=== PATIENT | female | born 1970 | race Caucasian/White ===

== ENCOUNTER → 2016-06-15 | Outpatient (CLI) | payer MEDICARE, OTHER ==
--- NOTE | 2016-06-17 09:47 | MM ---
Reason for exam: screening (asymptomatic). Last mammogram was performed 3 years and 5 months ago. History: Patient is postmenopausal and is nulliparous. Physical Findings: A clinical breast exam by your physician is recommended on an annual basis and results should be correlated with mammographic findings. MG 3D Screening Mammo W/Cad Bilateral CC and MLO view(s) were taken. Prior study comparison: January 26, 2013, bilateral digital screening mammo w/CAD. There are scattered fibroglandular densities. Finding: There are typically benign round calcifications. There is no discrete abnormality. No significant changes in finding since January 26, 2013. ASSESSMENT: Benign, BI-RAD 2 RECOMMENDATION: Routine screening mammogram of both breasts in 1 year.
== END | disposition home or self-care (01) ==
LOC: RADMAMWWP 13:08
PROVIDERS: ATTEND Family Medicine
DX: Z12.31 Encounter for screening mammogram for malignant neoplasm of breast (principal)
CPT/HCPCS: 77063; G0202

== ENCOUNTER → 2016-11-06 | Outpatient (CLI) | payer MEDICARE, OTHER ==
--- NOTE | 2016-11-06 10:47 | XR ---
EXAMINATION TYPE: XR chest 2V DATE OF EXAM: 11/06/2016 COMPARISON: Chest x-ray June 23, 2015. HISTORY: Acute Bronchitis per order. TECHNIQUE: Frontal and lateral views of the chest are obtained. FINDINGS: Low lung volumes are redemonstrated. There is no focal air space opacity, pleural effusion , or pneumothorax seen. The cardiac silhouette size is within normal limits. There is new stimulator device in the lower thoracic spinal canal. IMPRESSION: No suspicious acute pulmonary process.
== END | disposition home or self-care (01) ==
LOC: RADXRMAIN 10:24
PROVIDERS: ATTEND Internal Medicine Sleep Medicine
DX: J20.9 Acute bronchitis, unspecified (principal)
CPT/HCPCS: 71020

== ENCOUNTER → 2016-11-11 | Day surgery (SDC) | payer MEDICARE, OTHER ==
[~2016-11-11] MED LIST: DIAZEPAM 5 MG TAB PO ONE; HYDROcodone/APAP 5-325MG 1 EACH TAB PO PRN; PREMYELOGRAM MEDICATION REVIEW 1 EACH MISC PO ONE
[2016-11-11 08:37] VITALS: RESP 18
--- NOTE | 2016-11-11 10:37 | FL ---
EXAMINATION TYPE: FL myelogram lumbosacral DATE OF EXAM: 11/11/2016 COMPARISON: NONE HISTORY: Radiculopathy, back pain The procedure was explained to the patient, the risks complications and benefits. Informed consent w as obtained and all the patient's questions were answered. A timeout was performed. The L3-L4 level was localized under fluoroscopy. Standard sterile technique was utilized as well as appropriate local anesthesia of 1% Lidocaine. Spinal needle was introduced into the thecal sac under fluoroscopic guidance and 12 mL's of Omni 180 was injected. The patient tolerated the procedure wel l and was sent to CT in stable condition. Postprocedure discharge instructions were discussed with the patient. Patient tolerated procedure wel l. FINDINGS: Mild disc bulging appears to be present L3-4. There is loss of disc height L4-5 L5-S1. Disc bulge may be present L2-L3. IMPRESSION: 1. Successful lumbar myelogram. 2. Disc bulge L2-3, L3-4.
--- NOTE | 2016-11-11 12:19 | CT ---
EXAMINATION TYPE: CT lumbar spine w con DATE OF EXAM: 11/11/2016 COMPARISON: NONE HISTORY: Radiculopathy and Back pain CT DLP: 1432.50 mGycm CONTRAST: CT scan of the lumbar is performed with IV Contrast, patient with 12 ml mL of Omnipaque 180 intrathec al. TECHNIQUE: CT of the lumbar spine is performed on a spiral scan at 3 mm thick sections. Reconstructed images are performed in the coronal and sagittal planes. FINDINGS: T11-T12: No focal disc herniation or significant disc bulge is evident. No spinal canal stenosis or neural foraminal stenosis is present. T12-L1: No focal disc herniation or significant disc bulge is evident. No spinal canal stenosis or neural foraminal stenosis is present. L1-L2: No focal disc herniation or significant disc bulge is evident. No spinal canal stenosis or n eural foraminal stenosis is present L2-L3: No focal disc herniation or significant disc bulge is evident. No spinal canal stenosis or n eural foraminal stenosis is present L3-L4: Mild disc bulge is present with anterior thecal sac contact. No AP spinal canal stenosis is pr esent. Neural foramen are patent. Broad-based disc bulge has moderate anterior thecal sac compression . No AP spinal canal stenosis is present. Foramen are patent. L4-L5: Facet hypertrophy is present. This is causing some left lateral recess stenosis. Correlate wit h left L5 radicular symptoms. No spinal canal stenosis is present. There is moderate left and right f oraminal narrowing. L5-S1: Right paracentral endplate spurring is present from L5. This has mild right paracentral thecal sac compression. No nerve root impingement is identified. Facet hypertrophy is present. No spinal ca nal stenosis present. There is moderate bilateral foraminal narrowing. Vertebral alignment appears normal. Stimulator leads enter from the T11-12 level. IMPRESSION: Left lateral recess stenosis L4-5. Correlate with left L5 radicular symptoms. 2. Disc bulging L3-4 with anterior thecal sac compression. 3. Right paracentral endplate spurring L5. 4. Bilateral moderate foraminal narrowing is present L4-5 L5-S1.
[2016-11-11 12:49] VITALS: BP 121/65; PULSE 70; TEMP 98
== END ==
LOC: RADPROMAIN 07:36 → EDSTATUS 07:40
PROVIDERS: ATTEND Psychiatry & Neurology Neurology
DX: M51.16 Intervertebral disc disorders with radiculopathy, lumbar region (principal); M48.06 Spinal stenosis, lumbar region; M48.07 Spinal stenosis, lumbosacral region
CPT/HCPCS: 62304; 72132; Q9965; 62284

== ENCOUNTER 2016-11-12 08:18 | Day surgery (SDC) | payer MEDICARE, OTHER ==
[2016-11-10 16:51] VITALS: BMI 37.4
[~2016-11-12 08:18] MED LIST changes: -DIAZEPAM 5 MG TAB PO ONE; -HYDROcodone/APAP 5-325MG 1 EACH TAB PO PRN; +LACTATED RINGERS 1,000 ML IV ONE; +LACTATED RINGERS 1,000 ML IV SCH; +LIDOCAINE 1% 20 ML VIAL (10MG/ML) FOR IV START INTRADERMA PRN; -PREMYELOGRAM MEDICATION REVIEW 1 EACH MISC PO ONE; +Pre Op ABX Message 1 EACH MISC MISCELLANE ONE
[2016-11-12 08:49] VITALS: RESP 16; TEMP 98
[2016-11-12 08:53] LABS: Glucose,Whole Blood 90 mg/dL (75-99)
[2016-11-12] MEDS ORDERED: MIDAZOLAM 2 MG/2 ML VIAL ONE (09:26)
[2016-11-12] MEDS ORDERED: fentaNYL (PF) 50 MCG/ML 2 ML AMP ONE (09:26)
[2016-11-12] MEDS ORDERED: PROPOFOL 10 MG/ML 20 ML VIAL IV ONE (09:26)
[2016-11-12] MEDS ORDERED: KETAMINE 10 MG/ML 20 ML VIAL ONE (09:26)
[2016-11-12] MEDS ORDERED: LIDOCAINE 1% INJ 10MG/ML (20 ML MDV) ONE (09:26)
[2016-11-12] MEDS ORDERED: LIDOCAINE 2% (PF) 20 MG/ML 10ML INHALATION ONE (09:35)
[2016-11-12 10:06] VITALS: BP 137/74; PULSE 78
[2016-11-16 16:40] LABS: Mis test requested (Non-blood) Pneumocytis DFA
--- NOTE | 2016-11-20 09:54 | PCN ---
DATE OF PROCEDURE: 11/12/2016 PROCEDURE: 1. Bronchoscopy. 2. Bronchoalveolar lavage. INDICATION: Recurrent pneumonia. OPERATIVE DETAIL: Patient was prepared and draped in the usual fashion. Informed consent obtained from the patient. The tip of the scope was passed beyond the vocal cords through the right naris. The vocal cords were normal structure and function. Tip of the scope was passed beyond the vocal cords and trachea. There was diffuse erythema, edema bilaterally present. Some mucous plugging was present. Tip of the scope was wedged into the right upper lobe subsegment BAL was performed followed by right lower lobe and left lower lobe. No endobronchial mass or lesion was identified. Some mucous plug was scattered and seen, which were suctioned and cleaned and plug. Patient tolerated the procedure well. Besides transient desaturation, no complications were noted.
== END 2016-11-12 10:21 | disposition home or self-care (01) ==
LOC: ORWHC2ENDO 08:18
PROVIDERS: ATTEND Internal Medicine Sleep Medicine
DX: J18.9 Pneumonia, unspecified organism (principal); J44.9 Chronic obstructive pulmonary disease, unspecified; E07.9 Disorder of thyroid, unspecified; K21.9 Gastro-esophageal reflux disease without esophagitis; G47.33 Obstructive sleep apnea (adult) (pediatric); Z86.718 Personal history of other venous thrombosis and embolism; Z79.01 Long term (current) use of anticoagulants; Z79.899 Other long term (current) drug therapy
CPT/HCPCS: 87798 ×5; 87541; 87496; 87498; 87529 ×2; 88108; 88305; 87252; 87502 ×2; 87070; 87205; 87116; 87102; 87206; 87299; 31624; J2250; J2001 ×2; J3010; J2704

== ENCOUNTER → 2017-01-11 | Outpatient (CLI) | payer MEDICARE, OTHER | END | disposition home or self-care (01) | LOC: LABWHC1 14:56 | PROVIDERS: ATTEND Obstetrics & Gynecology | DX: N91.2 Amenorrhea, unspecified (principal) | CPT/HCPCS: 36415; 82670; 83001; 83002; 84146; 84443 ==

== ENCOUNTER 2017-02-16 12:07 | Inpatient (IN) | payer MEDICARE, OTHER ==
[2017-02-16] MEDS: PIPERACILLIN-TAZOBACTAM 3.375 GM in DEXTROSE/WATER 1 50ML.BAG IVPB SCH ×2 (18:03→22:32)
[2017-02-16] MEDS ORDERED: BREXPIPRAZOLE 1 MG PO SCH (21:00)
[2017-02-16] MEDS ORDERED: RIVAROXABAN 10 MG TAB PO SCH (21:00)
[2017-02-16] MEDS: HYDROcodone/APAP 10-325MG 1 EACH TAB PO SCH (21:20)
[2017-02-16] MEDS: PREGABALIN 75 MG CAP PO SCH (21:28)
[2017-02-16] MEDS: ALPRAZolam 0.5 MG TAB PO SCH (21:28)
[2017-02-16] MEDS: ZOLPIDEM 10 MG TAB PO SCH (22:35)
[2017-02-16] MEDS: PANTOPRAZOLE 40 MG TABLET PO SCH (22:35)
[2017-02-16] MEDS: SERTRALINE 50 MG TAB PO SCH (22:35)
[2017-02-16] MEDS: MONTELUKAST 10 MG TAB PO SCH (22:35)
[2017-02-17] MEDS: PIPERACILLIN-TAZOBACTAM 3.375 GM in DEXTROSE/WATER 1 50ML.BAG IVPB SCH ×3 (05:12→16:04)
[2017-02-17] MEDS: LEVOTHYROXINE 75 MCG TAB PO SCH (06:47)
[2017-02-17] MEDS: SERTRALINE 50 MG TAB PO SCH ×2 (09:25→21:25)
[2017-02-17] MEDS: HYDROcodone/APAP 10-325MG 1 EACH TAB PO SCH ×2 (09:28→21:24)
[2017-02-17] MEDS: ALPRAZolam 0.5 MG TAB PO SCH ×2 (09:28→21:24)
[2017-02-17] MEDS: PREGABALIN 75 MG CAP PO SCH ×2 (09:42→21:25)
[2017-02-17] MEDS: SYMBICORT 160-4.5 MCG INHALER INHALATION SCH ×2 (10:42→21:33)
--- NOTE | 2017-02-17 11:37 | XR ---
EXAMINATION TYPE: XR panorex DATE OF EXAM: 02/17/2017 COMPARISON: NONE HISTORY: . Dental abscess TECHNIQUE: Single Panorex view of the mandible is submitted. FINDINGS: There is extensive dental caries noted to involve the remaining teeth. Periapical abscesses are noted to involve the lower incisors, canines and premolars on the left. Periapical abscesses als o noted to involve the upper right lateral incisor and canine. No bony destructive process identified . IMPRESSION: Extensive dental caries and periapical abscesses as noted.
--- NOTE | 2017-02-17 12:07 | HP ---
HISTORY AND PHYSICAL CHIEF COMPLAINT: A 46-year-old, white female, admitted with left facial swelling. HISTORY OF PRESENT ILLNESS: A 46-year-old, white female, with left facial swelling of significant fashion in the last 48 hours to the point her left side of her face is much greater in size than the right side of the face. Increased pain, swelling and redness to the left cheek from her ear down to the mouth area. She has poor teeth inside the mouth. She has periodontal infection with abscess possibly going into the cheek and jaw at which time she was admitted to the hospital, IV Zosyn was started with ENT and periodontic consults. HOME MEDICATIONS: 1. Ambien 10 mg daily. 2. Zoloft 50 b.i.d. 3. Xarelto 20 daily. 4. Lyrica 150 b.i.d. 5. Omeprazole 20 daily. 6. Singulair 10 daily. 7. Levothyroxine 150 mcg daily. 8. [place] 10/325 t.i.d. 9. Symbicort 2 puffs b.i.d. 10.Vitamin D2 fifty thousand units weekly. 11.Rexulti 1 mg daily. 12.Albuterol 2 puffs q.i.d. 13.Xanax 1 mg q.h.s. and 0.5 q.a.m. 14-POINT REVIEW OF SYSTEMS: Negative except for mentioned in HPI. PHYSICAL EXAM: Vital signs stable, afebrile. CARDIOVASCULAR: S1, S2. LUNGS: Clear. ENDOCRINE: BMI is over 40. HEMATOLOGY: Negative Homans. SKIN: Normal. EXTREMITIES: Normal dorsalis pedis, +2 radial pulse. OPHTHALMOLOGICAL: Pupils equal, round, and react to light and accommodation. ENT: Shows left facial swelling from the ear down to the jaw. A large amount of swelling in the left facial periodontal area. There is tenderness to palpation. inside the mouth on the inferior lateral gum line and posterior teeth suggestive of an abscess. She has severe teeth x10 or 15 that are just cut in half on the left lower jaw radiating all the way back to the area of abscess. PSYCH: Fair mood and affect. NEUROLOGIC: Alert and orient x3. ASSESSMENT: 1. Periodontal abscess, periodontal disease. 2. Hypothyroidism. 3. History of pulmonary embolism. 4. History of depression. 5. History of schizoaffective. 6. History of chronic obstructive pulmonary disease. 7. Anxiety. 8. Obesity. 9. Pickwickian-type symptom. 10.Obstructive sleep apnea. Continue current treatment with IV Zosyn, await ENT recommendations and periodontal Infection Disease. Possible I&D of an abscess inside the jaw will be done. Continue with IV Zosyn in the meantime. MMODL / IJN: [id number] /
[2017-02-17] MEDS: MONTELUKAST 10 MG TAB PO SCH (21:25)
[2017-02-17] MEDS: PANTOPRAZOLE 40 MG TABLET PO SCH (21:25)
[2017-02-17] MEDS: ZOLPIDEM 10 MG TAB PO SCH (21:25)
[2017-02-18] MEDS: PIPERACILLIN-TAZOBACTAM 3.375 GM in DEXTROSE/WATER 1 50ML.BAG IVPB SCH ×2 (01:30→08:57)
[2017-02-18 08:09] VITALS: BP 140/72; PULSE 57; RESP 18; TEMP 97.8
[2017-02-18] MEDS: SERTRALINE 50 MG TAB PO SCH (08:11)
[2017-02-18] MEDS: LEVOTHYROXINE 75 MCG TAB PO SCH (08:11)
[2017-02-18] MEDS: ALPRAZolam 0.5 MG TAB PO SCH (08:11)
[2017-02-18] MEDS: HYDROcodone/APAP 10-325MG 1 EACH TAB PO SCH (08:11)
[2017-02-18] MEDS: PREGABALIN 75 MG CAP PO SCH (08:14)
--- NOTE | 2017-02-18 09:06 | CONS ---
CONSULTATION DATE OF CONSULTATION: 02/18/2017 CHIEF COMPLAINT: Right jaw is swollen. HISTORY OF PRESENT ILLNESS: The patient is a 46-year-old, female, who presented to the ER on 02/16 complaining of pain and swelling to the left face and mandible. She was evaluated by her primary care physician and was recommended she go to the ER. She was evaluated and then admitted into observation. She was started on IV antibiotics. PAST MEDICAL HISTORY: Significant for asthma, COPD, fibromyalgia, GERD, history of a PE, seizure disorder, sleep apnea and hypothyroidism. She also has chronic back pain. PAST SURGICAL HISTORY: Significant for back surgery, bariatric surgery, cholecystectomy, history of bronchoscopy and knee arthroscopy. MEDICATIONS: Ambien, Zoloft, Xarelto, Lyrica, singular, Synthroid, Flora p.r.n., vitamins and Xanax. She is currently on IV Rocephin. PAST SOCIAL HISTORY: Negative. She denies smoking, alcohol abuse or drug abuse. PHYSICAL EXAM: The patient is resting comfortably in bed. Her vital signs were stable. She is afebrile. Head and neck examination reveals mild soft tissue swelling of the left mandibular region. There is no cervical swelling or lymphadenopathy. The area is soft and not indurated. Intraorally, there are no oral lesions. There is mild swelling of the left posterior vestibule. The dentition is broken down to the gum line. All of her remaining teeth exhibit gross carious and only roots remain. Radiographic examination and panoramic x-ray reveals roots being present in the lower left mandible and sporadically spaced throughout the maxilla and mandible. ASSESSMENT: Necrotic teeth, left buccal space abscess. PLAN: The patient will continue the IV antibiotic and she will be discharged on 02/17 and was instructed to present to my office n.p.o. for the removal of the offending teeth. She is to continue a soft diet until that point and to apply heat to the area. MMODL / IJN: [id number] /
[2017-02-18] MEDS: SYMBICORT 160-4.5 MCG INHALER INHALATION SCH (09:07)
--- NOTE | 2017-02-18 11:12 | DS ---
DISCHARGE SUMMARY DATE OF ADMISSION: 02/16/2017 DATE OF DISCHARGE: 02/18/2017 DISCHARGE MEDICATIONS: 1. Xarelto 20 mg daily. 2. Lyrica 150 b.i.d. 3. Singulair 10 daily. 4. [place] 10/325 . 5. Symbicort 2 puffs b.i.d. 6. Zoloft 50 b.i.d. 7. Rexulti 1 ng q.h.s. 8. Omeprazole 20 daily. 9. Ambien 10 daily. 10.Synthroid 150 p.o. daily. 11.Xanax 1 mg at night and 0.5 in the morning. CONDITION: Stable. PROGNOSIS: Guarded. Ambulate as tolerated. HOSPITAL COURSE OF EVENTS: This is a white female who was admitted with severe swelling to the facial area with periodontal infection versus abscess in the cheek and the jaw, started IV Zosyn for 2 days. Improved to the point where general surgeon saw the patient. Patient was sent home in stable condition to have surgery on her jaw today in the office by physician. MMODL / IJN: [id number] /
[2017-02-21] MEDS ORDERED: ERGOCALCIFEROL 50,000 UNIT CAP PO SCH (12:00)
== END 2017-02-18 09:07 | disposition home or self-care (01) | DRG 159 ==
LOC: 3OBS 13:11 → OBSVTOIN 02-17 16:12
PROVIDERS: ADMIT Family Medicine; ATTEND Family Medicine
DX: K05.219 Aggressive periodontitis, localized, unspecified severity (principal); F25.9 Schizoaffective disorder, unspecified; F32.9 Major depressive disorder, single episode, unspecified; J44.9 Chronic obstructive pulmonary disease, unspecified; E03.9 Hypothyroidism, unspecified; K02.9 Dental caries, unspecified; E66.9 Obesity, unspecified; F41.9 Anxiety disorder, unspecified; G40.909 Epilepsy, unspecified, not intractable, without status epilepticus; G47.33 Obstructive sleep apnea (adult) (pediatric); K21.9 Gastro-esophageal reflux disease without esophagitis; M79.7 Fibromyalgia; G89.29 Other chronic pain; M54.9 Dorsalgia, unspecified; Z79.01 Long term (current) use of anticoagulants; Z79.899 Other long term (current) drug therapy
CPT/HCPCS: 70355; 94640

== ENCOUNTER → 2017-02-23 | Outpatient (CLI) | payer MEDICARE, OTHER ==
--- NOTE | 2017-02-24 06:45 | BD ---
EXAMINATION TYPE: MG DEXA axial skeleton. DATE OF EXAM: 02/23/2017 COMPARISON: NONE CLINICAL HISTORY: Post menopausal symptoms per order. Height: 64 IN Weight: 223 FRAX RISK QUESTIONS: Alcohol (3 or more units per day): NO Family History (Parent hip fracture): NO Glucocorticoids (More than 3mos): NO (Ex: prednisone, prednisolone, methylprednisolone, dexamethasone, and hydrocortisone). History of Fracture in Adulthood: NO Secondary Osteoporosis: 1. Type 1 Diabetes: NO 2. Hyperthyroidism: NO 3. Menopause before 45: YES 41 4. Malnutrition: NO 5. Chronic liver disease: NO Rheumatoid Arthritis: NO Current Tobacco Use: NO RISK FACTORS HISTORY OF: Surgery to Spine: L-SPINE When: 2013 Active: MODERATE Postmenopausal woman: AGE 41 MEDICATIONS: Thyroid Medications: YES Which medication: Synthroid How Lon+ YRS Additional Medications: SYNTHROID, ANXIETY MEDS, DEPRESSION MEDS, AMBIEN, VIT D, PAIN MEDS, ZOLOFT, X ANAX, AMOXICILLIN EXAM MEASUREMENTS: Bone mineral densitometry was performed using the [employer] System. L-SPINE SURGERY IN 2013 Bone mineral density about the R hip (g/cm2): 0.742 Bone mineral density about the L hip (g/cm2): 0.747 T Score values are as follows: -----R Neck: -2.1 -----L Neck: -2.1 -----R Total: -1.9 -----L Total: -1.5 Bone mineral density BASELINE IMPRESSION: Osteopenia (T Score between -2.5 and -1 as noted by T score values in both hips. There is slightly increased risk of fracture and the patient may be considered for treatment. Re-Screen 2-5 years. NOTE: T-SCORE=SD OF THE YOUNG ADULT MEAN.
== END | disposition home or self-care (01) ==
LOC: RADBDWWP 15:40
PROVIDERS: ATTEND Family Medicine
DX: M85.851 Other specified disorders of bone density and structure, right thigh (principal); M85.852 Other specified disorders of bone density and structure, left thigh
CPT/HCPCS: 77080

== ENCOUNTER → 2017-07-12 | Outpatient (CLI) | payer MEDICARE, OTHER ==
[2017-07-12 12:01] LABS: Basophils % (A) 1 %; Eosinophils # (A) 0.2 k/uL (0-0.7); Eosinophils % (A) 5 %; HCT 40.4 % (34.0-46.0); HGB 12.9 gm/dL (11.4-16.0); Lymphocytes # (A) 1.2 k/uL (1.0-4.8); Lymphocytes % (A) 27 %; MCH 29.3 pg (25.0-35.0); MCHC 31.9 g/dL (31.0-37.0); Mean Platelet Volume 8.3; Monocytes # (A) 0.3 k/uL (0-1.0); Monocytes % (A) 6 %; Neutrophils # (A) 2.7 k/uL (1.3-7.7); Neutrophils % (A) 61 %; Platelet Count 250 k/uL (150-450); RBC 4.39 m/uL (3.80-5.40); RDW 13.7 % (11.5-15.5); WBC 4.5 k/uL (3.8-10.6)
[2017-07-12 12:11] LABS: Anion Gap 7 mmol/L; Blood Urea Nitrogen 7 mg/dL (7-17); Calcium 9.7 mg/dL (8.4-10.2); Carbon Dioxide 29 mmol/L (22-30); Chloride 104 mmol/L (98-107); Glucose 115 mg/dL (74-99); Sodium 140 mmol/L (137-145)
[2017-07-12 12:17] LABS: Potassium 5.1 mmol/L (3.5-5.1)
== END | disposition home or self-care (01) ==
LOC: LABWHC1 11:25
PROVIDERS: ATTEND Orthopaedic Surgery
DX: Z01.812 Encounter for preprocedural laboratory examination (principal)
CPT/HCPCS: 36415; 80048; 85025; 93005

== ENCOUNTER → 2017-09-02 | Outpatient (CLI) | payer MEDICARE, OTHER ==
--- NOTE | 2017-09-02 11:39 | CT ---
EXAMINATION TYPE: CT cervical spine wo con DATE OF EXAM: 09/02/2017 COMPARISON: 06/23/2015 HISTORY: Neck pain with numbness, tingling bilateral arms CT DLP: 1284 mGycm. Automated Exposure Control for Dose Reduction was Utilized. TECHNIQUE: CT scan of the cervical spine is obtained without contrast, axial images are obtained, sa gittal and coronal reformatted images are also reviewed. FINDINGS: Cervical spine is visualized in its entirety from C1 through upper thoracic levels, demonst rates satisfactory alignment without evidence of acute fracture or dislocation. Prevertebral soft ti ssue appears within normal limits. The C1-C2 articulation is within normal limits on the coronal ladan ges. Review of axial images shows no significant spinal canal stenosis or neural foraminal narrowing at an y cervical level. Mild degenerative changes are seen at C4-C7 displayed as 3 mild facet arthropathy a nd uncovertebral hypertrophy without significant neural foraminal stenosis. Degenerative cystic carey es are seen at C1 and C2. There is straightening of usual cervical lordosis. The previously questione d possible disc herniation at C6-C7 is not definitively seen on today's examination. Evaluation for d isc herniation is better suited with MRI. No pneumothorax is seen within the lung apices. IMPRESSION: 1. No acute fracture or malalignment evident in the cervical spine. 2. Straightening of usual cervical lordosis that may relate to muscular strain, spasm or patient posi tioning. 3. Minimal degenerative disc disease of the cervical spine without gross evidence of spinal canal pia nosis. The previously questioned C6-C7 disc herniation is not demonstrated on today's examination and could be better evaluated with MRI.
== END | disposition home or self-care (01) ==
LOC: RADCTMAIN 10:52
PROVIDERS: ATTEND Family Medicine
DX: R20.2 Paresthesia of skin (principal); M50.321 Other cervical disc degeneration at C4-C5 level; M50.322 Other cervical disc degeneration at C5-C6 level
CPT/HCPCS: 72125

== ENCOUNTER → 2018-05-09 | Outpatient (CLI) | payer MEDICARE, OTHER ==
[2018-05-09 11:57] LABS: Anisocytosis Slight; Basophils % (A) 1 %; Eosinophils # (A) 0.2 k/uL (0-0.7); Eosinophils % (A) 4 %; HCT 36.2 % (34.0-46.0); HGB 11.3 gm/dL (11.4-16.0); Hypochromasia Marked; Lymphocytes % (A) 23 %; MCH 25.1 pg (25.0-35.0); MCHC 31.1 g/dL (31.0-37.0); MCV 80.5 fL (80.0-100.0); Mean Platelet Volume 8.6; Monocytes # (A) 0.2 k/uL (0-1.0); Monocytes % (A) 6 %; Neutrophils # (A) 2.7 k/uL (1.3-7.7); Neutrophils % (A) 64 %; Platelet Count 253 k/uL (150-450); RBC 4.49 m/uL (3.80-5.40); RDW 16.2 % (11.5-15.5); WBC 4.2 k/uL (3.8-10.6)
[2018-05-09 17:15] LABS: Albumin 4.3 g/dL (3.80-4.90); Calcium 8.8 mg/dL (8.7-10.3); Potassium 4.4 mmol/L (3.5-5.5)
[2018-05-09 21:42] LABS: Hemoglobin A1C 5.4 % (4.0-6.0)
== END | disposition home or self-care (01) ==
LOC: LABWHC1 10:18
PROVIDERS: ATTEND Orthopaedic Surgery
DX: Z01.812 Encounter for preprocedural laboratory examination (principal)
CPT/HCPCS: 36415; 80048; 82040; 83036; 85025; 87070; 93005

== ENCOUNTER 2018-07-17 15:07 | Emergency (ER) | payer MEDICARE, OTHER ==
[2018-07-17 16:38] LABS: Basophils % (A) 1 %; Eosinophils # (A) 0.3 k/uL (0-0.7); Eosinophils % (A) 5 %; HCT 32.5 % (34.0-46.0); HGB 10.3 gm/dL (11.4-16.0); Hypochromasia Moderate; Lymphocytes # (A) 1.6 k/uL (1.0-4.8); Lymphocytes % (A) 27 %; MCH 25.1 pg (25.0-35.0); MCHC 31.7 g/dL (31.0-37.0); Mean Platelet Volume 7.9; Monocytes # (A) 0.4 k/uL (0-1.0); Monocytes % (A) 7 %; Neutrophils # (A) 3.4 k/uL (1.3-7.7); Neutrophils % (A) 59 %; Platelet Count 264 k/uL (150-450); RBC 4.11 m/uL (3.80-5.40); RDW 15.8 % (11.5-15.5); WBC 5.8 k/uL (3.8-10.6)
[2018-07-17 16:48] LABS: ALT 46 U/L (9-52); AST 30 U/L (14-36); Albumin 3.6 g/dL (3.5-5.0); Alkaline Phosphatase 129 U/L (38-126); Anion Gap 3 mmol/L; Blood Urea Nitrogen 8 mg/dL (7-17); Calcium 8.4 mg/dL (8.4-10.2); Carbon Dioxide 28 mmol/L (22-30); Chloride 110 mmol/L (98-107); Glucose 78 mg/dL (74-99); Potassium 4.2 mmol/L (3.5-5.1); Sodium 141 mmol/L (137-145); Total Bilirubin 0.3 mg/dL (0.2-1.3); Total Protein 6.1 g/dL (6.3-8.2)
[2018-07-17] MEDS ORDERED: KETOROLAC 60 MG/2 ML VIAL IM STA (17:19)
[2018-07-17] MEDS ORDERED: HYDROcodone/APAP 10-325MG 1 EACH TAB PO ONE (17:19)
--- NOTE | 2018-07-17 17:19 | ED ---
Wound/Laceration HPI - General Chief Complaint: Wound/Laceration Stated Complaint: open wound Time Seen by Provider: 07/17/18 16:49 Source: patient, RN notes reviewed, old records reviewed Mode of arrival: ambulatory Limitations: no limitations - History of Present Illness Initial Comments: Patient a 47-year-old female who presents today with chief complaint of a lower abdominal wound. Patient reports that she's had this wound for the past 2 years after coming type procedure after gastric sleeve surgery and she lost weight. Patient reports that she is follow-up with her doctors he has a jose Mayorga who performed his procedure. She is also followed intermittently with wound care. She states she starts to see wound care on Wednesday. She comes in today with increased pain over the lower abdomen. She denies any nausea vomiting chest pain or shortness breath. She denies any fevers. She reports that she does use some dry dressings over the area. She is currently on amoxicillin for an upper respiratory infection. - Related Data Home Medications Medication Instructions Recorded Confirmed Rivaroxaban [Xarelto] 20 mg PO HS 11/20/13 07/17/18 Pregabalin [Lyrica] 150 mg PO TID 10/09/14 07/15/18 Montelukast [Singulair] 10 mg PO HS 06/23/15 07/17/18 Brexpiprazole [Rexulti] 1 mg PO HS 02/16/17 07/17/18 Budesonide/Formoterol Fumarate 2 puff INHALATION RT-BID 02/16/17 07/17/18 [Symbicort 160-4.5 Mcg Inhaler] Levothyroxine Sodium [Synthroid] 150 mcg PO DAILY 02/16/17 07/17/18 Omeprazole 20 mg PO HS 02/16/17 07/17/18 Sertraline [Zoloft] 50 mg PO BID 02/16/17 07/17/18 Suvorexant [Belsomra] 20 mg PO HS PRN 05/03/18 07/17/18 buPROPion HCL [Wellbutrin SR] 150 mg PO BID 07/08/18 07/17/18 Meloxicam [Mobic] 15 mg PO DAILY 07/17/18 07/17/18 Previous Rx's Medication Instructions Recorded Cephalexin [Keflex] 500 mg PO Q8HR #21 cap 07/17/18 Allergies Allergy/AdvReac Type Severity Reaction Status Date / Time No Known Allergies Allergy Verified 07/17/18 17:09 Review of Systems ROS Statement: Those systems with pertinent positive or pertinent negative responses have been documented in the HPI. ROS Other: All systems not noted in ROS Statement are negative. Past Medical History Past Medical History: Asthma, COPD, Fibromyalgia, GERD/Reflux, Pneumonia, Pulmonary Embolus (PE), Seizure Disorder, Sleep Apnea/CPAP/BIPAP, Thyroid Disorder Additional Past Medical History / Comment(s): Chronic asthma, chronic COPD, recurrent pneumonias, hx of respiratory stridor, PE in 2003 and 2009, MAGALI with CPAP used most of the time, psuedo seizures with last one being 16 months ago, past gastric ulcer, DDD, LOWER BACK PAIN- RADIATES DOWN RT LEG, R toes, neuropathy, generalized pain from fibromyalgia, chronic MIGRAINES, hypothyroidism, urinary leakage at times, wound on abdomen History of Any Multi-Drug Resistant Organisms: None Reported Past Surgical History: Back Surgery, Bariatric Surgery, Cholecystectomy, Joint Replacement, Orthopedic Surgery Additional Past Surgical History / Comment(s): 11/12/16 bronchoscopy wit BAL, gastric bypass 2011, 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 Past Anesthesia/Blood Transfusion Reactions: No Reported Reaction Past Psychological History: Anxiety, Depression Smoking Status: Never smoker - Past Family History Brother(s) Family Medical History: Cancer Additional Family Medical History / Comment(s): spine Father Family Medical History: Coronary Artery Disease (CAD), CVA/TIA, Diabetes Mellitus, Hypertension, Thyroid Disorder Additional Family Medical History / Comment(s): X3 STROKES, STENTS IN HEART, Pacemaker Mother Family Medical History: Diabetes Mellitus, Hypertension, Thyroid Disorder Additional Family Medical History / Comment(s): KNEE REPLACEMENTS General Exam - General Exam Comments Initial Comments: 47-year-old female. Alert and oriented. No distress. Limitations: no limitations General appearance: alert, in no apparent distress Head exam: Present: atraumatic, normocephalic, normal inspection Eye exam: Present: normal appearance, PERRL, EOMI. Absent: scleral icterus, conjunctival injection, periorbital swelling ENT exam: Present: normal exam, mucous membranes moist Neck exam: Present: normal inspection. Absent: tenderness, meningismus, lymphadenopathy Respiratory exam: Present: normal lung sounds bilaterally. Absent: respiratory distress, wheezes, rales, rhonchi, stridor Cardiovascular Exam: Present: regular rate, normal rhythm, normal heart sounds. Absent: systolic murmur, diastolic murmur, rubs, gallop, clicks GI/Abdominal exam: Present: soft, normal bowel sounds, other (Patient has a 2 cm x 2 cm chronic appearing wound over the lower abdomen above the suprapubic region. Patient has no surrounding erythema. No crepitus noted.). Absent: distended, tenderness, guarding, rebound, rigid Extremities exam: Present: normal inspection, full ROM, normal capillary refill. Absent: tenderness, pedal edema, joint swelling, calf tenderness Back exam: Present: normal inspection Neurological exam: Present: alert, oriented X3, CN II-XII intact Psychiatric exam: Present: normal affect, normal mood Skin exam: Present: warm, dry, intact, normal color. Absent: rash Course Vital Signs 07/17/18 15:16 Temperature 97.5 F L Pulse Rate 86 Respiratory 16 Rate Blood Pressure 143/85 O2 Sat by Pulse 98 Oximetry Medical Decision Making - Medical Decision Making 47-year-old female presents return today for evaluation of chronic wound. She denies increased pain. She is on [place] chronically. She has a 2 x 2 centimeter chronic appearing wound. No surrounding skin changes. Slight drainage. Your wound culture was obtained. She started to see wound care on Wednesday. I discussed this time that her wound has been ongoing for 2 years. I do not see any significant emergent intervention at this time especially since she is seeing wound care on Wednesday. I discussed switching her antibiotic to Keflex prescription for any early worsening infection. Patient agrees. Patient was given dry dressings. I discussed strict return parameters. Given 1 dose of pain medication in ER. - Lab Data Result diagrams: 07/17/18 16:25 07/17/18 16:25 Lab Results 07/17/18 07/17/18 Range/Units 16:25 16:25 WBC 5.8 (3.8-10.6) k/uL RBC 4.11 (3.80-5.40) m/uL Hgb 10.3 L (11.4-16.0) gm/dL Hct 32.5 L (34.0-46.0) % MCV 79.0 L (80.0-100.0) fL MCH 25.1 (25.0-35.0) pg MCHC 31.7 (31.0-37.0) g/dL RDW 15.8 H (11.5-15.5) % Plt Count 264 (150-450) k/uL Neutrophils % 59 % Lymphocytes % 27 % Monocytes % 7 % Eosinophils % 5 % Basophils % 1 % Neutrophils # 3.4 (1.3-7.7) k/uL Lymphocytes # 1.6 (1.0-4.8) k/uL Monocytes # 0.4 (0-1.0) k/uL Eosinophils # 0.3 (0-0.7) k/uL Basophils # 0.0 (0-0.2) k/uL Hypochromasia Moderate Sodium 141 (137-145) mmol/L Potassium 4.2 (3.5-5.1) mmol/L Chloride 110 H (98-107) mmol/L Carbon Dioxide 28 (22-30) mmol/L Anion Gap 3 mmol/L BUN 8 (7-17) mg/dL Creatinine 0.80 (0.52-1.04) mg/dL Est GFR (CKD-EPI)AfAm >90 (>60 ml/min/1.73 sqM) Est GFR (CKD-EPI)NonAf 90 (>60 ml/min/1.73 sqM) Glucose 78 (74-99) mg/dL Calcium 8.4 (8.4-10.2) mg/dL Total Bilirubin 0.3 (0.2-1.3) mg/dL AST 30 (14-36) U/L ALT 46 (9-52) U/L Alkaline Phosphatase 129 H (38-126) U/L Total Protein 6.1 L (6.3-8.2) g/dL Albumin 3.6 (3.5-5.0) g/dL Disposition Clinical Impression: Chronic wound infection of abdomen Disposition: HOME SELF-CARE Condition: Good Instructions (If sedation given, give patient instructions): Chronic Wound Care (ED) Additional Instructions: Patient is advised of close follow-up with primary care physician and wound care as directed. Patient should return to the emergency department if any alarming signs or symptoms occur. Prescriptions: Cephalexin [Keflex] 500 mg PO Q8HR #21 cap Is patient prescribed a controlled substance at d/c from ED?: No Referrals: Tyler Black MD [Primary Care Provider] - 1-2 days Time of Disposition: 17:17
[2018-07-17 18:18] VITALS: BP 137/79; PULSE 85; RESP 18; TEMP 98
== END 2018-07-17 18:05 | disposition home or self-care (01) ==
LOC: EC 15:07
DX: T81.43XA Infection following a procedure, organ and space surgical site, initial encounter (principal); J06.9 Acute upper respiratory infection, unspecified; J44.9 Chronic obstructive pulmonary disease, unspecified; M79.7 Fibromyalgia; K21.9 Gastro-esophageal reflux disease without esophagitis; E03.9 Hypothyroidism, unspecified; G40.909 Epilepsy, unspecified, not intractable, without status epilepticus; G47.33 Obstructive sleep apnea (adult) (pediatric); G62.9 Polyneuropathy, unspecified; F32.9 Major depressive disorder, single episode, unspecified; F41.9 Anxiety disorder, unspecified; Z79.01 Long term (current) use of anticoagulants; Z79.1 Long term (current) use of non-steroidal anti-inflammatories (NSAID); Z79.51 Long term (current) use of inhaled steroids; Z79.890 Hormone replacement therapy; Z79.899 Other long term (current) drug therapy; Z98.84 Bariatric surgery status; Z90.49 Acquired absence of other specified parts of digestive tract; Z86.711 Personal history of pulmonary embolism; Z87.01 Personal history of pneumonia (recurrent); Z86.69 Personal history of other diseases of the nervous system and sense organs; Z87.11 Personal history of peptic ulcer disease; Z96.641 Presence of right artificial hip joint; Z96.651 Presence of right artificial knee joint; Z87.39 Personal history of other diseases of the musculoskeletal system and connective tissue; Z99.89 Dependence on other enabling machines and devices
CPT/HCPCS: 36415; 80053; 85025; 87070; 87205; 99284; 96372; J1885

== ENCOUNTER 2018-08-07 12:45 | Emergency (ER) | payer MEDICARE, OTHER ==
[2018-08-07 12:56] VITALS: RESP 18
--- NOTE | 2018-08-07 13:15 | ED ---
Skin/Abscess/FB HPI - General Chief complaint: Skin/Abscess/Foreign Body Stated complaint: rash on rt arm Time Seen by Provider: 08/07/18 13:10 Source: patient Mode of arrival: ambulatory Limitations: no limitations - History of Present Illness Initial comments: 47-year-old female presenting today for chief complaint of right upper extremity erythema. Patient states that 3 weeks ago she had a blood draw, she states she did notice mild surrounding erythema but time. Patient states that since it has been increasing. Patient states she has erythema from mid forearm up to mid bicep. Patient states is warm to touch and very itchy. Patient is concerned about infection and presented today for evaluation. Patient has been taking bactrim outpatient since Wednesday for a chronic wound of the abdomen s/p a tummy tuck. Patient denies fever or chills, general malaise, night sweats. Patient states she feels well however the itching has become uncomfortable. Remaining review of systems negative, patient denies any recent upper extremity swelling, shortness of breath, chest pain, back pain, abdominal pain, nausea or vomiting, numbness or tingling, dysuria or hematuria, constipation or diarrhea, headaches or visual changes, or any other complaints. - Related Data Home Medications Medication Instructions Recorded Confirmed Rivaroxaban [Xarelto] 20 mg PO HS 11/20/13 08/02/18 Pregabalin [Lyrica] 150 mg PO TID 10/09/14 08/02/18 Montelukast [Singulair] 10 mg PO HS 06/23/15 08/02/18 Brexpiprazole [Rexulti] 1 mg PO HS 02/16/17 08/02/18 Budesonide/Formoterol Fumarate 2 puff INHALATION RT-BID 02/16/17 08/02/18 [Symbicort 160-4.5 Mcg Inhaler] Levothyroxine Sodium [Synthroid] 150 mcg PO DAILY 02/16/17 08/02/18 Omeprazole 20 mg PO HS 02/16/17 08/02/18 Sertraline [Zoloft] 50 mg PO BID 02/16/17 08/02/18 Suvorexant [Belsomra] 20 mg PO HS PRN 05/03/18 08/02/18 buPROPion HCL [Wellbutrin SR] 150 mg PO BID 07/08/18 08/02/18 Meloxicam [Mobic] 15 mg PO DAILY 07/17/18 08/02/18 Solifenacin Succinate [Vesicare] 10 mg PO DAILY 07/19/18 08/02/18 Previous Rx's Medication Instructions Recorded Cephalexin [Keflex] 500 mg PO Q8HR #21 cap 07/17/18 Sulfamethox-Tmp 800-160Mg [Bactrim 1 tab PO Q12HR #20 tab 07/26/18 DS 800-160 mg] Cephalexin [Keflex] 500 mg PO Q8HR 7 Days #28 cap 08/07/18 Allergies Allergy/AdvReac Type Severity Reaction Status Date / Time No Known Allergies Allergy Verified 08/07/18 12:52 Review of Systems ROS Statement: Those systems with pertinent positive or pertinent negative responses have been documented in the HPI. ROS Other: All systems not noted in ROS Statement are negative. Past Medical History Past Medical History: Asthma, COPD, Fibromyalgia, GERD/Reflux, Pneumonia, Pulmo nary Embolus (PE), Seizure Disorder, Sleep Apnea/CPAP/BIPAP, Thyroid Disorder Additional Past Medical History / Comment(s): Chronic asthma, chronic COPD, recurrent pneumonias, hx of respiratory stridor, PE in 2003 and 2009, MAGALI with CPAP used most of the time, psuedo seizures with last one being 16 months ago, past gastric ulcer, DDD, LOWER BACK PAIN- RADIATES DOWN RT LEG, R toes,neuropathy, generalized pain from fibromyalgia, chronic MIGRAINES, hypothyroidism, urinary leakage at times, wound on abdomen History of Any Multi-Drug Resistant Organisms: None Reported Past Surgical History: Back Surgery, Bariatric Surgery, Cholecystectomy, Joint Replacement, Orthopedic Surgery Additional Past Surgical History / Comment(s): 11/12/16 bronchoscopy wit BAL, gastric bypass 2011, 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 Past Anesthesia/Blood Transfusion Reactions: No Reported Reaction Past Psychological History: Anxiety, Depression Smoking Status: Never smoker Past Alcohol Use History: None Reported Past Drug Use History: None Reported - Past Family History Brother(s) Family Medical History: Cancer Additional Family Medical History / Comment(s): spine Father Family Medical History: Coronary Artery Disease (CAD), CVA/TIA, Diabetes Mellitus, Hypertension, Thyroid Disorder Additional Family Medical History / Comment(s): X3 STROKES, STENTS IN HEART,Pacemaker Mother Family Medical History: Diabetes Mellitus, Hypertension, Thyroid Disorder Additional Family Medical History / Comment(s): KNEE REPLACEMENTS General Exam - General Exam Comments Initial Comments: General: The patient is awake and alert, in no distress, and does not appear acutely ill. Eye: +3 mm pupils are equal, round and reactive to light, extra-ocular movements are intact. No nystagmus. There is normal conjunctiva bilaterally. No signs of icterus. Ears, nose, mouth and throat: There are moist mucous membranes and no oral lesions. Neck: The neck is supple, there is no tenderness or JVD. Cardiovascular: There is a regular rate and rhythm. No murmur, rub or gallop is appreciated. Respiratory: Lungs are clear to auscultation, respirations are non-labored, breath sounds are equal. No wheezes, stridor, rales, or rhonchi. Gastrointestinal: Soft, non-distended, non-tender abdomen without masses or organomegaly noted. There is no rebound or guarding present. Bandage of the abdomen C/D/I no surrounding erythema. Musculoskeletal: Normal ROM, no tenderness. Strength 5/5. Sensation intact. Radial pulses equal bilaterally 2+. Neurological: A&O x 3. CN II-XII intact, There are no obvious motor or sensory deficits. Coordination appears grossly intact. Speech is normal. Skin: Skin is warm and dry and no lesions are noted. Erythema of the RUE from mid forearm to mid bicep confluent, blanchable, warm to palpation. Psychiatric: Cooperative, appropriate mood & affect, normal judgment. Limitations: no limitations Course Vital Signs 08/07/18 08/07/18 12:52 14:37 Temperature 97.4 F L 97.1 F L Pulse Rate 89 77 Respiratory 18 18 Rate Blood Pressure 133/75 145/84 O2 Sat by Pulse 97 97 Oximetry Medical Decision Making - Medical Decision Making Patient was evaluated in person by myself as well as attending provider Dr. Paulino-who recommended outpatient therapy. Physical exam examination findings consistent with cellulitis. Patient is on outpatient Bactrim. Patient has not had strep coverage with Keflex. Patient has no constitutional symptoms. She appears well and nontoxic. Patient states that the erythema is spreading slowly. We discussed various options the patient including observation for IV antibiotics. Patient states she would like to try outpatient antibiotic regimen, with addition of Keflex to current regimen of Bactrim. The area of erythema was outlined. Patient given IM ceftriaxone. Patient discharged with Keflex 4 times a day 7 days. Patient is to follow-up closely with her primary care provider and return for any worsening symptoms including spread of erythema outside of lines drawn today. Patient verbalized understanding of importance of return parameters deny questions at this time. Patient discharged until condition appearing well denying questions at this time. Disposition Clinical Impression: Cellulitis of right forearm Disposition: HOME SELF-CARE Condition: Good Instructions (If sedation given, give patient instructions): Cellulitis (ED) Additional Instructions: Please use medication as discussed. Please follow-up with family doctor in the next 2 days. Please return to emergency room if the symptoms increase or worsen or for any other concerns, if redness goes outside of lines immediate return to the ER as discussed. Prescriptions: Cephalexin [Keflex] 500 mg PO Q8HR 7 Days #28 cap Is patient prescribed a controlled substance at d/c from ED?: No Referrals: Tyler Black MD [Primary Care Provider] - 1-2 days Time of Disposition: 14:14
[2018-08-07] MEDS ORDERED: cefTRIAXone IN SWFI 1,000 MG/10 ML SYRINGE IVP STA (14:14)
[2018-08-07] MEDS ORDERED: cefTRIAXone 1,000 MG VIAL (IM USE) IM STA (14:17)
[2018-08-07 14:41] VITALS: BP 145/84; PULSE 77; TEMP 97.1
[2018-08-07] MEDS ORDERED: IBUPROFEN 600 MG TAB PO STA (14:42)
== END 2018-08-07 14:44 | disposition home or self-care (01) ==
LOC: EC 12:45
DX: L03.113 Cellulitis of right upper limb (principal); J44.9 Chronic obstructive pulmonary disease, unspecified; K21.9 Gastro-esophageal reflux disease without esophagitis; G40.909 Epilepsy, unspecified, not intractable, without status epilepticus; E03.9 Hypothyroidism, unspecified; G47.33 Obstructive sleep apnea (adult) (pediatric); M79.7 Fibromyalgia; F41.9 Anxiety disorder, unspecified; F32.9 Major depressive disorder, single episode, unspecified; Z79.01 Long term (current) use of anticoagulants; Z79.51 Long term (current) use of inhaled steroids; Z79.1 Long term (current) use of non-steroidal anti-inflammatories (NSAID); Z79.899 Other long term (current) drug therapy; Z98.84 Bariatric surgery status; Z96.641 Presence of right artificial hip joint; Z96.651 Presence of right artificial knee joint; Z86.711 Personal history of pulmonary embolism
CPT/HCPCS: 99282; 96372; J0696

== ENCOUNTER 2018-08-08 19:14 | Inpatient (IN) | payer MEDICARE, OTHER ==
[2018-08-08] MEDS ORDERED: cefTRIAXone IN SWFI 1,000 MG/10 ML SYRINGE IVP STA (19:59)
[2018-08-08] MEDS ORDERED: VANCOMYCIN IV PER PHARMACY 1 EACH MISC MISCELLANE PRN (20:06)
[2018-08-08] MEDS ORDERED: SODIUM CHLORIDE 0.9% 1,000 ML IV ONE (20:06)
[2018-08-08] MEDS ORDERED: HYDROcodone/APAP 7.5-325MG 1 EACH TAB PO ONE (20:06)
[2018-08-08] MEDS ORDERED: NALOXONE 0.4 MG/ML 1 ML VIAL IV PRN (20:08)
[2018-08-08] MEDS ORDERED: ACETAMINOPHEN TAB 325 MG TAB PO PRN (20:08)
[2018-08-08] MEDS ORDERED: VANCOMYCIN 1,750 MG in SODIUM CHLORIDE 0.9% 500 ML 500 ML IVPB STA (20:11)
--- NOTE | 2018-08-08 20:11 | ED ---
Upper Extremity HPI - General Source: patient Mode of arrival: ambulatory Limitations: no limitations <Chely Tarango - Last Filed: 08/08/18 20:10> <Yaakov Paulino - Last Filed: 08/08/18 20:13> - General Chief Complaint: Extremity Injury, Upper Stated Complaint: cellulitis rt forearm Time Seen by Provider: 08/08/18 19:49 - Related Data Home Medications Medication Instructions Recorded Confirmed Rivaroxaban [Xarelto] 20 mg PO HS 11/20/13 08/08/18 Pregabalin [Lyrica] 150 mg PO TID 10/09/14 08/08/18 Montelukast [Singulair] 10 mg PO HS 06/23/15 08/08/18 Brexpiprazole [Rexulti] 1 mg PO HS 02/16/17 08/08/18 Budesonide/Formoterol Fumarate 2 puff INHALATION RT-BID 02/16/17 08/08/18 [Symbicort 160-4.5 Mcg Inhaler] Levothyroxine Sodium [Synthroid] 150 mcg PO DAILY 02/16/17 08/08/18 Omeprazole 20 mg PO HS 02/16/17 08/08/18 Sertraline [Zoloft] 50 mg PO BID 02/16/17 08/08/18 Suvorexant [Belsomra] 20 mg PO HS PRN 05/03/18 08/08/18 buPROPion HCL [Wellbutrin SR] 150 mg PO BID 07/08/18 08/08/18 Meloxicam [Mobic] 15 mg PO DAILY 07/17/18 08/08/18 Solifenacin Succinate [Vesicare] 10 mg PO DAILY 07/19/18 08/08/18 Previous Rx's Medication Instructions Recorded Cephalexin [Keflex] 500 mg PO Q8HR 7 Days #28 cap 08/07/18 Allergies Allergy/AdvReac Type Severity Reaction Status Date / Time No Known Allergies Allergy Verified 08/08/18 20:08 Review of Systems ROS Other: All systems not noted in ROS Statement are negative. <Chely Tarango - Last Filed: 08/08/18 20:10> ROS Other: All systems not noted in ROS Statement are negative. <Yaakov Paulino - Last Filed: 08/08/18 20:13> ROS Statement: Those systems with pertinent positive or pertinent negative responses have been documented in the HPI. Past Medical History Past Medical History: Asthma, COPD, Fibromyalgia, GERD/Reflux, Pneumonia, Pulmonary Embolus (PE), Seizure Disorder, Sleep Apnea/CPAP/BIPAP, Thyroid Disorder Additional Past Medical History / Comment(s): Chronic asthma, chronic COPD, recurrent pneumonias, hx of respiratory stridor, PE in 2003 and 2009, MAGALI with CPAP used most of the time, psuedo seizures with last one being 16 months ago, past gastric ulcer, DDD, LOWER BACK PAIN- RADIATES DOWN RT LEG, R toes,neuropathy, generalized pain from fibromyalgia, chronic MIGRAINES, hypothyroidism, urinary leakage at times, wound on abdomen History of Any Multi-Drug Resistant Organisms: None Reported Past Surgical History: Back Surgery, Bariatric Surgery, Cholecystectomy, Joint Replacement, Orthopedic Surgery Additional Past Surgical History / Comment(s): 11/12/16 bronchoscopy wit BAL, gastric bypass 2011, 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 Past Anesthesia/Blood Transfusion Reactions: No Reported Reaction Past Psychological History: Anxiety, Depression Smoking Status: Never smoker Past Alcohol Use History: None Reported Past Drug Use History: None Reported - Past Family History Brother(s) Family Medical History: Cancer Additional Family Medical History / Comment(s): spine Father Family Medical History: Coronary Artery Disease (CAD), CVA/TIA, Diabetes Mellitus, Hypertension, Thyroid Disorder Additional Family Medical History / Comment(s): X3 STROKES, STENTS IN HEART,Pacemaker Mother Family Medical History: Diabetes Mellitus, Hypertension, Thyroid Disorder Additional Family Medical History / Comment(s): KNEE REPLACEMENTS <Chely Tarango - Last Filed: 08/08/18 20:10> General Exam Limitations: no limitations <Chely Tarango - Last Filed: 08/08/18 20:10> Course <Yaakov Paulino - Last Filed: 08/08/18 20:13> Vital Signs 08/08/18 19:23 Temperature 98.3 F Pulse Rate 92 Respiratory 18 Rate Blood Pressure 115/62 O2 Sat by Pulse 98 Oximetry - Reevaluation(s) Reevaluation #1: 08/08/18 20:12 PA supervision: I personally saw the patient [id number] she does demonstrate worsening of the cellulitis of the right upper extremity since her last encounter in the emergency department. She has failed outpatient treatment and she will require admission. I did discuss the case with Dr. Black. Dr. Black has requested Dr. Riggins from infectious disease for consultation. I do agree with the assessment and plan. (Yaakov Paulino) Disposition Is patient prescribed a controlled substance at d/c from ED?: No Time of Disposition: 20:11 Decision to Admit Reason: Admit from EC Decision Date: 08/08/18 Decision Time: 20:11 <Chely Tarango - Last Filed: 08/08/18 20:10> <Yaakov Paulino - Last Filed: 08/08/18 20:13> Clinical Impression: Cellulitis of right upper extremity, Failure of outpatient treatment Disposition: ADMITTED IP TO THIS [facility] Condition: Stable Referrals: Tyler Black MD [Primary Care Provider] - 1-2 days
[2018-08-08] MEDS ORDERED: diphenhydrAMINE ELIXIR 25 MG/10 ML CUP PO ONE (20:38)
[2018-08-08 20:48] LABS: Anisocytosis Slight; Basophils % (A) 0 %; Eosinophils # (A) 0.3 k/uL (0-0.7); Eosinophils % (A) 7 %; HCT 32.3 % (34.0-46.0); HGB 9.9 gm/dL (11.4-16.0); Hypochromasia Marked; Lymphocytes % (A) 24 %; MCH 24.3 pg (25.0-35.0); MCHC 30.6 g/dL (31.0-37.0); MCV 79.3 fL (80.0-100.0); Mean Platelet Volume 8.2; Monocytes # (A) 0.2 k/uL (0-1.0); Monocytes % (A) 6 %; Neutrophils # (A) 2.7 k/uL (1.3-7.7); Neutrophils % (A) 62 %; Platelet Count 213 k/uL (150-450); RBC 4.07 m/uL (3.80-5.40); RDW 16.4 % (11.5-15.5); WBC 4.4 k/uL (3.8-10.6)
[2018-08-08] MEDS: SODIUM CHLORIDE 0.9% 1,000 ML IV SCH (20:50)
[2018-08-08 21:08] LABS: Albumin 3.7 g/dL (3.5-5.0); C Reactive Protein 11.8 mg/L (<10.0); Calcium 8.8 mg/dL (8.4-10.2); Potassium 4.4 mmol/L (3.5-5.1); Total Bilirubin 0.3 mg/dL (0.2-1.3); Total Protein 6.3 g/dL (6.3-8.2)
[2018-08-08 21:29] LABS: Erythrocyte Sedimentation Rate 22 mm/hr (0-20)
--- NOTE | 2018-08-08 21:56 | XR ---
EXAMINATION TYPE: XR forearm RT DATE OF EXAM: 08/08/2018 CLINICAL HISTORY: Pain and swelling, cellulitis. TECHNIQUE: Two views of the right forearm are obtained. COMPARISON: None. FINDINGS: There is no acute fracture or dislocation seen in the right radius or ulna. The right elb ow and wrist joints appear within normal limits. No suspicious cortical destruction or periosteal hebert ction is seen. Mild diffuse subcutaneous edema is present. IMPRESSION: There is no convincing radiographic evidence for acute osteomyelitis in the right forear m.
[2018-08-08] MEDS ORDERED: Suvorexant [Belsomra] 20 MG PO PRN (23:22)
[2018-08-08] MEDS ORDERED: buPROPion SR 150 MG TABLET.ER PO STA (23:48)
[2018-08-08] MEDS ORDERED: SERTRALINE 50 MG TAB PO STA (23:50)
[2018-08-08] MEDS ORDERED: PREGABALIN 75 MG CAP PO STA (23:51)
[2018-08-08] MEDS ORDERED: RIVAROXABAN 10 MG TAB PO STA (23:51)
[2018-08-08] MEDS ORDERED: PANTOPRAZOLE 40 MG TABLET PO STA (23:52)
[2018-08-08] MEDS ORDERED: MONTELUKAST 10 MG TAB PO STA (23:53)
[2018-08-09] MEDS: HYDROcodone/APAP 5-325MG 1 EACH TAB PO PRN ×4 (00:03→23:40)
[2018-08-09] MEDS: HYDROmorphone 0.5 MG/0.5 ML SYRINGE IVP PRN ×2 (02:08→08:42)
[2018-08-09 02:34] VITALS: BMI 39.2
[2018-08-09] MEDS ORDERED: diphenhydrAMINE ELIXIR 25 MG/10 ML CUP PO ONE (04:40)
[2018-08-09] MEDS: LEVOTHYROXINE 50 MCG TAB PO SCH (05:50)
[2018-08-09] MEDS: SYMBICORT 160-4.5 MCG INHALER INHALATION SCH ×2 (07:37→20:46)
[2018-08-09] MEDS: VANCOMYCIN 1,750 MG in SODIUM CHLORIDE 0.9% 500 ML 500 ML IVPB SCH ×2 (08:39→23:37)
[2018-08-09] MEDS: SERTRALINE 50 MG TAB PO SCH ×2 (08:40→21:36)
[2018-08-09] MEDS: PREGABALIN 75 MG CAP PO SCH ×3 (08:40→21:36)
[2018-08-09] MEDS: buPROPion SR 150 MG TABLET.ER PO SCH ×2 (08:41→21:37)
[2018-08-09] MEDS: SODIUM CHLORIDE 0.9% 1,000 ML IV SCH (08:41)
[2018-08-09] MEDS: TROSPIUM CHLORIDE 20 MG TABLET PO SCH ×2 (08:41→21:36)
--- NOTE | 2018-08-09 08:55 | HP ---
HISTORY AND PHYSICAL CHIEF COMPLAINT: This is a 47-year-old white female with a right arm severe redness and swelling in the entire arm over last 4 to 5 days, failed outpatient treatment with Keflex. She has a history of pulmonary embolism, asthma, chronic radiculopathy, bipolar, hypothyroidism, insomnia. Mobic, VESIcare. ALLERGIES: No known drug allergies. REVIEW OF SYSTEMS: Fourteen point review of systems negative except for mentioned in HPI. SOCIAL HISTORY: Smoking: Never smoked. No alcohol. No illicit drugs. FAMILY HISTORY: Brother with cancer of the spine. Father coronary artery disease, CVA, TIA, diabetes mellitus, hypertension, hypothyroidism. Mother diabetes, hypertension, hypothyroidism. PHYSICAL EXAMINATION: Vital signs are reviewed. CARDIOVASCULAR: S1, S2. Lungs are clear. GI: Soft. PSYCH: Flat mood and affect. NEUROLOGIC: Alert and oriented x3. INTEGUMENT: Shows right arm swollen with redness and warmth from the right wrist all the way up to the upper shoulder. ASSESSMENT: Acute cellulitis of the right arm extending to the entire right arm, failed outpatient treatment with Keflex. She will need IV antibiotics. Kefzol has been ordered. Await Infectious Disease consultation. She is requesting Benadryl, which will be added. Home medicines will be continued. MMODL / IJN: [id number] /
[2018-08-09] MEDS: diphenhydrAMINE 2% CREAM 28.4 GM TUBE TOPICAL SCH ×3 (10:25→21:36)
[2018-08-09] MEDS: HYDROmorphone 2 MG TAB PO PRN ×2 (14:50→21:36)
[2018-08-09] MEDS: RIVAROXABAN 10 MG TAB PO SCH (21:36)
[2018-08-09] MEDS: MONTELUKAST 10 MG TAB PO SCH (21:37)
[2018-08-09] MEDS: PANTOPRAZOLE 40 MG TABLET PO SCH (21:37)
[2018-08-09] MEDS: Brexpiprazole [Rexulti] 1 MG PO SCH (21:39)
--- NOTE | 2018-08-10 00:40 | CONS ---
CONSULTATION DATE OF SERVICE: 08/09/2018. REASON FOR CONSULTATION: Right lower extremity cellulitis. HISTORY OF PRESENT ILLNESS: The patient is a 47-year-old female who apparently did have a nonhealing wound to the abdominal wall for which the patient did follow with at the [facility]. The patient apparently recently was noticed to have a wound infection with cellulitis. She was started on Bactrim DS. The patient started to notice right upper extremity swelling and redness that apparently started on Wednesday that is 4 days prior to presentation to hospital. The patient denies any history of any trauma or scratching or any wound or blister formation. The patient is a did mention that it started after the patient did have a blood draw . The patient was evaluated by the ER physician and she was started on oral Keflex which the patient took for 2 days. However, the patient did have worsening swelling and redness and pain to the right lower extremity area. The patient described the pain to be throbbing, almost 7 to 8 out of 10, with no radiation. She did have some chills but denies any high- grade fever. With these symptoms, the patient has been reevaluated by the ER physician. Yesterday the patient did have x-rays of the arm that did not show any bony changes. The patient was started on vancomycin and admitted to the hospital. Infectious Disease was consulted for further recommendation regarding antibiotic therapy. The patient since admission did not have any fever. On presentation, patient was afebrile and white count was normal. Patient did have blood cultures obtained which are currently pending. REVIEW OF SYSTEMS: CONSTITUTIONAL: Positive for weakness. Denies any fever, did have some chills. Eyes: No complaint. ENT no complaint. Respiratory: No complaint. Cardiovascular: No complaint. Genitourinary: No complaint. Gastrointestinal: No complaint. Musculoskeletal as per HPI. INTEGUMENTARY as per HPI. Psychological: No complaint. Endocrine: No complaint. Neurologic: No complaint. MEDICAL HISTORY: Asthma, COPD, Fibromyalgia, gastroesophageal reflux disease, pneumonia, , seizure disorder, sleep apnea, hypothyroidism. PAST SURGICAL HISTORY: Back surgery, cholecystectomy, bronchoscopy with biopsy, gastric bypass, [place] filter placement, right knee arthroscopy. SOCIAL HISTORY: No history of smoking, drinking, or drug use. FAMILY HISTORY: Brother with history of cancer of the spine, father history of coronary artery disease, CAD, TIA, mother history of diabetes, hypertension and hypothyroidism. ALLERGIES: No known drug allergies. MEDICATION: Medications include the patient is currently on vancomycin 1750 every 16 hours. She is on , Lyrica, Protonix, Narcan, Singulair, Synthroid, Motrin, Dilaudid, Wellbutrin and [place]. PHYSICAL EXAMINATION: Blood pressure 105/69 with a pulse of 72, temperature 98.2. She is 98% on room air. General description is a middle-aged female up in the bed in no distress. No tachypnea or accessory muscles of respiration use. HEENT: Shows slight pallor. No scleral icterus. Oral mucous membranes dry. No pharyngeal erythema or thrush. NECK: Trachea is central. No thyromegaly. LUNGS: Unlabored breathing. Clear to auscultation anteriorly. No wheeze or crackles. Heart S1, S2. Regular rate and rhythm. ABDOMEN: Soft, no tenderness. No guarding or rigidity. Extremities: No edema of the feet. Examination of the right lower extremity on the medial side, the patient did have a diffuse swelling and redness, slightly warm to touch and tender. No skin breakdown or any drainage. Neurological: Patient is awake, alert, oriented times three. Mood and affect normal. LABS: Hemoglobin 9.8, white count 4.4 with a BUN of 14, creatinine 1.05. CRP was 11.8. Sedimentation rate is 22. DIAGNOSTIC IMPRESSION/PLAN: Patient with right upper extremity cellulitis apparently started after the patient did have a blood draw that has failed to respond to the outpatient oral Bactrim as well as Keflex raises concern for possible MRSA in the patient in view of the patient exposure to the health care setting for her chronic nonhealing abdominal wound. PLAN: 1. We will obtain of the right to make sure no evidence of any fluid collection. 2. Vancomycin pharmacy to dose target of 15 while watching kidney function and Vanco trough closely. 3. Keep the right arm elevated. 4. Galo the area of redness . 5. Will follow up on clinical condition and to further adjust medication if needed. Thank you for this consultation. We will follow this patient along with you. MMODL / IJN: [id number] /
[2018-08-10] MEDS: SODIUM CHLORIDE 0.9% 1,000 ML IV SCH ×2 (01:54→14:21)
[2018-08-10] MEDS: HYDROmorphone 2 MG TAB PO PRN ×4 (04:49→22:50)
[2018-08-10] MEDS: LEVOTHYROXINE 50 MCG TAB PO SCH (05:30)
[2018-08-10] MEDS: PREGABALIN 75 MG CAP PO SCH ×3 (07:48→22:50)
[2018-08-10] MEDS: TROSPIUM CHLORIDE 20 MG TABLET PO SCH ×2 (07:49→20:13)
[2018-08-10] MEDS: SERTRALINE 50 MG TAB PO SCH ×2 (07:49→20:13)
[2018-08-10] MEDS: HYDROcodone/APAP 5-325MG 1 EACH TAB PO PRN ×3 (07:49→20:13)
[2018-08-10] MEDS: buPROPion SR 150 MG TABLET.ER PO SCH ×2 (07:49→20:13)
[2018-08-10] MEDS: diphenhydrAMINE 2% CREAM 28.4 GM TUBE TOPICAL SCH ×3 (07:50→20:13)
[2018-08-10 07:57] LABS: Anion Gap 5 mmol/L; Blood Urea Nitrogen 8 mg/dL (7-17); Calcium 8.7 mg/dL (8.4-10.2); Carbon Dioxide 23 mmol/L (22-30); Chloride 113 mmol/L (98-107); Glucose 80 mg/dL (74-99); Potassium 4.5 mmol/L (3.5-5.1); Sodium 141 mmol/L (137-145)
--- NOTE | 2018-08-10 08:03 | US ---
EXAMINATION TYPE: US venous doppler duplex UE RT DATE OF EXAM: 08/10/2018 COMPARISON: NONE CLINICAL HISTORY: swelling. Erythema. SIDE PERFORMED: Right upper extremity Grayscale, color doppler, spectral doppler imaging performed of the deep veins of the right upper ext remity. There is normal flow, compressibility and vascular waveforms of the internal jugular vein, s ubclavian vein, axillary vein, basilic vein, and cephalic vein. Right Arm: Negative for DVT IMPRESSION: No sonographic evidence of deep venous thrombosis within the right upper extremity.
[2018-08-10] MEDS: SYMBICORT 160-4.5 MCG INHALER INHALATION SCH ×2 (08:46→21:10)
[2018-08-10] MEDS: IBUPROFEN 400 MG TAB PO PRN (10:03)
[2018-08-10] MEDS: VANCOMYCIN 1,750 MG in SODIUM CHLORIDE 0.9% 500 ML 500 ML IVPB SCH ×2 (10:29→22:49)
--- NOTE | 2018-08-10 20:05 | PN ---
PROGRESS NOTE SUBJECTIVE: [id number]-old white female with significant cellulitis of the right arm. She had a venous Doppler study of the arm today which shows no DVT in the right upper extremity. Her infection appears to be clearly improving with IV antibiotics. Labs show normal white count, hemoglobin 9.9. CARDIOVASCULAR: S1, S2. LUNGS: Clear. INTEGUMENT: Greatly improved on the right arm. ESR is 22. PLAN: Continue with broad-spectrum IV antibiotics. Possible discharge home tomorrow if greatly improved. Vancomycin has been ordered. Possibly switch to oral antibiotics tomorrow, depending on Dr. Riggins's recommendations. MMODL / IJN: [id number] /
[2018-08-10] MEDS: PANTOPRAZOLE 40 MG TABLET PO SCH (20:13)
[2018-08-10] MEDS: MONTELUKAST 10 MG TAB PO SCH (20:13)
[2018-08-10] MEDS: RIVAROXABAN 10 MG TAB PO SCH (20:13)
[2018-08-10] MEDS: Brexpiprazole [Rexulti] 1 MG PO SCH (20:16)
--- NOTE | 2018-08-10 23:53 | PN ---
PROGRESS NOTE DATE OF SERVICE: 08/10/2018 REASON FOR FOLLOWUP: Right upper extremity cellulitis. INTERVAL HISTORY: The patient is currently afebrile. The patient has been breathing comfortably. The patient denies having any chest pain or shortness of breath or cough. Her right arm swelling and redness have slightly decreased. No open wound or any drainage. PHYSICAL EXAMINATION: Blood pressure 109/60 with a pulse of 80, temperature 97.5. She is 99% on 3 L nasal cannula. General description is a middle-aged female up in the bed in no distress. RESPIRATORY SYSTEM: Unlabored breathing. Clear to auscultation anteriorly. HEART: S1, S2. Regular rate and rhythm. ABDOMEN: Soft. No tenderness. Right arm swelling and redness slightly decreased. LABS: Right upper extremity Doppler was negative for DVT. DIAGNOSTIC IMPRESSION AND PLAN: Patient with acute right upper extremity cellulitis, failing outpatient Bactrim as well as Keflex therapy. Patient seems to be slowly responding to vancomycin; to continue for another 24 to 48 hours. Moisturizing cream to the dry area of the skin and Fred wrap and will re-evaluate the patient tomorrow. Continue with supportive care. MMODL / IJN: [id number] /
[2018-08-11] MEDS: IBUPROFEN 400 MG TAB PO PRN (03:10)
[2018-08-11] MEDS: SODIUM CHLORIDE 0.9% 1,000 ML IV SCH ×2 (03:11→15:07)
[2018-08-11] MEDS: HYDROmorphone 2 MG TAB PO PRN ×3 (04:49→16:50)
[2018-08-11] MEDS: LEVOTHYROXINE 50 MCG TAB PO SCH (05:21)
[2018-08-11] MEDS: SERTRALINE 50 MG TAB PO SCH ×2 (07:15→21:01)
[2018-08-11] MEDS: buPROPion SR 150 MG TABLET.ER PO SCH ×2 (07:15→21:01)
[2018-08-11] MEDS: TROSPIUM CHLORIDE 20 MG TABLET PO SCH ×2 (07:15→21:01)
[2018-08-11] MEDS: PREGABALIN 75 MG CAP PO SCH ×3 (07:15→21:01)
[2018-08-11] MEDS: diphenhydrAMINE 2% CREAM 28.4 GM TUBE TOPICAL SCH ×3 (07:16→21:01)
[2018-08-11] MEDS: HYDROcodone/APAP 5-325MG 1 EACH TAB PO PRN ×3 (07:17→19:21)
[2018-08-11] MEDS: SYMBICORT 160-4.5 MCG INHALER INHALATION SCH ×2 (07:49→21:34)
[2018-08-11] MEDS ORDERED: VANCOMYCIN TROUGH DUE 1 EACH MISC MISCELLANE ONE (09:00)
[2018-08-11] MEDS: VANCOMYCIN 1,750 MG in SODIUM CHLORIDE 0.9% 500 ML 500 ML IVPB SCH ×2 (09:04→21:57)
[2018-08-11 09:15] LABS: Anisocytosis Slight; HCT 29.2 % (34.0-46.0); HGB 8.5 gm/dL (11.4-16.0); Hypochromasia Marked; MCH 23.6 pg (25.0-35.0); MCHC 29.3 g/dL (31.0-37.0); MCV 80.8 fL (80.0-100.0); Mean Platelet Volume 8.6; Platelet Count 182 k/uL (150-450); RBC 3.61 m/uL (3.80-5.40); RDW 16.2 % (11.5-15.5); WBC 4.9 k/uL (3.8-10.6)
[2018-08-11 09:28] LABS: Anion Gap 5 mmol/L; Blood Urea Nitrogen 5 mg/dL (7-17); Calcium 8.5 mg/dL (8.4-10.2); Carbon Dioxide 24 mmol/L (22-30); Chloride 111 mmol/L (98-107); Glucose 92 mg/dL (74-99); Sodium 140 mmol/L (137-145)
--- NOTE | 2018-08-11 15:51 | PN ---
PROGRESS NOTE DATE OF SERVICE: 08/11/2018 REASON FOR FOLLOWUP: Right upper extremity cellulitis. INTERVAL HISTORY: The patient is currently afebrile. The right arm swelling and redness have decreased. Patient denies having any chest pain or shortness of breath or cough. No abdominal pain no diarrhea. PHYSICAL EXAMINATION: Blood pressure 103/66, pulse of 75, temperature 98.4. She is 96% on room air. General description is a middle-aged female up in the room in no distress. RESPIRATORY SYSTEM: Unlabored breathing. Clear to auscultation anteriorly. HEART: S1, S2. Regular rate and rhythm. ABDOMEN: Soft. No tenderness. Right arm swelling and redness decreased. No or any drainage. LABS: Hemoglobin 8.5, white count 4.9, BUN of 5, creatinine 0.62. DIAGNOSTIC IMPRESSION AND PLAN: Patient with right upper extremity cellulitis. Patient at this time to continue with vancomycin for another 24 hours. Continue with local care as ordered along with an Fred wrap to keep the swelling down. Will reevaluate the patient tomorrow. Continue supportive care. MMODL / IJN: [id number] /
[2018-08-11] MEDS: Brexpiprazole [Rexulti] 1 MG PO SCH (20:54)
[2018-08-11] MEDS: PANTOPRAZOLE 40 MG TABLET PO SCH (21:01)
[2018-08-11] MEDS: MONTELUKAST 10 MG TAB PO SCH (21:01)
[2018-08-11] MEDS: RIVAROXABAN 10 MG TAB PO SCH (21:01)
[2018-08-12] MEDS: HYDROmorphone 2 MG TAB PO PRN ×3 (01:04→14:10)
[2018-08-12] MEDS: SODIUM CHLORIDE 0.9% 1,000 ML IV SCH (05:00)
[2018-08-12] MEDS: HYDROcodone/APAP 5-325MG 1 EACH TAB PO PRN ×2 (05:27→10:26)
[2018-08-12] MEDS: LEVOTHYROXINE 50 MCG TAB PO SCH (05:27)
[2018-08-12] MEDS: SERTRALINE 50 MG TAB PO SCH (08:02)
[2018-08-12] MEDS: PREGABALIN 75 MG CAP PO SCH ×2 (08:02→16:29)
[2018-08-12] MEDS: TROSPIUM CHLORIDE 20 MG TABLET PO SCH (08:02)
[2018-08-12] MEDS: diphenhydrAMINE 2% CREAM 28.4 GM TUBE TOPICAL SCH ×2 (08:03→16:27)
[2018-08-12] MEDS: buPROPion SR 150 MG TABLET.ER PO SCH (08:03)
[2018-08-12] MEDS: SYMBICORT 160-4.5 MCG INHALER INHALATION SCH (08:11)
[2018-08-12] MEDS: VANCOMYCIN 1,750 MG in SODIUM CHLORIDE 0.9% 500 ML 500 ML IVPB SCH (10:26)
[2018-08-12] MEDS ORDERED: ONDANSETRON 4 MG/2 ML VIAL IVP PRN (13:31)
[2018-08-12 14:41] VITALS: BP 105/66; PULSE 85; RESP 16; TEMP 98
--- NOTE | 2018-08-12 16:40 | PN ---
PROGRESS NOTE DATE OF SERVICE: 08/12/2018 REASON FOR FOLLOWUP: Right upper extremity cellulitis. INTERVAL HISTORY: The patient is currently afebrile. She is breathing comfortably. She has been complaining of feeling nauseated. Did have an episode of vomiting. Right arm swelling and redness have resolved. Some rash on the lateral side of the right eye, but denies having any photophobia or pain on movement of the eyeball. No diarrhea. PHYSICAL EXAMINATION: Her blood pressure 105/66 with pulse of 85, temperature 98. She is 98% on room air. General description is a middle-aged female lying in bed in no distress. HEENT EXAMINATION: No conjunctivitis or cellulitis was noticed. LUNGS: Unlabored breathing. Clear to auscultation anteriorly. HEART: S1, S2. Regular rate and rhythm. ABDOMEN: Soft. No tenderness. LABS: Blood culture negative. White count normal. DIAGNOSTIC IMPRESSION AND PLAN: Patient with right upper extremity cellulitis. Patient's antibiotic can be transitioned to oral doxycycline. Prescription was sent to the pharmacy. Close outpatient followup. Continue with supportive care. MMODL / IJN: [id number] /
[2018-08-13] MEDS ORDERED: VANCOMYCIN TROUGH DUE 1 EACH MISC MISCELLANE ONE (09:00)
== END 2018-08-12 16:40 | disposition home health service (06) | DRG 603 ==
LOC: EC 19:14 → 4SSUR 20:12
PROVIDERS: ADMIT Family Medicine; ATTEND Family Medicine
DX: L03.113 Cellulitis of right upper limb (principal); G62.9 Polyneuropathy, unspecified; M54.10 Radiculopathy, site unspecified; G43.909 Migraine, unspecified, not intractable, without status migrainosus; M54.5 Low back pain; F32.9 Major depressive disorder, single episode, unspecified; F41.9 Anxiety disorder, unspecified; G47.00 Insomnia, unspecified; E03.9 Hypothyroidism, unspecified; J44.9 Chronic obstructive pulmonary disease, unspecified; G40.909 Epilepsy, unspecified, not intractable, without status epilepticus; G47.33 Obstructive sleep apnea (adult) (pediatric); M79.7 Fibromyalgia; K21.9 Gastro-esophageal reflux disease without esophagitis; Z79.51 Long term (current) use of inhaled steroids; Z79.890 Hormone replacement therapy; Z79.1 Long term (current) use of non-steroidal anti-inflammatories (NSAID); Z79.01 Long term (current) use of anticoagulants; Z79.899 Other long term (current) drug therapy; Z99.89 Dependence on other enabling machines and devices; Z87.01 Personal history of pneumonia (recurrent); Z86.711 Personal history of pulmonary embolism; Z87.11 Personal history of peptic ulcer disease; Z90.49 Acquired absence of other specified parts of digestive tract; Z98.84 Bariatric surgery status; Z95.828 Presence of other vascular implants and grafts; Z96.651 Presence of right artificial knee joint; Z96.641 Presence of right artificial hip joint; Z80.8 Family history of malignant neoplasm of other organs or systems; Z82.49 Family history of ischemic heart disease and other diseases of the circulatory system; Z82.3 Family history of stroke; Z83.3 Family history of diabetes mellitus; Z83.49 Family history of other endocrine, nutritional and metabolic diseases
CPT/HCPCS: 36415; 80048; 80053; 80202; 83605; 85025; 85027; 85652; 86140; 87040; 94640; 96365; 96372; 96375; 99282; 99284

== ENCOUNTER 2018-08-17 19:52 | Emergency (ER) | payer MEDICARE, OTHER ==
[2018-08-17] MEDS ORDERED: SODIUM CHLORIDE 0.9% 1,000 ML IV ONE (20:24)
[2018-08-17] MEDS ORDERED: cefTRIAXone IN SWFI 1,000 MG/10 ML SYRINGE IVP STA (20:26)
[2018-08-17] MEDS ORDERED: MORPHINE SULFATE 2 MG/ML SYRINGE IVP STA (21:23)
[2018-08-17 21:38] LABS: Basophils % (A) 1 %; Eosinophils # (A) 0.2 k/uL (0-0.7); Eosinophils % (A) 4 %; HCT 31.7 % (34.0-46.0); HGB 9.9 gm/dL (11.4-16.0); Hypochromasia Marked; Lymphocytes # (A) 1.5 k/uL (1.0-4.8); Lymphocytes % (A) 29 %; MCH 24.5 pg (25.0-35.0); MCHC 31.2 g/dL (31.0-37.0); MCV 78.8 fL (80.0-100.0); Mean Platelet Volume 7.8; Monocytes # (A) 0.3 k/uL (0-1.0); Monocytes % (A) 7 %; Neutrophils % (A) 58 %; Platelet Count 277 k/uL (150-450); RBC 4.02 m/uL (3.80-5.40); RDW 15.9 % (11.5-15.5); WBC 5.1 k/uL (3.8-10.6)
[2018-08-17 21:52] LABS: ALT 28 U/L (9-52); AST 28 U/L (14-36); Albumin 3.5 g/dL (3.5-5.0); Alkaline Phosphatase 132 U/L (38-126); Anion Gap 8 mmol/L; Blood Urea Nitrogen 13 mg/dL (7-17); Calcium 8.7 mg/dL (8.4-10.2); Carbon Dioxide 21 mmol/L (22-30); Chloride 112 mmol/L (98-107); Glucose 81 mg/dL (74-99); Potassium 4.2 mmol/L (3.5-5.1); Sodium 141 mmol/L (137-145); Total Bilirubin 0.3 mg/dL (0.2-1.3); Total Protein 6.2 g/dL (6.3-8.2)
[2018-08-17] MEDS ORDERED: CLOTRIMAZOLE 1% CREAM 15 GM TUBE TOPICAL STA (21:56)
--- NOTE | 2018-08-17 22:24 | ED ---
Recheck HPI - General Source: patient Mode of arrival: ambulatory Limitations: no limitations <Chely Tarango - Last Filed: 08/17/18 22:58> <Mayda Beatty - Last Filed: 08/18/18 01:40> - General Chief Complaint: Recheck/Abnormal Lab/Rx Stated Complaint: Infection in arm-re visit Time Seen by Provider: 08/17/18 20:13 - History of Present Illness Initial Comments: 48yo now presenting today for chief complaint of erythema of right upper extremity. Patient states she was recently discharged from the hospital after a weeklong stay for treatment of cellulitis. Patient states there is no significant resolution of erythema upon discharge however it did appear slightly improved. Patient states that it remained itchy as well as erythematous. She states she was placed on doxycycline outpatient. She was seen by her primary care provider today when patient states symptoms have not resolved she was changed from doxycycline to clindamycin. Patient states that her primary care provider recommended presentation to the emergency department if there was concern for worsening of infection. Patient states that she does not feel the infection is worsening however she does not feel is getting better so she presents emergency department today for evaluation. Upon arrival patient appears well, she denies any fever, chills, night sweats or increasing swelling of the RUE. Pt afebrile. VS WNL, pt does not appear toxic. (Chely Tarango) - Related Data Home Medications Medication Instructions Recorded Confirmed Rivaroxaban [Xarelto] 20 mg PO HS 11/20/13 08/17/18 Pregabalin [Lyrica] 150 mg PO TID 10/09/14 08/17/18 Montelukast [Singulair] 10 mg PO HS 06/23/15 08/17/18 Brexpiprazole [Rexulti] 1 mg PO HS 02/16/17 08/17/18 Budesonide/Formoterol Fumarate 2 puff INHALATION RT-BID 02/16/17 08/17/18 [Symbicort 160-4.5 Mcg Inhaler] Levothyroxine Sodium [Synthroid] 150 mcg PO DAILY 02/16/17 08/17/18 Omeprazole 20 mg PO DAILY 02/16/17 08/17/18 Sertraline [Zoloft] 50 mg PO BID 02/16/17 08/17/18 Suvorexant [Belsomra] 20 mg PO HS 05/03/18 08/17/18 Meloxicam [Mobic] 15 mg PO DAILY 07/17/18 08/17/18 Solifenacin Succinate [Vesicare] 10 mg PO DAILY 07/19/18 08/17/18 Clindamycin HCl 300 mg PO TID 08/17/18 08/17/18 HYDROcodone/APAP 7.5-325MG [[place] 1 tab PO TID PRN 08/17/18 08/17/18 7.5-325] buPROPion HCL [Wellbutrin XL] 150 mg PO BID 08/17/18 08/17/18 Allergies Allergy/AdvReac Type Severity Reaction Status Date / Time No Known Allergies Allergy Verified 08/17/18 20:37 Review of Systems ROS Other: All systems not noted in ROS Statement are negative. <Chely Tarango L - Last Filed: 08/17/18 22:58> ROS Other: All systems not noted in ROS Statement are negative. <Mayda Beatty - Last Filed: 08/18/18 01:40> ROS Statement: Those systems with pertinent positive or pertinent negative responses have been documented in the HPI. Past Medical History Past Medical History: Asthma, COPD, Fibromyalgia, GERD/Reflux, Pneumonia, Pulmonary Embolus (PE), Seizure Disorder, Sleep Apnea/CPAP/BIPAP, Thyroid Disorder Additional Past Medical History / Comment(s): Chronic asthma, chronic COPD, recurrent pneumonias, hx of respiratory stridor, PE in 2003 and 2009, MAGALI with CPAP used most of the time, psuedo seizures with last one being 16 months ago, past gastric ulcer, DDD, LOWER BACK PAIN- RADIATES DOWN RT LEG, R toes,neuropathy, generalized pain from fibromyalgia, chronic MIGRAINES, hypothyroidism, urinary leakage at times, wound on abdomen History of Any Multi-Drug Resistant Organisms: None Reported Past Surgical History: Back Surgery, Bariatric Surgery, Cholecystectomy, Joint Replacement, Orthopedic Surgery Additional Past Surgical History / Comment(s): 11/12/16 bronchoscopy wit BAL, gastric bypass 2011, 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 Past Anesthesia/Blood Transfusion Reactions: No Reported Reaction Past Psychological History: Anxiety, Depression Smoking Status: Never smoker Past Alcohol Use History: None Reported Past Drug Use History: None Reported - Past Family History Brother(s) Family Medical History: Cancer Additional Family Medical History / Comment(s): spine Father Family Medical History: Coronary Artery Disease (CAD), CVA/TIA, Diabetes Mellitus, Hypertension, Thyroid Disorder Additional Family Medical History / Comment(s): X3 STROKES, STENTS IN HEART,Pacemaker Mother Family Medical History: Diabetes Mellitus, Hypertension, Thyroid Disorder Additional Family Medical History / Comment(s): KNEE REPLACEMENTS <Chely Tarango - Last Filed: 08/17/18 22:58> General Exam Limitations: no limitations <Chely Tarango - Last Filed: 08/17/18 22:58> - General Exam Comments Initial Comments: General: The patient is awake and alert, in no distress, and does not appear acutely ill. Eye: Pupils are equal, round and reactive to light, extra-ocular movements are intact. No nystagmus. There is normal conjunctiva bilaterally. No signs of icterus. Ears, nose, mouth and throat: There are moist mucous membranes and no oral lesions. Neck: The neck is supple, there is no tenderness or JVD. Cardiovascular: There is a regular rate and rhythm. No murmur, rub or gallop is appreciated. Respiratory: Lungs are clear to auscultation, respirations are non-labored, breath sounds are equal. No wheezes, stridor, rales, or rhonchi. Musculoskeletal: Normal ROM, no tenderness. Strength 5/5. Sensation intact. Radial pulses equal bilaterally 2+. Neurological: A&O x 3. CN II-XII intact, There are no obvious motor or sensory deficits. Coordination appears grossly intact. Speech is normal. Skin: Skin is warm and dry and no rashes or lesions are noted. Erythema extending from mid bicep to midforearm erythematous, mild warmth to palpation, scaling evident with rough texture of skin. Soft compartments no crepitus, Psychiatric: Cooperative, appropriate mood & affect, normal judgment. (Chely Tarango) Course Vital Signs 08/17/18 08/17/18 20:02 22:33 Temperature 98.2 F 96.9 F L Pulse Rate 82 74 Respiratory 16 18 Rate Blood Pressure 127/72 116/56 O2 Sat by Pulse 91 L 98 Oximetry Medical Decision Making - Lab Data Result diagrams: 08/17/18 20:49 08/17/18 20:49 <Chely Tarango - Last Filed: 08/17/18 22:58> - Lab Data Result diagrams: 08/17/18 20:49 08/17/18 20:49 <Mayda Beatty - Last Filed: 08/18/18 01:40> - Medical Decision Making 48-year-old female with erythematous right upper extremity 3 weeks. Examination today with findings concerning for possible fungal infection. Clotrimazole applied to arm. Patient left her stage revealed no leukocytosis. Patient remained afebrile. Lactic acid within acceptable limits. Patient is up her toxic. Patient denies significant change in erythema with IV antibiotics. Patient was evaluated by attending provider at this time we feel patient requires dermatology evaluation for possible inflammatory process. Patient's primary care provider was contacted who recommended continuation of clindamycin and outpatient evaluation. Patient is agreeable with this plan, denies questions at this time. Return parameters were discussed at length the patient who verbalized understanding. All questions were answered to the best of my ability prior to patient's discharge. Patient given multiple referrals for [facility] dermatology offices within the area. (Chely Tarango) I personally saw and examined the patient. I reviewed and agree with the mid- level provider findings including all diagnostic interpretations and treatment plans as written unless otherwise stated. I discussed patient care with patient's primary care physician Dr. Black who recommends the patient continue her oral clindamycin give it more time to work and follow dermatology outpatient. (Mayda Beatty) - Lab Data Lab Results 08/17/18 08/17/18 08/17/18 Range/Units 20:49 20:49 21:37 WBC 5.1 (3.8-10.6) k/uL RBC 4.02 (3.80-5.40) m/uL Hgb 9.9 L (11.4-16.0) gm/dL Hct 31.7 L (34.0-46.0) % MCV 78.8 L (80.0-100.0) fL MCH 24.5 L (25.0-35.0) pg MCHC 31.2 (31.0-37.0) g/dL RDW 15.9 H (11.5-15.5) % Plt Count 277 (150-450) k/uL Neutrophils % 58 % Lymphocytes % 29 % Monocytes % 7 % Eosinophils % 4 % Basophils % 1 % Neutrophils # 3.0 (1.3-7.7) k/uL Lymphocytes # 1.5 (1.0-4.8) k/uL Monocytes # 0.3 (0-1.0) k/uL Eosinophils # 0.2 (0-0.7) k/uL Basophils # 0.0 (0-0.2) k/uL Hypochromasia Marked Sodium 141 (137-145) mmol/L Potassium 4.2 (3.5-5.1) mmol/L Chloride 112 H (98-107) mmol/L Carbon Dioxide 21 L (22-30) mmol/L Anion Gap 8 mmol/L BUN 13 (7-17) mg/dL Creatinine 0.84 (0.52-1.04) mg/dL Est GFR (CKD-EPI)AfAm >90 (>60 ml/min/1.73 sqM) Est GFR (CKD-EPI)NonAf 84 (>60 ml/min/1.73 sqM) Glucose 81 (74-99) mg/dL Plasma Lactic Acid Sunday 0.6 L (0.7-2.0) mmol/L Calcium 8.7 (8.4-10.2) mg/dL Total Bilirubin 0.3 (0.2-1.3) mg/dL AST 28 (14-36) U/L ALT 28 (9-52) U/L Alkaline Phosphatase 132 H (38-126) U/L Total Protein 6.2 L (6.3-8.2) g/dL Albumin 3.5 (3.5-5.0) g/dL Disposition Is patient prescribed a controlled substance at d/c from ED?: No Time of Disposition: 22:23 <Chely Tarango L - Last Filed: 08/17/18 22:58> <Mayda Beatty P - Last Filed: 08/18/18 01:40> Clinical Impression: Rash Disposition: HOME SELF-CARE Condition: Good Instructions (If sedation given, give patient instructions): Acute Rash (ED) Additional Instructions: Please use medication as discussed. 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 Please return to emergency room if the symptoms increase or worsen or for any other concerns, including fever. Referrals: Tyler Black MD [Primary Care Provider] - 1-2 days Tyler Clemens MD [STAFF PHYSICIAN] - 1-2 days Shavonne Banerjee MD [REFERRING] - 1-2 days Philip Aguayo MD [REFERRING] - 1-2 days Alicia Cochran MD [STAFF PHYSICIAN] - 1-2 days
[2018-08-17 22:35] VITALS: BP 116/56; PULSE 74; RESP 18; TEMP 96.9
== END 2018-08-17 22:34 | disposition home or self-care (01) ==
LOC: EC 19:52
DX: R21 Rash and other nonspecific skin eruption (principal); J44.9 Chronic obstructive pulmonary disease, unspecified; K21.9 Gastro-esophageal reflux disease without esophagitis; G47.33 Obstructive sleep apnea (adult) (pediatric); E03.9 Hypothyroidism, unspecified; F41.9 Anxiety disorder, unspecified; F32.9 Major depressive disorder, single episode, unspecified; Z79.01 Long term (current) use of anticoagulants; Z79.1 Long term (current) use of non-steroidal anti-inflammatories (NSAID); Z79.51 Long term (current) use of inhaled steroids; Z79.890 Hormone replacement therapy; Z79.899 Other long term (current) drug therapy; Z98.84 Bariatric surgery status; Z96.651 Presence of right artificial knee joint; Z96.641 Presence of right artificial hip joint; Z86.711 Personal history of pulmonary embolism
CPT/HCPCS: 36415; 80053; 83605; 85025; 87040; 99283; 96374; 96375; J0696; J2270

== ENCOUNTER 2018-09-12 11:27 | Inpatient (IN) | payer MEDICARE, OTHER ==
[2018-09-12] MEDS ORDERED: SODIUM CHLORIDE 0.9% 500 ML 500 ML IV STA (11:34)
[2018-09-12] MEDS ORDERED: IPRATROPIUM-ALBUTEROL 3 ML NEB INHALATION STA ×2 (11:42→12:38)
[2018-09-12] MEDS ORDERED: methylPREDNISolone SOD SUCCI 125 MG/2 ML VIAL IV STA (11:43)
--- NOTE | 2018-09-12 12:06 | ED ---
General Adult HPI - General Chief complaint: Shortness of Breath Stated complaint: PK Time Seen by Provider: 09/12/18 11:33 Source: patient Mode of arrival: ambulatory Limitations: no limitations - History of Present Illness Initial comments: 48yo female presenting today for chief complaint of shortness of breath x 2-3 days. Patient has history of asthma as well as pulmonary embolism. Patient has [place] filter and is compliant with her xarelto. Patient states since Wednesday she has had shortness of breath. Patient states symptoms feel similar to asthma exacerbations in the past. Patient states she has also had stridor she states she has previous focal cord paralysis she states she usually has stridor at baseline however it appears increased from normal. Pt denies fever, states she has had a cough, she states at time she has a pain in the center her chest. Patient denies jaw pain, abdominal pain nausea vomiting shoulder or back pain. Pt state dysonea increases with ambulation. Denies leg swelling. Remaining review of systems negative, patient denies any recent numbness or tingling, dysuria or hematuria, constipation or diarrhea, headaches or visual changes, or any other complaints. When symptoms persisted today patient was ev aluated by Dr. Huber, who recommended presentation to the ER for admission for asthma exacerbation. Upon arrival stridor present. Pt afebrile saturating well in on room air, no signs of acute distress, speaking without difficulty. - Related Data Home Medications Medication Instructions Recorded Confirmed Rivaroxaban [Xarelto] 20 mg PO HS 11/20/13 09/12/18 Pregabalin [Lyrica] 150 mg PO TID 10/09/14 09/12/18 Montelukast [Singulair] 10 mg PO HS 06/23/15 09/12/18 Brexpiprazole [Rexulti] 1 mg PO HS 02/16/17 09/12/18 Budesonide/Formoterol Fumarate 2 puff INHALATION RT-BID 02/16/17 09/12/18 [Symbicort 160-4.5 Mcg Inhaler] Levothyroxine Sodium [Synthroid] 150 mcg PO DAILY 02/16/17 09/12/18 Omeprazole 20 mg PO DAILY 02/16/17 09/12/18 Sertraline [Zoloft] 50 mg PO BID 02/16/17 09/12/18 Suvorexant [Belsomra] 20 mg PO HS 05/03/18 09/12/18 Solifenacin Succinate [Vesicare] 10 mg PO DAILY 07/19/18 09/12/18 HYDROcodone/APAP 7.5-325MG [[place] 1 tab PO TID PRN 08/17/18 09/12/18 7.5-325] buPROPion HCL [Wellbutrin XL] 150 mg PO BID 08/17/18 09/12/18 Allergies Allergy/AdvReac Type Severity Reaction Status Date / Time No Known Allergies Allergy Verified 09/12/18 11:48 Review of Systems ROS Statement: Those systems with pertinent positive or pertinent negative responses have been documented in the HPI. ROS Other: All systems not noted in ROS Statement are negative. Past Medical History Past Medical History: Asthma, COPD, Fibromyalgia, GERD/Reflux, Pneumonia, Pulmonary Embolus (PE), Seizure Disorder, Sleep Apnea/CPAP/BIPAP, Thyroid Disorder Additional Past Medical History / Comment(s): Chronic asthma, chronic COPD, recurrent pneumonias, hx of respiratory stridor, PE in 2003 and 2009, MAGALI with CPAP used most of the time, psuedo seizures with last one being 16 months ago, past gastric ulcer, DDD, LOWER BACK PAIN- RADIATES DOWN RT LEG, R toes,neuropathy, generalized pain from fibromyalgia, chronic MIGRAINES, hypothyroidism, urinary leakage at times, wound on abdomen History of Any Multi-Drug Resistant Organisms: None Reported Past Surgical History: Back Surgery, Bariatric Surgery, Cholecystectomy, Joint Replacement, Orthopedic Surgery Additional Past Surgical History / Comment(s): 11/12/16 bronchoscopy wit BAL, gastric bypass 2011, 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 Past Anesthesia/Blood Transfusion Reactions: No Reported Reaction Past Psychological History: Anxiety, Depression Smoking Status: Never smoker Past Alcohol Use History: None Reported Past Drug Use History: None Reported - Past Family History Brother(s) Family Medical History: Cancer Additional Family Medical History / Comment(s): spine Father Family Medical History: Coronary Artery Disease (CAD), CVA/TIA, Diabetes Mellitus, Hypertension, Thyroid Disorder Additional Family Medical History / Comment(s): X3 STROKES, STENTS IN HEART,Pacemaker Mother Family Medical History: Diabetes Mellitus, Hypertension, Thyroid Disorder Additional Family Medical History / Comment(s): KNEE REPLACEMENTS General Exam - General Exam Comments Initial Comments: General: The patient is awake and alert, in no distress. Eye: +3 mm pupils are equal, round and reactive to light, extra-ocular movements are intact. No nystagmus. There is normal conjunctiva bilaterally. No signs of icterus. No photophobia Ears, nose, mouth and throat: There are moist mucous membranes and no oral lesions. Oropharynx was not erythematous there is no tonsillar enlargement exudates or lesions. Uvula midline. Tympanic membranes are not erythematous or is no effusions bulging or retraction. No tenderness to palpation of the mastoid. No anterior cervical lymphadenopathy. No tripoding, no drooling. Neck: The neck is supple, there is no tenderness or JVD. Cardiovascular: There is a regular rate and rhythm. No murmur, rub or gallop is appreciated. Respiratory: Respirations are non-labored, breath sounds are equal. Inspiratory stridor present, ceases with speech. No rales, or rhonchi. Mild expiratory wheeze. No retractions or abdominal breathing. No cyanosis. Gastrointestinal: Soft, non-distended, non-tender abdomen without masses or organomegaly noted. There is no rebound or guarding present. Bowel sounds are unremarkable. Musculoskeletal: Normal ROM, no tenderness. Strength 5/5. Sensation intact. Radial pulses equal bilaterally 2+. Neurological: A&O x 3. CN II-XII intact, There are no obvious motor or sensory deficits. Coordination appears grossly intact. Speech appears normal, no muffling. Skin: Skin is warm and dry and no rashes or lesions are noted. No extremity edema Psychiatric: Cooperative Limitations: no limitations Course Vital Signs 09/12/18 09/12/18 09/12/18 11:29 12:13 12:23 Temperature 99.0 F Pulse Rate 94 90 90 Respiratory 18 Rate Blood Pressure 110/64 O2 Sat by Pulse 97 Oximetry EKG Findings - EKG Comments: EKG Findings:: A 12-lead EKG was performed and shows the following: Rate is 87bpm, and rhythm is normal sinus. There are normal QRS complexes and normal R- wave progression. ST segments have no elevation or depression, and KS segments appear normal. KS interval 156 ms, QRS yazidism 76 ms, QT/QTC 358/442 ms. EKG was reviewed by attending provider Dr. Tom. Medical Decision Making - Medical Decision Making 48 year old female sent by Dr. Huber for admission. Pt complaining of dyspnea. EKG no acute findings. CXR revealed no acute cardiopulmonary process. Pt has hx of asthma mild wheeze, stridor present. 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 Mild expiratory wheeze. Pt given 2 duoneb treatments in the ER. IV steroids. Laboratory stories within acceptable limits, appear to be cohesive with patient's previous laboratory studies. Dr. Tom evaluated patient in person. Pt will be admitted for asthma exacerbation and evaluation by Dr. Huber. Dr. Tom spoke with BISHNU Verdin who is covering for Dr. Black. Agreeable with admission at this time. - Lab Data Result diagrams: 09/12/18 12:03 09/12/18 12:03 Lab Results 09/12/18 09/12/18 09/12/18 Range/Units 12:03 12:03 12:03 WBC 6.1 (3.8-10.6) k/uL RBC 4.27 (3.80-5.40) m/uL Hgb 10.1 L (11.4-16.0) gm/dL Hct 32.5 L (34.0-46.0) % MCV 76.2 L (80.0-100.0) fL MCH 23.8 L (25.0-35.0) pg MCHC 31.2 (31.0-37.0) g/dL RDW 15.3 (11.5-15.5) % Plt Count 236 (150-450) k/uL Neutrophils % 83 % Lymphocytes % 11 % Monocytes % 4 % Eosinophils % 1 % Basophils % 0 % Neutrophils # 5.1 (1.3-7.7) k/uL Lymphocytes # 0.7 L (1.0-4.8) k/uL Monocytes # 0.2 (0-1.0) k/uL Eosinophils # 0.0 (0-0.7) k/uL Basophils # 0.0 (0-0.2) k/uL Hypochromasia Marked Poikilocytosis Slight Microcytosis Slight PT 10.4 (9.0-12.0) sec INR 1.0 (<1.2) APTT 22.0 (22.0-30.0) sec Sodium 141 (137-145) mmol/L Potassium 4.4 (3.5-5.1) mmol/L Chloride 110 H (98-107) mmol/L Carbon Dioxide 22 (22-30) mmol/L Anion Gap 9 mmol/L BUN 9 (7-17) mg/dL Creatinine 0.74 (0.52-1.04) mg/dL Est GFR (CKD-EPI)AfAm >90 (>60 ml/min/1.73 sqM) Est GFR (CKD-EPI)NonAf >90 (>60 ml/min/1.73 sqM) Glucose 99 (74-99) mg/dL Calcium 9.1 (8.4-10.2) mg/dL Total Bilirubin 0.4 (0.2-1.3) mg/dL AST 75 H (14-36) U/L ALT 69 H (9-52) U/L Alkaline Phosphatase 133 H (38-126) U/L Troponin I (0.000-0.034) ng/mL Total Protein 6.5 (6.3-8.2) g/dL Albumin 4.0 (3.5-5.0) g/dL 09/12/18 Range/Units 12:03 WBC (3.8-10.6) k/uL RBC (3.80-5.40) m/uL Hgb (11.4-16.0) gm/dL Hct (34.0-46.0) % MCV (80.0-100.0) fL MCH (25.0-35.0) pg MCHC (31.0-37.0) g/dL RDW (11.5-15.5) % Plt Count (150-450) k/uL Neutrophils % % Lymphocytes % % Monocytes % % Eosinophils % % Basophils % % Neutrophils # (1.3-7.7) k/uL Lymphocytes # (1.0-4.8) k/uL Monocytes # (0-1.0) k/uL Eosinophils # (0-0.7) k/uL Basophils # (0-0.2) k/uL Hypochromasia Poikilocytosis Microcytosis PT (9.0-12.0) sec INR (<1.2) APTT (22.0-30.0) sec Sodium (137-145) mmol/L Potassium (3.5-5.1) mmol/L Chloride (98-107) mmol/L Carbon Dioxide (22-30) mmol/L Anion Gap mmol/L BUN (7-17) mg/dL Creatinine (0.52-1.04) mg/dL Est GFR (CKD-EPI)AfAm (>60 ml/min/1.73 sqM) Est GFR (CKD-EPI)NonAf (>60 ml/min/1.73 sqM) Glucose (74-99) mg/dL Calcium (8.4-10.2) mg/dL Total Bilirubin (0.2-1.3) mg/dL AST (14-36) U/L ALT (9-52) U/L Alkaline Phosphatase (38-126) U/L Troponin I <0.012 (0.000-0.034) ng/mL Total Protein (6.3-8.2) g/dL Albumin (3.5-5.0) g/dL Disposition Clinical Impression: Dyspnea, Asthma exacerbation, Stridor Disposition: ADMITTED IP TO THIS [facility] Condition: Stable Is patient prescribed a controlled substance at d/c from ED?: No Referrals: Tyler Black MD [Primary Care Provider] - 1-2 days Time of Disposition: 12:48 Decision to Admit Reason: Admit from EC Decision Date: 09/12/18 Decision Time: 12:48
[2018-09-12 12:18] LABS: Basophils % (A) 0 %; Eosinophils % (A) 1 %; HCT 32.5 % (34.0-46.0); HGB 10.1 gm/dL (11.4-16.0); Hypochromasia Marked; Lymphocytes # (A) 0.7 k/uL (1.0-4.8); Lymphocytes % (A) 11 %; MCH 23.8 pg (25.0-35.0); MCHC 31.2 g/dL (31.0-37.0); MCV 76.2 fL (80.0-100.0); Mean Platelet Volume 8.2; Microcytosis Slight; Monocytes # (A) 0.2 k/uL (0-1.0); Monocytes % (A) 4 %; Neutrophils # (A) 5.1 k/uL (1.3-7.7); Neutrophils % (A) 83 %; Platelet Count 236 k/uL (150-450); Poikilocytosis Slight; RBC 4.27 m/uL (3.80-5.40); RDW 15.3 % (11.5-15.5); WBC 6.1 k/uL (3.8-10.6)
[2018-09-12 12:23] LABS: ALT 69 U/L (9-52); AST 75 U/L (14-36); Alkaline Phosphatase 133 U/L (38-126); Anion Gap 9 mmol/L; Blood Urea Nitrogen 9 mg/dL (7-17); Calcium 9.1 mg/dL (8.4-10.2); Carbon Dioxide 22 mmol/L (22-30); Chloride 110 mmol/L (98-107); Glucose 99 mg/dL (74-99); Potassium 4.4 mmol/L (3.5-5.1); Sodium 141 mmol/L (137-145); Total Bilirubin 0.4 mg/dL (0.2-1.3); Total Protein 6.5 g/dL (6.3-8.2)
[2018-09-12] MEDS ORDERED: NALOXONE 0.4 MG/ML 1 ML VIAL IV PRN (12:23)
[2018-09-12 12:29] LABS: Prothrombin Time 10.4 sec (9.0-12.0)
--- NOTE | 2018-09-12 12:38 | XR ---
EXAMINATION TYPE: XR chest 2V DATE OF EXAM: 09/12/2018 COMPARISON: Chest x-ray November 06, 2016 HISTORY: Fever and difficulty in breathing. TECHNIQUE: Frontal and lateral views of the chest are obtained. FINDINGS: Poor inspiration on current study is present. New patchy bibasilar linear atelectasis is id entified. There is no suspicious focal air space opacity, pleural effusion, or pneumothorax seen. Th e cardiac silhouette size is within normal limits. Cholecystectomy clips are redemonstrated. The oss eous structures are intact. IMPRESSION: Poor inspiration with new patchy bibasilar atelectasis. No new suspicious focal infiltra te.
[2018-09-12] MEDS ORDERED: IBUPROFEN 600 MG TAB PO STA (12:52)
[2018-09-12] MEDS: SODIUM CHLORIDE 0.9% 1,000 ML IV SCH (12:53)
[2018-09-12] MEDS: IPRATROPIUM-ALBUTEROL 3 ML NEB INHALATION SCH ×3 (15:32→23:50)
--- NOTE | 2018-09-12 15:59 | HP ---
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 She had been short of breath for approximately 1-2 weeks and had been on steroids. Subsequently she was admitted for further evaluation when she had chest tightness as well as severe shortness of breath along with wheezing. PAST MEDICAL HISTORY: Positive for: 1. Vocal cord dysfunction syndrome. 2. History of severe asthma. 3. History of pulmonary embolism. 4. History of obesity. 5. History of fibromyalgia. 6. Gastroesophageal reflux disease. 7. Obstructive sleep apnea. 8. Previous bronchoscopy with biopsy. 9. Previous bypass surgery. 10.History of previous [place] filter placement. 11.Right knee arthroscopy. FAMILY HISTORY: Positive for cancer of the spine in her brother. Father had a history of coronary artery disease. ALLERGIES: Patient has NO KNOWN DRUG ALLERGIES. She has chronic pain and is on [place] for this. MEDICATIONS: Her medications prior to admission were: 1. Bupropion. 2. Belsomra. 3. VESIcare. 4. Zoloft. 5. Xarelto. 6. Lyrica. 7. Omeprazole. 8. Singulair. 9. Synthroid. 10.Hydrocodone with acetaminophen. 11.Symbicort. 12.Brexpiprazole. REVIEW OF SYSTEMS: Noncontributory. PHYSICAL EXAMINATION: Her blood pressure is 137/70, respiratory rate of 18, pulse rate of 91, temperature 97.2 degrees Fahrenheit. Oxygen saturation on room air is 98%. HEENT reveals pupils that are equal. Chest reveals inspiratory stridor. No expiratory wheezing. Fair air entry. Cardiovascular system is in S1, S2. Abdomen is soft. There is no pedal edema. LABS: Sodium is 141, potassium 4.4, chloride 110, bicarb 22, white count of 6.1, hemoglobin of 10.1, AST 75, ALT 69, alkaline phosphatase 133, albumin 4. Chest x-ray shows patchy bibasilar atelectasis. IMPRESSION AT THIS TIME: 1. Vocal cord dysfunction syndrome. 2. Asthma with acute exacerbation. 3. Obesity. 4. Obstructive sleep apnea. 5. Previous deep venous thrombosis, status post [place] filter placement, on anticoagulation. At this point in time, admit the patient to the hospital, have her seen by Dr. Huber, her wood room supervisor. Keep her on IV and aerosolized steroids, pain control. Her prognosis at this time is guarded. MMODL / IJN: [id number] /
[2018-09-12] MEDS: HYDROcodone/APAP 7.5-325MG 1 EACH TAB PO PRN (17:33)
[2018-09-12] MEDS: methylPREDNISolone SOD SUCCI 125 MG/2 ML VIAL IV SCH ×2 (17:34→23:56)
[2018-09-12] MEDS: BUDESONIDE 0.5 MG/2 ML NEBU INHALATION SCH (20:48)
[2018-09-12] MEDS ORDERED: MONTELUKAST 10 MG TAB PO SCH (21:00)
[2018-09-12] MEDS: Brexpiprazole [Rexulti] 1 MG PO SCH (21:18)
[2018-09-12] MEDS: Suvorexant [Belsomra] 20 MG PO SCH (21:19)
[2018-09-12] MEDS: buPROPion XL 150 MG TAB.ER.24H PO SCH (21:20)
[2018-09-12] MEDS: FAMOTIDINE 20 MG TAB PO SCH (21:20)
[2018-09-12] MEDS: RIVAROXABAN 20 MG TAB PO SCH (21:21)
[2018-09-12] MEDS: MONTELUKAST 10 MG TAB PO SCH (21:21)
[2018-09-12] MEDS: PREGABALIN 75 MG CAP PO SCH (21:21)
[2018-09-12] MEDS: SERTRALINE 50 MG TAB PO SCH (21:21)
[2018-09-13] MEDS: HYDROcodone/APAP 7.5-325MG 1 EACH TAB PO PRN ×3 (02:34→19:13)
[2018-09-13] MEDS: IPRATROPIUM-ALBUTEROL 3 ML NEB INHALATION SCH ×5 (04:37→19:23)
[2018-09-13] MEDS: LEVOTHYROXINE 75 MCG TAB PO SCH (05:48)
[2018-09-13] MEDS: methylPREDNISolone SOD SUCCI 125 MG/2 ML VIAL IV SCH ×3 (05:48→17:50)
[2018-09-13] MEDS: PANTOPRAZOLE 40 MG TABLET PO SCH (08:10)
[2018-09-13] MEDS: SERTRALINE 50 MG TAB PO SCH ×2 (08:11→21:13)
[2018-09-13] MEDS: buPROPion XL 150 MG TAB.ER.24H PO SCH ×2 (08:11→21:12)
[2018-09-13] MEDS: TROSPIUM CHLORIDE 20 MG TABLET PO SCH ×2 (08:11→21:13)
[2018-09-13] MEDS: FAMOTIDINE 20 MG TAB PO SCH (08:11)
[2018-09-13] MEDS: PREGABALIN 75 MG CAP PO SCH ×3 (08:11→21:13)
[2018-09-13] MEDS: SODIUM CHLORIDE 0.9% 1,000 ML IV SCH (08:12)
[2018-09-13] MEDS: BUDESONIDE 0.5 MG/2 ML NEBU INHALATION SCH ×2 (09:15→19:23)
[2018-09-13 11:19] LABS: Glucose,Whole Blood 122 mg/dL (75-99)
[2018-09-13] MEDS: INSULIN ASPART (NovoLOG) 100 UNIT/ML VIAL SQ SCH ×3 (11:20→21:12)
--- NOTE | 2018-09-13 12:40 | P.CNPUL ---
History of Present Illness Consult date: 09/13/18 Reason for consult: dyspnea, cough, asthma, obstructive sleep apnea Chief complaint: Wheezing, inspiratory stridor, failed outpatient therapy History of present illness: Jessica is a 48-year-old female with history of chronic persistent severe asthma which is in remission however about 2 weeks ago patient started having increased cough congestion shortness of breath she was given a course of steroids and antibiotics without any significant relief due to persistent problem and inspiratory stridor patient was admitted into the hospital for further evaluation and intervention and treatment, on specific questioning she have stridor cough is dry and nonproductive and has been more short of breath than baseline Review of Systems All systems: negative Past Medical History Past Medical History: Asthma, COPD, Fibromyalgia, GERD/Reflux, Pneumonia, Pulmonary Embolus (PE), Seizure Disorder, Sleep Apnea/CPAP/BIPAP, Thyroid Disorder Additional Past Medical History / Comment(s): Chronic asthma, chronic COPD, recurrent pneumonias, hx of respiratory stridor, PE in 2003 and 2009, MAGALI with CPAP , psuedo seizures with last one in 2016, past gastric ulcer, DDD, LOWER BACK PAIN- RADIATES DOWN RT LEG, R toes,neuropathy, generalized pain from fibromyalgia, chronic MIGRAINES, hypothyroidism, urinary leakage at times, hea led wound on abdomen from surgical dehiscence, insomnia, cellulitis R arm. History of Any Multi-Drug Resistant Organisms: None Reported Past Surgical History: Back Surgery, Bariatric Surgery, Cholecystectomy, Joint Replacement, Orthopedic Surgery Additional Past Surgical History / Comment(s): 11/12/16 bronchoscopy wit BAL, g astric bypass 2011, panniculectomy with wound dehiscence/debridements, 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 Past Anesthesia/Blood Transfusion Reactions: No Reported Reaction Smoking Status: Never smoker - Past Family History Brother(s) Family Medical History: Cancer Additional Family Medical History / Comment(s): spine Father Family Medical History: Coronary Artery Disease (CAD), CVA/TIA, Diabetes Mellitus, Hypertension, Thyroid Disorder Additional Family Medical History / Comment(s): X3 STROKES, STENTS IN HEART,Pacemaker Mother Family Medical History: Diabetes Mellitus, Hypertension, Thyroid Disorder Additional Family Medical History / Comment(s): KNEE REPLACEMENTS Medications and Allergies Home Medications Medication Instructions Recorded Confirmed Type Rivaroxaban [Xarelto] 20 mg PO HS 11/20/13 09/12/18 History Pregabalin [Lyrica] 150 mg PO TID 10/09/14 09/12/18 History Montelukast [Singulair] 10 mg PO HS 06/23/15 09/12/18 History Brexpiprazole [Rexulti] 1 mg PO HS 02/16/17 09/12/18 History Budesonide/Formoterol Fumarate 2 puff INHALATION RT-BID 02/16/17 09/12/18 History [Symbicort 160-4.5 Mcg Inhaler] Levothyroxine Sodium [Synthroid] 150 mcg PO DAILY 02/16/17 09/12/18 History Omeprazole 20 mg PO DAILY 02/16/17 09/12/18 History Sertraline [Zoloft] 50 mg PO BID 02/16/17 09/12/18 History Suvorexant [Belsomra] 20 mg PO HS 05/03/18 09/12/18 History Solifenacin Succinate [Vesicare] 10 mg PO DAILY 07/19/18 09/12/18 History HYDROcodone/APAP 7.5-325MG [[place] 1 tab PO TID PRN 08/17/18 09/12/18 History 7.5-325] buPROPion HCL [Wellbutrin XL] 150 mg PO BID 08/17/18 09/12/18 History Allergies Allergy/AdvReac Type Severity Reaction Status Date / Time No Known Allergies Allergy Verified 09/12/18 11:48 Physical Exam Vitals: Vital Signs Temp Pulse Pulse Resp BP BP Pulse Ox 09/13/18 12:03 101 H 18 09/13/18 11:53 97 18 09/13/18 11:26 98.1 F 108 H 18 130/59 96 09/13/18 09:31 100 09/13/18 09:15 102 H 20 97 09/13/18 05:00 97.6 F 91 16 134/80 97 09/13/18 04:37 91 09/13/18 00:04 90 09/12/18 23:50 90 09/12/18 21:00 98.6 F 94 24 133/70 97 09/12/18 20:55 92 09/12/18 20:47 96 09/12/18 15:47 92 09/12/18 15:33 100 09/12/18 13:41 97.5 F L 96 18 118/72 97 09/12/18 13:09 97.2 F L 91 18 137/70 98 09/12/18 12:59 92 09/12/18 12:48 87 Intake and Output 09/12/18 09/13/18 09/13/18 22:59 06:59 14:59 Intake Total 1280 1480 360 Balance 1280 1480 360 Intake: Intake, IV Titration 200 400 Amount Sodium Chloride 0.9% 1, 200 400 000 ml @ 50 mls/hr IV . Q20H [facility] Rx#:[id number] Oral 1080 1080 360 Other: Voiding Method Toilet # Voids 3 4 # Bowel Movements 1 - Constitutional General appearance: average body habitus, cooperative, disheveled, morbidly obese - EENT Eyes: anicteric sclerae, EOMI, PERRLA, dentition normal, ptosis, normal appearance ENT: normal oropharynx Ears: bilateral: normal - Neck Neck: normal ROM Carotids: bilateral: upstroke normal Thyroid: bilateral: normal size - Respiratory Respiratory: bilateral: diminished, wheezing, prolonged expiration, prolonged inspiration, negative: dullness, rales, rhonchi - Cardiovascular Rhythm: regular Heart sounds: normal: S1, S2 - Gastrointestinal General gastrointestinal: normal bowel sounds, soft - Integumentary Integumentary: normal turgor - Neurologic Neurologic: CNII-XII intact - Musculoskeletal Musculoskeletal: gait normal, generalized weakness, strength equal bilaterally - Psychiatric Psychiatric: A&O x's 3, appropriate affect, intact judgment & insight Results - Laboratory Findings CBC and BMP: 09/12/18 12:03 09/12/18 12:03 PT/INR, D-dimer PT 10.4 sec (9.0-12.0) 09/12/18 12:03 INR 1.0 (<1.2) 09/12/18 12:03 Abnormal lab findings: Abnormal Labs 09/12/18 09/12/18 09/13/18 12:03 12:03 11:18 Hgb 10.1 L Hct 32.5 L MCV 76.2 L MCH 23.8 L Lymphocytes # 0.7 L Chloride 110 H POC Glucose (mg/dL) 122 H AST 75 H ALT 69 H Alkaline Phosphatase 133 H - Diagnostic Findings Chest x-ray: report reviewed, image reviewed (By basilar patchy atelectasis and possible pneumonia) Assessment and Plan Assessment: Bilateral basal pneumonia versus atelectasis Chronic persistent severe asthma Inspiratory and expiratory stridor component of vocal cord dysfunction Obstructive sleep apnea Morbid obesity DVT PE Plan: Broad-spectrum IV antibiotics IV steroids Breathing treatments Continue CPAP Continue anticoagulation Further management and care plan as per clinical response of the patient Time with Patient: Greater than 30
--- NOTE | 2018-09-13 14:38 | P.PN ---
Subjective Progress Note Date: 09/13/18 This is a 48-year-old female admitted with possible bilateral basal pneumonia, chronic asthma , vocal cord dysfunction and multiple other medical issues. Maintained on broad-spectrum IV antibiotics, nebulized bronchodilators, IV steroids. Maintaining O2 sats of 96-97% on room air. Breathing slowly improv ing, wheezing persists. Minimal inspiratory stridor with cough.Reports productive cough of yellow sputum. Objective - Vital Signs Vital signs: Vital Signs Temp 98.1 F 09/13/18 11:26 Pulse 101 H 09/13/18 12:03 Resp 18 09/13/18 12:03 BP 130/59 09/13/18 11:26 Pulse Ox 96 09/13/18 11:26 Intake & Output 09/12/18 09/13/18 09/13/18 18:59 06:59 18:59 Intake Total 2760 360 Balance 2760 360 Weight 106.594 kg Intake: Intake, IV Titration 600 Amount Sodium Chloride 0.9% 1, 600 000 ml @ 50 mls/hr IV . Q20H [facility] Rx#:[id number] Oral 2160 360 Other: Voiding Method Toilet # Voids 1 4 # Bowel Movements 1 - Exam PHYSICAL EXAM: VITAL SIGNS: As above GENERAL: Sitting up in bed, no acute distress HEENT: Conjunctivae normal. eyes normal. Oral mucosa moist NECK: No JVD. No thyroid enlargement. No LNs CARDIOVASCULAR: S1, S2 muffled. No murmur RESPIRATION: Breath sounds diminished in the bases. Minimal inspiratory stridor present with coughing. Bilateral prolonged expiratory wheezing. No rhonchi, no crackles. ABDOMEN: Soft, nontender . No guarding. no masses palpable. No ascites, No hepatosplenomegaly.Bowel sounds heard. LEGS: No edema. no swelling PSYCHIATRY: Alert and oriented -3, mood and affect normal. NERVOUS SYSTEM: Cranial N 2-12 grossly normal. Moves all 4 limbs. Diffuse weak ness No focal deficits. No sensory deficit. Skin: no ulcer no rash Joints: No active swelling. No inflammation. Lymphatic system. No LN neck axilla or groin. - Labs CBC & Chem 7: 09/12/18 12:03 09/12/18 12:03 Labs: Abnormal Lab Results - Last 24 Hours (Table) 09/13/18 Range/Units 11:18 POC Glucose (mg/dL) 122 H (75-99) mg/dL Assessment and Plan Assessment: Possible bibasilar pneumonia. -Chronic persistent severe asthma with possible acute exacerbation -Vocal cord dysfunction syndrome -Obstructive sleep apnea -Morbid obesity, BMI 39.1 -History of DVT, status post [place] filter placement, on anticoagulation Plan: Continue on current medication regime ,monitoring and symptomatic treatment. Maintain nebulized bronchodilators, steroids, broad-spectrum IV antibiotics. Continue CPAP-patient has own machine at bedside. Follow closely with pulmonary. Further recommendations to follow. The impression and plan of care has been dictated as directed. : I performed a history and examination of this patient, discussed the same with the dictator. I agree with the dictator's note ,documented as a scribe. Any additional findings or plans will be noted.
[2018-09-13 16:49] LABS: Glucose,Whole Blood 158 mg/dL (75-99)
[2018-09-13 19:58] LABS: Glucose,Whole Blood 208 mg/dL (75-99)
[2018-09-13] MEDS: Brexpiprazole [Rexulti] 1 MG PO SCH (21:10)
[2018-09-13] MEDS: Suvorexant [Belsomra] 20 MG PO SCH (21:11)
[2018-09-13] MEDS: MONTELUKAST 10 MG TAB PO SCH (21:12)
[2018-09-13] MEDS: RIVAROXABAN 20 MG TAB PO SCH (21:13)
[2018-09-14] MEDS: methylPREDNISolone SOD SUCCI 125 MG/2 ML VIAL IV SCH ×4 (00:16→17:30)
[2018-09-14] MEDS: IPRATROPIUM-ALBUTEROL 3 ML NEB INHALATION SCH ×6 (00:19→19:07)
[2018-09-14] MEDS: SODIUM CHLORIDE 0.9% 1,000 ML IV SCH (05:01)
[2018-09-14] MEDS: LEVOTHYROXINE 75 MCG TAB PO SCH (05:39)
[2018-09-14] MEDS: HYDROcodone/APAP 7.5-325MG 1 EACH TAB PO PRN ×3 (05:40→21:15)
[2018-09-14] MEDS: BUDESONIDE 0.5 MG/2 ML NEBU INHALATION SCH ×2 (06:55→19:07)
[2018-09-14 06:58] LABS: Glucose,Whole Blood 157 mg/dL (75-99)
[2018-09-14] MEDS: INSULIN ASPART (NovoLOG) 100 UNIT/ML VIAL SQ SCH ×4 (07:19→21:16)
[2018-09-14] MEDS: buPROPion XL 150 MG TAB.ER.24H PO SCH ×2 (07:21→21:14)
[2018-09-14] MEDS: PANTOPRAZOLE 40 MG TABLET PO SCH (07:21)
[2018-09-14] MEDS: PREGABALIN 75 MG CAP PO SCH ×3 (07:21→21:14)
[2018-09-14] MEDS: SERTRALINE 50 MG TAB PO SCH ×2 (07:22→21:14)
[2018-09-14] MEDS: TROSPIUM CHLORIDE 20 MG TABLET PO SCH ×2 (07:22→21:13)
[2018-09-14 11:16] LABS: Glucose,Whole Blood 113 mg/dL (75-99)
[2018-09-14] MEDS: KETOROLAC 30 MG/ML 1 ML VIAL IVP SCH ×2 (11:47→17:28)
[2018-09-14] MEDS: guaiFENesin-DM 100-10MG/5ML 10 ML CUP PO PRN ×2 (13:51→21:16)
[2018-09-14 17:09] LABS: Glucose,Whole Blood 137 mg/dL (75-99)
--- NOTE | 2018-09-14 18:05 | P.PN ---
Subjective Progress Note Date: 09/14/18 This is a 48-year-old female admitted with possible bilateral basal pneumonia, chronic asthma , vocal cord dysfunction and multiple other medical issues. Maintained on broad-spectrum IV antibiotics, nebulized bronchodilators, IV steroids. Maintaining O2 sats of 96-97% on room air. Breathing slowly improv ing, wheezing persists. Minimal inspiratory stridor with cough.Reports productive cough of yellow sputum. 09/14/2018 continues on nebulized bronchodilators, steroids, IV antibiotics,breathing improving, no further stridor noted. Maintaining O2 sats of mid to high 90s on room air. Ambulating in room with less exertional shortness of breath. Complains of rib cage discomfort secondary to coughing. Objective - Vital Signs Vital signs: Vital Signs Temp 98.3 F 09/14/18 11:56 Pulse 113 H 09/14/18 15:03 Resp 18 09/14/18 15:03 BP 128/62 09/14/18 11:56 Pulse Ox 95 09/14/18 11:56 Intake & Output 09/13/18 09/14/18 09/14/18 18:59 06:59 18:59 Intake Total 360 1680 2800 Balance 360 1680 2800 Intake: Intake, IV Titration 600 400 Amount Sodium Chloride 0.9% 1, 600 000 ml @ 50 mls/hr IV . Q20H [facility] Rx#:[id number] cefTRIAXone 1 gm In 400 Sodium Chloride 0.9% 50 ml @ 100 mls/hr IVPB Q24HR [facility] Rx#:[id number] Oral 360 1080 2400 Other: Voiding Method Toilet Toilet Toilet # Voids 3 3 3 # Bowel Movements 3 - Exam PHYSICAL EXAM: VITAL SIGNS: As above GENERAL: Sitting up in bed, no acute distress HEENT: Conjunctivae normal. eyes normal. Oral mucosa moist NECK: No JVD. No thyroid enlargement. No LNs CARDIOVASCULAR: S1, S2 muffled. No murmur RESPIRATION: Breath sounds diminished in the bases. Improving Bilateral expiratory wheezing. No rhonchi, no crackles. ABDOMEN: Soft, nontender . No guarding. no masses palpable. No ascites, No hepatosplenomegaly.Bowel sounds heard. LEGS: No edema. no swelling PSYCHIATRY: Alert and oriented -3, mood and affect normal. NERVOUS SYSTEM: Cranial N 2-12 grossly normal. Moves all 4 limbs. No focal deficits. Skin: no ulcer no rash - Labs CBC & Chem 7: 09/12/18 12:03 09/12/18 12:03 Labs: Abnormal Lab Results - Last 24 Hours (Table) 09/13/18 09/14/18 09/14/18 Range/Units 19:56 06:57 11:15 POC Glucose (mg/dL) 208 H 157 H 113 H (75-99) mg/dL 09/14/18 Range/Units 17:08 POC Glucose (mg/dL) 137 H (75-99) mg/dL Assessment and Plan Assessment: Possible bibasilar pneumonia. -Chronic persistent severe asthma with possible acute exacerbation -Vocal cord dysfunction syndrome -Obstructive sleep apnea -Morbid obesity, BMI 39.1 -History of DVT, status post [place]ef[place] filter placement, on anticoagulation Plan: Continue on current medication regime ,monitoring and symptomatic treatment. Maintain nebulized bronchodilators, steroids, broad-spectrum IV antibiotics. Repeat chest x-ray in morning .Follow closely with pulmonary. Close medicine added to med regime. Discharge planning in progress for tomorrow. The impression and plan of care has been dictated as directed. : I performed a history and examination of this patient, discussed the same with the dictator. I agree with the dictator's note ,documented as a scribe. Any additional findings or plans will be noted.
[2018-09-14 20:04] LABS: Glucose,Whole Blood 147 mg/dL (75-99)
[2018-09-14] MEDS: Brexpiprazole [Rexulti] 1 MG PO SCH (21:11)
[2018-09-14] MEDS: Suvorexant [Belsomra] 20 MG PO SCH (21:12)
[2018-09-14] MEDS: RIVAROXABAN 20 MG TAB PO SCH (21:15)
[2018-09-14] MEDS: MONTELUKAST 10 MG TAB PO SCH (21:15)
[2018-09-15] MEDS: IPRATROPIUM-ALBUTEROL 3 ML NEB INHALATION SCH ×4 (00:17→11:06)
[2018-09-15] MEDS: KETOROLAC 30 MG/ML 1 ML VIAL IVP SCH (00:44)
[2018-09-15] MEDS: methylPREDNISolone SOD SUCCI 125 MG/2 ML VIAL IV SCH ×3 (00:45→12:04)
[2018-09-15] MEDS: SODIUM CHLORIDE 0.9% 1,000 ML IV SCH (00:47)
[2018-09-15] MEDS: LEVOTHYROXINE 75 MCG TAB PO SCH (05:36)
[2018-09-15] MEDS: HYDROcodone/APAP 7.5-325MG 1 EACH TAB PO PRN ×2 (05:37→13:56)
[2018-09-15] MEDS: guaiFENesin-DM 100-10MG/5ML 10 ML CUP PO PRN ×2 (06:41→14:15)
[2018-09-15] MEDS: BUDESONIDE 0.5 MG/2 ML NEBU INHALATION SCH (06:56)
[2018-09-15 07:31] LABS: Glucose,Whole Blood 147 mg/dL (75-99)
[2018-09-15] MEDS: buPROPion XL 150 MG TAB.ER.24H PO SCH (07:41)
[2018-09-15] MEDS: TROSPIUM CHLORIDE 20 MG TABLET PO SCH (07:41)
[2018-09-15] MEDS: PREGABALIN 75 MG CAP PO SCH ×2 (07:41→16:53)
[2018-09-15] MEDS: INSULIN ASPART (NovoLOG) 100 UNIT/ML VIAL SQ SCH ×3 (07:41→17:28)
[2018-09-15] MEDS: SERTRALINE 50 MG TAB PO SCH (07:41)
[2018-09-15] MEDS: PANTOPRAZOLE 40 MG TABLET PO SCH (07:42)
[2018-09-15 07:45] LABS: Basophils % (A) 0 %; Eosinophils % (A) 0 %; HCT 30.7 % (34.0-46.0); HGB 9.3 gm/dL (11.4-16.0); Hypochromasia Marked; Lymphocytes # (A) 0.5 k/uL (1.0-4.8); Lymphocytes % (A) 6 %; MCH 23.6 pg (25.0-35.0); MCHC 30.4 g/dL (31.0-37.0); MCV 77.6 fL (80.0-100.0); Mean Platelet Volume 8.7; Monocytes # (A) 0.3 k/uL (0-1.0); Monocytes % (A) 3 %; Neutrophils % (A) 91 %; Platelet Count 255 k/uL (150-450); Poikilocytosis Slight; RBC 3.95 m/uL (3.80-5.40); RDW 15.2 % (11.5-15.5); WBC 8.8 k/uL (3.8-10.6)
[2018-09-15 08:09] LABS: Anion Gap 8 mmol/L; Blood Urea Nitrogen 17 mg/dL (7-17); Calcium 8.6 mg/dL (8.4-10.2); Carbon Dioxide 22 mmol/L (22-30); Chloride 111 mmol/L (98-107); Glucose 123 mg/dL (74-99); Potassium 4.3 mmol/L (3.5-5.1); Sodium 141 mmol/L (137-145)
--- NOTE | 2018-09-15 08:11 | XR ---
EXAMINATION TYPE: XR chest 2V DATE OF EXAM: 09/15/2018 COMPARISON: 09/12/2018 HISTORY: Chest pain TECHNIQUE: Frontal and lateral views of the chest are obtained. FINDINGS: There is no focal air space opacity. No evidence for pneumothorax. No pleural effusion. The cardiac silhouette size is within normal limits. The osseous structures are grossly intact. IMPRESSION: 1. No acute cardiopulmonary process.
[2018-09-15 11:06] LABS: Glucose,Whole Blood 138 mg/dL (75-99)
[2018-09-15 12:22] VITALS: BP 135/63; PULSE 96; RESP 18; TEMP 98
--- NOTE | 2018-09-15 14:39 | P.PN ---
Subjective Progress Note Date: 09/14/18 Principal diagnosis: Bilateral basal pneumonia, chronic persistent severe asthma, inspiratory and expiratory stridor component of vocal cord dysfunction, obstructive sleep apnea, morbid obesity, DVT pulmonary embolism 09/14/2018, Patient has been doing well off and on inspiratory stridor is present less short of breath some discomfort and pain management issues Jessica is a 48-year-old female with history of chronic persistent severe asthma which is in remission however about 2 weeks ago patient started having increased cough congestion shortness of breath she was given a course of steroids and antibiotics without any significant relief due to persistent problem and inspi ratory stridor patient was admitted into the hospital for further evaluation and intervention and treatment, on specific questioning she have stridor cough is dry and nonproductive and has been more short of breath than baseline Objective - Vital Signs Vital signs: Vital Signs Temp 98 F 09/15/18 12:21 Pulse 96 09/15/18 12:21 Resp 18 09/15/18 12:21 BP 135/63 09/15/18 12:21 Pulse Ox 95 09/15/18 12:21 Intake & Output 09/14/18 09/15/18 09/15/18 18:59 06:59 18:59 Intake Total 2800 1180 Balance 2800 1180 Intake: Intake, IV Titration 400 Amount cefTRIAXone 1 gm In 400 Sodium Chloride 0.9% 50 ml @ 100 mls/hr IVPB Q24HR [facility] Rx#:[id number] Oral 2400 1180 Other: Voiding Method Toilet Toilet Toilet # Voids 3 2 2 - Exam - Constitutional General appearance: average body habitus, cooperative, disheveled, morbidly obese - EENT Eyes: anicteric sclerae, EOMI, PERRLA, dentition normal, ptosis, normal appearance ENT: normal oropharynx Ears: bilateral: normal - Neck Neck: normal ROM Carotids: bilateral: upstroke normal Thyroid: bilateral: normal size - Respiratory Respiratory: bilateral: diminished, wheezing, prolonged expiration, prolonged in spiration, negative: dullness, rales, rhonchi - Cardiovascular Rhythm: regular Heart sounds: normal: S1, S2 - Gastrointestinal General gastrointestinal: normal bowel sounds, soft - Integumentary Integumentary: normal turgor - Neurologic Neurologic: CNII-XII intact - Musculoskeletal Musculoskeletal: gait normal, generalized weakness, strength equal bilaterally - Psychiatric Psychiatric: A&O x's 3, appropriate affect, intact judgment & insight - Labs CBC & Chem 7: 09/15/18 06:31 09/15/18 06:31 Labs: Abnormal Lab Results - Last 24 Hours (Table) 09/14/18 09/14/18 09/15/18 Range/Units 17:08 20:02 06:31 Hgb 9.3 L (11.4-16.0) gm/dL Hct 30.7 L (34.0-46.0) % MCV 77.6 L (80.0-100.0) fL MCH 23.6 L (25.0-35.0) pg MCHC 30.4 L (31.0-37.0) g/dL Neutrophils # 8.0 H (1.3-7.7) k/uL Lymphocytes # 0.5 L (1.0-4.8) k/uL Chloride (98-107) mmol/L Glucose (74-99) mg/dL POC Glucose (mg/dL) 137 H 147 H (75-99) mg/dL 09/15/18 09/15/18 09/15/18 Range/Units 06:31 07:29 11:05 Hgb (11.4-16.0) gm/dL Hct (34.0-46.0) % MCV (80.0-100.0) fL MCH (25.0-35.0) pg MCHC (31.0-37.0) g/dL Neutrophils # (1.3-7.7) k/uL Lymphocytes # (1.0-4.8) k/uL Chloride 111 H (98-107) mmol/L Glucose 123 H (74-99) mg/dL POC Glucose (mg/dL) 147 H 138 H (75-99) mg/dL Assessment and Plan Assessment: Bilateral basal pneumonia versus atelectasis Chronic persistent severe asthma Inspiratory and expiratory stridor component of vocal cord dysfunction Obstructive sleep apnea Morbid obesity DVT PE Plan: Broad-spectrum IV antibiotics IV steroids Breathing treatments Continue CPAP Continue anticoagulation Repeat x-ray in morning Further management and care plan as per clinical response of the patient Time with Patient: Greater than 30
--- NOTE | 2018-09-15 14:42 | P.PN ---
Subjective Progress Note Date: 09/15/18 Principal diagnosis: Bilateral basal pneumonia, chronic persistent severe asthma, inspiratory and expiratory stridor component of vocal cord dysfunction, obstructive sleep apnea, morbid obesity, DVT pulmonary embolism 09/15/2018, patient has been seen and evaluated examined overall doing much better off note that the stridor that was noted previously is absent now patient is breathing more comfortably denies any chest pain ongoing shortness of breath and some cough is present chest x-ray performed earlier this morning failed to reveal or possible resolution of pneumonia 09/14/2018, Patient has been doing well off and on inspiratory stridor is present less short of breath some discomfort and pain management issues Jessica is a 48-year-old female with history of chronic persistent severe asthma which is in remission however about 2 weeks ago patient started having increased cough congestion shortness of breath she was given a course of steroids and antibiotics without any significant relief due to persistent problem and inspiratory stridor patient was admitted into the hospital for further evaluation and intervention and treatment, on specific questioning she have stridor cough is dry and nonproductive and has been more short of breath than baseline Objective - Vital Signs Vital signs: Vital Signs Temp 98 F 09/15/18 12:21 Pulse 96 09/15/18 12:21 Resp 18 09/15/18 12:21 BP 135/63 09/15/18 12:21 Pulse Ox 95 09/15/18 12:21 Intake & Output 09/14/18 09/15/18 09/15/18 18:59 06:59 18:59 Intake Total 2800 1180 Balance 2800 1180 Intake: Intake, IV Titration 400 Amount cefTRIAXone 1 gm In 400 Sodium Chloride 0.9% 50 ml @ 100 mls/hr IVPB Q24HR [facility] Rx#:[id number] Oral 2400 1180 Other: Voiding Method Toilet Toilet Toilet # Voids 3 2 2 - Exam - Constitutional General appearance: average body habitus, cooperative, disheveled, morbidly obese - EENT Eyes: anicteric sclerae, EOMI, PERRLA, dentition normal, ptosis, normal appearance ENT: normal oropharynx Ears: bilateral: normal - Neck Neck: normal ROM Carotids: bilateral: upstroke normal Thyroid: bilateral: normal size - Respiratory Respiratory: bilateral: diminished, wheezing, prolonged expiration, prolonged inspiration, negative: dullness, rales, rhonchi - Cardiovascular Rhythm: regular Heart sounds: normal: S1, S2 - Gastrointestinal General gastrointestinal: normal bowel sounds, soft - Integumentary Integumentary: normal turgor - Neurologic Neurologic: CNII-XII intact - Musculoskeletal Musculoskeletal: gait normal, generalized weakness, strength equal bilaterally - Psychiatric Psychiatric: A&O x's 3, appropriate affect, intact judgment & insight - Labs CBC & Chem 7: 09/15/18 06:31 09/15/18 06:31 Labs: Abnormal Lab Results - Last 24 Hours (Table) 09/14/18 09/14/18 09/15/18 Range/Units 17:08 20:02 06:31 Hgb 9.3 L (11.4-16.0) gm/dL Hct 30.7 L (34.0-46.0) % MCV 77.6 L (80.0-100.0) fL MCH 23.6 L (25.0-35.0) pg MCHC 30.4 L (31.0-37.0) g/dL Neutrophils # 8.0 H (1.3-7.7) k/uL Lymphocytes # 0.5 L (1.0-4.8) k/uL Chloride (98-107) mmol/L Glucose (74-99) mg/dL POC Glucose (mg/dL) 137 H 147 H (75-99) mg/dL 09/15/18 09/15/18 09/15/18 Range/Units 06:31 07:29 11:05 Hgb (11.4-16.0) gm/dL Hct (34.0-46.0) % MCV (80.0-100.0) fL MCH (25.0-35.0) pg MCHC (31.0-37.0) g/dL Neutrophils # (1.3-7.7) k/uL Lymphocytes # (1.0-4.8) k/uL Chloride 111 H (98-107) mmol/L Glucose 123 H (74-99) mg/dL POC Glucose (mg/dL) 147 H 138 H (75-99) mg/dL Assessment and Plan Assessment: Bilateral basal pneumonia versus atelectasis clinically and radiographically improved Chronic persistent severe asthma Inspiratory and expiratory stridor component of vocal cord dysfunction improved now Obstructive sleep apnea Morbid obesity DVT PE Plan: Broad-spectrum IV antibiotics IV steroids Breathing treatments Continue CPAP Continue anticoagulation Possible discharge in next 24 hours Further management and care plan as per clinical response of the patient Time with Patient: Greater than 30
[2018-09-15] MEDS ORDERED: methylPREDNISolone SOD SUCCI 40 MG/ML 1 ML VIAL IV SCH (16:00)
[2018-09-15 17:20] LABS: Glucose,Whole Blood 142 mg/dL (75-99)
--- NOTE | 2018-09-15 17:27 | P.DS ---
Providers Date of admission: 09/13/18 15:04 Expected date of discharge: 09/15/18 Attending physician: Tyler Black Consults: 09/12/18 11:45 Consult Physician Routine Consulting Provider: Philip Huber Consult Reason/Comments: asthma exacerbation Do you want consulting provider notified?: Yes [facility] Course: Final Diagnoses: -bibasilar pneumonia -Chronic persistent severe asthma -Vocal cord dysfunction syndrome -Obstructive sleep apnea -Morbid obesity, BMI 39.1 -History of DVT, status post Estefania filter placement, on anticoagulation Hospital course:This is a 48-year-old female admitted with possible bilateral basal pneumonia, chronic asthma , vocal cord dysfunction and multiple other medical issues. Maintained on broad-spectrum IV antibiotics, nebulized bronchodilators, IV steroids. Maintaining O2 sats of 96-97% on room air. Breathing slowly improving, wheezing persists. Minimal inspiratory stridor with cough.Reports productive cough of yellow sputum. 09/14/18 on nebulized bronchodilators, steroids, IV antibiotics,breathing improving, no further stridor noted. Maintaining O2 sats of mid to high 90s on room air. Ambulating in room with less exertional shortness of breath. Complains of rib cage discomfort secondary to coughing. 09/15/2018 significant clinical improvement. Patient eager to go home .Patient is being discharged home in a stable condition with guarded prognosis . EXAM: GENERAL: alert and Oriented X3,, no acute distress CARDIOVASCULAR: S1, S2 muffled. No murmur RESPIRATION: Breath sounds diminished in the bases. Improving Bilateral expiratory wheezing. No rhonchi, no crackles. ABDOMEN: Soft, nontender . No guarding. no masses palpable. Bowel sounds heard. NERVOUS SYSTEM: No focal deficits. The impression and plan of care has been dictated as directed. : I performed a history and examination of this patient, discussed the same with the dictator. I agree with the dictator's note ,documented as a scribe. Any additional findings or plans will be noted. Time taken: 35 minutes Patient Condition at Discharge: Stable Plan - Discharge Summary Discharge Rx Participant: No New Discharge Prescriptions: New guaiFENesin-DM 100-10MG/5ML [Robitussin DM] 10 ml PO Q6H PRN cup PRN Reason: Cough Cefuroxime Axetil [Ceftin] 500 mg PO BID #10 tab predniSONE 10 mg PO DIRECTED #30 tab Albuterol Inhaler [Ventolin Hfa Inhaler] 2 puff INHALATION QID #1 inhaler Continue Rivaroxaban [Xarelto] 20 mg PO HS Pregabalin [Lyrica] 150 mg PO TID Montelukast [Singulair] 10 mg PO HS Budesonide/Formoterol Fumarate [Symbicort 160-4.5 Mcg Inhaler] 2 puff INHALATION RT-BID Sertraline [Zoloft] 50 mg PO BID Brexpiprazole [Rexulti] 1 mg PO HS Omeprazole 20 mg PO DAILY Levothyroxine Sodium [Synthroid] 150 mcg PO DAILY Suvorexant [Belsomra] 20 mg PO HS Solifenacin Succinate [Vesicare] 10 mg PO DAILY buPROPion HCL [Wellbutrin XL] 150 mg PO BID HYDROcodone/APAP 7.5-325MG [[place] 7.5-325] 1 tab PO TID PRN PRN Reason: Pain Discharge Medication List Rivaroxaban [Xarelto] 20 mg PO HS 11/20/13 [History] Pregabalin [Lyrica] 150 mg PO TID 10/09/14 [History] Montelukast [Singulair] 10 mg PO HS 06/23/15 [History] Brexpiprazole [Rexulti] 1 mg PO HS 02/16/17 [History] Budesonide/Formoterol Fumarate [Symbicort 160-4.5 Mcg Inhaler] 2 puff INHALATION RT-BID 02/16/17 [History] Levothyroxine Sodium [Synthroid] 150 mcg PO DAILY 02/16/17 [History] Omeprazole 20 mg PO DAILY 02/16/17 [History] Sertraline [Zoloft] 50 mg PO BID 02/16/17 [History] Suvorexant [Belsomra] 20 mg PO HS 05/03/18 [History] Solifenacin Succinate [Vesicare] 10 mg PO DAILY 07/19/18 [History] HYDROcodone/APAP 7.5-325MG [[place] 7.5-325] 1 tab PO TID PRN 08/17/18 [History] buPROPion HCL [Wellbutrin XL] 150 mg PO BID 08/17/18 [History] Albuterol Inhaler [Ventolin Hfa Inhaler] 2 puff INHALATION QID #1 inhaler 09/15/18 [Rx] Cefuroxime Axetil [Ceftin] 500 mg PO BID #10 tab 09/15/18 [Rx] guaiFENesin-DM 100-10MG/5ML [Robitussin DM] 10 ml PO Q6H PRN cup 09/15/18 [Rx] predniSONE 10 mg PO DIRECTED #30 tab 09/15/18 [Rx] Follow up Appointment(s)/Referral(s): Tyler Black MD [Primary Care Provider] - 09/19/18 10:30 am Philip Huber MD [STAFF PHYSICIAN] - 09/26/18 9:45 am Patient Instructions/Handouts: Cefuroxime (By mouth), Prednisone (By mouth), Asthma (DC), Dyspnea (DC)
[2018-09-16] MEDS ORDERED: predniSONE 20 MG TAB PO SCH ×2 (09:00)
== END 2018-09-15 18:10 | disposition home or self-care (01) | DRG 194 ==
LOC: EC 11:27 → 3NMEDONC 12:23 → UNDODISOB 15:41 → OBSVTOIN 09-13 15:04 → 3NMEDONC 09-15 13:54
PROVIDERS: ADMIT Family Medicine; ATTEND Family Medicine
PROC: 5A09357 Assistance with Respiratory Ventilation, Less than 24 Consecutive Hours, Continuous Positive Airway Pressure (ICD-10-PCS; principal; 2018-09-12)
DX: J18.9 Pneumonia, unspecified organism (principal); J45.51 Severe persistent asthma with (acute) exacerbation; J44.0 Chronic obstructive pulmonary disease with (acute) lower respiratory infection; J38.00 Paralysis of vocal cords and larynx, unspecified; G62.9 Polyneuropathy, unspecified; E66.01 Morbid (severe) obesity due to excess calories; G47.33 Obstructive sleep apnea (adult) (pediatric); M79.7 Fibromyalgia; K21.9 Gastro-esophageal reflux disease without esophagitis; G40.909 Epilepsy, unspecified, not intractable, without status epilepticus; F41.9 Anxiety disorder, unspecified; F32.9 Major depressive disorder, single episode, unspecified; E03.9 Hypothyroidism, unspecified; G47.00 Insomnia, unspecified; G43.909 Migraine, unspecified, not intractable, without status migrainosus; Z68.39 Body mass index [BMI] 39.0-39.9, adult; Z79.01 Long term (current) use of anticoagulants; Z79.899 Other long term (current) drug therapy; Z79.51 Long term (current) use of inhaled steroids; Z79.890 Hormone replacement therapy; Z86.718 Personal history of other venous thrombosis and embolism; Z86.711 Personal history of pulmonary embolism; Z87.01 Personal history of pneumonia (recurrent); Z87.11 Personal history of peptic ulcer disease; Z98.84 Bariatric surgery status; Z96.651 Presence of right artificial knee joint; Z96.641 Presence of right artificial hip joint; Z95.828 Presence of other vascular implants and grafts; Z90.49 Acquired absence of other specified parts of digestive tract; Z83.3 Family history of diabetes mellitus; Z82.49 Family history of ischemic heart disease and other diseases of the circulatory system; Z82.3 Family history of stroke
CPT/HCPCS: 36415; 71046; 80048; 80053; 84484; 85025; 85610; 85730; 93005; 94640; 94760; 96374; 99285

== ENCOUNTER 2018-11-05 10:28 | Observation (INO) | payer MEDICARE, OTHER ==
[2018-11-05] MEDS ORDERED: ASPIRIN 81 MG PO STA (10:35)
--- NOTE | 2018-11-05 10:36 | ED ---
Chest Pain HPI - General Chief Complaint: Chest Pain Stated Complaint: Chest and back pain Time Seen by Provider: 11/05/18 10:34 Source: patient Mode of arrival: ambulatory Limitations: no limitations - History of Present Illness Initial Comments: 48-year-old female with history of DVTs, pulmonary embolism, fibromyalgia presents today for chief complaint of chest pain with radiation to the back 5 days. Patient states she woke up Wednesday she noted no specific injury or activity that she noted left-sided chest pain she states it seemed to increase when she went from a lying to a seated position. She states it hurts when she coughs. She describes as a pressure/pulling pain. She states it radiates towards the left side of her back. Patient is able, pain nausea vomiting jaw pain numbness tingling of the upper or lower extremities. Patient denies any fever or chills night sweats or upper respiratory symptoms. Patient denies any lower extremity swelling. Patient is on xarelto and states she is compliant. Patient states she has been struggling with "a rib out of place" and has been visiting a chiropractor, she states she has experienced this pain in the past when she had a "displaced rib". Denies trauma or specific action that caused this pain. Pt denies any other associated symptoms. Patient denies history of CAD, DM, HTN, pt is unsure if she has hyperlipidemia. Pt has (+) family history for CAD. Patient denies smoking. - Related Data Home Medications Medication Instructions Recorded Confirmed RX: Rivaroxaban [Xarelto] 20 mg PO HS 11/20/13 11/05/18 RX: Pregabalin [Lyrica] 150 mg PO TID 10/09/14 11/05/18 RX: Montelukast [Singulair] 10 mg PO HS 06/23/15 11/05/18 RX: Budesonide/Formoterol Fumarate 2 puff INHALATION RT-BID 02/16/17 11/05/18 [Symbicort 160-4.5 Mcg Inhaler] RX: Levothyroxine Sodium 150 mcg PO DAILY 02/16/17 11/05/18 [Synthroid] RX: Omeprazole 20 mg PO DAILY 02/16/17 11/05/18 RX: Sertraline [Zoloft] 50 mg PO BID 02/16/17 11/05/18 RX: Suvorexant [Belsomra] 20 mg PO HS 05/03/18 11/05/18 RX: Solifenacin Succinate 10 mg PO DAILY 07/19/18 11/05/18 [Vesicare] RX: HYDROcodone/APAP 7.5-325MG 1 tab PO TID PRN 08/17/18 11/05/18 [[place] 7.5-325] RX: buPROPion HCL [Wellbutrin XL] 150 mg PO BID 08/17/18 11/05/18 Brexpiprazole [Rexulti] 2 mg PO HS 11/05/18 11/05/18 RX: Albuterol Inhaler [Ventolin 2 puff INHALATION RT-QID PRN 11/05/18 11/05/18 Hfa Inhaler] Umeclidinium [place] [Incruse 1 puff INHALATION RT-DAILY 11/05/18 11/05/18 Ellipta] Previous Rx's Medication Instructions Recorded RX: guaiFENesin-DM 100-10MG/5ML 10 ml PO Q6H PRN cup 09/15/18 [Robitussin DM] Allergies Allergy/AdvReac Type Severity Reaction Status Date / Time No Known Allergies Allergy Verified 11/05/18 10:44 Review of Systems ROS Statement: Those systems with pertinent positive or pertinent negative responses have been documented in the HPI. ROS Other: All systems not noted in ROS Statement are negative. EKG Findings - EKG Comments: EKG Findings:: A 12-lead EKG was performed and shows the following: Rate is 84bpm, and rhythm is normal sinus. There are normal QRS complexes and normal R- wave progression. ST segments have no elevation or depression, and MI segments appear normal. MI interval 158 ms, QRS duration 76 ms, QT/QTC 374/441 ms Past Medical History Past Medical History: Asthma, COPD, Fibromyalgia, GERD/Reflux, Pneumonia, Pulmonary Embolus (PE), Seizure Disorder, Sleep Apnea/CPAP/BIPAP, Thyroid Disorder Additional Past Medical History / Comment(s): Chronic asthma, chronic COPD, recurrent pneumonias, hx of respiratory stridor, PE in 2003 and 2009, MAGALI with CPAP , psuedo seizures with last one in 2017, past gastric ulcer, DDD, LOWER BACK PAIN- RADIATES DOWN RT LEG, R toes,neuropathy, generalized pain from fibromyalgia, chronic MIGRAINES, hypothyroidism, urinary leakage at times, healed wound on abdomen from surgical dehiscence, insomnia, cellulitis R arm. History of Any Multi-Drug Resistant Organisms: None Reported Past Surgical History: Back Surgery, Bariatric Surgery, Cholecystectomy, Joint Replacement, Orthopedic Surgery Additional Past Surgical History / Comment(s): 11/12/16 bronchoscopy wit BAL, gastric bypass 2011, panniculectomy with wound dehiscence/debridements, 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 Past Anesthesia/Blood Transfusion Reactions: No Reported Reaction Past Psychological History: Anxiety, Depression Smoking Status: Never smoker - Past Family History Brother(s) Family Medical History: Cancer Additional Family Medical History / Comment(s): spine Father Family Medical History: Coronary Artery Disease (CAD), CVA/TIA, Diabetes Mellitus, Hypertension, Thyroid Disorder Additional Family Medical History / Comment(s): X3 STROKES, STENTS IN HEART,Pacemaker Mother Family Medical History: Diabetes Mellitus, Hypertension, Thyroid Disorder Additional Family Medical History / Comment(s): KNEE REPLACEMENTS General Exam - General Exam Comments Initial Comments: General: The patient is awake and alert, in no distress, and does not appear acutely ill. Eye: +3 mm pupils are equal, round and reactive to light, extra-ocular movements are intact. No nystagmus. There is normal conjunctiva bilaterally. No signs of icterus. Ears, nose, mouth and throat: There are moist mucous membranes and no oral lesions. Neck: The neck is supple, there is no tenderness or JVD. Cardiovascular: There is a regular rate and rhythm. No murmur, rub or gallop is appreciated. Respiratory: Lungs are clear to auscultation, respirations are non-labored, breath sounds are equal. No wheezes, stridor, rales, or rhonchi. Gastrointestinal: Soft, non-distended, non-tender abdomen without masses or organomegaly noted. There is no rebound or guarding present. No CVA tenderness. Bowel sounds are unremarkable. Musculoskeletal: [place] tender to palpation over the left anterior chest wall, stretching along to the left side of the back. Normal ROM, no tenderness. Strength 5/5. Sensation intact. Radial pulses equal bilaterally 2+. Neurological: A&O x 3. CN II-XII intact, There are no obvious motor or sensory deficits. Coordination appears grossly intact. Speech is normal. Skin: Skin is warm and dry and no rashes or lesions are noted. Psychiatric: Cooperative, appropriate mood & affect, normal judgment. Limitations: no limitations Course Vital Signs 11/05/18 11/05/18 11/05/18 10:31 11:30 14:12 Temperature 98.4 F Pulse Rate 87 86 Respiratory 16 16 18 Rate Blood Pressure 147/88 99/53 O2 Sat by Pulse 97 98 Oximetry Chest Pain MDM - MDM 48yofemale presenting for left-sided chest pain that increases with movement that radiates towards the back. Patient thought this was displaced rib. Patient presented for pain management. Patient denies shortness of breath. Patient states she has a chronic cough. Patient denies fever. No leukocytosis. Small left-sided pleural effusion on CT angiography which was obtained secondary to patient's history of pulmonary embolism. Patient is not fluid overloaded, afebrile and denies upper respiratory or other symptoms consistent w ith PNA, unclear cause of small left pleural effusion. Patient described the pain as pressure, initial troponin (-). EKG normal no findings consistent is ischemic pattern. At this time given patient history of obesity, CAD family history, description of pain--patient will be admitted for serial troponins. I spoke with Dr Burdick who is agreeable with plan. He contacted patient primary care provider, Dr. Black who accepted admission. NO further orders at this time, patient on telemetry. Of note: Patient had mild extravastion of IV contrast with both attempts of CTA studies. <3x3cm in size. Resolved upon reevaluation, pain improved after 1 hour. Disposition Clinical Impression: Chest pain, Back pain Disposition: ADMITTED IP TO THIS [facility] Condition: Stable Is patient prescribed a controlled substance at d/c from ED?: No Referrals: Tyler Black MD [Primary Care Provider] - 1-2 days Time of Disposition: 15:17 Decision to Admit Reason: Admit from EC Decision Date: 11/05/18 Decision Time: 15:17
[2018-11-05 11:39] LABS: Anisocytosis Slight; Basophils % (A) 0 %; Eosinophils # (A) 0.2 k/uL (0-0.7); Eosinophils % (A) 3 %; HCT 32.4 % (34.0-46.0); HGB 9.9 gm/dL (11.4-16.0); Hypochromasia Moderate; Lymphocytes # (A) 1.7 k/uL (1.0-4.8); Lymphocytes % (A) 30 %; MCH 23.1 pg (25.0-35.0); MCHC 30.6 g/dL (31.0-37.0); MCV 75.5 fL (80.0-100.0); Mean Platelet Volume 8.2; Microcytosis Moderate; Monocytes # (A) 0.3 k/uL (0-1.0); Monocytes % (A) 6 %; Neutrophils # (A) 3.3 k/uL (1.3-7.7); Neutrophils % (A) 58 %; Platelet Count 232 k/uL (150-450); RBC 4.29 m/uL (3.80-5.40); RDW 19.6 % (11.5-15.5); WBC 5.6 k/uL (3.8-10.6)
[2018-11-05 11:46] LABS: INR 0.9 (<1.2); Partial Thromboplastin Time 23.3 sec (22.0-30.0); Prothrombin Time 10.1 sec (9.0-12.0)
[2018-11-05 11:49] LABS: ALT 43 U/L (9-52); AST 24 U/L (14-36); African American GFR (CKD) >90 (>60 ml/min/1.73 sqM); Albumin 3.6 g/dL (3.5-5.0); Alkaline Phosphatase 79 U/L (38-126); Anion Gap 6 mmol/L; Blood Urea Nitrogen 12 mg/dL (7-17); Calcium 8.6 mg/dL (8.4-10.2); Carbon Dioxide 28 mmol/L (22-30); Chloride 104 mmol/L (98-107); Glucose 76 mg/dL (74-99); Lipase 61 U/L (23-300); Magnesium 1.9 mg/dL (1.6-2.3); Potassium 4.2 mmol/L (3.5-5.1); Sodium 138 mmol/L (137-145); Total Bilirubin 0.4 mg/dL (0.2-1.3); Total Protein 5.7 g/dL (6.3-8.2)
[2018-11-05] MEDS ORDERED: HYDROcodone/APAP 7.5-325MG 1 EACH TAB PO ONE (13:55)
--- NOTE | 2018-11-05 14:09 | CT ---
EXAMINATION TYPE: CT angio chest DATE OF EXAM: 11/05/2018 2:00 PM COMPARISON: None HISTORY: Chest and back pain CT DLP: 596.5 mGycm Automated exposure control for dose reduction was used. CONTRAST: CTA scan of the thorax is performed without and with IV Contrast, patient injected with 100 ml mL of Isovue 370, pulmonary embolism protocol. There are 3-D post processed images.. FINDINGS: There is some mild atelectasis at the posterior lung bases. There is no evidence of a pulmonary mass. There is no pericardial effusion. There is small left pleural effusion. Thoracic aorta shows no evidence of aneurysm or dissection. Ascending aorta measures 3.4 cm. There is no mediastinal adenopathy. There are no hilar masses. There is normal contrast opacification of the pulmonary arteries. There is mild spurring in the thoracic spine. IMPRESSION: THERE IS SOME ATELECTASIS IN THE POSTERIOR LUNG COX. SMALL LEFT PLEURAL EFFUSION. NO EVIDENCE OF P ULMONARY EMBOLISM.
[2018-11-05] MEDS ORDERED: NITROGLYCERIN SL TABS 0.4 MG TAB SUBLINGUAL PRN (15:10)
[2018-11-05 17:30] VITALS: BMI 37.4
[2018-11-05] MEDS ORDERED: ALBUTEROL NEBULIZED 2.5 MG/3 ML INHALATION PRN (17:48)
[2018-11-05] MEDS: KETOROLAC 30 MG/ML 1 ML VIAL IVP PRN (18:55)
[2018-11-05] MEDS: SYMBICORT 160-4.5 MCG INHALER INHALATION SCH (19:28)
[2018-11-05] MEDS: HYDROcodone/APAP 7.5-325MG 1 EACH TAB PO PRN (21:30)
[2018-11-05] MEDS: buPROPion XL 150 MG TAB.ER.24H PO SCH (21:32)
[2018-11-05] MEDS: SERTRALINE 50 MG TAB PO SCH (21:33)
[2018-11-05] MEDS: MONTELUKAST 10 MG TAB PO SCH (21:33)
[2018-11-05] MEDS: RIVAROXABAN 20 MG TAB PO SCH (21:33)
[2018-11-05] MEDS: PREGABALIN 75 MG CAP PO SCH (21:34)
[2018-11-05] MEDS: NON-FORMULARY DRUG (Brexpiprazole [Rexulti] 2 MG) PO SCH (21:42)
[2018-11-05] MEDS: NON-FORMULARY DRUG (Suvorexant [Belsomra] 20 MG) PO SCH (21:42)
[2018-11-06] MEDS: KETOROLAC 30 MG/ML 1 ML VIAL IVP PRN ×4 (01:31→20:12)
[2018-11-06] MEDS: LEVOTHYROXINE 75 MCG TAB PO SCH (05:49)
[2018-11-06 07:13] VITALS: RESP 18
--- NOTE | 2018-11-06 08:02 | P.CRDCN ---
History of Present Illness Consult date: 11/06/18 Requesting physician: Tyler Black Reason for Consult (text): chest pain Chief complaint: left sided chest discomfort radiating under arm into back History of present illness: The pleasant 48-year-old female patient who has a history of fibromyalgia, DVT and PEs for which she is on Xarelto. She denies a history of hypertension, hyperlipidemia, diabetes and is a nonsmoker. Family history includes her father who said stents in his late 50s. Presented to the emergency department with complaints of left-sided chest discomfort that radiates under her arm and into her back. It is worse with movement, coughing, deep breathing and palpation. It has been ongoing for the past 5 days. Chest CTA showed no evidence of pulmonary embolism. EKG showed normal sinus rhythm, no evidence of ischemia. Laboratory values were reviewed and showed evidence of hypochromic microcytic anemia but is otherwise unremarkable. Troponins were negative 3. She's had no associated symptoms. She's had no dizziness, lightheadedness, palpitations, nausea, vomiting or diaphoresis. She has no dyspnea on exertion, orthopnea or PND. Past Medical History Past Medical History: Asthma, COPD, Fibromyalgia, GERD/Reflux, Pneumonia, Pulmonary Embolus (PE), Seizure Disorder, Sleep Apnea/CPAP/BIPAP, Thyroid Disorder Additional Past Medical History / Comment(s): Chronic asthma, chronic COPD, recurrent pneumonias, hx of respiratory stridor, PE in 2003 and 2009, MAGALI with CPAP , psuedo seizures with last one in 2017, past gastric ulcer, DDD, LOWER BACK PAIN- RADIATES DOWN RT LEG, R toes,neuropathy, generalized pain from fibromyalgia, chronic MIGRAINES, hypothyroidism, urinary leakage at times, healed wound on abdomen from surgical dehiscence, insomnia, cellulitis R arm. History of Any Multi-Drug Resistant Organisms: None Reported Past Surgical History: Back Surgery, Bariatric Surgery, Cholecystectomy, Joint Replacement, Orthopedic Surgery Additional Past Surgical History / Comment(s): 11/12/16 bronchoscopy wit BAL, gastric bypass 2011, panniculectomy with wound dehiscence/debridements, 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 Past Anesthesia/Blood Transfusion Reactions: No Reported Reaction Past Psychological History: Anxiety, Depression Smoking Status: Never smoker - Past Family History Brother(s) Family Medical History: Cancer Additional Family Medical History / Comment(s): spine Father Family Medical History: Coronary Artery Disease (CAD), CVA/TIA, Diabetes Mellitus, Hypertension, Thyroid Disorder Additional Family Medical History / Comment(s): X3 STROKES, STENTS IN HEART,Pacemaker Mother Family Medical History: Diabetes Mellitus, Hypertension, Thyroid Disorder Additional Family Medical History / Comment(s): KNEE REPLACEMENTS Medications and Allergies Home Medications Medication Instructions Recorded Confirmed Type Rivaroxaban [Xarelto] 20 mg PO HS 11/20/13 11/05/18 History Pregabalin [Lyrica] 150 mg PO TID 10/09/14 11/05/18 History Montelukast [Singulair] 10 mg PO HS 06/23/15 11/05/18 History Budesonide/Formoterol Fumarate 2 puff INHALATION RT-BID 02/16/17 11/05/18 History [Symbicort 160-4.5 Mcg Inhaler] Levothyroxine Sodium [Synthroid] 150 mcg PO DAILY 02/16/17 11/05/18 History Omeprazole 20 mg PO DAILY 02/16/17 11/05/18 History Sertraline [Zoloft] 50 mg PO BID 02/16/17 11/05/18 History Suvorexant [Belsomra] 20 mg PO HS 05/03/18 11/05/18 History Solifenacin Succinate [Vesicare] 10 mg PO DAILY 07/19/18 11/05/18 History HYDROcodone/APAP 7.5-325MG [[place] 1 tab PO TID PRN 08/17/18 11/05/18 History 7.5-325] buPROPion HCL [Wellbutrin XL] 150 mg PO BID 08/17/18 11/05/18 History guaiFENesin-DM 100-10MG/5ML 10 ml PO Q6H PRN cup 09/15/18 11/05/18 Rx [Robitussin DM] Albuterol Inhaler [Ventolin Hfa 2 puff INHALATION RT-QID PRN 11/05/18 11/05/18 History Inhaler] Brexpiprazole [Rexulti] 2 mg PO HS 11/05/18 11/05/18 History Ferrous Sulfate [Iron] 325 mg PO AC-BRKFST 11/05/18 11/05/18 History Umeclidinium [place] [Incruse 1 puff INHALATION RT-DAILY 11/05/18 11/05/18 History Ellipta] Allergies Allergy/AdvReac Type Severity Reaction Status Date / Time No Known Allergies Allergy Verified 11/05/18 10:44 Physical Exam Vitals: Vital Signs Temp Pulse Pulse Resp BP BP Pulse Ox 11/06/18 07:00 97.7 F 72 18 102/68 97 11/06/18 03:37 97.3 F L 70 16 105/65 95 11/06/18 03:25 78 16 11/05/18 23:32 78 16 11/05/18 23:02 98.5 F 78 16 127/75 96 11/05/18 20:00 70 16 11/05/18 19:18 98.3 F 90 16 107/64 95 11/05/18 17:22 98.1 F 90 18 104/70 96 11/05/18 16:52 97.7 F 73 16 97/62 98 11/05/18 16:00 18 11/05/18 15:33 98 F 71 18 90/62 99 11/05/18 14:12 86 18 99/53 98 11/05/18 11:30 16 11/05/18 10:31 98.4 F 87 16 147/88 97 Intake and Output 11/05/18 11/06/18 11/06/18 22:59 06:59 14:59 Intake Total 240 Balance 240 Intake: Oral 240 Other: Voiding Method Toilet Toilet # Voids 1 1 PHYSICAL EXAMINATION: HEENT: Head is atraumatic, normocephalic. Pupils equal, round. Neck is supple. There is no elevated jugular venous pressure. HEART EXAMINATION: Heart sounds regular, S1 and S2 normal. No murmur or gallop heard. CHEST EXAMINATION: Lungs are clear to auscultation and precussion.Chest wall tenderness is noted on palpation or with deep breathing. ABDOMEN: Soft, nontender. Bowel sounds are heard. No organomegaly noted. EXTREMITIES: 2+ peripheral pulses with no evidence of peripheral edema and no calf tenderness noted. NEUROLOGIC patient is awake, alert and oriented x3. . Results 11/05/18 11:05 11/05/18 11:05 Cardiac Enzymes 11/05/18 11/05/18 11/05/18 Range/Units 11:05 11:05 17:09 AST 24 (14-36) U/L Troponin I <0.012 <0.012 (0.000-0.034) ng/mL 11/05/18 Range/Units 23:17 AST (14-36) U/L Troponin I <0.012 (0.000-0.034) ng/mL Coagulation 11/05/18 Range/Units 11:05 PT 10.1 (9.0-12.0) sec APTT 23.3 (22.0-30.0) sec CBC 11/05/18 Range/Units 11:05 WBC 5.6 (3.8-10.6) k/uL RBC 4.29 (3.80-5.40) m/uL Hgb 9.9 L (11.4-16.0) gm/dL Hct 32.4 L (34.0-46.0) % Plt Count 232 (150-450) k/uL Comprehensive Metabolic Panel 11/05/18 Range/Units 11:05 Sodium 138 (137-145) mmol/L Potassium 4.2 (3.5-5.1) mmol/L Chloride 104 (98-107) mmol/L Carbon Dioxide 28 (22-30) mmol/L BUN 12 (7-17) mg/dL Creatinine 0.86 (0.52-1.04) mg/dL Glucose 76 (74-99) mg/dL Calcium 8.6 (8.4-10.2) mg/dL AST 24 (14-36) U/L ALT 43 (9-52) U/L Alkaline Phosphatase 79 (38-126) U/L Total Protein 5.7 L (6.3-8.2) g/dL Albumin 3.6 (3.5-5.0) g/dL Current Medications Generic Name Dose Route Start Last Admin Trade Name Freq PRN Reason Stop Dose Admin Hydrocodone Bitart/Acetaminophen 1 each 11/05/18 18:00 11/05/18 21:30 [place] 7.5-325 PO 1 each TID PRN Administration Moderate Pain Albuterol Sulfate 2.5 mg 11/05/18 17:48 Ventolin Nebulized INHALATION RT-QID PRN Shortness Of Breath Budesonide/Formoterol Fumarate 2 puff 11/05/18 20:00 11/05/18 19:28 Symbicort 160-4.5 Mcg Inhaler INHALATION 2 puff RT-BID MICHELLE Administration Bupropion HCl 150 mg 11/05/18 21:00 11/05/18 21:32 Wellbutrin Xl PO 150 mg BID MICHELLE Administration Ferrous Sulfate 325 mg 11/06/18 07:30 Feosol PO AC-BRKFST [facility] Guaifenesin/Dextromethorphan 10 ml 11/05/18 17:48 Robitussin Dm PO Q6H PRN Cough Ipratropium [place] 0.5 mg 11/06/18 08:00 Atrovent Nebulized INHALATION RT-QID [facility] Ketorolac Tromethamine 30 mg 11/05/18 18:32 11/06/18 01:31 Toradol IVP 11/09/18 18:32 30 mg Q6HR PRN Administration Mild to Moderate Pain Levothyroxine Sodium 150 mcg 11/06/18 06:30 11/06/18 05:49 Synthroid PO 150 mcg DAILY@0630 [facility] Administration Montelukast Sodium 10 mg 11/05/18 21:00 11/05/18 21:33 Singulair PO 10 mg HS [facility] Administration Nitroglycerin 0.4 mg 11/05/18 15:10 Nitrostat SUBLINGUAL Q5M PRN Chest Pain Non-Formulary Medication 2 mg 11/05/18 21:00 11/05/18 21:42 Brexpiprazole [Rexulti] PO Not Given HS [facility] Non-Formulary Medication 20 mg 11/05/18 21:00 11/05/18 21:42 Suvorexant [Belsomra] PO Not Given HS [facility] Pantoprazole Sodium 40 mg 11/06/18 07:30 [facility] Pregabalin 150 mg 11/05/18 22:00 11/05/18 21:34 Lyrica PO 150 mg TID MICHELLE Administration Rivaroxaban 20 mg 11/05/18 21:00 11/05/18 21:33 Xarelto PO 20 mg HS [facility] Administration Sertraline HCl 50 mg 11/05/18 21:00 11/05/18 21:33 Zoloft PO 50 mg BID [facility] Administration Trospium 20 mg 06/09/19 09:00 [place] PO BID MICHELLE Intake and Output 11/05/18 11/06/18 11/06/18 22:59 06:59 14:59 Intake Total 240 Balance 240 Intake: Oral 240 Other: Voiding Method Toilet Toilet # Voids 1 1 11/05/18 11:05 11/05/18 11:05 EKG Interpretations (text) Normal sinus rhythm Assessment and Plan Assessment: #1 chest pain, atypical, likely musculoskeletal in origin, EKG showed normal sinus rhythm with no evidence of ischemia and cardiac enzymes were negative 3 #2 fibromyalgia #3 history of DVT and PE, on anticoagulation Plan: From cardiology perspective, we do not feel the pain is cardiac in nature. No further cardiac workup is necessary at this time. Patient may be discharged aris e from our standpoint. [employer] note has been reviewed, I agree with a documented findings and plan of care. Patient was seen and examined.
[2018-11-06] MEDS: PREGABALIN 75 MG CAP PO SCH ×3 (08:12→20:11)
[2018-11-06] MEDS: PANTOPRAZOLE 40 MG TABLET PO SCH (08:12)
[2018-11-06] MEDS: FERROUS SULFATE 325 MG TAB PO SCH (08:12)
[2018-11-06] MEDS: SERTRALINE 50 MG TAB PO SCH ×2 (08:13→20:11)
[2018-11-06] MEDS: TROSPIUM CHLORIDE 20 MG TABLET PO SCH ×2 (08:13→20:12)
[2018-11-06] MEDS: SYMBICORT 160-4.5 MCG INHALER INHALATION SCH ×2 (08:39→20:16)
[2018-11-06] MEDS: buPROPion XL 150 MG TAB.ER.24H PO SCH ×2 (08:54→20:11)
--- NOTE | 2018-11-06 10:56 | P.CNPUL ---
History of Present Illness Reason for consult: dyspnea, cough, chest pain, asthma, hypoxemia, obstructive sleep apnea Chief complaint: Shortness of breath along with left-sided chest wall pain History of present illness: The pleasant 48-year-old female patient well-known to me with prior history of chronic asthmatic bronchitis and vocal cord dysfunction and obstructive sleep apnea, who has a history of fibromyalgia, DVT and PEs for which she is on Xarelto. She denies a history of hypertension, hyperlipidemia, diabetes and is a nonsmoker. Family history includes her father who said stents in his late 50s. Presented to the emergency department with complaints of left-sided chest discomfort that radiates under her arm and into her back. It is worse with movement, coughing, deep breathing and palpation. It has been ongoing for the past 5 days. Chest CTA showed no evidence of pulmonary embolism. EKG showed normal sinus rhythm, no evidence of ischemia. Laboratory values were reviewed and showed evidence of hypochromic microcytic anemia but is otherwise unremarkable. Troponins were negative 3. She's had no associated symptoms. She's had no dizziness, lightheadedness, palpitations, nausea, vomiting or diaphoresis. She has no dyspnea on exertion, orthopnea or PND. She complained of ongoing cough with congestion is nonproductive denies any hemoptysis Review of Systems All systems: negative Past Medical History Past Medical History: Asthma, COPD, Fibromyalgia, GERD/Reflux, Pneumonia, Pul monary Embolus (PE), Seizure Disorder, Sleep Apnea/CPAP/BIPAP, Thyroid Disorder Additional Past Medical History / Comment(s): Chronic asthma, chronic COPD, recurrent pneumonias, hx of respiratory stridor, PE in 2003 and 2009, MAGALI with CPAP , psuedo seizures with last one in 2017, past gastric ulcer, DDD, LOWER BACK PAIN- RADIATES DOWN RT LEG, R toes,neuropathy, generalized pain from fibromyalgia, chronic MIGRAINES, hypothyroidism, urinary leakage at times, healed wound on abdomen from surgical dehiscence, insomnia, cellulitis R arm. History of Any Multi-Drug Resistant Organisms: None Reported Past Surgical History: Back Surgery, Bariatric Surgery, Cholecystectomy, Joint Replacement, Orthopedic Surgery Additional Past Surgical History / Comment(s): 11/12/16 bronchoscopy wit BAL, gastric bypass 2011, panniculectomy with wound dehiscence/debridements, 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 Past Anesthesia/Blood Transfusion Reactions: No Reported Reaction Past Psychological History: Anxiety, Depression Smoking Status: Never smoker - Past Family History Brother(s) Family Medical History: Cancer Additional Family Medical History / Comment(s): spine Father Family Medical History: Coronary Artery Disease (CAD), CVA/TIA, Diabetes Mellitus, Hypertension, Thyroid Disorder Additional Family Medical History / Comment(s): X3 STROKES, STENTS IN H EART,Pacemaker Mother Family Medical History: Diabetes Mellitus, Hypertension, Thyroid Disorder Additional Family Medical History / Comment(s): KNEE REPLACEMENTS Medications and Allergies Home Medications Medication Instructions Recorded Confirmed Type Rivaroxaban [Xarelto] 20 mg PO HS 11/20/13 11/05/18 History Pregabalin [Lyrica] 150 mg PO TID 10/09/14 11/05/18 History Montelukast [Singulair] 10 mg PO HS 06/23/15 11/05/18 History Budesonide/Formoterol Fumarate 2 puff INHALATION RT-BID 02/16/17 11/05/18 History [Symbicort 160-4.5 Mcg Inhaler] Levothyroxine Sodium [Synthroid] 150 mcg PO DAILY 02/16/17 11/05/18 History Omeprazole 20 mg PO DAILY 02/16/17 11/05/18 History Sertraline [Zoloft] 50 mg PO BID 02/16/17 11/05/18 History Suvorexant [Belsomra] 20 mg PO HS 05/03/18 11/05/18 History Solifenacin Succinate [Vesicare] 10 mg PO DAILY 07/19/18 11/05/18 History HYDROcodone/APAP 7.5-325MG [[place] 1 tab PO TID PRN 08/17/18 11/05/18 History 7.5-325] buPROPion HCL [Wellbutrin XL] 150 mg PO BID 08/17/18 11/05/18 History guaiFENesin-DM 100-10MG/5ML 10 ml PO Q6H PRN cup 09/15/18 11/05/18 Rx [Robitussin DM] Albuterol Inhaler [Ventolin Hfa 2 puff INHALATION RT-QID PRN 11/05/18 11/05/18 History Inhaler] Brexpiprazole [Rexulti] 2 mg PO HS 11/05/18 11/05/18 History Ferrous Sulfate [Iron] 325 mg PO AC-BRKFST 11/05/18 11/05/18 History Umeclidinium [place] [Incruse 1 puff INHALATION RT-DAILY 11/05/18 11/05/18 History Ellipta] Allergies Allergy/AdvReac Type Severity Reaction Status Date / Time No Known Allergies Allergy Verified 11/05/18 10:44 Physical Exam Vitals: Vital Signs Temp Pulse Pulse Resp BP BP Pulse Ox 11/06/18 08:00 72 18 11/06/18 07:00 97.7 F 72 18 102/68 97 11/06/18 03:37 97.3 F L 70 16 105/65 95 11/06/18 03:25 78 16 11/05/18 23:32 78 16 11/05/18 23:02 98.5 F 78 16 127/75 96 11/05/18 20:00 70 16 11/05/18 19:18 98.3 F 90 16 107/64 95 11/05/18 17:22 98.1 F 90 18 104/70 96 11/05/18 16:52 97.7 F 73 16 97/62 98 11/05/18 16:00 18 11/05/18 15:33 98 F 71 18 90/62 99 11/05/18 14:12 86 18 99/53 98 11/05/18 11:30 16 Intake and Output 11/05/18 11/06/18 11/06/18 22:59 06:59 14:59 Intake Total 240 Balance 240 Intake: Oral 240 Other: Voiding Method Toilet Toilet Toilet # Voids 1 1 - Constitutional General appearance: disheveled, mild distress, morbidly obese - EENT Eyes: anicteric sclerae, EOMI, PERRLA, poor dentition, normal appearance ENT: hearing grossly normal, normal oropharynx Ears: bilateral: normal - Neck Neck: normal ROM Carotids: bilateral: upstroke normal, bruit absent Thyroid: bilateral: normal size - Respiratory Respiratory: bilateral: wheezing (Fine bilateral both inspiration and expiration), negative: CTA, diminished, dullness, rales, rhonchi - Cardiovascular Rhythm: regular Heart sounds: normal: S1, S2 - Gastrointestinal General gastrointestinal: normal bowel sounds, soft - Integumentary Integumentary: normal, normal turgor - Neurologic Neurologic: CNII-XII intact - Musculoskeletal Musculoskeletal: gait normal, generalized weakness, strength equal bilaterally - Psychiatric Psychiatric: A&O x's 3, appropriate affect, intact judgment & insight Results - Laboratory Findings CBC and BMP: 11/05/18 11:05 11/05/18 11:05 PT/INR, D-dimer PT 10.1 sec (9.0-12.0) 11/05/18 11:05 INR 0.9 (<1.2) 11/05/18 11:05 Abnormal lab findings: Abnormal Labs 11/05/18 11/05/18 11:05 11:05 Hgb 9.9 L Hct 32.4 L MCV 75.5 L MCH 23.1 L MCHC 30.6 L RDW 19.6 H Total Protein 5.7 L - Diagnostic Findings Chest x-ray: report reviewed, image reviewed CT scan - chest: report reviewed, image reviewed (Small left-sided pleural effusion with atelectasis) Assessment and Plan Assessment: Left-sided chest pain likely related to pleurisy pneumonia cannot be excluded Small left-sided pleural effusion Possible early left-sided pneumonia Chronic asthmatic bronchitis with acute exacerbation Obstructive sleep apnea Morbid obesity DVT PE Plan: Bronchodilator IV steroids Broad-spectrum antibiotics Continue home medications Time with Patient: Greater than 30
[2018-11-06] MEDS: IPRATROPIUM 0.5 MG/2.5 ML NEBU INHALATION SCH ×4 (11:14→20:38)
[2018-11-06] MEDS: IPRATROPIUM-ALBUTEROL 3 ML NEB INHALATION SCH ×3 (11:15→20:39)
[2018-11-06] MEDS: guaiFENesin-DM 100-10MG/5ML 10 ML CUP PO PRN ×2 (11:20→17:18)
[2018-11-06] MEDS: methylPREDNISolone SOD SUCCI 40 MG/ML 1 ML VIAL IV SCH ×2 (11:20→20:11)
[2018-11-06] MEDS: HYDROcodone/APAP 7.5-325MG 1 EACH TAB PO PRN (11:25)
[2018-11-06] MEDS: RIVAROXABAN 20 MG TAB PO SCH (20:11)
[2018-11-06] MEDS: MONTELUKAST 10 MG TAB PO SCH (20:11)
[2018-11-06] MEDS: NON-FORMULARY DRUG (Brexpiprazole [Rexulti] 2 MG) PO SCH (20:13)
[2018-11-06] MEDS: NON-FORMULARY DRUG (Suvorexant [Belsomra] 20 MG) PO SCH (20:13)
[2018-11-07] MEDS: KETOROLAC 30 MG/ML 1 ML VIAL IVP PRN ×2 (02:03→08:03)
[2018-11-07] MEDS: HYDROcodone/APAP 7.5-325MG 1 EACH TAB PO PRN ×2 (03:55→11:49)
[2018-11-07] MEDS: LEVOTHYROXINE 75 MCG TAB PO SCH (03:55)
[2018-11-07] MEDS: methylPREDNISolone SOD SUCCI 40 MG/ML 1 ML VIAL IV SCH (07:53)
[2018-11-07] MEDS: PANTOPRAZOLE 40 MG TABLET PO SCH (07:54)
[2018-11-07] MEDS: PREGABALIN 75 MG CAP PO SCH (07:54)
[2018-11-07] MEDS: FERROUS SULFATE 325 MG TAB PO SCH (07:54)
[2018-11-07 07:55] VITALS: TEMP 97.8
[2018-11-07] MEDS: SERTRALINE 50 MG TAB PO SCH (07:55)
[2018-11-07] MEDS: TROSPIUM CHLORIDE 20 MG TABLET PO SCH (07:55)
[2018-11-07] MEDS: guaiFENesin-DM 100-10MG/5ML 10 ML CUP PO PRN (08:39)
[2018-11-07] MEDS: buPROPion XL 150 MG TAB.ER.24H PO SCH (08:40)
[2018-11-07] MEDS: SYMBICORT 160-4.5 MCG INHALER INHALATION SCH (09:20)
[2018-11-07] MEDS: IPRATROPIUM-ALBUTEROL 3 ML NEB INHALATION SCH ×2 (09:20→13:53)
[2018-11-07] MEDS: IPRATROPIUM 0.5 MG/2.5 ML NEBU INHALATION SCH ×2 (09:21→13:53)
[2018-11-07 10:50] LABS: Anisocytosis Slight; HCT 34.9 % (34.0-46.0); HGB 10.4 gm/dL (11.4-16.0); Hypochromasia Marked; MCH 23.1 pg (25.0-35.0); MCHC 29.9 g/dL (31.0-37.0); MCV 77.3 fL (80.0-100.0); Mean Platelet Volume 8.2; Microcytosis Slight; Platelet Count 233 k/uL (150-450); RBC 4.51 m/uL (3.80-5.40); RDW 19.6 % (11.5-15.5); WBC 9.6 k/uL (3.8-10.6)
--- NOTE | 2018-11-07 10:58 | XR ---
EXAMINATION TYPE: XR chest 2V DATE OF EXAM: 11/07/2018 COMPARISON: 09/15/2018 HISTORY: 48-year-old female follow-up, possible fluid in lungs TECHNIQUE: PA and lateral views FINDINGS: Heart normal size. Aorta and pulmonary vasculature within normal limits. Mild strandy atelectasis in the lower lungs. No consolidation or pleural effusion. Spinal stimulator array centered along the mid thoracic spinal canal. Lung volumes are slightly low. IMPRESSION: Slight hypoventilatory changes but otherwise without acute cardiopulmonary process.
[2018-11-07 11:02] LABS: African American GFR (CKD) >90 (>60 ml/min/1.73 sqM); Anion Gap 8 mmol/L; Blood Urea Nitrogen 12 mg/dL (7-17); Calcium 9.4 mg/dL (8.4-10.2); Carbon Dioxide 22 mmol/L (22-30); Chloride 111 mmol/L (98-107); Glucose 144 mg/dL (74-99); Potassium 4.8 mmol/L (3.5-5.1); Sodium 141 mmol/L (137-145)
[2018-11-07 11:30] VITALS: BP 119/75; PULSE 98
--- NOTE | 2018-11-07 15:37 | P.DS ---
Providers Date of admission: 11/05/18 15:42 Expected date of discharge: 11/07/18 Attending physician: Tyler Black Consults: 11/05/18 16:09 Consult Physician Routine Consulting Provider: Adolfo Chi Consult Reason/Comments: chest pain Do you want consulting provider notified?: Yes, Notify in am Primary care physician: Tyler Barronazdiogo [facility] Course: Final Diagnoses: Left-sided chest pain likely related to pleurisy pneumonia cannot be excluded. Atypical as per cardiology-noncardiac. Small left-sided pleural effusion Possible early left-sided pneumonia Chronic asthmatic bronchitis with acute exacerbation Obstructive sleep apnea Morbid obesity DVT PE The pleasant 48-year-old female patient well-known to me with prior history of chronic asthmatic bronchitis and vocal cord dysfunction and obstructive sleep apnea, who has a history of fibromyalgia, DVT and PEs for which she is on Xarelto. She denies a history of hypertension, hyperlipidemia, diabetes and is a nonsmoker. Family history includes her father who said stents in his late 50s. Presented to the emergency department with complaints of left-sided chest discomfort that radiates under her arm and into her back. It is worse with movement, coughing, deep breathing and palpation. It has been ongoing for the past 5 days. Chest CTA showed no evidence of pulmonary embolism. EKG showed normal sinus rhythm, no evidence of ischemia. Laboratory values were reviewed and showed evidence of hypochromic microcytic anemia but is otherwise unremarkable. Troponins were negative 3. She's had no associated symptoms. She's had no dizziness, lightheadedness, palpitations, nausea, vomiting or diaphoresis. She has no dyspnea on exertion, orthopnea or PND. She complained of ongoing cough with congestion is nonproductive denies any hemoptysis Left sided Chest pain reproducible, tender to palpation radiates around ribcage. Coughing improving. Evaluated by cardiology, chest pain noncardiac, with no further workup recommended at this time and has cleared patient for discharge. Chest x-ray reporting atelectasis with no consolidation. Afebrile. Telemetry sinus rhythm. Currently denies chest pain, palpitations or shortness of breath. Denies lightheadedness dizziness or focal deficits. Patient is being discharged home in stable condition with guarded prognosis. EXAM: GENERAL: Alert and oriented 3, no acute distress. HEART EXAMINATION: Heart sounds regular, S1 and S2 normal. No murmur or gallop. CHEST EXAMINATION: Lungs are clear to auscultation and precussion.Chest wall te nderness is noted on palpation. ABDOMEN: Soft, nontender. Bowel sounds are heard. No organomegaly noted. NEUROLOGIC: No focal deficits The impression and plan of care has been dictated as directed. : I performed a history and examination of this patient, discussed the same with the dictator. I agree with the dictator's note ,documented as a scribe. Any additional findings or plans will be noted. Time taken: 35 minutes Patient Condition at Discharge: Stable Plan - Discharge Summary Discharge Rx Participant: No New Discharge Prescriptions: New Cefuroxime Axetil [Ceftin] 500 mg PO BID #10 tab predniSONE 10 mg PO DIRECTED #30 tab Continue Rivaroxaban [Xarelto] 20 mg PO HS Pregabalin [Lyrica] 150 mg PO TID Montelukast [Singulair] 10 mg PO HS Budesonide/Formoterol Fumarate [Symbicort 160-4.5 Mcg Inhaler] 2 puff INHALATION RT-BID Sertraline [Zoloft] 50 mg PO BID Omeprazole 20 mg PO DAILY Levothyroxine Sodium [Synthroid] 150 mcg PO DAILY Suvorexant [Belsomra] 20 mg PO HS Solifenacin Succinate [Vesicare] 10 mg PO DAILY buPROPion HCL [Wellbutrin XL] 150 mg PO BID HYDROcodone/APAP 7.5-325MG [[place] 7.5-325] 1 tab PO TID PRN PRN Reason: Pain guaiFENesin-DM 100-10MG/5ML [Robitussin DM] 10 ml PO Q6H PRN cup PRN Reason: Cough Brexpiprazole [Rexulti] 2 mg PO HS Albuterol Inhaler [Ventolin Hfa Inhaler] 2 puff INHALATION RT-QID PRN PRN Reason: Shortness Of Breath Umeclidinium [place] [Incruse Ellipta] 1 puff INHALATION RT-DAILY Ferrous Sulfate [Iron] 325 mg PO AC-BRKFST Discharge Medication List Rivaroxaban [Xarelto] 20 mg PO HS 11/20/13 [History] Pregabalin [Lyrica] 150 mg PO TID 10/09/14 [History] Montelukast [Singulair] 10 mg PO HS 06/23/15 [History] Budesonide/Formoterol Fumarate [Symbicort 160-4.5 Mcg Inhaler] 2 puff INHALATION RT-BID 02/16/17 [History] Levothyroxine Sodium [Synthroid] 150 mcg PO DAILY 02/16/17 [History] Omeprazole 20 mg PO DAILY 02/16/17 [History] Sertraline [Zoloft] 50 mg PO BID 02/16/17 [History] Suvorexant [Belsomra] 20 mg PO HS 05/03/18 [History] Solifenacin Succinate [Vesicare] 10 mg PO DAILY 07/19/18 [History] HYDROcodone/APAP 7.5-325MG [[place] 7.5-325] 1 tab PO TID PRN 08/17/18 [History] buPROPion HCL [Wellbutrin XL] 150 mg PO BID 08/17/18 [History] guaiFENesin-DM 100-10MG/5ML [Robitussin DM] 10 ml PO Q6H PRN cup 09/15/18 [Rx] Albuterol Inhaler [Ventolin Hfa Inhaler] 2 puff INHALATION RT-QID PRN 11/05/18 [History] Brexpiprazole [Rexulti] 2 mg PO HS 11/05/18 [History] Ferrous Sulfate [Iron] 325 mg PO AC-BRKFST 11/05/18 [History] Umeclidinium [place] [Incruse Ellipta] 1 puff INHALATION RT-DAILY 11/05/18 [History] Cefuroxime Axetil [Ceftin] 500 mg PO BID #10 tab 11/07/18 [Rx] predniSONE 10 mg PO DIRECTED #30 tab 11/07/18 [Rx] Follow up Appointment(s)/Referral(s): Tyler Black MD [Primary Care Provider] - 1 Week Discharge Disposition: HOME SELF-CARE
== END 2018-11-07 13:52 | disposition home or self-care (01) ==
LOC: EC 10:28 → 1SOBS 15:42
PROVIDERS: ADMIT Family Medicine; ATTEND Family Medicine
DX: R07.89 Other chest pain (principal); J45.901 Unspecified asthma with (acute) exacerbation; J44.9 Chronic obstructive pulmonary disease, unspecified; M79.7 Fibromyalgia; E66.01 Morbid (severe) obesity due to excess calories; Z68.37 Body mass index [BMI] 37.0-37.9, adult; J90 Pleural effusion, not elsewhere classified; G47.33 Obstructive sleep apnea (adult) (pediatric); J98.11 Atelectasis; K21.9 Gastro-esophageal reflux disease without esophagitis; G40.909 Epilepsy, unspecified, not intractable, without status epilepticus; E03.9 Hypothyroidism, unspecified; G47.00 Insomnia, unspecified; G43.909 Migraine, unspecified, not intractable, without status migrainosus; F41.9 Anxiety disorder, unspecified; F32.9 Major depressive disorder, single episode, unspecified; D50.9 Iron deficiency anemia, unspecified; M51.26 Other intervertebral disc displacement, lumbar region; R32 Unspecified urinary incontinence; G62.9 Polyneuropathy, unspecified; J38.3 Other diseases of vocal cords; Z79.01 Long term (current) use of anticoagulants; Z79.51 Long term (current) use of inhaled steroids; Z79.890 Hormone replacement therapy; Z79.891 Long term (current) use of opiate analgesic; Z79.899 Other long term (current) drug therapy; Z86.718 Personal history of other venous thrombosis and embolism; Z86.711 Personal history of pulmonary embolism; Z98.84 Bariatric surgery status; Z90.49 Acquired absence of other specified parts of digestive tract; Z87.11 Personal history of peptic ulcer disease; Z87.01 Personal history of pneumonia (recurrent); Z99.89 Dependence on other enabling machines and devices; Z96.651 Presence of right artificial knee joint; Z96.641 Presence of right artificial hip joint; Z95.828 Presence of other vascular implants and grafts; Z87.2 Personal history of diseases of the skin and subcutaneous tissue; Z96.9 Presence of functional implant, unspecified; Z82.3 Family history of stroke; Z82.49 Family history of ischemic heart disease and other diseases of the circulatory system; Z83.49 Family history of other endocrine, nutritional and metabolic diseases; Z83.3 Family history of diabetes mellitus; Z82.69 Family history of other diseases of the musculoskeletal system and connective tissue
CPT/HCPCS: 96365; 96366; 96375 ×2; 96376 ×2; 99285; 36415; 94660 ×2; 94640 ×4; 93005; 83880; 80053; 80048; 83690; 83735; 84484; 85025; 85027; 85610; 85730; 71046; 71275; G0378 ×3; J2920 ×2; J0696 ×2; J1885 ×3; Q9967

== ENCOUNTER → 2018-11-08 | Outpatient (CLI) | payer MEDICARE, OTHER ==
[2018-11-09 13:50] LABS: Alt. alternata IgE Class CLASS 0; Alternaria alternata IgE <0.35 kU/L (<0.35); Asperg. fumagatus IgE <0.35 kU/L (<0.35); Asperg. fumagatus IgE Class CLASS 0; Candida albicans IgE Class CLASS 0; Clad herbarum IgE <0.35 kU/L (<0.35); Latex IgE Class CLASS 0; Mucor racemosus IgE <0.35 kU/L (<0.35); Mucor racemosus IgE Class CLASS 0; Penicillium chrysogenum IgE <0.35 kU/L (<0.35); Penicillium chrysogenum IgE Cl CLASS 0
== END ==
LOC: LABWHC1 12:39
PROVIDERS: ATTEND Internal Medicine Sleep Medicine
DX: B44.81 Allergic bronchopulmonary aspergillosis (principal)
CPT/HCPCS: 36415; 86001; 86003; 86606; 86609

== ENCOUNTER 2019-01-05 11:40 | Inpatient (IN) | payer MEDICARE, OTHER ==
--- NOTE | 2019-01-05 12:05 | ED ---
URI HPI - General Chief Complaint: Upper Respiratory Infection Stated Complaint: SOB Time Seen by Provider: 01/05/19 12:00 Source: patient, RN notes reviewed, old records reviewed Mode of arrival: ambulatory Limitations: no limitations - History of Present Illness Initial Comments: This patient's a 48-year-old female who presents emergency department today for evaluation of cough and congestion. Patient reports that she was sent here by her mail order biller Dr. Huber. She's been on multiple rounds of steroids and antibiotics for this congestion and cough. She reports his stay started about some chest pain. She denies any fever but does report chills. Patient reports she's been having significant wheezing. Patient states that she's been to multi ple treatments at home with no relief. - Related Data Home Medications Medication Instructions Recorded Confirmed Rivaroxaban [Xarelto] 20 mg PO HS 11/20/13 11/05/18 Pregabalin [Lyrica] 150 mg PO TID 10/09/14 11/05/18 Montelukast [Singulair] 10 mg PO HS 06/23/15 11/05/18 Budesonide/Formoterol Fumarate 2 puff INHALATION RT-BID 02/16/17 11/05/18 [Symbicort 160-4.5 Mcg Inhaler] Levothyroxine Sodium [Synthroid] 150 mcg PO DAILY 02/16/17 11/05/18 Omeprazole 20 mg PO DAILY 02/16/17 11/05/18 Sertraline [Zoloft] 50 mg PO BID 02/16/17 11/05/18 Suvorexant [Belsomra] 20 mg PO HS 05/03/18 11/05/18 Solifenacin Succinate [Vesicare] 10 mg PO DAILY 07/19/18 11/05/18 HYDROcodone/APAP 7.5-325MG [[place] 1 tab PO TID PRN 08/17/18 11/05/18 7.5-325] buPROPion HCL [Wellbutrin XL] 150 mg PO BID 08/17/18 11/05/18 Albuterol Inhaler [Ventolin Hfa 2 puff INHALATION RT-QID PRN 11/05/18 11/05/18 Inhaler] Brexpiprazole [Rexulti] 2 mg PO HS 11/05/18 11/05/18 Ferrous Sulfate [Iron] 325 mg PO AC-BRKFST 11/05/18 11/05/18 Umeclidinium [place] [Incruse 1 puff INHALATION RT-DAILY 11/05/18 11/05/18 Ellipta] Previous Rx's Medication Instructions Recorded guaiFENesin-DM 100-10MG/5ML 10 ml PO Q6H PRN cup 09/15/18 [Robitussin DM] Cefuroxime Axetil [Ceftin] 500 mg PO BID #10 tab 11/07/18 predniSONE 10 mg PO DIRECTED #30 tab 11/07/18 Allergies Allergy/AdvReac Type Severity Reaction Status Date / Time No Known Allergies Allergy Verified 01/05/19 11:54 Review of Systems ROS Statement: Those systems with pertinent positive or pertinent negative responses have been documented in the HPI. ROS Other: All systems not noted in ROS Statement are negative. Past Medical History Past Medical History: Asthma, COPD, Fibromyalgia, GERD/Reflux, Pneumonia, Pul monary Embolus (PE), Seizure Disorder, Sleep Apnea/CPAP/BIPAP, Thyroid Disorder Additional Past Medical History / Comment(s): Chronic asthma, chronic COPD, recurrent pneumonias, hx of respiratory stridor, PE in 2003 and 2009, MAGALI with CPAP , psuedo seizures with last one in 2016, past gastric ulcer, DDD, LOWER BACK PAIN- RADIATES DOWN RT LEG, R toes,neuropathy, generalized pain from fibromyalgia, chronic MIGRAINES, hypothyroidism, urinary leakage at times, healed wound on abdomen from surgical dehiscence, insomnia, cellulitis R arm. History of Any Multi-Drug Resistant Organisms: None Reported Past Surgical History: Back Surgery, Bariatric Surgery, Cholecystectomy, Joint Replacement, Orthopedic Surgery Additional Past Surgical History / Comment(s): 11/12/16 bronchoscopy wit BAL, gastric bypass 2011, panniculectomy with wound dehiscence/debridements, 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 Past Anesthesia/Blood Transfusion Reactions: No Reported Reaction Past Psychological History: Anxiety, Depression Smoking Status: Never smoker Past Alcohol Use History: None Reported Past Drug Use History: None Reported - Past Family History Brother(s) Family Medical History: Cancer Additional Family Medical History / Comment(s): spine Father Family Medical History: Coronary Artery Disease (CAD), CVA/TIA, Diabetes Mellitus, Hypertension, Thyroid Disorder Additional Family Medical History / Comment(s): X3 STROKES, STENTS IN HEART,Pacemaker Mother Family Medical History: Diabetes Mellitus, Hypertension, Thyroid Disorder Additional Family Medical History / Comment(s): KNEE REPLACEMENTS General Exam - General Exam Comments Initial Comments: this is a 48-year-old female. Alert and oriented. No distress. Limitations: no limitations General appearance: alert, in no apparent distress Head exam: Present: atraumatic, normocephalic, normal inspection Eye exam: Present: normal appearance, PERRL, EOMI. Absent: scleral icterus, conjunctival injection, periorbital swelling ENT exam: Present: normal exam, mucous membranes moist Neck exam: Present: normal inspection. Absent: tenderness, meningismus, lymphadenopathy Respiratory exam: Present: wheezes. Absent: normal lung sounds bilaterally, respiratory distress, rales, rhonchi, stridor Cardiovascular Exam: Present: regular rate, normal rhythm, normal heart sounds. Absent: systolic murmur, diastolic murmur, rubs, gallop, clicks GI/Abdominal exam: Present: soft, normal bowel sounds. Absent: distended, tenderness, guarding, rebound, rigid Extremities exam: Present: normal inspection, full ROM, normal capillary refill. Absent: tenderness, pedal edema, joint swelling, calf tenderness Back exam: Present: normal inspection Neurological exam: Present: alert, oriented X3, CN II-XII intact Psychiatric exam: Present: normal affect, normal mood Skin exam: Present: warm, dry, intact, normal color. Absent: rash Course Vital Signs 01/05/19 01/05/19 01/05/19 11:50 12:42 12:49 Temperature 98.0 F Pulse Rate 88 73 Respiratory 22 20 Rate Blood Pressure 116/74 O2 Sat by Pulse 99 Oximetry 01/05/19 01/05/19 01/05/19 13:00 13:01 14:01 Temperature Pulse Rate 76 71 79 Respiratory 20 20 Rate Blood Pressure 106/61 112/73 O2 Sat by Pulse 98 100 Oximetry Medical Decision Making - Medical Decision Making Patient is a 48-year-old female presents today for cough congestion wheezing. She's been on multiple rounds of oral steroids and antibiotic. Was sent in by pulmonology is Dr. Kimbrough for admission. At this time Patient complains of some chest pain. EKG was reviewed on Enrique. Blood work was reviewed shows no acute changes. Chest x-ray showed low lung findings but no other suspicious process. She did have a positive d-dimer. CT [facility] chest was completed. Findings are suspicious for small pulmonary embolism in the right upper lobe. Patient was started on heparin. Patient continued to wheeze throughout ER visit. Was given multiple breathing treatments and IV steroids. Patient will be admitted at this time for COPD exacerbation, PE, dyspnea. - Lab Data Result diagrams: 01/05/19 12:35 01/05/19 12:35 Lab Results 01/05/19 01/05/19 01/05/19 Range/Units 12:35 12:35 12:35 WBC 4.9 (3.8-10.6) k/uL RBC 4.73 (3.80-5.40) m/uL Hgb 12.4 (11.4-16.0) gm/dL Hct 39.8 (34.0-46.0) % MCV 84.1 D (80.0-100.0) fL MCH 26.2 (25.0-35.0) pg MCHC 31.2 (31.0-37.0) g/dL RDW 18.9 H (11.5-15.5) % Plt Count 180 (150-450) k/uL Neutrophils % 65 % Lymphocytes % 22 % Monocytes % 7 % Eosinophils % 4 % Basophils % 1 % Neutrophils # 3.2 (1.3-7.7) k/uL Lymphocytes # 1.1 (1.0-4.8) k/uL Monocytes # 0.3 (0-1.0) k/uL Eosinophils # 0.2 (0-0.7) k/uL Basophils # 0.0 (0-0.2) k/uL Hypochromasia Slight Anisocytosis Slight Microcytosis Slight PT 10.6 (9.0-12.0) sec INR 1.0 (<1.2) APTT 25.6 (22.0-30.0) sec D-Dimer 1.09 H (<0.60) mg/L FEU Sodium 143 (137-145) mmol/L Potassium 3.8 (3.5-5.1) mmol/L Chloride 110 H (98-107) mmol/L Carbon Dioxide 24 (22-30) mmol/L Anion Gap 9 mmol/L BUN 7 (7-17) mg/dL Creatinine 0.76 (0.52-1.04) mg/dL Est GFR (CKD-EPI)AfAm >90 (>60 ml/min/1.73 sqM) Est GFR (CKD-EPI)NonAf >90 (>60 ml/min/1.73 sqM) Glucose 97 (74-99) mg/dL Calcium 8.7 (8.4-10.2) mg/dL Magnesium 2.0 (1.6-2.3) mg/dL Total Bilirubin 0.3 (0.2-1.3) mg/dL AST 54 H (14-36) U/L ALT 55 H (9-52) U/L Alkaline Phosphatase 112 (38-126) U/L Troponin I (0.000-0.034) ng/mL NT-Pro-B Natriuret Pep pg/mL Total Protein 6.3 (6.3-8.2) g/dL Albumin 3.8 (3.5-5.0) g/dL 01/05/19 01/05/19 Range/Units 12:35 12:35 WBC (3.8-10.6) k/uL RBC (3.80-5.40) m/uL Hgb (11.4-16.0) gm/dL Hct (34.0-46.0) % MCV (80.0-100.0) fL MCH (25.0-35.0) pg MCHC (31.0-37.0) g/dL RDW (11.5-15.5) % Plt Count (150-450) k/uL Neutrophils % % Lymphocytes % % Monocytes % % Eosinophils % % Basophils % % Neutrophils # (1.3-7.7) k/uL Lymphocytes # (1.0-4.8) k/uL Monocytes # (0-1.0) k/uL Eosinophils # (0-0.7) k/uL Basophils # (0-0.2) k/uL Hypochromasia Anisocytosis Microcytosis PT (9.0-12.0) sec INR (<1.2) APTT (22.0-30.0) sec D-Dimer (<0.60) mg/L FEU Sodium (137-145) mmol/L Potassium (3.5-5.1) mmol/L Chloride (98-107) mmol/L Carbon Dioxide (22-30) mmol/L Anion Gap mmol/L BUN (7-17) mg/dL Creatinine (0.52-1.04) mg/dL Est GFR (CKD-EPI)AfAm (>60 ml/min/1.73 sqM) Est GFR (CKD-EPI)NonAf (>60 ml/min/1.73 sqM) Glucose (74-99) mg/dL Calcium (8.4-10.2) mg/dL Magnesium (1.6-2.3) mg/dL Total Bilirubin (0.2-1.3) mg/dL AST (14-36) U/L ALT (9-52) U/L Alkaline Phosphatase (38-126) U/L Troponin I <0.012 (0.000-0.034) ng/mL NT-Pro-B Natriuret Pep 39 pg/mL Total Protein (6.3-8.2) g/dL Albumin (3.5-5.0) g/dL 01/05/19 13:51 EKG performed at 1249 shows sinus rhythm and normal EKG. Ventricular rate of 78 beats were minute. [place] interval is 170 ms. She jain 80 ms. QT QTc is 390/444 ms. - Radiology Data Radiology results: report reviewed X-ray shows low lung volumes without any suspicious acute pulmonary process. Ligament exam on CT BARGER. Findings are suspicious for small right upper lobe branch pulmonary wasn't. Correlate clinically. Evidence of 2 posterior groundglass changes in both lung mendez most typical dependent atelectasis. Hepatomegaly. Before meals ptosis noted. Post surgical changes and abdomen. Disposition Clinical Impression: Pulmonary embolism, COPD (chronic obstructive pulmonary disease), Failure of outpatient treatment Disposition: ADMITTED IP TO THIS HOSP Condition: Stable Is patient prescribed a controlled substance at d/c from ED?: No Referrals: Tyler Black MD [Primary Care Provider] - 1-2 days Time of Disposition: 15:24
[2019-01-05] MEDS ORDERED: SODIUM CHLORIDE 0.9% 1,000 ML IV STA ×2 (12:17)
[2019-01-05] MEDS ORDERED: methylPREDNISolone SOD SUCCI 125 MG/2 ML VIAL IV STA (12:17)
[2019-01-05] MEDS ORDERED: IPRATROPIUM-ALBUTEROL 3 ML NEB INHALATION STA ×2 (12:17→15:21)
[2019-01-05 13:11] LABS: ALT 55 U/L (9-52); AST 54 U/L (14-36); African American GFR (CKD) >90 (>60 ml/min/1.73 sqM); Albumin 3.8 g/dL (3.5-5.0); Alkaline Phosphatase 112 U/L (38-126); Anion Gap 9 mmol/L; Blood Urea Nitrogen 7 mg/dL (7-17); Calcium 8.7 mg/dL (8.4-10.2); Carbon Dioxide 24 mmol/L (22-30); Chloride 110 mmol/L (98-107); Glucose 97 mg/dL (74-99); Potassium 3.8 mmol/L (3.5-5.1); Sodium 143 mmol/L (137-145); Total Bilirubin 0.3 mg/dL (0.2-1.3); Total Protein 6.3 g/dL (6.3-8.2)
[2019-01-05 13:14] LABS: Partial Thromboplastin Time 25.6 sec (22.0-30.0); Prothrombin Time 10.6 sec (9.0-12.0)
[2019-01-05 13:21] LABS: Anisocytosis Slight; Basophils % (A) 1 %; Eosinophils # (A) 0.2 k/uL (0-0.7); Eosinophils % (A) 4 %; HCT 39.8 % (34.0-46.0); HGB 12.4 gm/dL (11.4-16.0); Hypochromasia Slight; Lymphocytes # (A) 1.1 k/uL (1.0-4.8); Lymphocytes % (A) 22 %; MCH 26.2 pg (25.0-35.0); MCHC 31.2 g/dL (31.0-37.0); Mean Platelet Volume 9.2; Microcytosis Slight; Monocytes # (A) 0.3 k/uL (0-1.0); Monocytes % (A) 7 %; Neutrophils # (A) 3.2 k/uL (1.3-7.7); Neutrophils % (A) 65 %; Platelet Count 180 k/uL (150-450); RBC 4.73 m/uL (3.80-5.40); RDW 18.9 % (11.5-15.5); WBC 4.9 k/uL (3.8-10.6)
[2019-01-05 13:24] LABS: MCV 84.1 fL (80.0-100.0)
--- NOTE | 2019-01-05 13:33 | XR ---
EXAMINATION TYPE: XR chest 2V DATE OF EXAM: 01/05/2019 COMPARISON: Chest x-ray November 07, 2018. CTA chest November 05, 2018. HISTORY: Cough congestion and shortness of breath. TECHNIQUE: Frontal and lateral views of the chest are obtained. FINDINGS: Low lung volumes are redemonstrated. There is no new suspicious focal air space opacity, p leural effusion, or pneumothorax seen. The cardiac silhouette size remains upper limits of normal. S timulator device in the lower thoracic spinal canal is redemonstrated. IMPRESSION: Low lung volumes without new suspicious acute pulmonary process.
[2019-01-05 13:48] LABS: D-Dimer 1.09 mg/L FEU (<0.60)
[2019-01-05] MEDS ORDERED: MORPHINE SULFATE 4 MG/ML SYRINGE IVP STA (13:50)
[2019-01-05] MEDS ORDERED: cefTRIAXone IN SWFI 1,000 MG/10 ML SYRINGE IVP STA (15:00)
[2019-01-05] MEDS ORDERED: AZITHROMYCIN 500 MG in SODIUM CHLORIDE 0.9% 250 ML IVPB STA (15:00)
--- NOTE | 2019-01-05 15:03 | CT ---
EXAMINATION TYPE: CT chest angio for PE DATE OF EXAM: 01/05/2019 COMPARISON: 11/05/2018 HISTORY: Shortness of breath, cough and chest pain. CT DLP: 795.7 mGycm Automated exposure control for dose reduction was used. CONTRAST: CT Chest for pulmonary embolism performed with with IV Contrast, patient injected with 100 mL of Isov ue 370. FINDINGS: LUNGS: Subsegmental consolidation involving the lungs noted posteriorly within both lungs. MEDIASTINUM: Pulmonary arteries and aorta particularly the proximal aorta right pulmonary artery are limited due to artifact. Grossly the aorta of normal caliber. Assessment for dissection nondiagnostic . On axial image 46 and 45 there is a low density filling defect within the upper lobe branch of the right pulmonary artery OTHER: There is a right-sided thyroid nodule measuring 1.1 cm. Hypertrophic and degenerative change of the spine.. Correlate for hepatic steatosis. Previous cholecystectomy and previous gastric surgery suggested correlate clinically. Suggestion of a catheter within the spinal canal which should be cor related clinically IMPRESSION: 1. Limited exam. Findings suspicious for small right upper lobe branch pulmonary embolism. Correlate clinically. There are 2 posterior groundglass changes within both lung mendez most typical dependent atelectasis. 3. Hepatomegaly and hepatic steatosis 4. Postsurgical changes involving the abdomen.
[2019-01-05] MEDS ORDERED: HEPARIN SODIUM,PORCINE 10,000 UNIT/ML 1 ML VIAL IV ONE (15:06)
[2019-01-05] MEDS ORDERED: HEPARIN SODIUM,PORCINE 5,000 UNIT/ML 1 ML VIAL IV PRN (15:06)
[2019-01-05] MEDS: HEPARIN SOD,PORK IN 0.45% NACL 25,000 UNIT in 0.45% NACL 1 250ML.BAG IV SCH (16:12)
[2019-01-05] MEDS: MORPHINE SULFATE 4 MG/ML SYRINGE IVP PRN ×2 (17:48→21:57)
[2019-01-05] MEDS: KETOROLAC 30 MG/ML 1 ML VIAL IVP SCH ×2 (17:48→23:05)
[2019-01-05] MEDS: methylPREDNISolone SOD SUCCI 125 MG/2 ML VIAL IV SCH ×2 (17:52→23:05)
[2019-01-05] MEDS: INSULIN ASPART (NovoLOG) 100 UNIT/ML VIAL SQ SCH ×2 (18:15→20:46)
[2019-01-05] MEDS ORDERED: ALBUTEROL NEBULIZED 2.5 MG/3 ML INHALATION PRN (19:02)
[2019-01-05] MEDS ORDERED: IPRATROPIUM-ALBUTEROL 3 ML NEB INHALATION PRN (19:02)
[2019-01-05 20:31] LABS: Glucose,Whole Blood 237 mg/dL (75-99)
[2019-01-05] MEDS: MONTELUKAST 10 MG TAB PO SCH (20:41)
[2019-01-05] MEDS: Suvorexant [Belsomra] PO SCH (20:41)
[2019-01-05] MEDS: SERTRALINE 100 MG TAB PO SCH (20:41)
[2019-01-05] MEDS: Brexpiprazole [Rexulti] PO SCH (20:42)
[2019-01-05] MEDS: guaiFENesin 600 MG TABLET.ER PO SCH (20:42)
[2019-01-05] MEDS: HYDROcodone/APAP 10-325MG 1 EACH TAB PO PRN (20:43)
[2019-01-05] MEDS: buPROPion XL 150 MG TAB.ER.24H PO SCH (20:46)
[2019-01-05] MEDS: IPRATROPIUM 0.5 MG/2.5 ML NEBU INHALATION SCH (20:54)
[2019-01-05] MEDS: IPRATROPIUM-ALBUTEROL 3 ML NEB INHALATION PRN (20:54)
[2019-01-05] MEDS: SYMBICORT 160-4.5 MCG INHALER INHALATION SCH (20:54)
[2019-01-05] MEDS: PREGABALIN 75 MG CAP PO SCH (21:57)
[2019-01-06] MEDS: MORPHINE SULFATE 4 MG/ML SYRINGE IVP PRN ×4 (01:45→14:06)
[2019-01-06] MEDS: HEPARIN SOD,PORK IN 0.45% NACL 25,000 UNIT in 0.45% NACL 1 250ML.BAG IV SCH ×2 (05:06→23:15)
[2019-01-06] MEDS: HYDROcodone/APAP 10-325MG 1 EACH TAB PO PRN ×2 (05:08→12:21)
[2019-01-06] MEDS: LEVOTHYROXINE 75 MCG TAB PO SCH (06:06)
[2019-01-06] MEDS: PANTOPRAZOLE 40 MG TABLET PO SCH (06:06)
[2019-01-06] MEDS: methylPREDNISolone SOD SUCCI 125 MG/2 ML VIAL IV SCH ×4 (06:07→23:16)
[2019-01-06 06:24] LABS: Glucose,Whole Blood 181 mg/dL (75-99)
[2019-01-06 06:37] LABS: Anisocytosis Slight; Basophils % (A) 0 %; Eosinophils % (A) 0 %; HCT 38.7 % (34.0-46.0); HGB 12.1 gm/dL (11.4-16.0); Hypochromasia Slight; Lymphocytes # (A) 0.5 k/uL (1.0-4.8); Lymphocytes % (A) 5 %; MCH 26.3 pg (25.0-35.0); MCHC 31.2 g/dL (31.0-37.0); MCV 84.2 fL (80.0-100.0); Mean Platelet Volume 8.9; Microcytosis Slight; Monocytes # (A) 0.3 k/uL (0-1.0); Monocytes % (A) 3 %; Neutrophils # (A) 8.8 k/uL (1.3-7.7); Neutrophils % (A) 91 %; Platelet Count 177 k/uL (150-450); RBC 4.59 m/uL (3.80-5.40); RDW 18.7 % (11.5-15.5); WBC 9.6 k/uL (3.8-10.6)
[2019-01-06] MEDS: INSULIN ASPART (NovoLOG) 100 UNIT/ML VIAL SQ SCH ×4 (06:38→21:06)
[2019-01-06 07:17] LABS: African American GFR (CKD) >90 (>60 ml/min/1.73 sqM); Anion Gap 9 mmol/L; Blood Urea Nitrogen 8 mg/dL (7-17); Calcium 8.9 mg/dL (8.4-10.2); Carbon Dioxide 21 mmol/L (22-30); Chloride 109 mmol/L (98-107); Glucose 154 mg/dL (74-99); Potassium 4.5 mmol/L (3.5-5.1); Sodium 139 mmol/L (137-145)
[2019-01-06] MEDS: IPRATROPIUM-ALBUTEROL 3 ML NEB INHALATION PRN ×2 (08:31→20:11)
[2019-01-06] MEDS: SYMBICORT 160-4.5 MCG INHALER INHALATION SCH ×2 (08:31→20:10)
[2019-01-06] MEDS: IPRATROPIUM 0.5 MG/2.5 ML NEBU INHALATION SCH ×4 (08:44→20:11)
[2019-01-06] MEDS: KETOROLAC 30 MG/ML 1 ML VIAL IVP SCH ×4 (09:12→23:17)
[2019-01-06] MEDS: buPROPion XL 150 MG TAB.ER.24H PO SCH ×2 (09:13→20:28)
[2019-01-06] MEDS: PREGABALIN 75 MG CAP PO SCH ×3 (09:13→21:03)
[2019-01-06] MEDS: guaiFENesin 600 MG TABLET.ER PO SCH ×2 (09:13→20:28)
[2019-01-06] MEDS: SERTRALINE 100 MG TAB PO SCH ×2 (09:13→20:28)
[2019-01-06] MEDS: LORATADINE 10 MG TAB PO SCH (09:13)
[2019-01-06] MEDS: TROSPIUM CHLORIDE 20 MG TABLET PO SCH ×2 (09:14→20:28)
[2019-01-06 12:18] LABS: Glucose,Whole Blood 202 mg/dL (75-99)
--- NOTE | 2019-01-06 13:37 | HP ---
HISTORY AND PHYSICAL This is a 48-year-old white female came to the emergency room with history of asthma and COPD exacerbation failing outpatient treatment sent here by [facility] after failing multiple steroids and antibiotics. She does take Xarelto for pulmonary embolism as an outpatient. CT in the emergency room showed new pulmonary embolism despite Xarelto at which time patient is requesting to be switched over to Eliquis. In the meantime, we are treating her for tracheobronchitis and asthma exacerbation. HOME MEDICATIONS: 1. Xarelto. 2. Lyrica. 3. Singulair. 4. Symbicort. 5. Synthroid. 6. Omeprazole. 7. Zoloft. 8. Belsomra. 9. VESIcare. 10.[place]. 11.Wellbutrin XL. 12.Ventolin HFA. 13.Rexulti. 14.Iron. 15.Incruse Ellipta. ALLERGIES: Allergies are negative. REVIEW OF SYSTEMS: Fourteen-point review of systems negative except for mentioned in HPI. PAST MEDICAL HISTORY: Asthma, COPD, fibromyalgia, GERD, pneumonia, pulmonary embolism, seizures, sleep apnea, hypothyroidism, lumbar disc disease radiating down the legs, neuropathy, migraines, hypothyroidism, urinary incontinence. She has a [place] filter. SURGERY: Bronchoscopy, gastric bypass, herniated discs. Anxiety, depression. FAMILY HISTORY: Brother with cancer of the spine. Father with coronary artery disease, CVA, diabetes, hypertension. Mother with hypertension, diabetes mellitus, hypothyroidism. PHYSICAL EXAMINATION: A 48-year-old female, alert, oriented x3. No acute distress. HEAD: Normocephalic, atraumatic. Pupils equal, round, reactive to light and accommodation. NEUROLOGIC: Cranial nerves are intact. SKIN: Warm, dry. CARDIOVASCULAR: S1, S2. GI: Normal bowel sounds. EXTREMITIES: Normal inspection. RESPIRATORY: Wheezes. Inspiratory, expiratory wheezes. On 2 L of oxygen. Mild stridor. ENDOCRINE: BMI is over 30. She has got changes suspicious for obesity hypoventilation syndrome. VITAL SIGNS: Temp 98, pulse 73 to 88, respiratory rate 20 to 22, blood pressure 162/74 and O2 of 99% on 2 L. ASSESSMENT: 1. Acute pulmonary embolism. 2. Acute on chronic asthma exacerbation. 3. Tracheobronchitis. 4. Atypical chest pain. 5. Positive D-dimer. She is on Heparin, steroids. Will switch her off Xarelto to Eliquis after a few days in the hospital for home use for blood thinner as she had a PE while on Xarelto. Continue with tracheobronchitis and asthma COPD treatment per Pulmonary. MMODL / IJN: [id number] /
[2019-01-06] MEDS ORDERED: MORPHINE SULFATE 4 MG/ML SYRINGE IVP PRN (14:37)
--- NOTE | 2019-01-06 15:37 | P.CNPUL ---
History of Present Illness Consult date: 01/06/19 Reason for consult: dyspnea, cough, obstructive sleep apnea Chief complaint: Wheezing cough and shortness of breath for over 2 weeks History of present illness: This is a morbidly obese 48-year-old female with prior history of multiple medical problems especially chronic persistent asthma of severe category came into the office with ongoing cough congestion shortness of breath with inspiratory stridor, patient has a chronic history of respiratory problems for the last 2 weeks she is not doing very well with increased cough congestion shortness of breath she has been treated with outpatient steroids and antibiotic s without any significant relief second course of antibiotics are being given but she still feels short of breath and intermittently developed inspiratory stridor has been advised to admitted to hospital denies any hemoptysis denies any chills denies any chest pain but ongoing chest tightness and discomfort is present, the chest x-ray remains stable the computed tomography scan of his chest revealed bilateral groundglass basal atelectasis with possible right upper lobe pulmonary circulation PE, patient is currently on heparin she has been taking oral anticoagulants prior to admission regularly Review of Systems All systems: negative Past Medical History Past Medical History: Asthma, COPD, Fibromyalgia, GERD/Reflux, Pneumonia, Pulmonary Embolus (PE), Seizure Disorder, Sleep Apnea/CPAP/BIPAP, Thyroid Disorder Additional Past Medical History / Comment(s): Chronic asthma, chronic COPD, recurrent pneumonias, hx of respiratory stridor, PE in 2003 and 2009, MAGALI with CPAP , psuedo seizures with last one in 2017, past gastric ulcer, DDD, LOWER BACK PAIN- RADIATES DOWN RT LEG, R toes,neuropathy, generalized pain from fibromyalgia, chronic MIGRAINES, hypothyroidism, urinary leakage at times, healed wound on abdomen from surgical dehiscence, insomnia, cellulitis R arm. History of Any Multi-Drug Resistant Organisms: None Reported Past Surgical History: Back Surgery, Bariatric Surgery, Cholecystectomy, Joint Replacement, Orthopedic Surgery Additional Past Surgical History / Comment(s): 11/12/16 bronchoscopy wit BAL, gastric bypass 2011, panniculectomy with wound dehiscence/debridements, 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 Past Anesthesia/Blood Transfusion Reactions: No Reported Reaction Past Psychological History: Anxiety, Depression Additional Psychological History / Comment(s): Pt lives with her mother and father. She is independent. She uses no assistive device. She has a CPAP machine that she uses most nites. She has no home care. She does not drive due to seizures, she takes the bus or her mother drives her. Smoking Status: Never smoker Past Alcohol Use History: None Reported Past Drug Use History: None Reported - Past Family History Brother(s) Family Medical History: Cancer Additional Family Medical History / Comment(s): spine Father Family Medical History: Coronary Artery Disease (CAD), CVA/TIA, Diabetes Mellitus, Hypertension, Thyroid Disorder Additional Family Medical History / Comment(s): X3 STROKES, STENTS IN HEART,Pacemaker Mother Family Medical History: Diabetes Mellitus, Hypertension, Thyroid Disorder Additional Family Medical History / Comment(s): KNEE REPLACEMENTS Medications and Allergies Home Medications Medication Instructions Recorded Confirmed Type Rivaroxaban [Xarelto] 20 mg PO PC-SUPPER 11/20/13 01/05/19 History Pregabalin [Lyrica] 150 mg PO TID 10/09/14 01/05/19 History Montelukast [Singulair] 10 mg PO HS 06/23/15 01/05/19 History Budesonide/Formoterol Fumarate 2 puff INHALATION RT-BID 02/16/17 01/05/19 History [Symbicort 160-4.5 Mcg Inhaler] Levothyroxine Sodium [Synthroid] 150 mcg PO DAILY 02/16/17 01/05/19 History Omeprazole 20 mg PO DAILY 02/16/17 01/05/19 History Suvorexant [Belsomra] 20 mg PO HS 05/03/18 01/05/19 History Solifenacin Succinate [Vesicare] 10 mg PO DAILY 07/19/18 01/05/19 History buPROPion HCL [Wellbutrin XL] 150 mg PO BID 08/17/18 01/05/19 History Albuterol Inhaler [Ventolin Hfa 2 puff INHALATION RT-QID PRN 11/05/18 01/05/19 History Inhaler] Brexpiprazole [Rexulti] 2 mg PO HS 11/05/18 01/05/19 History Umeclidinium [place] [Incruse 1 puff INHALATION RT-HS 11/05/18 01/05/19 History Ellipta] HYDROcodone/APAP 10-325MG [[place] 1 tab PO TID PRN 01/05/19 01/05/19 History 10-325] Ipratropium-Albuterol Nebulize 3 ml INHALATION RT-QID PRN 01/05/19 01/05/19 History [Duoneb 0.5 mg-3 mg/3 ml Soln] Loratadine 10 mg PO DAILY 01/05/19 01/05/19 History Sertraline [Zoloft] 100 mg PO BID 01/05/19 01/05/19 History Allergies Allergy/AdvReac Type Severity Reaction Status Date / Time No Known Allergies Allergy Verified 01/05/19 16:17 Physical Exam Vitals: Vital Signs Temp Pulse Pulse Resp BP BP Pulse Ox 01/06/19 11:45 92 01/06/19 11:35 90 01/06/19 11:30 98 16 97/54 94 L 01/06/19 09:10 97.6 F 98 16 101/57 93 L 01/06/19 08:42 92 01/06/19 08:32 88 01/06/19 04:00 98 F 90 19 112/57 95 01/06/19 02:02 88 18 01/06/19 01:53 90 18 01/05/19 23:36 90 19 01/05/19 23:34 19 125/64 95 01/05/19 21:15 90 01/05/19 20:55 94 100 01/05/19 20:00 97.8 F 90 19 116/56 97 01/05/19 18:00 90 24 01/05/19 17:07 97.8 F 94 20 119/65 97 01/05/19 16:00 86 20 118/78 97 01/05/19 15:51 90 01/05/19 15:30 81 Intake and Output 01/06/19 01/06/19 01/06/19 06:59 14:59 22:59 Intake Total 107.617 6903.672 Output Total 800 1100 100 Balance 131.344 25.672 -100 Intake: IV 240 NS 240 Intake, IV Titration 91.344 45.672 Amount Heparin Sod,Pork in 0.45% 91.344 45.672 NaCl 25,000 unit In 0.45 % NaCl 1 250ml.bag @ 18 UNITS/KG/HR 18.37 mls/hr IV .[id number] [facility] Rx#: [id number] Oral 600 1080 Output: Urine 800 1100 100 Other: Voiding Method Bedpan Bedpan # Voids 2 Weight 115 kg - Constitutional General appearance: disheveled, morbidly obese - EENT Eyes: EOMI, PERRLA, normal appearance ENT: normal oropharynx Ears: bilateral: normal - Neck Carotids: bilateral: upstroke normal, bruit absent Thyroid: bilateral: normal size - Respiratory Respiratory: bilateral: wheezing, prolonged inspiration (Inspiratory stridor), negative: CTA, diminished, dullness, rales, rhonchi, prolonged expiration - Cardiovascular Rhythm: regular Heart sounds: normal: S1, S2 - Gastrointestinal General gastrointestinal: normal bowel sounds - Integumentary Integumentary: normal turgor - Neurologic Neurologic: CNII-XII intact - Musculoskeletal Musculoskeletal: gait normal, generalized weakness, strength equal bilaterally - Psychiatric Psychiatric: A&O x's 3, appropriate affect, intact judgment & insight Results - Laboratory Findings CBC and BMP: 01/06/19 05:44 01/06/19 05:44 PT/INR, D-dimer PT 10.6 sec (9.0-12.0) 01/05/19 12:35 INR 1.0 (<1.2) 01/05/19 12:35 D-Dimer 1.09 mg/L FEU (<0.60) H 01/05/19 12:35 Abnormal lab findings: Abnormal Labs 01/05/19 01/05/19 01/05/19 12:35 12:35 12:35 RDW 18.9 H Neutrophils # Lymphocytes # APTT D-Dimer 1.09 H Chloride 110 H Carbon Dioxide Glucose POC Glucose (mg/dL) AST 54 H ALT 55 H 01/05/19 01/05/19 01/06/19 20:30 21:20 05:44 RDW 18.7 H Neutrophils # 8.8 H Lymphocytes # 0.5 L APTT 174.3 H* D-Dimer Chloride Carbon Dioxide Glucose POC Glucose (mg/dL) 237 H AST ALT 01/06/19 01/06/19 01/06/19 05:44 05:44 06:22 RDW Neutrophils # Lymphocytes # APTT 98.4 H D-Dimer Chloride 109 H Carbon Dioxide 21 L Glucose 154 H POC Glucose (mg/dL) 181 H AST ALT 01/06/19 11:55 RDW Neutrophils # Lymphocytes # APTT D-Dimer Chloride Carbon Dioxide Glucose POC Glucose (mg/dL) 202 H AST ALT - Diagnostic Findings Chest x-ray: report reviewed, image reviewed CT scan - chest: report reviewed (Finding as noted above), image reviewed Assessment and Plan Assessment: Right upper lobe pulmonary embolism suspected, has been on oral anticoagulants History of prior DVT PE Acute COPD exacerbation Inspiratory stridor with extended history of vocal cord dysfunction Obstructive sleep apnea Hypothyroidism Plan: Continue IV heparin Continue IV steroids Breathing treatments IV antibiotics Supplemental oxygen Duplex ultrasound lower extremity Further recommendations pending plan of care as per clinical response of patient Time with Patient: Greater than 30
[2019-01-06 17:19] LABS: Glucose,Whole Blood 179 mg/dL (75-99)
--- NOTE | 2019-01-06 17:21 | US ---
EXAMINATION TYPE: US venous doppler duplex LE DATE OF EXAM: 01/06/2019 4:51 PM COMPARISON: NONE CLINICAL HISTORY: dvt. known PE, no leg complaints per patient SIDE PERFORMED: Bilateral TECHNIQUE: The lower extremity deep venous system is examined utilizing real time linear array sonog gray with graded compression, doppler sonography and color-flow sonography. VESSELS IMAGED: External Iliac Vein (EIV) Common Femoral Vein Deep Femoral Vein Greater Saphenous Vein * Femoral Vein Popliteal Vein Small Saphenous Vein * Proximal Calf Veins (* superficial vessels) Right Leg: Negative for DVT Left Leg: Negative for DVT IMPRESSION: No evidence of deep venous thrombosis in both legs.
[2019-01-06] MEDS: Brexpiprazole [Rexulti] PO SCH (20:28)
[2019-01-06 20:35] LABS: Glucose,Whole Blood 230 mg/dL (75-99)
[2019-01-06] MEDS: MONTELUKAST 10 MG TAB PO SCH (21:03)
[2019-01-06] MEDS: Suvorexant [Belsomra] PO SCH (21:03)
[2019-01-06] MEDS: guaiFENesin-DM 100-10MG/5ML 10 ML CUP PO PRN (23:16)
[2019-01-07] MEDS: HYDROcodone/APAP 10-325MG 1 EACH TAB PO PRN ×3 (01:53→17:59)
[2019-01-07] MEDS: KETOROLAC 30 MG/ML 1 ML VIAL IVP SCH ×4 (05:19→23:07)
[2019-01-07] MEDS: LEVOTHYROXINE 75 MCG TAB PO SCH (05:20)
[2019-01-07] MEDS: methylPREDNISolone SOD SUCCI 125 MG/2 ML VIAL IV SCH ×4 (05:20→23:07)
[2019-01-07 06:15] LABS: Glucose,Whole Blood 157 mg/dL (75-99)
[2019-01-07] MEDS: INSULIN ASPART (NovoLOG) 100 UNIT/ML VIAL SQ SCH ×4 (06:44→21:22)
[2019-01-07] MEDS: PANTOPRAZOLE 40 MG TABLET PO SCH (06:44)
[2019-01-07 06:58] LABS: Anisocytosis Slight; Basophils % (A) 0 %; Eosinophils % (A) 0 %; HCT 39.1 % (34.0-46.0); Hypochromasia Slight; Lymphocytes # (A) 0.5 k/uL (1.0-4.8); Lymphocytes % (A) 4 %; MCH 26.5 pg (25.0-35.0); MCHC 30.8 g/dL (31.0-37.0); MCV 86.1 fL (80.0-100.0); Mean Platelet Volume 9.2; Monocytes # (A) 0.4 k/uL (0-1.0); Monocytes % (A) 3 %; Neutrophils # (A) 12.2 k/uL (1.3-7.7); Neutrophils % (A) 93 %; Platelet Count 156 k/uL (150-450); RBC 4.54 m/uL (3.80-5.40); RDW 19.4 % (11.5-15.5); WBC 13.1 k/uL (3.8-10.6)
[2019-01-07] MEDS: SYMBICORT 160-4.5 MCG INHALER INHALATION SCH ×2 (08:15→19:57)
[2019-01-07] MEDS: IPRATROPIUM 0.5 MG/2.5 ML NEBU INHALATION SCH ×4 (08:15→19:57)
[2019-01-07] MEDS: IPRATROPIUM-ALBUTEROL 3 ML NEB INHALATION PRN ×3 (08:15→15:42)
[2019-01-07] MEDS: guaiFENesin 600 MG TABLET.ER PO SCH ×2 (08:33→21:01)
[2019-01-07] MEDS: SERTRALINE 100 MG TAB PO SCH ×2 (08:33→21:01)
[2019-01-07] MEDS: guaiFENesin-DM 100-10MG/5ML 10 ML CUP PO PRN ×3 (08:33→23:07)
[2019-01-07] MEDS: LORATADINE 10 MG TAB PO SCH (08:33)
[2019-01-07] MEDS: PREGABALIN 75 MG CAP PO SCH ×3 (08:33→21:01)
[2019-01-07] MEDS: TROSPIUM CHLORIDE 20 MG TABLET PO SCH ×2 (08:34→21:02)
[2019-01-07] MEDS: buPROPion XL 150 MG TAB.ER.24H PO SCH ×2 (08:34→21:02)
--- NOTE | 2019-01-07 11:42 | P.PN ---
Subjective Progress Note Date: 01/07/19 Principal diagnosis: Right upper lobe pulmonary embolism suspected, has been on oral anticoagulants History of prior DVT PE Acute COPD exacerbation Inspiratory stridor with extended history of vocal cord dysfunction Obstructive sleep apnea Hypothyroidism 01/07/2019, patient seen eval reexamined during the rounds labs reviewed medications reviewed still have ongoing inspiratory stridor or chest tightness has improved though slightly still have dry nonproductive cough labs reviewed medications reviewed bilateral lower extremity DVTs negative This is a morbidly obese 48-year-old female with prior history of multiple medical problems especially chronic persistent asthma of severe category came into the office with ongoing cough congestion shortness of breath with ins piratory stridor, patient has a chronic history of respiratory problems for the last 2 weeks she is not doing very well with increased cough congestion shortness of breath she has been treated with outpatient steroids and antibiotics without any significant relief second course of antibiotics are be ing given but she still feels short of breath and intermittently developed inspiratory stridor has been advised to admitted to hospital denies any hemoptysis denies any chills denies any chest pain but ongoing chest tightness and discomfort is present, the chest x-ray remains stable the computed [place] ography scan of his chest revealed bilateral groundglass basal atelectasis with possible right upper lobe pulmonary circulation PE, patient is currently on heparin she has been taking oral anticoagulants prior to admission regularly Objective - Vital Signs Vital signs: Vital Signs Temp 97.9 F 01/07/19 08:00 Pulse 90 01/07/19 08:33 Resp 24 01/07/19 08:00 BP 132/75 01/07/19 08:00 Pulse Ox 94 L 01/07/19 08:17 Intake & Output 01/06/19 01/07/19 01/07/19 18:59 06:59 18:59 Intake Total 1725.672 413.499 Output Total 2400 1750 Balance -674.328 -1336.501 Weight 114.4 kg Intake: Intake, IV Titration 45.672 173.499 Amount Heparin Sod,Pork in 0.45% 45.672 173.499 NaCl 25,000 unit In 0.45 % NaCl 1 250ml.bag @ 18 UNITS/KG/HR 18.37 mls/hr IV .[id number] [facility] Rx#: [id number] Oral 1680 240 Output: Urine 2400 1750 Other: Voiding Method Bedpan Toilet # Voids 4 - Exam - Constitutional General appearance: disheveled, morbidly obese - EENT Eyes: EOMI, PERRLA, normal appearance ENT: normal oropharynx Ears: bilateral: normal - Neck Carotids: bilateral: upstroke normal, bruit absent Thyroid: bilateral: normal size - Respiratory Respiratory: bilateral: wheezing, prolonged inspiration (Inspiratory stridor), negative: CTA, diminished, dullness, rales, rhonchi, prolonged expiration - Cardiovascular Rhythm: regular Heart sounds: normal: S1, S2 - Gastrointestinal General gastrointestinal: normal bowel sounds - Integumentary Integumentary: normal turgor - Neurologic Neurologic: CNII-XII intact - Musculoskeletal Musculoskeletal: gait normal, generalized weakness, strength equal bilaterally - Psychiatric Psychiatric: A&O x's 3, appropriate affect, intact judgment & insight - Labs CBC & Chem 7: 01/07/19 06:27 01/06/19 05:44 Labs: Abnormal Lab Results - Last 24 Hours (Table) 01/06/19 01/06/19 01/06/19 Range/Units 11:55 15:02 17:12 WBC (3.8-10.6) k/uL MCHC (31.0-37.0) g/dL RDW (11.5-15.5) % Neutrophils # (1.3-7.7) k/uL Lymphocytes # (1.0-4.8) k/uL APTT 51.2 H (22.0-30.0) sec POC Glucose (mg/dL) 202 H 179 H (75-99) mg/dL 01/06/19 01/07/19 01/07/19 Range/Units 20:33 06:14 06:27 WBC 13.1 H (3.8-10.6) k/uL MCHC 30.8 L (31.0-37.0) g/dL RDW 19.4 H (11.5-15.5) % Neutrophils # 12.2 H (1.3-7.7) k/uL Lymphocytes # 0.5 L (1.0-4.8) k/uL APTT (22.0-30.0) sec POC Glucose (mg/dL) 230 H 157 H (75-99) mg/dL 01/07/19 Range/Units 06:27 WBC (3.8-10.6) k/uL MCHC (31.0-37.0) g/dL RDW (11.5-15.5) % Neutrophils # (1.3-7.7) k/uL Lymphocytes # (1.0-4.8) k/uL APTT 47.8 H (22.0-30.0) sec POC Glucose (mg/dL) (75-99) mg/dL Microbiology - Last 24 Hours (Table) 01/05/19 12:53 Blood Culture - Preliminary Blood No Growth after 24 hours Assessment and Plan Assessment: Right upper lobe pulmonary embolism suspected, has been on oral anticoagulants now on IV heparin History of prior DVT PE Acute COPD exacerbation Inspiratory stridor with extended history of vocal cord dysfunction Obstructive sleep apnea Hypothyroidism Plan: Continue IV heparin Continue IV steroids Breathing treatments IV antibiotics Supplemental oxygen Duplex ultrasound lower extremity results reviewed Will continue heparin for another 24-48 hours then will resume oral anticoagulants as before Further recommendations pending plan of care as per clinical response of patient Time with Patient: Greater than 30
[2019-01-07 12:39] LABS: Glucose,Whole Blood 149 mg/dL (75-99)
[2019-01-07 17:05] LABS: Glucose,Whole Blood 158 mg/dL (75-99)
[2019-01-07] MEDS: HEPARIN SOD,PORK IN 0.45% NACL 25,000 UNIT in 0.45% NACL 1 250ML.BAG IV SCH (19:02)
[2019-01-07] MEDS: MONTELUKAST 10 MG TAB PO SCH (21:01)
[2019-01-07] MEDS: Brexpiprazole [Rexulti] PO SCH (21:02)
[2019-01-07 21:07] LABS: Glucose,Whole Blood 183 mg/dL (75-99)
[2019-01-07] MEDS: Suvorexant [Belsomra] PO SCH (21:22)
--- NOTE | 2019-01-08 00:14 | PN ---
PROGRESS NOTE SUBJECTIVE: 48-year-old white female with COPD exacerbation, pulmonary embolism, right lower lobe. Remains on IV heparin. We will possibly switch her over to Eliquis on discharge as she has failed Xarelto and she has a new pulmonary embolism on Xarelto. Cardiovascular: S1-S2. Lungs scattered wheeze x4. Scattered rhonchi. ASSESSMENT: 1. Chronic obstructive pulmonary disease exacerbation. 2. Tracheobronchitis. 3. Asthma exacerbation. 4. New onset pulmonary embolism. IV heparin, IV steroids, updraft treatments, IV antibiotics. Follow up next 24 to 48 hours. MMODL / IJN: [id number] /
[2019-01-08] MEDS: HEPARIN SOD,PORK IN 0.45% NACL 25,000 UNIT in 0.45% NACL 1 250ML.BAG IV SCH ×2 (00:58→13:56)
[2019-01-08] MEDS: HYDROcodone/APAP 10-325MG 1 EACH TAB PO PRN ×3 (01:07→17:18)
[2019-01-08] MEDS: LEVOTHYROXINE 75 MCG TAB PO SCH (05:11)
[2019-01-08] MEDS: methylPREDNISolone SOD SUCCI 125 MG/2 ML VIAL IV SCH ×3 (05:11→17:17)
[2019-01-08] MEDS: KETOROLAC 30 MG/ML 1 ML VIAL IVP SCH ×3 (05:11→17:17)
[2019-01-08 06:30] LABS: Anisocytosis Slight; Basophils % (A) 0 %; Eosinophils % (A) 0 %; HCT 39.3 % (34.0-46.0); HGB 11.9 gm/dL (11.4-16.0); Hypochromasia Moderate; Lymphocytes # (A) 0.4 k/uL (1.0-4.8); Lymphocytes % (A) 4 %; MCH 26.3 pg (25.0-35.0); MCHC 30.2 g/dL (31.0-37.0); MCV 87.2 fL (80.0-100.0); Mean Platelet Volume 8.4; Monocytes # (A) 0.3 k/uL (0-1.0); Monocytes % (A) 3 %; Neutrophils # (A) 9.2 k/uL (1.3-7.7); Neutrophils % (A) 92 %; Platelet Count 153 k/uL (150-450); WBC 9.9 k/uL (3.8-10.6)
[2019-01-08 06:34] LABS: Glucose,Whole Blood 170 mg/dL (75-99)
[2019-01-08] MEDS: PANTOPRAZOLE 40 MG TABLET PO SCH (06:50)
[2019-01-08] MEDS: INSULIN ASPART (NovoLOG) 100 UNIT/ML VIAL SQ SCH ×4 (06:50→21:50)
[2019-01-08] MEDS: IPRATROPIUM-ALBUTEROL 3 ML NEB INHALATION PRN ×4 (07:15→21:05)
[2019-01-08] MEDS: SYMBICORT 160-4.5 MCG INHALER INHALATION SCH ×2 (07:15→21:05)
[2019-01-08] MEDS: IPRATROPIUM 0.5 MG/2.5 ML NEBU INHALATION SCH ×4 (07:16→21:08)
[2019-01-08] MEDS: guaiFENesin 600 MG TABLET.ER PO SCH ×2 (09:17→20:57)
[2019-01-08] MEDS: TROSPIUM CHLORIDE 20 MG TABLET PO SCH ×2 (09:18→21:50)
[2019-01-08] MEDS: PREGABALIN 75 MG CAP PO SCH ×3 (09:18→20:57)
[2019-01-08] MEDS: LORATADINE 10 MG TAB PO SCH (09:18)
[2019-01-08] MEDS: SERTRALINE 100 MG TAB PO SCH ×2 (09:18→20:57)
[2019-01-08] MEDS: guaiFENesin-DM 100-10MG/5ML 10 ML CUP PO PRN ×2 (09:19→16:02)
[2019-01-08] MEDS: buPROPion XL 150 MG TAB.ER.24H PO SCH ×2 (09:19→21:50)
[2019-01-08 11:48] LABS: Glucose,Whole Blood 122 mg/dL (75-99)
[2019-01-08 17:10] LABS: Glucose,Whole Blood 153 mg/dL (75-99)
[2019-01-08 20:29] LABS: Glucose,Whole Blood 210 mg/dL (75-99)
[2019-01-08] MEDS: MONTELUKAST 10 MG TAB PO SCH (20:57)
[2019-01-08] MEDS: Brexpiprazole [Rexulti] PO SCH (20:58)
[2019-01-08] MEDS: Suvorexant [Belsomra] PO SCH (21:50)
[2019-01-09] MEDS: methylPREDNISolone SOD SUCCI 125 MG/2 ML VIAL IV SCH ×5 (00:13→23:18)
[2019-01-09] MEDS: HYDROcodone/APAP 10-325MG 1 EACH TAB PO PRN ×3 (00:13→17:16)
[2019-01-09] MEDS: KETOROLAC 30 MG/ML 1 ML VIAL IVP SCH ×3 (00:13→12:17)
--- NOTE | 2019-01-09 01:11 | PN ---
PROGRESS NOTE 48-year-old white female admitted with COPD exacerbation, pulmonary embolism, remains on IV steroids, IV heparin, updraft treatments. Cardiovascular: S1-S2. Lungs are fairly clear. Transmitted upper sounds. Hematology negative Homans. Psych: Fair mood and affect. ASSESSMENT: 1. Pulmonary embolism. 2. Chronic obstructive pulmonary disease exacerbation. 3. Asthma. 4. Tracheobronchitis. Continue on steroids, antibiotics, updrafts. Heparin is transferring to [facility]. Continue current treatment. MMODL / IJN: [id number] /
[2019-01-09] MEDS: guaiFENesin-DM 100-10MG/5ML 10 ML CUP PO PRN ×2 (03:35→17:17)
[2019-01-09] MEDS: HEPARIN SOD,PORK IN 0.45% NACL 25,000 UNIT in 0.45% NACL 1 250ML.BAG IV SCH ×2 (04:13→07:34)
[2019-01-09 06:01] LABS: Glucose,Whole Blood 154 mg/dL (75-99)
[2019-01-09] MEDS: LEVOTHYROXINE 75 MCG TAB PO SCH (06:06)
[2019-01-09] MEDS: PANTOPRAZOLE 40 MG TABLET PO SCH (06:06)
[2019-01-09] MEDS: INSULIN ASPART (NovoLOG) 100 UNIT/ML VIAL SQ SCH ×4 (06:07→22:26)
[2019-01-09 06:51] LABS: Anisocytosis Slight; HCT 38.5 % (34.0-46.0); HGB 12.1 gm/dL (11.4-16.0); Hypochromasia Slight; MCH 27.3 pg (25.0-35.0); MCHC 31.5 g/dL (31.0-37.0); MCV 86.6 fL (80.0-100.0); Platelet Count 160 k/uL (150-450); RBC 4.45 m/uL (3.80-5.40); RDW 18.7 % (11.5-15.5); WBC 9.2 k/uL (3.8-10.6)
[2019-01-09 07:09] LABS: African American GFR (CKD) >90 (>60 ml/min/1.73 sqM); Anion Gap 8 mmol/L; Blood Urea Nitrogen 18 mg/dL (7-17); Calcium 8.8 mg/dL (8.4-10.2); Carbon Dioxide 24 mmol/L (22-30); Chloride 109 mmol/L (98-107); Glucose 148 mg/dL (74-99); Potassium 4.6 mmol/L (3.5-5.1); Sodium 141 mmol/L (137-145)
[2019-01-09] MEDS: IPRATROPIUM-ALBUTEROL 3 ML NEB INHALATION PRN (07:23)
[2019-01-09] MEDS: SYMBICORT 160-4.5 MCG INHALER INHALATION SCH ×2 (07:23→20:21)
[2019-01-09] MEDS: IPRATROPIUM 0.5 MG/2.5 ML NEBU INHALATION SCH ×4 (07:26→20:21)
[2019-01-09] MEDS: TROSPIUM CHLORIDE 20 MG TABLET PO SCH ×2 (07:37→20:55)
--- NOTE | 2019-01-09 07:37 | P.PN ---
Subjective Progress Note Date: 01/08/19 Principal diagnosis: Right upper lobe pulmonary embolism suspected, has been on oral anticoagulants History of prior DVT PE Acute COPD exacerbation Inspiratory stridor with extended history of vocal cord dysfunction Obstructive sleep apnea Hypothyroidism 01/08/2019, patient seen and evaluated examined during the rounds is still have ongoing cough congestion cough is predominantly nonproductive she has inspiratory stridor labs reviewed medications reviewed she feels slightly better and cough and also stridor 01/07/2019, patient seen eval reexamined during the rounds labs reviewed medications reviewed still have ongoing inspiratory stridor or chest tightness has improved though slightly still have dry nonproductive cough labs reviewed medications reviewed bilateral lower extremity DVTs negative This is a morbidly obese 48-year-old female with prior history of multiple medical problems especially chronic persistent asthma of severe category came into the office with ongoing cough congestion shortness of breath with inspiratory stridor, patient has a chronic history of respiratory problems for the last 2 weeks she is not doing very well with increased cough congestion shortness of breath she has been treated with outpatient steroids and antibiotics without any significant relief second course of antibiotics are being given but she still feels short of breath and intermittently developed inspiratory stridor has been advised to admitted to hospital denies any hemoptysis denies any chills denies any chest pain but ongoing chest tightness and discomfort is present, the chest x-ray remains stable the computed tomography scan of his chest revealed bilateral groundglass basal atelectasis with possible right upper lobe pulmonary circulation PE, patient is currently on heparin she has been taking oral anticoagulants prior to admission regularly Objective - Vital Signs Vital signs: Vital Signs Temp 98.4 F 01/08/19 20:05 Pulse 86 01/08/19 21:18 Resp 19 01/08/19 20:05 BP 130/61 01/08/19 20:05 Pulse Ox 97 01/08/19 20:05 Intake & Output 01/08/19 01/08/19 01/09/19 06:59 18:59 06:59 Intake Total 722.286 553.468 Output Total 1999 650 Balance 722.286 -1446.532 -650 Weight 114.4 kg Intake: Intake, IV Titration 242.286 231.468 Amount Heparin Sod,Pork in 0.45% 242.286 231.468 NaCl 25,000 unit In 0.45 % NaCl 1 250ml.bag @ 18 UNITS/KG/HR 18.37 mls/hr IV .[id number] [facility] Rx#: [id number] Oral 480 322 Output: Urine 2000 650 Other: Voiding Method Toilet Toilet Toilet # Voids 4 4 1 - Exam - Constitutional General appearance: disheveled, morbidly obese - EENT Eyes: EOMI, PERRLA, normal appearance ENT: normal oropharynx Ears: bilateral: normal - Neck Carotids: bilateral: upstroke normal, bruit absent Thyroid: bilateral: normal size - Respiratory Respiratory: bilateral: wheezing, prolonged inspiration (Inspiratory stridor), negative: CTA, diminished, dullness, rales, rhonchi, prolonged expiration - Cardiovascular Rhythm: regular Heart sounds: normal: S1, S2 - Gastrointestinal General gastrointestinal: normal bowel sounds - Integumentary Integumentary: normal turgor - Neurologic Neurologic: CNII-XII intact - Musculoskeletal Musculoskeletal: gait normal, generalized weakness, strength equal bilaterally - Psychiatric Psychiatric: A&O x's 3, appropriate affect, intact judgment & insight - Labs CBC & Chem 7: 01/09/19 06:22 01/09/19 06:22 Labs: Abnormal Lab Results - Last 24 Hours (Table) 01/08/19 01/08/19 01/08/19 Range/Units 05:58 05:58 06:15 MCHC 30.2 L (31.0-37.0) g/dL RDW 19.0 H (11.5-15.5) % Neutrophils # 9.2 H (1.3-7.7) k/uL Lymphocytes # 0.4 L (1.0-4.8) k/uL APTT 48.8 H (22.0-30.0) sec POC Glucose (mg/dL) 170 H (75-99) mg/dL 01/08/19 01/08/19 01/08/19 Range/Units 11:41 16:47 20:27 MCHC (31.0-37.0) g/dL RDW (11.5-15.5) % Neutrophils # (1.3-7.7) k/uL Lymphocytes # (1.0-4.8) k/uL APTT (22.0-30.0) sec POC Glucose (mg/dL) 122 H 153 H 210 H (75-99) mg/dL Microbiology - Last 24 Hours (Table) 01/05/19 12:53 Blood Culture - Preliminary Blood No Growth after 72 hours Assessment and Plan Assessment: Right upper lobe pulmonary embolism suspected, has been on oral anticoagulants now on IV heparin History of prior DVT PE Acute COPD exacerbation Inspiratory stridor with extended history of vocal cord dysfunction Obstructive sleep apnea Hypothyroidism Plan: Continue IV heparin while in hospital given that right upper lobe pulmonary embolism is not conclusive and is an incidental finding Continue IV steroids Breathing treatments IV antibiotics Supplemental oxygen Duplex ultrasound lower extremity results reviewed Will continue heparin for another 24-48 hours then will resume oral anticoagulants as before Further recommendations pending plan of care as per clinical response of patient Time with Patient: Greater than 30
[2019-01-09] MEDS: buPROPion XL 150 MG TAB.ER.24H PO SCH ×2 (07:38→20:54)
[2019-01-09] MEDS: guaiFENesin 600 MG TABLET.ER PO SCH ×2 (07:38→20:54)
[2019-01-09] MEDS: PREGABALIN 75 MG CAP PO SCH ×3 (07:38→22:25)
[2019-01-09] MEDS: LORATADINE 10 MG TAB PO SCH (07:38)
[2019-01-09] MEDS: SERTRALINE 100 MG TAB PO SCH ×2 (07:38→20:54)
--- NOTE | 2019-01-09 07:40 | P.PN ---
Subjective Progress Note Date: 01/09/19 Principal diagnosis: Right upper lobe pulmonary embolism suspected, has been on oral anticoagulants History of prior DVT PE Acute COPD exacerbation Inspiratory stridor with extended history of vocal cord dysfunction Obstructive sleep apnea Hypothyroidism January 09 2019, patient seen eval examined during the rounds denies any chest pain, ongoing shortness of breath present with ongoing cough severity has improved, patient is still have significant inspiratory stridor we'll consult ENT 01/08/2019, patient seen and evaluated examined during the rounds is still have ongoing cough congestion cough is predominantly nonproductive she has inspiratory stridor labs reviewed medications reviewed she feels slightly better and cough and also stridor 01/07/2019, patient seen eval reexamined during the rounds labs reviewed medications reviewed still have ongoing inspiratory stridor or chest tightness has improved though slightly still have dry nonproductive cough labs reviewed medications reviewed bilateral lower extremity DVTs negative This is a morbidly obese 48-year-old female with prior history of multiple medical problems especially chronic persistent asthma of severe category came into the office with ongoing cough congestion shortness of breath with inspirato ry stridor, patient has a chronic history of respiratory problems for the last 2 weeks she is not doing very well with increased cough congestion shortness of breath she has been treated with outpatient steroids and antibiotics without any significant relief second course of antibiotics are being given but she still feels short of breath and intermittently developed inspiratory stridor has been advised to admitted to hospital denies any hemoptysis denies any chills denies any chest pain but ongoing chest tightness and discomfort is present, the chest x-ray remains stable the computed tomography scan of his chest revealed bilateral groundglass basal atelectasis with possible right upper lobe pulmonary circulation PE, patient is currently on heparin she has been taking oral anticoagulants prior to admission regularly Objective - Vital Signs Vital signs: Vital Signs Temp 98.7 F 01/09/19 07:29 Pulse 75 01/09/19 07:29 Resp 18 01/09/19 07:29 BP 168/91 01/09/19 07:29 Pulse Ox 95 01/09/19 07:29 Intake & Output 01/08/19 01/09/19 01/09/19 18:59 06:59 18:59 Intake Total 553.468 215.955 Output Total 1999 650 Balance -1446.532 -650 215.955 Weight 114.4 kg Intake: Intake, IV Titration 231.468 215.955 Amount Heparin Sod,Pork in 0.45% 231.468 215.955 NaCl 25,000 unit In 0.45 % NaCl 1 250ml.bag @ 18 UNITS/KG/HR 18.37 mls/hr IV .[id number] [facility] Rx#: [id number] Oral 322 Output: Urine 2000 650 Other: Voiding Method Toilet Toilet # Voids 4 3 # Bowel Movements 1 - Exam - Constitutional General appearance: disheveled, morbidly obese - EENT Eyes: EOMI, PERRLA, normal appearance ENT: normal oropharynx Ears: bilateral: normal - Neck Carotids: bilateral: upstroke normal, bruit absent Thyroid: bilateral: normal size - Respiratory Respiratory: bilateral: wheezing, prolonged inspiration (Inspiratory stridor), negative: CTA, diminished, dullness, rales, rhonchi, prolonged expiration - Cardiovascular Rhythm: regular Heart sounds: normal: S1, S2 - Gastrointestinal General gastrointestinal: normal bowel sounds - Integumentary Integumentary: normal turgor - Neurologic Neurologic: CNII-XII intact - Musculoskeletal Musculoskeletal: gait normal, generalized weakness, strength equal bilaterally - Psychiatric Psychiatric: A&O x's 3, appropriate affect, intact judgment & insight - Labs CBC & Chem 7: 01/09/19 06:22 01/09/19 06:22 Labs: Abnormal Lab Results - Last 24 Hours (Table) 01/08/19 01/08/19 01/08/19 Range/Units 11:41 16:47 20:27 RDW (11.5-15.5) % APTT (22.0-30.0) sec Chloride (98-107) mmol/L BUN (7-17) mg/dL Glucose (74-99) mg/dL POC Glucose (mg/dL) 122 H 153 H 210 H (75-99) mg/dL 01/09/19 01/09/19 01/09/19 Range/Units 06:00 06:12 06:22 RDW 18.7 H (11.5-15.5) % APTT 49.4 H (22.0-30.0) sec Chloride (98-107) mmol/L BUN (7-17) mg/dL Glucose (74-99) mg/dL POC Glucose (mg/dL) 154 H (75-99) mg/dL 01/09/19 Range/Units 06:22 RDW (11.5-15.5) % APTT (22.0-30.0) sec Chloride 109 H (98-107) mmol/L BUN 18 H (7-17) mg/dL Glucose 148 H (74-99) mg/dL POC Glucose (mg/dL) (75-99) mg/dL Microbiology - Last 24 Hours (Table) 01/05/19 12:53 Blood Culture - Preliminary Blood No Growth after 72 hours Assessment and Plan Assessment: Inspiratory stridor Right upper lobe pulmonary embolism suspected, has been on oral anticoagulants now on IV heparin History of prior DVT PE Acute COPD exacerbation Obstructive sleep apnea Hypothyroidism Plan: ENT consult Continue IV heparin while in hospital given that right upper lobe pulmonary embolism is not conclusive and is an incidental finding Continue IV steroids Breathing treatments IV antibiotics Supplemental oxygen Duplex ultrasound lower extremity results reviewed Will continue heparin for another 24hours then will resume oral anticoagulants as before Further recommendations pending plan of care as per clinical response of patient Time with Patient: Greater than 30
--- NOTE | 2019-01-09 08:41 | P.CON ---
Consult Note - . Consult date: 01/09/19 Assessment/Plan:: this is of 48-year-old pleasant female who is known to the wound care center for a repeat surgical dehiscence. Approximately 2 months ago the patient had the same dehiscence that subsequently healed at that time. Patient was using the preventative measures that were discussed and the area has since reopened up. Patient has history of gastric bypass surgery back in 2016. She then proceeded to have a panniculectomy performed in 2017. This is apparently the fifth time the incision has opened up the patient has done multiple treatments on it from her primary care doctor and from the wound care center. Patient assess medical history that includes asthma, COPD, fibromyalgia, GERD, hypertension, pulmonary embolism, seizures, and hypothyroidism. Patient denies any diabetes. Patient is not a smoker. Ulceration shows no change from previous week. Patient is scheduled to see the wound care center tomorrow if she is discharged today. Review of systems: Integumentary: Lesion to abdomen Physical exam: Integumentary:Full thickness with exposed support structure wound with etiology of open surgical wound located on abdomen midline. Wound measuring approximately 1.2 x 2.2 x 0.2 cm Assessment: 1. Destruction of external operation surgical wound. 2. Nonhealing nonpressure component ulceration with fatty layer exposure. Plan: 1. Dressing change Wednesday, cleanse with normal saline, apply collagen silver, saline moistened gauze, foam for protection, secure with paper tape as needed. Apply skin protectant to periwound. 2. Continue with appointments to the wound care center as scheduled. Thank you for the consultation. Any questions or concerns please call the wound care center. DNP note has been reviewed and discussed with Dr. Harmon and the impression a nd plan of care has been directed as dictated.
--- NOTE | 2019-01-09 11:10 | CONS ---
CONSULTATION I did not see this patient during her admission. She is to be consulted with Dr. Valdovinos and were followup with Dr. Castanon on an outpatient basis. The patient had no acute shortness of breath, stridor or any impending issues. The nurse is to call me back if any changes should occur. Otherwise, all followup care and ENT treatment will be through Dr. Derek Valdovinos after discharge. MMODL / IJN: [id number] /
[2019-01-09 11:58] LABS: Glucose,Whole Blood 164 mg/dL (75-99)
--- NOTE | 2019-01-09 15:28 | P.PN ---
Subjective Progress Note Date: 01/09/19 This is a 48-year-old female admitted with acute COPD exacerbation, PE while on Xarelto and multiple other medical issues. Maintained on IV heparin drip, nebulized medical dilators, IV steroids. Significant clinical improvement. Scheduled to be transitioned from heparin drip to Eliquis tomorrow. Objective - Vital Signs Vital signs: Vital Signs Temp 97.8 F 01/09/19 15:09 Pulse 85 01/09/19 15:11 Resp 16 01/09/19 15:11 BP 129/68 01/09/19 15:09 Pulse Ox 96 01/09/19 15:09 Intake & Output 01/08/19 01/09/19 01/09/19 18:59 06:59 18:59 Intake Total 553.468 725.955 Output Total 1999 650 1900 Balance -1446.532 -650 -1174.045 Weight 114.4 kg Intake: IV 10 Invasive Line 2 10 Intake, IV Titration 231.468 215.955 Amount Heparin Sod,Pork in 0.45% 231.468 215.955 NaCl 25,000 unit In 0.45 % NaCl 1 250ml.bag @ 18 UNITS/KG/HR 18.37 mls/hr IV .[id number] [facility] Rx#: [id number] Oral 322 500 Output: Urine 1999 1900 Other: Voiding Method Toilet Toilet Toilet # Voids 4 3 # Bowel Movements 1 - Exam PHYSICAL EXAM: VITAL SIGNS: As above GENERAL: Sitting up in bed, no acute distress HEENT: Conjunctivae normal. eyes normal. Oral mucosa moist. NECK: No JVD. No thyroid enlargement. No LNs CARDIOVASCULAR: S1, S2 regular.. No murmur RESPIRATION: Breath sounds diminished in the bases. No rhonchi or crackles. Occasional prolonged expiratory wheezing. ABDOMEN: Soft, nontender . No guarding. no masses palpable. Bowel sounds heard. LEGS: No edema. no swelling PSYCHIATRY: Alert and oriented X3, mood and affect normal. NERVOUS SYSTEM: Cranial N 2-12 grossly normal. Moves all 4 limbs. No focal deficits. Strength and sensation grossly intact.. Skin: no lesions, no rash - Labs CBC & Chem 7: 01/09/19 06:22 01/09/19 06:22 Labs: Abnormal Lab Results - Last 24 Hours (Table) 01/08/19 01/08/19 01/09/19 Range/Units 16:47 20:27 06:00 RDW (11.5-15.5) % APTT (22.0-30.0) sec Chloride (98-107) mmol/L BUN (7-17) mg/dL Glucose (74-99) mg/dL POC Glucose (mg/dL) 153 H 210 H 154 H (75-99) mg/dL 01/09/19 01/09/19 01/09/19 Range/Units 06:12 06:22 06:22 RDW 18.7 H (11.5-15.5) % APTT 49.4 H (22.0-30.0) sec Chloride 109 H (98-107) mmol/L BUN 18 H (7-17) mg/dL Glucose 148 H (74-99) mg/dL POC Glucose (mg/dL) (75-99) mg/dL 01/09/19 Range/Units 11:50 RDW (11.5-15.5) % APTT (22.0-30.0) sec Chloride (98-107) mmol/L BUN (7-17) mg/dL Glucose (74-99) mg/dL POC Glucose (mg/dL) 164 H (75-99) mg/dL Microbiology - Last 24 Hours (Table) 01/05/19 12:53 Blood Culture - Preliminary Blood No Growth after 96 hours Assessment and Plan Assessment: -Acute PE -Acute COPD exacerbation -Chronic intermittent asthma- -tracheobronchitis Plan: Continue on current medication regime ,monitoring and symptomatic treatment. Maintain nebulized bronchodilators, antibiotics and steroids. Heparin to be transitioned to Eliquis tomorrow. Case management to verify outpatient Eliquis COVERAGE. Discharge planning in progress for tomorrow. The impression and plan of care has been dictated as directed. : I performed a history and examination of this patient, discussed the same with the dictator. I agree with the dictator's note ,documented as a scribe. Any additional findings or plans will be noted.
[2019-01-09 17:22] LABS: Glucose,Whole Blood 118 mg/dL (75-99)
[2019-01-09] MEDS: Suvorexant [Belsomra] PO SCH (20:54)
[2019-01-09] MEDS: MONTELUKAST 10 MG TAB PO SCH (20:54)
[2019-01-09] MEDS: Brexpiprazole [Rexulti] PO SCH (20:55)
[2019-01-09 21:17] LABS: Glucose,Whole Blood 312 mg/dL (75-99)
[2019-01-10] MEDS: HYDROcodone/APAP 10-325MG 1 EACH TAB PO PRN ×2 (01:05→09:17)
[2019-01-10] MEDS: HEPARIN SOD,PORK IN 0.45% NACL 25,000 UNIT in 0.45% NACL 1 250ML.BAG IV SCH (03:05)
[2019-01-10 06:19] LABS: Anisocytosis Slight; Basophils % (A) 0 %; Eosinophils % (A) 0 %; HCT 38.9 % (34.0-46.0); HGB 11.8 gm/dL (11.4-16.0); Hypochromasia Slight; Lymphocytes # (A) 0.7 k/uL (1.0-4.8); Lymphocytes % (A) 9 %; MCH 26.1 pg (25.0-35.0); MCHC 30.4 g/dL (31.0-37.0); MCV 85.8 fL (80.0-100.0); Mean Platelet Volume 8.4; Monocytes # (A) 0.4 k/uL (0-1.0); Monocytes % (A) 5 %; Neutrophils # (A) 6.7 k/uL (1.3-7.7); Neutrophils % (A) 85 %; Platelet Count 157 k/uL (150-450); RBC 4.53 m/uL (3.80-5.40); RDW 18.5 % (11.5-15.5); WBC 7.8 k/uL (3.8-10.6)
[2019-01-10] MEDS: PANTOPRAZOLE 40 MG TABLET PO SCH (06:36)
[2019-01-10] MEDS: methylPREDNISolone SOD SUCCI 125 MG/2 ML VIAL IV SCH (06:36)
[2019-01-10] MEDS: LEVOTHYROXINE 75 MCG TAB PO SCH (06:36)
[2019-01-10 06:37] LABS: Glucose,Whole Blood 143 mg/dL (75-99)
[2019-01-10] MEDS: INSULIN ASPART (NovoLOG) 100 UNIT/ML VIAL SQ SCH (06:37)
[2019-01-10 06:38] LABS: African American GFR (CKD) >90 (>60 ml/min/1.73 sqM); Anion Gap 7 mmol/L; Blood Urea Nitrogen 21 mg/dL (7-17); Calcium 8.8 mg/dL (8.4-10.2); Carbon Dioxide 23 mmol/L (22-30); Chloride 110 mmol/L (98-107); Glucose 148 mg/dL (74-99); Potassium 4.2 mmol/L (3.5-5.1); Sodium 140 mmol/L (137-145)
[2019-01-10] MEDS: SYMBICORT 160-4.5 MCG INHALER INHALATION SCH (08:00)
[2019-01-10] MEDS: IPRATROPIUM 0.5 MG/2.5 ML NEBU INHALATION SCH ×2 (08:00→12:18)
[2019-01-10] MEDS: IPRATROPIUM-ALBUTEROL 3 ML NEB INHALATION PRN (08:16)
[2019-01-10 09:15] VITALS: PULSE 86
[2019-01-10] MEDS: TROSPIUM CHLORIDE 20 MG TABLET PO SCH (09:17)
[2019-01-10] MEDS: SERTRALINE 100 MG TAB PO SCH (09:17)
[2019-01-10] MEDS: PREGABALIN 75 MG CAP PO SCH (09:18)
[2019-01-10] MEDS: LORATADINE 10 MG TAB PO SCH (09:18)
[2019-01-10] MEDS: guaiFENesin 600 MG TABLET.ER PO SCH (09:18)
[2019-01-10] MEDS: buPROPion XL 150 MG TAB.ER.24H PO SCH (09:18)
[2019-01-10 09:24] VITALS: BP 131/74; RESP 16; TEMP 98
[2019-01-10] MEDS ORDERED: APIXABAN 5 MG TAB PO SCH (11:30)
[2019-01-10] MEDS: guaiFENesin-DM 100-10MG/5ML 10 ML CUP PO PRN (11:58)
[2019-01-10 12:07] LABS: Glucose,Whole Blood 111 mg/dL (75-99)
--- NOTE | 2019-01-10 13:24 | P.DS ---
Providers Date of admission: 01/05/19 15:25 Expected date of discharge: 01/10/19 Attending physician: Tyler Black Consults: 01/05/19 15:25 Consult Physician Stat Consulting Provider: Philip Huber Consult Reason/Comments: PE, COPD exacerbation Do you want consulting provider notified?: Yes 01/09/19 09:59 Consult Physician Routine Consulting Provider: Derek Liz Consult Reason/Comments: Vocal cord dysfunction Do you want consulting provider notified?: Yes Primary care physician: [facility] Course: FInal Diagnoses: -Acute PE, failed treatment with Xarelto -Acute COPD exacerbation, improved -Chronic intermittent asthma- -tracheobronchitis -Midline nonhealing abdominal wound, ulceration 1.2 x 2.2 x 0.2 cm, chronic, follows at wound care center Hospital course:This is a 48-year-old female admitted with acute COPD exacerbation, PE while on Xarelto and multiple other medical issues. Maintained on IV heparin drip, nebulized medical dilators, IV steroids. Significant clinical improvement. Transitioned from heparin drip to Eliquis. Significant clinical improvement. Advised follow-up with hematology as patient failed treatment with Xarelto. ENT and wound care appointments arranged .Patient is being discharged home in a stable condition with guarded prognosis. EXAM: GENERAL: Alert and oriented 3 no acute distress CARDIOVASCULAR: S1, S2 regular. No murmur RESPIRATION: Breath sounds diminished in the bases. No rhonchi, crackles or wheezing. ABDOMEN: Soft, nontender . No guarding. no masses palpable. Bowel sounds heard. NERVOUS SYSTEM: No focal deficits. The impression and plan of care has been dictated as directed. : I performed a history and examination of this patient, discussed the same with the dictator. I agree with the dictator's note ,documented as a scribe. Any additional findings or plans will be noted. Time taken: 35 minutes Patient Condition at Discharge: Stable Plan - Discharge Summary Discharge Rx Participant: Yes New Discharge Prescriptions: New Cefuroxime Axetil [Ceftin] 500 mg PO BID #10 tab Apixaban [Eliquis] 5 mg PO BID #60 tab guaiFENesin [Mucinex] 1,200 mg PO Q12HR tablet.er predniSONE 10 mg PO DIRECTED #30 tab Continue Pregabalin [Lyrica] 150 mg PO TID Montelukast [Singulair] 10 mg PO HS Budesonide/Formoterol Fumarate [Symbicort 160-4.5 Mcg Inhaler] 2 puff INHALATION RT-BID Omeprazole 20 mg PO DAILY Levothyroxine Sodium [Synthroid] 150 mcg PO DAILY Suvorexant [Belsomra] 20 mg PO HS Solifenacin Succinate [Vesicare] 10 mg PO DAILY buPROPion HCL [Wellbutrin XL] 150 mg PO BID Brexpiprazole [Rexulti] 2 mg PO HS Albuterol Inhaler [Ventolin Hfa Inhaler] 2 puff INHALATION RT-QID PRN PRN Reason: Shortness Of Breath Umeclidinium [place] [Incruse Ellipta] 1 puff INHALATION RT-HS HYDROcodone/APAP 10-325MG [[place] 10-325] 1 tab PO TID PRN PRN Reason: Mild Pain Sertraline [Zoloft] 100 mg PO BID Loratadine 10 mg PO DAILY Ipratropium-Albuterol Nebulize [Duoneb 0.5 mg-3 mg/3 ml Soln] 3 ml INHALATION RT-QID PRN PRN Reason: Shortness Of Breath Discontinued Rivaroxaban [Xarelto] 20 mg PO PC-SUPPER Discharge Medication List Pregabalin [Lyrica] 150 mg PO TID 10/09/14 [History] Montelukast [Singulair] 10 mg PO HS 06/23/15 [History] Budesonide/Formoterol Fumarate [Symbicort 160-4.5 Mcg Inhaler] 2 puff INHALATION RT-BID 02/16/17 [History] Levothyroxine Sodium [Synthroid] 150 mcg PO DAILY 02/16/17 [History] Omeprazole 20 mg PO DAILY 02/16/17 [History] Suvorexant [Belsomra] 20 mg PO HS 05/03/18 [History] Solifenacin Succinate [Vesicare] 10 mg PO DAILY 07/19/18 [History] buPROPion HCL [Wellbutrin XL] 150 mg PO BID 08/17/18 [History] Albuterol Inhaler [Ventolin Hfa Inhaler] 2 puff INHALATION RT-QID PRN 11/05/18 [History] Brexpiprazole [Rexulti] 2 mg PO HS 11/05/18 [History] Umeclidinium [place] [Incruse Ellipta] 1 puff INHALATION RT-HS 11/05/18 [History] HYDROcodone/APAP 10-325MG [[place] 10-325] 1 tab PO TID PRN 01/05/19 [History] Ipratropium-Albuterol Nebulize [Duoneb 0.5 mg-3 mg/3 ml Soln] 3 ml INHALATION RT-QID PRN 01/05/19 [History] Loratadine 10 mg PO DAILY 01/05/19 [History] Sertraline [Zoloft] 100 mg PO BID 01/05/19 [History] Apixaban [Eliquis] 5 mg PO BID #60 tab 01/10/19 [Rx] Cefuroxime Axetil [Ceftin] 500 mg PO BID #10 tab 01/10/19 [Rx] guaiFENesin [Mucinex] 1,200 mg PO Q12HR tablet.er 01/10/19 [Rx] predniSONE 10 mg PO DIRECTED #30 tab 01/10/19 [Rx] Follow up Appointment(s)/Referral(s): Roberto Bain MD [STAFF PHYSICIAN] - 1 Week (PE on Xarelto Office will call back with follow-up appointment) Tyler Black MD [Primary Care Provider] - 01/13/19 11:15 [facility] [NON-STAFF] - (Keep current appointment) Derek Liz MD [STAFF PHYSICIAN] - 3 Weeks (Office is closed until WednesdayJan 23 at 0800, please call after office re-opens to make follow-up appointment) Philip Huber MD [STAFF PHYSICIAN] - 1 Week (office is closed until 2 p.m. for lunch ) Ambulatory/Diagnostic Orders: Complete Blood Count w/diff [LAB.AMB] Time Frame: 3 Days, Location: None Selected Patient Instructions/Handouts: Pulmonary Embolism (DC), COPD (Chronic Obstructive Pulmonary Disease) (DC), Safe Use of Anticoagulants (DC) Activity/Diet/Wound Care/Special Instructions: Case management to verify outpatient Eliquis Rx coverage
--- NOTE | 2019-01-10 18:12 | P.PN ---
Subjective Progress Note Date: 01/10/19 Principal diagnosis: Right upper lobe pulmonary embolism suspected, has been on oral anticoagulants History of prior DVT PE Acute COPD exacerbation Inspiratory stridor with extended history of vocal cord dysfunction Obstructive sleep apnea Hypothyroidism 01/10/2019, patient seen eval reexamined during the rounds labs reviewed medications reviewed care plan discussed patient is being switched to another oral anticoagulant likely will be discharged later on today and wheezing has improved significantly January 09 2019, patient seen eval examined during the rounds denies any chest pain, ongoing shortness of breath present with ongoing cough severity has improved, patient is still have significant inspiratory stridor we'll consult ENT 01/08/2019, patient seen and evaluated examined during the rounds is still have ongoing cough congestion cough is predominantly nonproductive she has inspiratory stridor labs reviewed medications reviewed she feels slightly better and cough and also stridor 01/07/2019, patient seen eval reexamined during the rounds labs reviewed medications reviewed still have ongoing inspiratory stridor or chest tightness has improved though slightly still have dry nonproductive cough labs reviewed medications reviewed bilateral lower extremity DVTs negative This is a morbidly obese 48-year-old female with prior history of multiple medical problems especially chronic persistent asthma of severe category came into the office with ongoing cough congestion shortness of breath with inspiratory stridor, patient has a chronic history of respiratory problems for the last 2 weeks she is not doing very well with increased cough congestion sh ortness of breath she has been treated with outpatient steroids and antibiotics without any significant relief second course of antibiotics are being given but she still feels short of breath and intermittently developed inspiratory stridor has been advised to admitted to hospital denies any hemoptysis denies any chills denies any chest pain but ongoing chest tightness and discomfort is present, the chest x-ray remains stable the computed tomography scan of his chest revealed bilateral groundglass basal atelectasis with possible right upper lobe pulmonary circulation PE, patient is currently on heparin she has been taking oral anticoagulants prior to admission regularly Objective - Vital Signs Vital signs: Vital Signs Temp 98.0 F 01/10/19 08:00 Pulse 78 01/10/19 08:17 Resp 16 01/10/19 08:00 BP 131/74 01/10/19 08:00 Pulse Ox 97 01/10/19 08:17 Intake & Output 01/09/19 01/10/1919 18:59 06:59 18:59 Intake Total 967.955 812.090 720 Output Total 2500 3200 Balance -1532.045 -2387.910 720 Weight 112.5 kg Intake: IV 30 30 10 Invasive Line 2 20 Invasive Line 3 10 30 10 Intake, IV Titration 215.955 282.090 Amount Heparin Sod,Pork in 0.45% 215.955 282.090 NaCl 25,000 unit In 0.45 % NaCl 1 250ml.bag @ 18 UNITS/KG/HR 18.37 mls/hr IV .[id number] [facility] Rx#: [id number] Oral 722 500 710 Output: Urine 2500 3200 Other: Voiding Method Toilet Toilet Toilet - Exam - Constitutional General appearance: disheveled, morbidly obese - EENT Eyes: EOMI, PERRLA, normal appearance ENT: normal oropharynx Ears: bilateral: normal - Neck Carotids: bilateral: upstroke normal, bruit absent Thyroid: bilateral: normal size - Respiratory Respiratory: bilateral: wheezing, prolonged inspiration (Inspiratory stridor), negative: CTA, diminished, dullness, rales, rhonchi, prolonged expiration - Cardiovascular Rhythm: regular Heart sounds: normal: S1, S2 - Gastrointestinal General gastrointestinal: normal bowel sounds - Integumentary Integumentary: normal turgor - Neurologic Neurologic: CNII-XII intact - Musculoskeletal Musculoskeletal: gait normal, generalized weakness, strength equal bilaterally - Psychiatric Psychiatric: A&O x's 3, appropriate affect, intact judgment & insight - Labs CBC & Chem 7: 01/10/19 05:50 01/10/19 05:50 Labs: Abnormal Lab Results - Last 24 Hours (Table) 01/09/19 01/10/19 01/10/19 Range/Units 21:16 05:50 05:50 MCHC 30.4 L (31.0-37.0) g/dL RDW 18.5 H (11.5-15.5) % Lymphocytes # 0.7 L (1.0-4.8) k/uL APTT 54.5 H (22.0-30.0) sec Chloride (98-107) mmol/L BUN (7-17) mg/dL Glucose (74-99) mg/dL POC Glucose (mg/dL) 312 H (75-99) mg/dL 01/10/19 01/10/19 01/10/19 Range/Units 05:50 06:04 12:02 MCHC (31.0-37.0) g/dL RDW (11.5-15.5) % Lymphocytes # (1.0-4.8) k/uL APTT (22.0-30.0) sec Chloride 110 H (98-107) mmol/L BUN 21 H (7-17) mg/dL Glucose 148 H (74-99) mg/dL POC Glucose (mg/dL) 143 H 111 H (75-99) mg/dL Microbiology - Last 24 Hours (Table) 01/05/19 12:53 Blood Culture - Preliminary Blood No Growth after 120 hours Assessment and Plan Assessment: Inspiratory stridor Right upper lobe pulmonary embolism suspected, has been on oral anticoagulants now on IV heparin History of prior DVT PE Acute COPD exacerbation Obstructive sleep apnea Hypothyroidism Plan: ENT consult Can be started on oral Eliquis Continue oral prednisone Breathing treatments Oral antibiotics Supplemental oxygen Duplex ultrasound lower extremity results reviewed Can go home if remains stable later on today or tomorrow Further recommendations pending plan of care as per clinical response of patient Time with Patient: Greater than 30
== END 2019-01-10 14:16 | disposition home or self-care (01) | DRG 190 ==
LOC: EC 11:40 → 3SCARD 15:25
PROVIDERS: ADMIT Family Medicine; ATTEND Family Medicine
DX: J44.1 Chronic obstructive pulmonary disease with (acute) exacerbation (principal); I26.99 Other pulmonary embolism without acute cor pulmonale; J45.21 Mild intermittent asthma with (acute) exacerbation; Z68.41 Body mass index [BMI] 40.0-44.9, adult; J38.3 Other diseases of vocal cords; G47.33 Obstructive sleep apnea (adult) (pediatric); Z99.89 Dependence on other enabling machines and devices; E03.9 Hypothyroidism, unspecified; E66.01 Morbid (severe) obesity due to excess calories; G40.909 Epilepsy, unspecified, not intractable, without status epilepticus; I10 Essential (primary) hypertension; K21.9 Gastro-esophageal reflux disease without esophagitis; M79.7 Fibromyalgia; Z79.01 Long term (current) use of anticoagulants; Z79.51 Long term (current) use of inhaled steroids; Z79.52 Long term (current) use of systemic steroids; Z79.890 Hormone replacement therapy; Z79.899 Other long term (current) drug therapy; Z80.9 Family history of malignant neoplasm, unspecified; Z82.3 Family history of stroke; Z82.49 Family history of ischemic heart disease and other diseases of the circulatory system; Z83.3 Family history of diabetes mellitus; Z86.711 Personal history of pulmonary embolism; Z86.718 Personal history of other venous thrombosis and embolism; Z87.01 Personal history of pneumonia (recurrent); Z87.11 Personal history of peptic ulcer disease; Z96.641 Presence of right artificial hip joint; Z96.651 Presence of right artificial knee joint; R32 Unspecified urinary incontinence; G43.909 Migraine, unspecified, not intractable, without status migrainosus; Z95.828 Presence of other vascular implants and grafts; M51.16 Intervertebral disc disorders with radiculopathy, lumbar region; Z98.84 Bariatric surgery status; L98.492 Non-pressure chronic ulcer of skin of other sites with fat layer exposed; F41.9 Anxiety disorder, unspecified; F32.9 Major depressive disorder, single episode, unspecified
CPT/HCPCS: 36415; 71046; 71275; 80048; 80053; 83735; 83880; 84484; 85025; 85027; 85379; 85610; 85730; 87040; 93005; 93970; 94640; 94760; 96361; 96365; 96368; 96375; 96376; 99285

== ENCOUNTER → 2019-01-31 | Outpatient (CLI) | payer MEDICARE, OTHER ==
[2019-02-01 11:37] LABS: Alt. alternata IgE Class CLASS 0; Alternaria alternata IgE <0.35 kU/L (<0.35); Asperg. fumagatus IgE <0.35 kU/L (<0.35); Asperg. fumagatus IgE Class CLASS 0; Candida albicans IgE Class CLASS 0; Clad herbarum IgE <0.35 kU/L (<0.35); Clad herbarum IgE Class CLASS 0; Latex IgE Class CLASS 0; Mucor racemosus IgE <0.35 kU/L (<0.35); Mucor racemosus IgE Class CLASS 0; Penicillium chrysogenum IgE <0.35 kU/L (<0.35); Penicillium chrysogenum IgE Cl CLASS 0
== END | disposition home or self-care (01) ==
LOC: LABWHC1 07:55
PROVIDERS: ATTEND Internal Medicine Sleep Medicine
DX: B44.81 Allergic bronchopulmonary aspergillosis (principal)
CPT/HCPCS: 36415; 82785; 86001; 86003; 86606; 86609

== ENCOUNTER 2019-06-28 11:40 | Inpatient (IN) | payer MEDICARE, OTHER ==
[2019-06-28 14:47] LABS: Basophils # (A) 0.2 k/uL (0-0.2); Basophils % (A) 2 %; Eosinophils # (A) 0.3 k/uL (0-0.7); Eosinophils % (A) 5 %; HCT 48.2 % (34.0-46.0); HGB 15.8 gm/dL (11.4-16.0); Lymphocytes # (A) 1.4 k/uL (1.0-4.8); Lymphocytes % (A) 22 %; MCH 30.7 pg (25.0-35.0); MCHC 32.7 g/dL (31.0-37.0); Mean Platelet Volume 9.2; Monocytes # (A) 0.3 k/uL (0-1.0); Monocytes % (A) 5 %; Neutrophils # (A) 3.9 k/uL (1.3-7.7); Neutrophils % (A) 63 %; Platelet Count 199 k/uL (150-450); RBC 5.13 m/uL (3.80-5.40); RDW 12.9 % (11.5-15.5); WBC 6.1 k/uL (3.8-10.6)
[2019-06-28 14:55] LABS: ALT 60 U/L (4-34); AST 60 U/L (14-36); African American GFR (CKD) >90 (>60 ml/min/1.73 sqM); Albumin 4.2 g/dL (3.5-5.0); Alkaline Phosphatase 102 U/L (38-126); Anion Gap 6 mmol/L; Blood Urea Nitrogen 10 mg/dL (7-17); Calcium 8.8 mg/dL (8.4-10.2); Carbon Dioxide 24 mmol/L (22-30); Chloride 109 mmol/L (98-107); Glucose 101 mg/dL (74-99); Non-African American GFR(CKD) >90 (>60 ml/min/1.73 sqM); Potassium 5.3 mmol/L (3.5-5.1); Sodium 139 mmol/L (137-145); Total Protein 6.9 g/dL (6.3-8.2)
--- NOTE | 2019-06-28 15:10 | HP ---
HISTORY AND PHYSICAL CHIEF COMPLAINT: A 48-year-old white female who was admitted with failed outpatient treatment for asthma exacerbation, tracheobronchitis, has audible inspiratory and expiratory wheezes, failed outpatient treatment with steroids and updraft treatments. She has history of pulmonary embolism in the past also and due to worsening respiratory distress, she was admitted to the hospital. She has cough, congestion nonstop. She has inspiratory and expiratory wheezes. PAST MEDICAL HISTORY: Hypothyroidism, depression, neuropathy, lumbar disc disease, history of pulmonary embolism, asthma/COPD, anxiety, depression. MEDICATIONS: She takes: Zoloft, , Protonix, Singulair, Claritin, Synthroid, Wellbutrin XR, Eliquis, DuoNeb. 14 POINT REVIEW OF SYSTEMS: Negative except for as mentioned in HPI. Lungs show scattered rhonchi and wheeze x4. HEMATOLOGY: Negative Homans. PSYCH: Fair mood and affect. Appears anxious and nervous. ENDOCRINE: BMI is over 40. Pulse is 97-105, respiratory 15-25, temperature 97.8. Lungs show scattered inspiratory and expiratory wheeze, severe machine gun type cough. GI: Distended, obesity. CARDIOVASCULAR: S1, S2. ASSESSMENT: Acute asthma exacerbation, tracheobronchitis. Failed outpatient treatment, IV steroids, IV antibiotics. D-dimer, rule out pulmonary embolism. History of morbid obesity, right-sided diastolic CHF, asthma/COPD, hypothyroidism, bipolar. Continue current home medications. Continue with steroids IV. Pulmonary consult. MMODL / IJN: [id number] /
[2019-06-28] MEDS: SODIUM CHLORIDE 0.9% 1,000 ML IV SCH (15:20)
[2019-06-28] MEDS: methylPREDNISolone SOD SUCCI 125 MG/2 ML VIAL IV SCH ×2 (15:21→23:40)
[2019-06-28] MEDS: PREGABALIN 75 MG CAP PO SCH ×2 (15:21→21:50)
[2019-06-28] MEDS: HYDROcodone/APAP 10-325MG 1 EACH TAB PO PRN ×2 (15:21→23:40)
--- NOTE | 2019-06-28 16:19 | XR ---
EXAMINATION TYPE: XR chest 2V DATE OF EXAM: 06/28/2019 COMPARISON: Prior chest x-ray 01/05/2019 HISTORY: Dyspnea TECHNIQUE: Frontal and lateral views of the chest are obtained. FINDINGS: There is no focal air space opacity, pleural effusion, or pneumothorax seen. The cardiac silhouette size is within normal limits. Thoracic cord stimulator is stable over the midthoracic spi ne. The osseous structures are intact. IMPRESSION: No acute cardiopulmonary process.
[2019-06-28] MEDS: KETOROLAC 30 MG/ML 1 ML VIAL IVP PRN ×2 (16:46→23:40)
[2019-06-28] MEDS: AZITHROMYCIN 500 MG in SODIUM CHLORIDE 0.9% 250 ML IVPB SCH (16:46)
[2019-06-28] MEDS: guaiFENesin-DM 100-10MG/5ML 10 ML CUP PO PRN (17:39)
[2019-06-28 20:53] LABS: Glucose,Whole Blood 215 mg/dL (75-99)
[2019-06-28] MEDS: SYMBICORT 160-4.5 MCG INHALER INHALATION SCH (21:08)
[2019-06-28] MEDS: IPRATROPIUM-ALBUTEROL 3 ML NEB INHALATION SCH (21:08)
[2019-06-28] MEDS: INSULIN ASPART (NovoLOG) 100 UNIT/ML VIAL SQ SCH (21:50)
[2019-06-28] MEDS: buPROPion XL 150 MG TAB.ER.24H PO SCH (21:50)
[2019-06-28] MEDS: APIXABAN 5 MG TAB PO SCH (21:50)
[2019-06-28] MEDS: MONTELUKAST 10 MG TAB PO SCH (21:50)
[2019-06-28] MEDS: SERTRALINE 100 MG TAB PO SCH (21:50)
[2019-06-28] MEDS: REXULTI 2 MG PO SCH (21:52)
[2019-06-28] MEDS: SUVOREXANT 20 MG PO SCH (21:53)
[2019-06-29] MEDS: IPRATROPIUM-ALBUTEROL 3 ML NEB INHALATION SCH ×5 (01:59→19:46)
[2019-06-29] MEDS: guaiFENesin-DM 100-10MG/5ML 10 ML CUP PO PRN ×2 (05:15→15:04)
[2019-06-29] MEDS: KETOROLAC 30 MG/ML 1 ML VIAL IVP PRN ×2 (06:34→12:29)
[2019-06-29] MEDS: LEVOTHYROXINE 75 MCG TAB PO SCH (06:34)
[2019-06-29] MEDS: SODIUM CHLORIDE 0.9% 1,000 ML IV SCH ×2 (06:37→15:05)
[2019-06-29 07:19] LABS: Glucose,Whole Blood 178 mg/dL (75-99)
[2019-06-29] MEDS: INSULIN ASPART (NovoLOG) 100 UNIT/ML VIAL SQ SCH ×4 (07:54→20:57)
[2019-06-29] MEDS: LORATADINE 10 MG TAB PO SCH (07:55)
[2019-06-29] MEDS: TROSPIUM CHLORIDE 20 MG TABLET PO SCH ×2 (07:55→20:56)
[2019-06-29] MEDS: methylPREDNISolone SOD SUCCI 125 MG/2 ML VIAL IV SCH ×2 (07:55→15:04)
[2019-06-29] MEDS: PANTOPRAZOLE 40 MG TABLET PO SCH (07:55)
[2019-06-29] MEDS: buPROPion XL 150 MG TAB.ER.24H PO SCH ×2 (07:55→20:56)
[2019-06-29] MEDS: APIXABAN 5 MG TAB PO SCH ×2 (07:55→20:56)
[2019-06-29] MEDS: PREGABALIN 75 MG CAP PO SCH ×3 (07:55→20:57)
[2019-06-29] MEDS: SERTRALINE 100 MG TAB PO SCH ×2 (07:55→20:56)
[2019-06-29] MEDS: SYMBICORT 160-4.5 MCG INHALER INHALATION SCH ×2 (08:13→19:54)
[2019-06-29] MEDS: HYDROcodone/APAP 10-325MG 1 EACH TAB PO PRN ×2 (09:37→15:08)
[2019-06-29 10:03] LABS: ALT 43 U/L (4-34); AST 34 U/L (14-36); African American GFR (CKD) >90 (>60 ml/min/1.73 sqM); Albumin 3.9 g/dL (3.5-5.0); Alkaline Phosphatase 114 U/L (38-126); Anion Gap 12 mmol/L; Blood Urea Nitrogen 12 mg/dL (7-17); Calcium 8.6 mg/dL (8.4-10.2); Carbon Dioxide 20 mmol/L (22-30); Chloride 108 mmol/L (98-107); Glucose 196 mg/dL (74-99); Non-African American GFR(CKD) >90 (>60 ml/min/1.73 sqM); Potassium 4.4 mmol/L (3.5-5.1); Sodium 140 mmol/L (137-145); Total Bilirubin 0.4 mg/dL (0.2-1.3); Total Protein 6.5 g/dL (6.3-8.2)
[2019-06-29 10:13] LABS: Basophils % (A) 0 %; Eosinophils % (A) 0 %; HCT 47.4 % (34.0-46.0); HGB 15.2 gm/dL (11.4-16.0); Lymphocytes # (A) 0.8 k/uL (1.0-4.8); Lymphocytes % (A) 8 %; MCH 29.9 pg (25.0-35.0); MCV 93.5 fL (80.0-100.0); Mean Platelet Volume 9.9; Monocytes # (A) 0.2 k/uL (0-1.0); Monocytes % (A) 2 %; Neutrophils # (A) 8.6 k/uL (1.3-7.7); Neutrophils % (A) 89 %; Platelet Count 191 k/uL (150-450); RBC 5.08 m/uL (3.80-5.40); RDW 12.7 % (11.5-15.5); WBC 9.7 k/uL (3.8-10.6)
[2019-06-29 12:24] LABS: Glucose,Whole Blood 192 mg/dL (75-99)
[2019-06-29] MEDS: AZITHROMYCIN 500 MG in SODIUM CHLORIDE 0.9% 250 ML IVPB SCH (15:04)
--- NOTE | 2019-06-29 15:39 | P.CNPUL ---
History of Present Illness Reason for consult: dyspnea, cough Chief complaint: Shortness of breath cough and wheezing History of present illness: This is a 48-year-old female with history of failed asthma treatment as outpatient, patient continued to have wheezing her baseline his chronic severe persistent asthma in spite of receiving steroids and breathing treatments did not get better has eventually been admitted into the hospital, chest x-ray does not show any acute process Review of Systems All systems: negative Past Medical History Past Medical History: Asthma, COPD, Fibromyalgia, GERD/Reflux, Pneumonia, Pulmonary Embolus (PE), Seizure Disorder, Sleep Apnea/CPAP/BIPAP, Thyroid Disorder Additional Past Medical History / Comment(s): Chronic asthma, chronic COPD, recurrent pneumonias, hx of respiratory stridor, PE in 2004 and 2009, MAGALI with CPAP , psuedo seizures with last one in 2016, past gastric ulcer, DDD, LOWER BACK PAIN- RADIATES DOWN RT LEG, R toes,neuropathy, generalized pain from fibromyalgia, chronic MIGRAINES, hypothyroidism, urinary leakage at times, healed wound on abdomen from surgical dehiscence, insomnia, cellulitis R arm. History of Any Multi-Drug Resistant Organisms: None Reported Past Surgical History: Back Surgery, Bariatric Surgery, Cholecystectomy, Joint Replacement, Orthopedic Surgery Additional Past Surgical History / Comment(s): 11/12/16 bronchoscopy wit BAL, gastric bypass 2011, panniculectomy with wound dehiscence/debridements, 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 Past Anesthesia/Blood Transfusion Reactions: No Reported Reaction Past Psychological History: Anxiety, Depression Additional Psychological History / Comment(s): Pt lives with her mother and father. She is independent. She uses no assistive device. She has a CPAP machine that she uses most nites. She has no home care. She does not drive due to seizures, she takes the bus or her mother drives her. Smoking Status: Never smoker Past Alcohol Use History: None Reported Past Drug Use History: None Reported - Past Family History Brother(s) Family Medical History: Cancer Additional Family Medical History / Comment(s): spine Father Family Medical History: Coronary Artery Disease (CAD), CVA/TIA, Diabetes Mellitus, Hypertension, Thyroid Disorder Additional Family Medical History / Comment(s): X3 STROKES, STENTS IN HEART,Pacemaker Mother Family Medical History: Diabetes Mellitus, Hypertension, Thyroid Disorder Additional Family Medical History / Comment(s): KNEE REPLACEMENTS Medications and Allergies Home Medications Medication Instructions Recorded Confirmed Type Pregabalin [Lyrica] 150 mg PO TID 10/09/14 06/28/19 History Montelukast [Singulair] 10 mg PO HS 06/23/15 06/28/19 History Budesonide/Formoterol Fumarate 2 puff INHALATION RT-BID 02/16/17 06/28/19 History [Symbicort 160-4.5 Mcg Inhaler] Levothyroxine Sodium [Synthroid] 150 mcg PO DAILY 02/16/17 06/28/19 History Omeprazole 20 mg PO DAILY 02/16/17 06/28/19 History Suvorexant [Belsomra] 20 mg PO HS 05/03/18 06/28/19 History buPROPion HCL [Wellbutrin XL] 150 mg PO BID 08/17/18 06/28/19 History Albuterol Inhaler [Ventolin Hfa 2 puff INHALATION RT-QID PRN 11/05/18 06/28/19 H istory Inhaler] Brexpiprazole [Rexulti] 2 mg PO HS 11/05/18 06/28/19 History Umeclidinium [place] [Incruse 1 puff INHALATION RT-HS 11/05/18 06/28/19 History Ellipta] HYDROcodone/APAP 10-325MG [[place] 1 tab PO TID 01/05/19 06/28/19 History 10-325] Ipratropium-Albuterol Nebulize 3 ml INHALATION RT-QID PRN 01/05/19 06/28/19 History [Duoneb 0.5 mg-3 mg/3 ml Soln] Sertraline [Zoloft] 100 mg PO BID 01/05/19 06/28/19 History Apixaban [Eliquis] 5 mg PO BID #60 tab 01/10/19 06/28/19 Rx Oxybutynin Chloride [Oxybutynin 10 mg PO DAILY 06/28/19 06/28/19 History Chloride ER] tiZANidine [Zanaflex] 4 mg PO Q8H 06/28/19 06/28/19 History Allergies Allergy/AdvReac Type Severity Reaction Status Date / Time No Known Allergies Allergy Verified 06/28/19 17:18 Physical Exam Vitals: Vital Signs Temp Pulse Pulse Resp BP Pulse Ox 06/29/19 15:00 74 16 147/78 95 06/29/19 11:38 82 06/29/19 11:27 82 06/29/19 08:26 80 06/29/19 08:13 78 06/29/19 05:00 97.6 F 73 20 132/78 96 06/28/19 21:40 98.3 F 95 20 149/80 97 06/28/19 21:18 84 16 06/28/19 21:08 85 16 06/28/19 15:35 22 Intake and Output 06/29/19 06/29/19 06/29/19 06:59 14:59 22:59 Intake Total 100 320 Balance 100 320 Intake: Oral 100 320 Other: Voiding Method Toilet # Voids 1 3 - Constitutional General appearance: average body habitus, cooperative, disheveled - EENT Eyes: EOMI, PERRLA Ears: bilateral: normal - Neck Neck: normal ROM Carotids: bilateral: upstroke normal - Respiratory Respiratory: bilateral: wheezing (Fine bilateral), negative: CTA, diminished, dullness, rales, rhonchi - Cardiovascular Rhythm: regular Heart sounds: normal: S1, S2 - Gastrointestinal General gastrointestinal: decreased bowel sounds, soft - Integumentary Integumentary: decreased turgor - Neurologic Neurologic: CNII-XII intact - Musculoskeletal Musculoskeletal: gait normal, generalized weakness, strength equal bilaterally - Psychiatric Psychiatric: A&O x's 3, appropriate affect, intact judgment & insight Results - Laboratory Findings CBC and BMP: 06/29/19 09:02 06/29/19 09:02 PT/INR, D-dimer D-Dimer 0.35 mg/L FEU (<0.60) 06/28/19 14:33 Abnormal lab findings: Abnormal Labs 06/28/19 06/28/19 06/28/19 14:33 14:33 20:45 Hct 48.2 H Neutrophils # Lymphocytes # Potassium 5.3 H Chloride 109 H Carbon Dioxide Glucose 101 H POC Glucose (mg/dL) 215 H AST 60 H ALT 60 H 06/29/19 06/29/19 06/29/19 07:10 09:02 09:02 Hct 47.4 H Neutrophils # 8.6 H Lymphocytes # 0.8 L Potassium Chloride 108 H Carbon Dioxide 20 L Glucose 196 H POC Glucose (mg/dL) 178 H AST ALT 43 H 06/29/19 12:16 Hct Neutrophils # Lymphocytes # Potassium Chloride Carbon Dioxide Glucose POC Glucose (mg/dL) 192 H AST ALT - Diagnostic Findings Chest x-ray: report reviewed, image reviewed (Finding as noted above) Assessment and Plan Assessment: Acute asthma exacerbation Tracheobronchitis Morbid obesity and obstructive sleep apnea Failed outpatient therapy DVT PE Plan: Continue breathing treatments Continue anticoagulation Broad-spectrum antibiotics Steroids Continue CPAP Other recommendations pending plan of care as per clinical response of the p atient Time with Patient: Greater than 30
[2019-06-29 17:17] LABS: Glucose,Whole Blood 102 mg/dL (75-99)
[2019-06-29 20:46] LABS: Glucose,Whole Blood 236 mg/dL (75-99)
[2019-06-29] MEDS: MONTELUKAST 10 MG TAB PO SCH (20:56)
[2019-06-29] MEDS: SUVOREXANT 20 MG PO SCH (20:57)
[2019-06-29] MEDS: REXULTI 2 MG PO SCH (21:21)
[2019-06-30] MEDS: HYDROcodone/APAP 10-325MG 1 EACH TAB PO PRN ×2 (00:06→07:31)
[2019-06-30] MEDS: methylPREDNISolone SOD SUCCI 125 MG/2 ML VIAL IV SCH ×2 (00:06→07:32)
[2019-06-30 05:08] VITALS: BP 122/73; TEMP 97.6
[2019-06-30] MEDS: SODIUM CHLORIDE 0.9% 1,000 ML IV SCH (05:27)
[2019-06-30] MEDS: LEVOTHYROXINE 75 MCG TAB PO SCH (05:28)
--- NOTE | 2019-06-30 06:24 | PN ---
PROGRESS NOTE A 48-year-old white female who was admitted with asthma exacerbation/COPD exacerbation and tracheobronchitis. Her wheezing is improving. She has asked for sleep as well as some Toradol through the IV at this time for chest pain. CARDIOVASCULAR: S1, S2. LUNGS: Transmitted upper airway sounds, scattered wheeze. HEMATOLOGY: Negative Homans. ASSESSMENT: 1. Chronic obstructive pulmonary disease exacerbation. 2. Asthma exacerbation. 3. Insomnia. 4. Tracheobronchitis. Continue with IV steroids and updraft treatments. Follow up in next 24 to 48 hours depending on patient's prognosis. MMODL / IJN: [id number] /
[2019-06-30] MEDS ORDERED: ZOLPIDEM 5 MG TAB PO PRN (07:16)
[2019-06-30] MEDS: IPRATROPIUM-ALBUTEROL 3 ML NEB INHALATION SCH ×2 (07:17→11:17)
[2019-06-30] MEDS: SYMBICORT 160-4.5 MCG INHALER INHALATION SCH (07:17)
[2019-06-30 07:19] LABS: Glucose,Whole Blood 155 mg/dL (75-99)
[2019-06-30] MEDS: PREGABALIN 75 MG CAP PO SCH (07:31)
[2019-06-30] MEDS: TROSPIUM CHLORIDE 20 MG TABLET PO SCH (07:32)
[2019-06-30] MEDS: SERTRALINE 100 MG TAB PO SCH (07:32)
[2019-06-30] MEDS: buPROPion XL 150 MG TAB.ER.24H PO SCH (07:32)
[2019-06-30] MEDS: APIXABAN 5 MG TAB PO SCH (07:32)
[2019-06-30] MEDS: PANTOPRAZOLE 40 MG TABLET PO SCH (07:32)
[2019-06-30] MEDS: LORATADINE 10 MG TAB PO SCH (07:32)
[2019-06-30] MEDS: INSULIN ASPART (NovoLOG) 100 UNIT/ML VIAL SQ SCH ×2 (07:37→11:46)
--- NOTE | 2019-06-30 10:55 | P.PN ---
Subjective Progress Note Date: 06/30/19 Principal diagnosis: Acute asthma exacerbation Tracheobronchitis Morbid obesity and obstructive sleep apnea Failed outpatient therapy DVT PE 06/30/2019, patient seen eval examined during the rounds labs reviewed medications reviewed, patient has been doing well and wheezing and shortness of breath has improved no inspiratory stridor has been noted patient wants to go home agree with discharge planning follow-up on outpatient basis This is a 48-year-old female with history of failed asthma treatment as outpatient, patient continued to have wheezing her baseline his chronic severe persistent asthma in spite of receiving steroids and breathing treatments did not get better has eventually been admitted into the hospital, chest x-ray does not show any acute process Objective - Vital Signs Vital signs: Vital Signs Temp 97.6 F 06/30/19 04:57 Pulse 77 06/30/19 07:30 Resp 16 06/30/19 07:30 BP 122/73 06/30/19 04:57 Pulse Ox 96 06/30/19 04:57 Intake & Output 06/29/19 06/30/19 06/30/19 18:59 06:59 18:59 Intake Total 320 Balance 320 Intake: Oral 320 Other: Voiding Method Toilet Toilet # Voids 3 2 - Exam - Constitutional General appearance: average body habitus, cooperative, disheveled - EENT Eyes: EOMI, PERRLA Ears: bilateral: normal - Neck Neck: normal ROM Carotids: bilateral: upstroke normal - Respiratory Respiratory: bilateral: wheezing (Fine bilateral), negative: CTA, diminished, dullness, rales, rhonchi - Cardiovascular Rhythm: regular Heart sounds: normal: S1, S2 - Gastrointestinal General gastrointestinal: decreased bowel sounds, soft - Integumentary Integumentary: decreased turgor - Neurologic Neurologic: CNII-XII intact - Musculoskeletal Musculoskeletal: gait normal, generalized weakness, strength equal bilaterally - Psychiatric Psychiatric: A&O x's 3, appropriate affect, intact judgment & insight - Labs CBC & Chem 7: 06/29/19 09:02 06/29/19 09:02 Labs: Abnormal Lab Results - Last 24 Hours (Table) 06/29/19 06/29/19 06/29/19 Range/Units 12:16 17:07 20:45 POC Glucose (mg/dL) 192 H 102 H 236 H (75-99) mg/dL 06/30/19 Range/Units 07:08 POC Glucose (mg/dL) 155 H (75-99) mg/dL Assessment and Plan Assessment: Acute asthma exacerbation Tracheobronchitis Morbid obesity and obstructive sleep apnea Failed outpatient therapy History of DVT PE Plan: Continue breathing treatments Continue anticoagulation Broad-spectrum antibiotics Steroids Continue CPAP Other recommendations pending plan of care as per clinical response of the pat ient Agree with discharge planning follow-up in outpatient basis Time with Patient: Greater than 30
[2019-06-30 11:19] VITALS: RESP 18
[2019-06-30 11:28] VITALS: PULSE 88
[2019-06-30 11:28] LABS: Glucose,Whole Blood 169 mg/dL (75-99)
--- NOTE | 2019-06-30 11:37 | P.DS ---
Providers Date of admission: 06/28/19 12:06 Expected date of discharge: 06/30/19 Attending physician: Tyler Black Consults: 06/28/19 14:01 Consult Physician Routine Consulting Provider: Philip Huber Consult Reason/Comments: asthma Do you want consulting provider notified?: Yes Primary care physician: Tyler Barroncodiogo [facility] Course: Final Diagnoses: Acute asthma exacerbation with tracheobronchitis, failed outpatient treatment Obstructive sleep apnea Morbid obesity, BMI 42.3 History of DVT, PE Hospital course: This a 48-year-old female admitted with acute asthma exacerbat ion with tracheobronchitis, failed outpatient treatment. Evaluated by pulmonary. Treated with systemic IV steroids, IV antibiotics, nebulized bronchodilators with significant clinical improvement. Cleared by pulmonary for discharge. Patient is being discharged home in stable condition with guarded prognosis. EXAM: GENERAL: Alert and DRY, no acute distress CARDIOVASCULAR: S1, S2 regular.No murmur RESPIRATION: Respiratory effort unlabored, lungs essentially clear. Breath sounds diminished in the bases. ABDOMEN: Soft, nontender . No guarding. no masses palpable.Bowel sounds heard. NERVOUS SYSTEM:No focal deficits. The impression and plan of care has been dictated as directed. : I performed a history and examination of this patient, discussed the same with the dictator. I agree with the dictator's note ,documented as a scribe. Any additional findings or plans will be noted. Patient Condition at Discharge: Stable Plan - Discharge Summary New Discharge Prescriptions: New Cefuroxime Axetil [Ceftin] 500 mg PO BID #10 tab Loratadine [Claritin] 10 mg PO DAILY tab predniSONE 10 mg PO DIRECTED #30 tab guaiFENesin-DM 100-10MG/5ML [Robitussin DM] 10 ml PO Q6H PRN ml PRN Reason: Cough Continue Pregabalin [Lyrica] 150 mg PO TID Montelukast [Singulair] 10 mg PO HS Budesonide/Formoterol Fumarate [Symbicort 160-4.5 Mcg Inhaler] 2 puff INHALATION RT-BID Omeprazole 20 mg PO DAILY Levothyroxine Sodium [Synthroid] 150 mcg PO DAILY Suvorexant [Belsomra] 20 mg PO HS buPROPion HCL [Wellbutrin XL] 150 mg PO BID Brexpiprazole [Rexulti] 2 mg PO HS Albuterol Inhaler [Ventolin Hfa Inhaler] 2 puff INHALATION RT-QID PRN PRN Reason: Shortness Of Breath Umeclidinium [place] [Incruse Ellipta] 1 puff INHALATION RT-HS HYDROcodone/APAP 10-325MG [[place] 10-325] 1 tab PO TID Sertraline [Zoloft] 100 mg PO BID Ipratropium-Albuterol Nebulize [Duoneb 0.5 mg-3 mg/3 ml Soln] 3 ml INHALATION RT-QID PRN PRN Reason: Shortness Of Breath Apixaban [Eliquis] 5 mg PO BID #60 tab tiZANidine [Zanaflex] 4 mg PO Q8H Oxybutynin Chloride [Oxybutynin Chloride ER] 10 mg PO DAILY Discharge Medication List Pregabalin [Lyrica] 150 mg PO TID 10/09/14 [History] Montelukast [Singulair] 10 mg PO HS 06/23/15 [History] Budesonide/Formoterol Fumarate [Symbicort 160-4.5 Mcg Inhaler] 2 puff INHALATION RT-BID 02/16/17 [History] Levothyroxine Sodium [Synthroid] 150 mcg PO DAILY 02/16/17 [History] Omeprazole 20 mg PO DAILY 02/16/17 [History] Suvorexant [Belsomra] 20 mg PO HS 05/03/18 [History] buPROPion HCL [Wellbutrin XL] 150 mg PO BID 08/17/18 [History] Albuterol Inhaler [Ventolin Hfa Inhaler] 2 puff INHALATION RT-QID PRN 11/05/18 [History] Brexpiprazole [Rexulti] 2 mg PO HS 11/05/18 [History] Umeclidinium [place] [Incruse Ellipta] 1 puff INHALATION RT-HS 11/05/18 [History] HYDROcodone/APAP 10-325MG [[place] 10-325] 1 tab PO TID 01/05/19 [History] Ipratropium-Albuterol Nebulize [Duoneb 0.5 mg-3 mg/3 ml Soln] 3 ml INHALATION RT-QID PRN 01/05/19 [History] Sertraline [Zoloft] 100 mg PO BID 01/05/19 [History] Apixaban [Eliquis] 5 mg PO BID #60 tab 01/10/19 [Rx] Oxybutynin Chloride [Oxybutynin Chloride ER] 10 mg PO DAILY 06/28/19 [History] tiZANidine [Zanaflex] 4 mg PO Q8H 06/28/19 [History] Cefuroxime Axetil [Ceftin] 500 mg PO BID #10 tab 06/30/19 [Rx] Loratadine [Claritin] 10 mg PO DAILY tab 06/30/19 [Rx] guaiFENesin-DM 100-10MG/5ML [Robitussin DM] 10 ml PO Q6H PRN ml 06/30/19 [Rx] predniSONE 10 mg PO DIRECTED #30 tab 06/30/19 [Rx] Follow up Appointment(s)/Referral(s): Tyler Black MD [Primary Care Provider] - 3 Days Philip Huber MD [STAFF PHYSICIAN] - 2 Weeks Ambulatory/Diagnostic Orders: Complete Blood Count w/diff [LAB.AMB] Time Frame: 3 Days, Location: None Selected
[2019-06-30] MEDS ORDERED: KETOROLAC 30 MG/ML 1 ML VIAL IM SCH (12:00)
== END 2019-06-30 12:20 | disposition home or self-care (01) | DRG 191 ==
LOC: 6NMEDSUR 12:06
PROVIDERS: ADMIT Family Medicine; ATTEND Family Medicine
PROC: 05HF33Z Insertion of Infusion Device into Left Cephalic Vein, Percutaneous Approach (ICD-10-PCS; principal; 2019-06-28 14:50)
DX: J44.1 Chronic obstructive pulmonary disease with (acute) exacerbation (principal); J45.51 Severe persistent asthma with (acute) exacerbation; Z68.41 Body mass index [BMI] 40.0-44.9, adult; I50.30 Unspecified diastolic (congestive) heart failure; E03.9 Hypothyroidism, unspecified; G62.9 Polyneuropathy, unspecified; F41.9 Anxiety disorder, unspecified; M51.36 Other intervertebral disc degeneration, lumbar region; E66.01 Morbid (severe) obesity due to excess calories; F31.9 Bipolar disorder, unspecified; M79.7 Fibromyalgia; G40.909 Epilepsy, unspecified, not intractable, without status epilepticus; K21.9 Gastro-esophageal reflux disease without esophagitis; G47.33 Obstructive sleep apnea (adult) (pediatric); G47.00 Insomnia, unspecified; G43.909 Migraine, unspecified, not intractable, without status migrainosus; Z79.51 Long term (current) use of inhaled steroids; Z79.01 Long term (current) use of anticoagulants; Z79.890 Hormone replacement therapy; Z79.899 Other long term (current) drug therapy; Z96.651 Presence of right artificial knee joint; Z96.641 Presence of right artificial hip joint; Z86.718 Personal history of other venous thrombosis and embolism; Z86.711 Personal history of pulmonary embolism; Z87.01 Personal history of pneumonia (recurrent); Z87.11 Personal history of peptic ulcer disease; Z90.49 Acquired absence of other specified parts of digestive tract; Z98.84 Bariatric surgery status; Z95.828 Presence of other vascular implants and grafts; Z98.890 Other specified postprocedural states; Z83.3 Family history of diabetes mellitus; Z82.49 Family history of ischemic heart disease and other diseases of the circulatory system; Z83.49 Family history of other endocrine, nutritional and metabolic diseases; Z82.3 Family history of stroke; Z80.9 Family history of malignant neoplasm, unspecified
CPT/HCPCS: 36410; 71046; 76937; 80053; 83605; 85025; 85379; 94640

== ENCOUNTER 2019-07-10 09:40 | Inpatient (IN) | payer MEDICARE, OTHER ==
[2019-07-10] MEDS ORDERED: IPRATROPIUM-ALBUTEROL 3 ML NEB INHALATION STA ×2 (10:34→10:41)
[2019-07-10] MEDS ORDERED: MAGNESIUM SULFATE-D5W PMX 1 GM in DEXTROSE/WATER 1 100ML.BAG IVPB STA (10:44)
[2019-07-10] MEDS ORDERED: MORPHINE SULFATE 4 MG/ML SYRINGE IVP STA (10:44)
[2019-07-10] MEDS ORDERED: methylPREDNISolone SOD SUCCI 125 MG/2 ML VIAL IV STA (10:44)
--- NOTE | 2019-07-10 10:45 | ED ---
General Adult HPI - General Source: patient, RN notes reviewed, old records reviewed Mode of arrival: ambulatory Limitations: no limitations <Reginaldo Rushing - Last Filed: 07/10/19 13:51> <Rachel Bowens - Last Filed: 07/14/19 04:50> - General Chief complaint: Chest Pain Stated complaint: PK Time Seen by Provider: 07/10/19 10:31 - History of Present Illness Initial comments: 48-year-old female with a copmlicated past medical history including COPD, asthma, PE currently on Eliquis presents to the emergency department for a chief complaint of shortness of breath. Patient states this started about 4 days ago. States that she was released from the hospital about a week and a half ago and that her symptoms had improved. However 4 days ago she started to have a cough and shortness of breath. Patient states cough is nonproductive. Patient does have associated chest pain with coughing as well. Otherwise denies chest pain.. Patient states she has doing her breathing treatments at home. Patient has no other complaints at this time including abdominal pain, nausea or vomiting, headache, or visual changes. (Reginaldo Rushing) - Related Data Home Medications Medication Instructions Recorded Confirmed Pregabalin [Lyrica] 150 mg PO TID 10/09/14 07/10/19 Montelukast [Singulair] 10 mg PO HS 06/23/15 07/10/19 Budesonide/Formoterol Fumarate 2 puff INHALATION RT-BID 02/16/17 07/10/19 [Symbicort 160-4.5 Mcg Inhaler] Levothyroxine Sodium [Synthroid] 150 mcg PO DAILY 02/16/17 07/10/19 Suvorexant [Belsomra] 20 mg PO HS 05/03/18 07/10/19 buPROPion HCL [Wellbutrin XL] 150 mg PO BID 08/17/18 07/10/19 Albuterol Inhaler [Ventolin Hfa 2 puff INHALATION RT-QID PRN 11/05/18 07/10/19 Inhaler] Brexpiprazole [Rexulti] 2 mg PO HS 11/05/18 07/10/19 Umeclidinium [place] [Incruse 1 puff INHALATION RT-HS 11/05/18 07/10/19 Ellipta] HYDROcodone/APAP 10-325MG [[place] 1 tab PO TID 01/05/19 07/10/19 10-325] Ipratropium-Albuterol Nebulize 3 ml INHALATION RT-QID PRN 01/05/19 07/10/19 [Duoneb 0.5 mg-3 mg/3 ml Soln] Sertraline [Zoloft] 100 mg PO BID 01/05/19 07/10/19 Oxybutynin Chloride [Oxybutynin 10 mg PO DAILY 06/28/19 07/10/19 Chloride ER] tiZANidine [Zanaflex] 4 mg PO Q8H 06/28/19 07/10/19 Omeprazole [PriLOSEC] 40 mg PO DAILY 07/10/19 07/10/19 predniSONE See Taper PO DIRECTED 07/10/19 07/10/19 Previous Rx's Medication Instructions Recorded Apixaban [Eliquis] 5 mg PO BID #60 tab 01/10/19 Loratadine [Claritin] 10 mg PO DAILY tab 06/30/19 guaiFENesin-DM 100-10MG/5ML 10 ml PO Q6H PRN ml 06/30/19 [Robitussin DM] Allergies Allergy/AdvReac Type Severity Reaction Status Date / Time No Known Allergies Allergy Verified 07/10/19 14:12 Review of Systems ROS Other: All systems not noted in ROS Statement are negative. <Reginaldo Rushing P - Last Filed: 07/10/19 13:51> ROS Other: All systems not noted in ROS Statement are negative. <Rachel Bowens - Last Filed: 07/14/19 04:50> ROS Statement: Those systems with pertinent positive or pertinent negative responses have been documented in the HPI. Past Medical History Past Medical History: Asthma, COPD, Fibromyalgia, GERD/Reflux, Pneumonia, Pulmonary Embolus (PE), Seizure Disorder, Sleep Apnea/CPAP/BIPAP, Thyroid Disorder Additional Past Medical History / Comment(s): Chronic asthma, chronic COPD, recurrent pneumonias, hx of respiratory stridor, PE in 2003 and 2009, MAGALI with CPAP , psuedo seizures with last one in 2017, past gastric ulcer, DDD, LOWER BACK PAIN- RADIATES DOWN RT LEG, R toes,neuropathy, generalized pain from fibromyalgia, chronic MIGRAINES, hypothyroidism, urinary leakage at times, healed wound on abdomen from surgical dehiscence, insomnia, cellulitis R arm. History of Any Multi-Drug Resistant Organisms: None Reported Past Surgical History: Back Surgery, Bariatric Surgery, Cholecystectomy, Joint Replacement, Orthopedic Surgery Additional Past Surgical History / Comment(s): 11/12/16 bronchoscopy wit BAL, gastric bypass 2011, panniculectomy with wound dehiscence/debridements, GREEN F IELD FILTER, RIGHT KNEE ARTHROSCOPY, Rt knee replacement, rt hip replacement PAIN PROC FOR BACK PAIN-has nerve stimulator, BACK SX FOR HERNIATED DISC LOWER BACK, EGDs. Past Anesthesia/Blood Transfusion Reactions: No Reported Reaction Past Psychological History: Anxiety, Depression Smoking Status: Never smoker Past Alcohol Use History: None Reported Past Drug Use History: None Reported - Past Family History Brother(s) Family Medical History: Cancer Additional Family Medical History / Comment(s): spine Father Family Medical History: Coronary Artery Disease (CAD), CVA/TIA, Diabetes Mellitus, Hypertension, Thyroid Disorder Additional Family Medical History / Comment(s): X3 STROKES, STENTS IN HEART,Pacemaker Mother Family Medical History: Diabetes Mellitus, Hypertension, Thyroid Disorder Additional Family Medical History / Comment(s): KNEE REPLACEMENTS <Reginaldo Rushing P - Last Filed: 07/10/19 13:51> General Exam Limitations: no limitations General appearance: alert, in no apparent distress Head exam: Present: atraumatic, normocephalic, normal inspection Eye exam: Present: normal appearance, PERRL, EOMI. Absent: scleral icterus, conjunctival injection, periorbital swelling ENT exam: Present: normal exam, normal oropharynx, mucous membranes moist, TM's normal bilaterally, normal external ear exam Neck exam: Present: normal inspection, full ROM. Absent: tenderness, meningismu s, lymphadenopathy Respiratory exam: Present: stridor (Patient has chronic inspiratory stridor secondary to vocal cord paralysis), decreased breath sounds (Diminished lung nain nds bilaterally.). Absent: respiratory distress, wheezes, rales, rhonchi Cardiovascular Exam: Present: regular rate, normal rhythm, normal heart sounds. Absent: bradycardia, tachycardia, irregular rhythm GI/Abdominal exam: Present: soft, normal bowel sounds. Absent: distended, tenderness, guarding, rebound, rigid Neurological exam: Present: alert <Reginaldo Rushing - Last Filed: 07/10/19 13:51> Course <Reginaldo Rushing - Last Filed: 07/10/19 13:51> Vital Signs 07/10/19 07/10/19 07/10/19 09:44 11:05 11:21 Temperature 98.2 F Pulse Rate 89 89 96 Respiratory 18 Rate Blood Pressure 106/59 O2 Sat by Pulse 97 Oximetry 07/10/19 07/10/19 07/10/19 11:52 15:48 16:16 Temperature Pulse Rate 89 88 92 Respiratory 28 H Rate Blood Pressure 125/63 O2 Sat by Pulse 97 Oximetry 07/10/19 07/10/19 07/10/19 16:17 19:20 19:26 Temperature 98.0 F Pulse Rate 105 H 88 98 Respiratory 22 20 Rate Blood Pressure 148/90 121/61 O2 Sat by Pulse 96 97 Oximetry 07/10/19 07/10/19 19:37 20:31 Temperature 98.1 F Pulse Rate 100 93 Respiratory 20 Rate Blood Pressure 102/66 O2 Sat by Pulse 97 Oximetry - Reevaluation(s) Reevaluation #1: 07/10/19 10:40 Dr. Bowens at bedside evaluating patient (Reginaldo Rushing) EKG Findings - EKG Comments: EKG Findings:: Normal sinus rhythm, ventricular rate 75, MD int 156, QTC 431 <Reginaldo Rushing - Last Filed: 07/10/19 13:51> Medical Decision Making - Lab Data Result diagrams: 07/10/19 10:09 07/10/19 12:16 <Reginaldo Rushing - Last Filed: 07/10/19 13:51> - Lab Data Result diagrams: 07/13/19 10:59 07/13/19 10:59 <Rachel Bowens - Last Filed: 07/14/19 04:50> - Medical Decision Making Vitals are stable on presentation. Patient is not in any respiratory distress. Lung sounds are diminished bilaterally. Patient doesn't inspiratory stridor however states she always has this. Respiratory therapist states that she always has this when she sees her as well. It is apparently secondary to a type of vocal cord paralysis. Patient was immediately evaluated by Dr. Ruggiero as well. We did order a 1 view chest x-ray which showed no acute cardiopulmonary process. However there are hyperventilatory changes likely secondary to patient's history of COPD. Patient was started on breathing treatments immediately. She did have improvement in symptoms. Patient was also given steroids and magnesium. CBC is unremarkable. CMP does show hyperkalemia of 5.5 however this is slightly hemolyzed. I did repeat this and is 5.3 again with slight hemolysis. EKG does not show any evidence of hyperkalemia. Mother stated patient was in the low 90s without oxygen. Patient does not have oxygen at home. She will be admitted for COPD exacerbation and acute hypoxic respiratory failure. (Reginaldo Rushing) I was available for consultation in the emergency department. The history and physical exam were done by the midlevel provider. I was consulted for this patients care. I reviewed the case with the midlevel provider and based on their presentation of the patient, I agree with the assessment, medical decision making and plan of care as documented. I evaluated the patient myself as the midlevel reported that the patient seemed to be in moderate respiratory distress upon presentation. Exam reveals decreased breath sounds bilaterally with tachypnia. Portable chest xray demonstrates no acute process. We did provide the patient with multiple breathing treatments and she had improvement. I discussed the patients care with Dr. Goldberg who accepted admission for the patient. We will place pulmonary on consult. Chart was dictated using Pryv dictation software. Attempts were made to correct any dictation errors however some typographical errors may persist. (Rachel Bowens) - Lab Data Lab Results 07/10/19 07/10/19 07/10/19 Range/Units 10:00 10:09 10:09 WBC 8.7 (3.8-10.6) k/uL RBC 4.93 (3.80-5.40) m/uL Hgb 15.2 (11.4-16.0) gm/dL Hct 46.2 H (34.0-46.0) % MCV 93.6 (80.0-100.0) fL MCH 30.8 (25.0-35.0) pg MCHC 32.9 (31.0-37.0) g/dL RDW 13.0 (11.5-15.5) % Plt Count 171 (150-450) k/uL Neutrophils % 79 % Lymphocytes % 13 % Monocytes % 5 % Eosinophils % 2 % Basophils % 0 % Neutrophils # 6.9 (1.3-7.7) k/uL Lymphocytes # 1.1 (1.0-4.8) k/uL Monocytes # 0.4 (0-1.0) k/uL Eosinophils # 0.1 (0-0.7) k/uL Basophils # 0.0 (0-0.2) k/uL PT (9.0-12.0) sec INR (<1.2) APTT (22.0-30.0) sec Sodium 135 L (137-145) mmol/L Potassium 5.5 H (3.5-5.1) mmol/L Chloride 102 (98-107) mmol/L Carbon Dioxide 25 (22-30) mmol/L Anion Gap 8 mmol/L BUN 10 (7-17) mg/dL Creatinine 0.83 (0.52-1.04) mg/dL Est GFR (CKD-EPI)AfAm >90 (>60 ml/min/1.73 sqM) Est GFR (CKD-EPI)NonAf 85 (>60 ml/min/1.73 sqM) Glucose 103 H (74-99) mg/dL Calcium 9.2 (8.4-10.2) mg/dL Magnesium 2.1 (1.6-2.3) mg/dL Total Bilirubin 0.8 (0.2-1.3) mg/dL AST 68 H (14-36) U/L ALT 123 H (4-34) U/L Alkaline Phosphatase 75 (38-126) U/L Troponin I (0.000-0.034) ng/mL NT-Pro-B Natriuret Pep pg/mL Total Protein 6.5 (6.3-8.2) g/dL Albumin 4.0 (3.5-5.0) g/dL Influenza Type A RNA Not Detected (Not Detectd) Influenza Type B (PCR) Not Detected (Not Detectd) 07/10/19 07/10/19 07/10/19 Range/Units 10:09 10:09 10:09 WBC (3.8-10.6) k/uL RBC (3.80-5.40) m/uL Hgb (11.4-16.0) gm/dL Hct (34.0-46.0) % MCV (80.0-100.0) fL MCH (25.0-35.0) pg MCHC (31.0-37.0) g/dL RDW (11.5-15.5) % Plt Count (150-450) k/uL Neutrophils % % Lymphocytes % % Monocytes % % Eosinophils % % Basophils % % Neutrophils # (1.3-7.7) k/uL Lymphocytes # (1.0-4.8) k/uL Monocytes # (0-1.0) k/uL Eosinophils # (0-0.7) k/uL Basophils # (0-0.2) k/uL PT 10.3 (9.0-12.0) sec INR 1.0 (<1.2) APTT 23.0 (22.0-30.0) sec Sodium (137-145) mmol/L Potassium (3.5-5.1) mmol/L Chloride (98-107) mmol/L Carbon Dioxide (22-30) mmol/L Anion Gap mmol/L BUN (7-17) mg/dL Creatinine (0.52-1.04) mg/dL Est GFR (CKD-EPI)AfAm (>60 ml/min/1.73 sqM) Est GFR (CKD-EPI)NonAf (>60 ml/min/1.73 sqM) Glucose (74-99) mg/dL Calcium (8.4-10.2) mg/dL Magnesium (1.6-2.3) mg/dL Total Bilirubin (0.2-1.3) mg/dL AST (14-36) U/L ALT (4-34) U/L Alkaline Phosphatase (38-126) U/L Troponin I <0.012 (0.000-0.034) ng/mL NT-Pro-B Natriuret Pep 47 pg/mL Total Protein (6.3-8.2) g/dL Albumin (3.5-5.0) g/dL Influenza Type A RNA (Not Detectd) Influenza Type B (PCR) (Not Detectd) 07/10/19 Range/Units 12:16 WBC (3.8-10.6) k/uL RBC (3.80-5.40) m/uL Hgb (11.4-16.0) gm/dL Hct (34.0-46.0) % MCV (80.0-100.0) fL MCH (25.0-35.0) pg MCHC (31.0-37.0) g/dL RDW (11.5-15.5) % Plt Count (150-450) k/uL Neutrophils % % Lymphocytes % % Monocytes % % Eosinophils % % Basophils % % Neutrophils # (1.3-7.7) k/uL Lymphocytes # (1.0-4.8) k/uL Monocytes # (0-1.0) k/uL Eosinophils # (0-0.7) k/uL Basophils # (0-0.2) k/uL PT (9.0-12.0) sec INR (<1.2) APTT (22.0-30.0) sec Sodium (137-145) mmol/L Potassium 5.3 H (3.5-5.1) mmol/L Chloride (98-107) mmol/L Carbon Dioxide (22-30) mmol/L Anion Gap mmol/L BUN (7-17) mg/dL Creatinine (0.52-1.04) mg/dL Est GFR (CKD-EPI)AfAm (>60 ml/min/1.73 sqM) Est GFR (CKD-EPI)NonAf (>60 ml/min/1.73 sqM) Glucose (74-99) mg/dL Calcium (8.4-10.2) mg/dL Magnesium (1.6-2.3) mg/dL Total Bilirubin (0.2-1.3) mg/dL AST (14-36) U/L ALT (4-34) U/L Alkaline Phosphatase (38-126) U/L Troponin I (0.000-0.034) ng/mL NT-Pro-B Natriuret Pep pg/mL Total Protein (6.3-8.2) g/dL Albumin (3.5-5.0) g/dL Influenza Type A RNA (Not Detectd) Influenza Type B (PCR) (Not Detectd) Disposition Is patient prescribed a controlled substance at d/c from ED?: No Time of Disposition: 13:57 <Reginaldo Rushing P - Last Filed: 07/10/19 13:51> <Rachel Bowens A - Last Filed: 07/14/19 04:50> Clinical Impression: COPD exacerbation, Shortness of breath Disposition: ADMITTED IP TO THIS HOSP Condition: Fair
--- NOTE | 2019-07-10 10:56 | XR ---
EXAMINATION TYPE: XR chest 1V portable DATE OF EXAM: 07/10/2019 COMPARISON: 06/28/2019 HISTORY: Shortness of breath and cough. History of asthma and COPD. TECHNIQUE: Single frontal view of the chest is obtained. FINDINGS: There are low lung volumes. This exaggerates the pulmonary vasculature. There is no focal a ir space opacity, pleural effusion, or pneumothorax seen. The cardiac silhouette size is within norm al limits. The osseous structures are intact. Thoracic spinal nerve root stimulator is partially se en. IMPRESSION: Hypoventilatory lungs. No acute cardiopulmonary process seen.
[2019-07-10 11:00] LABS: Basophils % (A) 0 %; Eosinophils # (A) 0.1 k/uL (0-0.7); Eosinophils % (A) 2 %; HCT 46.2 % (34.0-46.0); HGB 15.2 gm/dL (11.4-16.0); Lymphocytes # (A) 1.1 k/uL (1.0-4.8); Lymphocytes % (A) 13 %; MCH 30.8 pg (25.0-35.0); MCHC 32.9 g/dL (31.0-37.0); MCV 93.6 fL (80.0-100.0); Mean Platelet Volume 8.9; Monocytes # (A) 0.4 k/uL (0-1.0); Monocytes % (A) 5 %; Neutrophils # (A) 6.9 k/uL (1.3-7.7); Neutrophils % (A) 79 %; Platelet Count 171 k/uL (150-450); RBC 4.93 m/uL (3.80-5.40); WBC 8.7 k/uL (3.8-10.6)
[2019-07-10] MEDS ORDERED: ALBUTEROL NEBULIZED 2.5 MG/3 ML INHALATION ONE (11:00)
[2019-07-10] MEDS ORDERED: ALBUTEROL NEB (CONC) 2.5 MG/0.5 ML INHALATION SCH (11:00)
[2019-07-10] MEDS: ALBUTEROL NEB (CONC) 2.5 MG/0.5 ML INHALATION SCH ×2 (11:01→21:07)
[2019-07-10 11:10] LABS: Prothrombin Time 10.3 sec (9.0-12.0)
[2019-07-10 11:12] LABS: ALT 123 U/L (4-34); AST 68 U/L (14-36); African American GFR (CKD) >90 (>60 ml/min/1.73 sqM); Alkaline Phosphatase 75 U/L (38-126); Anion Gap 8 mmol/L; Blood Urea Nitrogen 10 mg/dL (7-17); Calcium 9.2 mg/dL (8.4-10.2); Carbon Dioxide 25 mmol/L (22-30); Chloride 102 mmol/L (98-107); Glucose 103 mg/dL (74-99); Magnesium 2.1 mg/dL (1.6-2.3); Non-African American GFR(CKD) 85 (>60 ml/min/1.73 sqM); Sodium 135 mmol/L (137-145); Total Bilirubin 0.8 mg/dL (0.2-1.3); Total Protein 6.5 g/dL (6.3-8.2)
[2019-07-10 11:23] LABS: Potassium 5.5 mmol/L (3.5-5.1)
--- NOTE | 2019-07-10 12:58 | CT ---
CT CHEST FOR PULMONARY EMBOLISM. EXAMINATION TYPE: CT chest angio for PE DATE OF EXAM: 07/10/2019 INDICATION: Chest pain with shortness of breath for [address] DLP: 873.5 mGycm, Automated exposure control for dose reduction was used. CONTRAST: Patient injected with 100 mL of Isovue 370. COMPARISON: 01/17/2019 TECHNIQUE: CT of the chest is performed on a spiral scan at 2 mm thick sections. Study is performed with intravenous contrast timed for evaluation for pulmonary embolism. This will limit additional po rtions of the evaluation. 3-D MIP images reconstructed by the technologist are reviewed on the compu ter in the coronal and sagittal planes. Contrast timing is suboptimal which may cause limitation on t he evaluation. FINDINGS: No persistent filling defects are evident to suggest an acute pulmonary embolism. Smaller distal loyd pheral pulmonary emboli may not be visualized due to contrast timing. No mediastinal or hilar adenopathy enlarged by CT criteria is evident. The ascending aorta diameter at the level of the main pulmonary artery is 3.4 cm. The main pulmonary artery diameter at the bifur cation is 2.8 cm. Minimal subsegmental atelectasis may be within the dependent portion of the lung bases. Limited CT section through the upper abdomen are unremarkable. IMPRESSIONS: 1. No acute pulmonary embolism.
[2019-07-10] MEDS ORDERED: IPRATROPIUM-ALBUTEROL 3 ML NEB INHALATION PRN (13:21)
[2019-07-10] MEDS ORDERED: cefTRIAXone IN SWFI 1,000 MG/10 ML SYRINGE IVP STA (13:23)
[2019-07-10] MEDS ORDERED: AZITHROMYCIN 500 MG in SODIUM CHLORIDE 0.9% 250 ML IVPB STA (13:23)
[2019-07-10] MEDS ORDERED: HYDROmorphone 0.5 MG/0.5 ML SYRINGE IVP STA (14:04)
[2019-07-10] MEDS: IPRATROPIUM-ALBUTEROL 3 ML NEB INHALATION SCH ×2 (15:44→19:26)
[2019-07-10] MEDS ORDERED: tiZANidine 4 MG TAB PO SCH (16:45)
[2019-07-10] MEDS: HYDROcodone/APAP 10-325MG 1 EACH TAB PO SCH ×2 (17:03→21:13)
[2019-07-10] MEDS: KETOROLAC 30 MG/ML 1 ML VIAL IM SCH (19:18)
[2019-07-10] MEDS: methylPREDNISolone SOD SUCCI 125 MG/2 ML VIAL IV SCH (19:18)
[2019-07-10] MEDS: SYMBICORT 160-4.5 MCG INHALER INHALATION SCH (19:26)
[2019-07-10] MEDS ORDERED: NON FORMULARY DRUG (Umeclidinium Bromide [Incruse Ellipta] 1 PUFF) INHALATION SCH (20:00)
[2019-07-10] MEDS ORDERED: SUVOREXANT 20 MG PO SCH (21:00)
[2019-07-10] MEDS ORDERED: BREXPIPRAZOLE 2 MG PO SCH (21:00)
[2019-07-10] MEDS: SUVOREXANT 20 MG PO SCH (21:12)
[2019-07-10] MEDS: BREXPIPRAZOLE 2 MG PO SCH (21:12)
[2019-07-10] MEDS: APIXABAN 5 MG TAB PO SCH (21:13)
[2019-07-10] MEDS: SERTRALINE 100 MG TAB PO SCH (21:13)
[2019-07-10] MEDS: PREGABALIN 75 MG CAP PO SCH (21:13)
[2019-07-10] MEDS: MONTELUKAST 10 MG TAB PO SCH (21:13)
[2019-07-10] MEDS: buPROPion XL 150 MG TAB.ER.24H PO SCH (21:39)
[2019-07-10] MEDS ORDERED: HYDROcodone/APAP 10-325MG 1 EACH TAB PO SCH (22:00)
[2019-07-11] MEDS: methylPREDNISolone SOD SUCCI 125 MG/2 ML VIAL IV SCH ×5 (00:19→23:33)
[2019-07-11] MEDS: KETOROLAC 30 MG/ML 1 ML VIAL IM SCH (00:20)
[2019-07-11] MEDS: KETOROLAC 30 MG/ML 1 ML VIAL IVP SCH ×4 (05:46→23:33)
[2019-07-11] MEDS: LEVOTHYROXINE 75 MCG TAB PO SCH (05:46)
--- NOTE | 2019-07-11 06:10 | HP ---
HISTORY AND PHYSICAL CHIEF COMPLAINT: A 48-year-old white female with a history of COPD, asthma, currently on Eliquis with a history of pulmonary embolism. She has cough, shortness of breath, nonproductive cough, denies any chest pain, but worsening breathing, shortness of breath with cough and wheezing. HOME MEDICATIONS: Home medications include: 1. Lyrica 150 t.i.d. 2. Singulair 10 mg daily. 3. Symbicort 160/4.5 two puffs b.i.d. 4. Synthroid 150 mcg daily. 5. Omeprazole 20 mg daily. 6. Belsomra 20 mg daily. 7. Ventolin. 8. Rexulti 2 mg daily. 9. Incruse 1 puff daily. 10.[place] 10/325 t.i.d. 11.Zoloft 100 b.i.d. 12.DuoNeb q.i.d. 13.Oxybutynin 10 mg daily. 14.Zoloft 100 b.i.d. 15.Zanaflex 4 mg q.8 hours. ALLERGIES: Negative. REVIEW OF SYSTEMS: Fourteen-point review of systems negative except for mentioned in HPI. PAST MEDICAL HISTORY: Asthma, COPD, tracheobronchitis, pneumonia, pulmonary embolism, seizure disorder, sleep apnea, lumbar disc disease, gastric ulcer, anxiety, depression, Estefania filter, right knee replacement, right hip replacement. FAMILY HISTORY: Brother cancer of the spine. Father coronary artery disease, CVA, TIA, hypertension, thyroid disease, history of 3 strokes, stents in the heart. Mother diabetes mellitus, hypertension. PHYSICAL EXAMINATION: VITAL SIGNS: Stable. CARDIOVASCULAR: S1, S2. LUNGS: Clear. Scattered wheeze and rhonchi. HEMATOLOGY: Negative Homans. OPHTHALMOLOGIC: Pupils equal, round, reactive to light and accommodation. NEUROLOGIC: Cranial nerves 2 through 12 intact. ENDOCRINE: BMI is over 40. Temp 98.2, pulse is 89 to 96, blood pressure is 106/59, O2 of 97%, EKG sinus rhythm. ASSESSMENT: 1. Chronic obstructive pulmonary disease, asthma exacerbation. 2. Tracheobronchitis. 3. Acute hypoxemic respiratory failure. 4. Hyperkalemia. 5. Hyponatremia. IV steroids, updraft treatments, fluid rehydration. Follow up next 24 to 48 hours. MMODL / IJN: [id number] /
[2019-07-11] MEDS: SYMBICORT 160-4.5 MCG INHALER INHALATION SCH ×2 (07:14→18:26)
[2019-07-11] MEDS: IPRATROPIUM-ALBUTEROL 3 ML NEB INHALATION SCH ×4 (07:14→18:26)
[2019-07-11 08:40] LABS: Basophils % (A) 0 %; Eosinophils % (A) 0 %; HCT 47.5 % (34.0-46.0); HGB 15.4 gm/dL (11.4-16.0); Lymphocytes # (A) 0.4 k/uL (1.0-4.8); Lymphocytes % (A) 3 %; MCH 30.8 pg (25.0-35.0); MCHC 32.4 g/dL (31.0-37.0); MCV 95.2 fL (80.0-100.0); Mean Platelet Volume 8.8; Monocytes # (A) 0.2 k/uL (0-1.0); Monocytes % (A) 2 %; Neutrophils # (A) 12.7 k/uL (1.3-7.7); Neutrophils % (A) 95 %; Platelet Count 151 k/uL (150-450); RBC 4.99 m/uL (3.80-5.40); RDW 12.9 % (11.5-15.5); WBC 13.3 k/uL (3.8-10.6)
[2019-07-11 08:51] LABS: ALT 86 U/L (4-34); AST 36 U/L (14-36); African American GFR (CKD) >90 (>60 ml/min/1.73 sqM); Albumin 4.1 g/dL (3.5-5.0); Alkaline Phosphatase 93 U/L (38-126); Anion Gap 10 mmol/L; Blood Urea Nitrogen 15 mg/dL (7-17); Calcium 9.2 mg/dL (8.4-10.2); Carbon Dioxide 26 mmol/L (22-30); Chloride 100 mmol/L (98-107); Glucose 209 mg/dL (74-99); Non-African American GFR(CKD) >90 (>60 ml/min/1.73 sqM); Potassium 4.5 mmol/L (3.5-5.1); Sodium 136 mmol/L (137-145); Total Bilirubin 0.4 mg/dL (0.2-1.3); Total Protein 6.5 g/dL (6.3-8.2)
[2019-07-11] MEDS: HYDROcodone/APAP 10-325MG 1 EACH TAB PO SCH ×3 (09:43→21:11)
[2019-07-11] MEDS: PANTOPRAZOLE 40 MG TABLET PO SCH (11:02)
[2019-07-11] MEDS: LORATADINE 10 MG TAB PO SCH (11:02)
[2019-07-11] MEDS: PREGABALIN 75 MG CAP PO SCH ×3 (11:02→21:12)
[2019-07-11] MEDS: SERTRALINE 100 MG TAB PO SCH ×2 (11:04→20:31)
[2019-07-11] MEDS: buPROPion XL 150 MG TAB.ER.24H PO SCH ×2 (11:04→20:31)
[2019-07-11] MEDS: OXYBUTYNIN 10 MG TAB.ER.24 PO SCH (11:04)
[2019-07-11] MEDS: APIXABAN 5 MG TAB PO SCH ×2 (11:04→20:30)
[2019-07-11] MEDS: AZITHROMYCIN 500 MG in SODIUM CHLORIDE 0.9% 250 ML IVPB SCH (13:02)
[2019-07-11] MEDS: guaiFENesin-DM 100-10MG/5ML 10 ML CUP PO PRN ×2 (15:40→22:42)
[2019-07-11] MEDS: MONTELUKAST 10 MG TAB PO SCH (20:30)
[2019-07-11] MEDS: BREXPIPRAZOLE 2 MG PO SCH (20:31)
[2019-07-11] MEDS: SUVOREXANT 20 MG PO SCH (21:11)
--- NOTE | 2019-07-11 21:11 | P.CNPUL ---
History of Present Illness Consult date: 07/11/19 Reason for consult: dyspnea, cough, COPD, obstructive sleep apnea Chief complaint: Shortness of breath for 4 days History of present illness: This is a 48-year-old female was admitted to hospital with failed outpatient t herapy, patient has a recent exacerbation of her COPD hospitalized and has been treated as outpatient without any significant relief about 4 days ago she started having cough wheezing and shortness of breath which was progressive progressive decided to come into the hospital was evaluated subsequently admitted into the hospital Review of Systems All systems: negative Past Medical History Past Medical History: Asthma, COPD, Fibromyalgia, GERD/Reflux, Pneumonia, Pulmonary Embolus (PE), Seizure Disorder, Sleep Apnea/CPAP/BIPAP, Thyroid Disorder Additional Past Medical History / Comment(s): Chronic asthma, chronic COPD, recurrent pneumonias, hx of respiratory stridor, PE in 2003 and 2009, MAGALI with CPAP , psuedo seizures with last one in 2017, past gastric ulcer, DDD, LOWER BACK PAIN- RADIATES DOWN RT LEG, R toes,neuropathy, generalized pain from fibromyalgia, chronic MIGRAINES, hypothyroidism, urinary leakage at times, healed wound on abdomen from surgical dehiscence, insomnia, cellulitis R arm. History of Any Multi-Drug Resistant Organisms: None Reported Past Surgical History: Back Surgery, Bariatric Surgery, Cholecystectomy, Joint Replacement, Orthopedic Surgery Additional Past Surgical History / Comment(s): 11/12/16 bronchoscopy wit BAL, gastric bypass 2011, panniculectomy with wound dehiscence/debridements, 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 Past Anesthesia/Blood Transfusion Reactions: No Reported Reaction Past Psychological History: Anxiety, Depression Additional Psychological History / Comment(s): Pt lives with her mother and father. She is independent. She uses no assistive device. She has a CPAP machine that she uses most nights. She has no home care. She drives. Smoking Status: Never smoker Past Alcohol Use History: None Reported Past Drug Use History: None Reported - Past Family History Brother(s) Family Medical History: Cancer Additional Family Medical History / Comment(s): spine Father Family Medical History: Coronary Artery Disease (CAD), CVA/TIA, Diabetes Mellitus, Hypertension, Thyroid Disorder Additional Family Medical History / Comment(s): X3 STROKES, STENTS IN HEART,Pacemaker Mother Family Medical History: Diabetes Mellitus, Hypertension, Thyroid Disorder Additional Family Medical History / Comment(s): KNEE REPLACEMENTS Medications and Allergies Home Medications Medication Instructions Recorded Confirmed Type Pregabalin [Lyrica] 150 mg PO TID 10/09/14 07/10/19 History Montelukast [Singulair] 10 mg PO HS 06/23/15 07/10/19 History Budesonide/Formoterol Fumarate 2 puff INHALATION RT-BID 02/16/17 07/10/19 History [Symbicort 160-4.5 Mcg Inhaler] Levothyroxine Sodium [Synthroid] 150 mcg PO DAILY 02/16/17 07/10/19 History Suvorexant [Belsomra] 20 mg PO HS 05/03/18 07/10/19 History buPROPion HCL [Wellbutrin XL] 150 mg PO BID 08/17/18 07/10/19 History Albuterol Inhaler [Ventolin Hfa 2 puff INHALATION RT-QID PRN 11/05/18 07/10/19 History Inhaler] Brexpiprazole [Rexulti] 2 mg PO HS 11/05/18 07/10/19 History Umeclidinium [place] [Incruse 1 puff INHALATION RT-HS 11/05/18 07/10/19 History Ellipta] HYDROcodone/APAP 10-325MG [[place] 1 tab PO TID 01/05/19 07/10/19 History 10-325] Ipratropium-Albuterol Nebulize 3 ml INHALATION RT-QID PRN 01/05/19 07/10/19 History [Duoneb 0.5 mg-3 mg/3 ml Soln] Sertraline [Zoloft] 100 mg PO BID 01/05/19 07/10/19 History Apixaban [Eliquis] 5 mg PO BID #60 tab 01/10/19 07/10/19 Rx Oxybutynin Chloride [Oxybutynin 10 mg PO DAILY 06/28/19 07/10/19 History Chloride ER] tiZANidine [Zanaflex] 4 mg PO Q8H 06/28/19 07/10/19 History Loratadine [Claritin] 10 mg PO DAILY tab 06/30/19 07/10/19 Rx guaiFENesin-DM 100-10MG/5ML 10 ml PO Q6H PRN ml 06/30/19 07/10/19 Rx [Robitussin DM] Omeprazole [PriLOSEC] 40 mg PO DAILY 07/10/19 07/10/19 History predniSONE See Taper PO DIRECTED 07/10/19 07/10/19 History Allergies Allergy/AdvReac Type Severity Reaction Status Date / Time No Known Allergies Allergy Verified 07/10/19 14:12 Physical Exam Vitals: Vital Signs Temp Pulse Pulse Pulse Resp BP Pulse Ox 07/11/19 19:59 97.3 F L 100 20 153/77 96 07/11/19 18:36 90 18 07/11/19 18:26 92 18 07/11/19 15:24 90 18 07/11/19 15:13 89 18 96 07/11/19 14:30 85 16 07/11/19 14:15 97.6 F 85 16 131/71 95 07/11/19 13:40 100 22 116/57 07/11/19 12:08 97.4 F L 93 18 134/67 95 07/11/19 11:01 104 H 07/11/19 10:51 100 07/11/19 08:33 90 88 22 155/85 97 07/11/19 07:27 100 07/11/19 07:16 96 07/11/19 05:00 97.9 F 90 19 108/73 94 L Intake and Output 07/11/19 07/11/19 07/11/19 06:59 14:59 22:59 Intake Total 1300 350 Balance 1300 350 Intake: Intake, IV Titration 100 350 Amount Azithromycin 500 mg In 250 Sodium Chloride 0.9% 250 ml @ 250 mls/hr IVPB DAILY@1400 [facility] Rx#: [id number] cefTRIAXone 1 gm In 100 100 Sodium Chloride 0.9% 50 ml @ 100 mls/hr IVPB Q12HR [facility] Rx#:[id number] Oral 1200 Other: Voiding Method Toilet # Voids 4 - Constitutional General appearance: disheveled, morbidly obese - EENT Eyes: EOMI, PERRLA, normal appearance ENT: normal oropharynx Ears: bilateral: normal - Neck Neck: normal ROM Carotids: bilateral: upstroke normal Thyroid: bilateral: normal size - Respiratory Respiratory: bilateral: CTA - Cardiovascular Rhythm: regular Heart sounds: normal: S1, S2 - Gastrointestinal General gastrointestinal: normal bowel sounds - Integumentary Integumentary: normal turgor - Neurologic Neurologic: CNII-XII intact - Musculoskeletal Musculoskeletal: gait normal, generalized weakness, strength equal bilaterally - Psychiatric Psychiatric: A&O x's 3, appropriate affect, intact judgment & insight Results - Laboratory Findings CBC and BMP: 07/11/19 08:03 07/11/19 08:03 PT/INR, D-dimer PT 10.3 sec (9.0-12.0) 07/10/19 10:09 INR 1.0 (<1.2) 07/10/19 10:09 Abnormal lab findings: Abnormal Labs 07/10/19 07/10/19 07/10/19 10:09 10:09 12:16 WBC Hct 46.2 H Neutrophils # Lymphocytes # Sodium 135 L Potassium 5.5 H 5.3 H Glucose 103 H AST 68 H ALT 123 H 07/11/19 07/11/19 08:03 08:03 WBC 13.3 H Hct 47.5 H Neutrophils # 12.7 H Lymphocytes # 0.4 L Sodium 136 L Potassium Glucose 209 H AST ALT 86 H - Diagnostic Findings Chest x-ray: report reviewed, image reviewed CT scan - chest: report reviewed, image reviewed (Chest x-ray suggestive of COPD-like changes, computed tomography scan of the chest negative for PE) Assessment and Plan Assessment: Acute COPD exacerbation Tracheobronchitis Obstructive sleep apnea DVT PE on lifelong anticoagulation Morbid obesity is status post weight loss surgery Obstructive sleep apnea on CPAP Plan: Continue IV steroids breathing treatment antibiotics however they can be changed to oral 24-48 hours, continue home medications, patient can be continued on CPAP from home Time with Patient: Greater than 30
[2019-07-12] MEDS: methylPREDNISolone SOD SUCCI 125 MG/2 ML VIAL IV SCH ×3 (05:36→17:05)
[2019-07-12] MEDS: KETOROLAC 30 MG/ML 1 ML VIAL IVP SCH ×3 (05:36→17:05)
[2019-07-12] MEDS: LEVOTHYROXINE 75 MCG TAB PO SCH (05:37)
[2019-07-12] MEDS: guaiFENesin-DM 100-10MG/5ML 10 ML CUP PO PRN ×3 (05:40→22:33)
[2019-07-12] MEDS: SYMBICORT 160-4.5 MCG INHALER INHALATION SCH ×2 (08:44→19:11)
[2019-07-12] MEDS: IPRATROPIUM-ALBUTEROL 3 ML NEB INHALATION SCH ×4 (08:44→19:10)
[2019-07-12] MEDS: buPROPion XL 150 MG TAB.ER.24H PO SCH ×2 (09:00→21:36)
[2019-07-12] MEDS: OXYBUTYNIN 10 MG TAB.ER.24 PO SCH (09:00)
[2019-07-12] MEDS: PANTOPRAZOLE 40 MG TABLET PO SCH (09:00)
[2019-07-12] MEDS: LORATADINE 10 MG TAB PO SCH (09:00)
[2019-07-12] MEDS: APIXABAN 5 MG TAB PO SCH ×2 (09:01→21:36)
[2019-07-12] MEDS: HYDROcodone/APAP 10-325MG 1 EACH TAB PO SCH ×3 (09:01→21:37)
[2019-07-12] MEDS: PREGABALIN 75 MG CAP PO SCH ×3 (09:01→21:38)
[2019-07-12] MEDS: SERTRALINE 100 MG TAB PO SCH ×2 (09:02→21:37)
--- NOTE | 2019-07-12 13:20 | P.PN ---
Subjective Progress Note Date: 07/12/19 Principal diagnosis: Vocal cord dysfunction syndrome Acute COPD exacerbation Tracheobronchitis Obstructive sleep apnea DVT PE on lifelong anticoagulation Morbid obesity is status post weight loss surgery Obstructive sleep apnea on CPAP 07/12/2019, patient seen eval examined during the rounds labs reviewed medications reviewed care plan discussed with the patient today patient is manifesting some inspiratory stridor which is slightly different than yesterday, patient is being kept on IV steroids breathing treatment continue that observe clinical course closely Objective - Vital Signs Vital signs: Vital Signs Temp 97.5 F L 07/12/19 12:04 Pulse 88 07/12/19 12:06 Resp 16 07/12/19 12:06 BP 159/86 07/12/19 12:04 Pulse Ox 96 07/12/19 12:04 Intake & Output 07/11/19 07/12/19 07/12/19 18:59 06:59 18:59 Intake Total 350 100 Balance 350 100 Intake: Intake, IV Titration 350 100 Amount Azithromycin 500 mg In 250 Sodium Chloride 0.9% 250 ml @ 250 mls/hr IVPB DAILY@1400 [facility] Rx#: [id number] cefTRIAXone 1 gm In 100 100 Sodium Chloride 0.9% 50 ml @ 100 mls/hr IVPB Q12HR [facility] Rx#:[id number] Other: Voiding Method Toilet # Voids 2 - Exam - Constitutional General appearance: disheveled, morbidly obese - EENT Eyes: EOMI, PERRLA, normal appearance ENT: normal oropharynx Ears: bilateral: normal - Neck Neck: normal ROM Carotids: bilateral: upstroke normal Thyroid: bilateral: normal size - Respiratory Respiratory: bilateral: CTA - Cardiovascular Rhythm: regular Heart sounds: normal: S1, S2 - Gastrointestinal General gastrointestinal: normal bowel sounds - Integumentary Integumentary: normal turgor - Neurologic Neurologic: CNII-XII intact - Musculoskeletal Musculoskeletal: gait normal, generalized weakness, strength equal bilaterally - Psychiatric Psychiatric: A&O x's 3, appropriate affect, intact judgment & insight - Labs CBC & Chem 7: 07/11/19 08:03 07/11/19 08:03 Labs: Microbiology - Last 24 Hours (Table) 07/10/19 14:00 Blood Culture - Preliminary Blood No Growth after 24 hours Assessment and Plan Assessment: Vocal cord dysfunction syndrome Acute COPD exacerbation Tracheobronchitis Obstructive sleep apnea DVT PE on lifelong anticoagulation Morbid obesity is status post weight loss surgery Obstructive sleep apnea on CPAP Plan: Continue IV steroids breathing treatment antibiotics, continue home medications, patient can be continued on CPAP from home, consider ENT consultation if patient continued to manifest inspiratory stridor Time with Patient: Greater than 30
[2019-07-12] MEDS: AZITHROMYCIN 500 MG in SODIUM CHLORIDE 0.9% 250 ML IVPB SCH (14:50)
[2019-07-12] MEDS: HYDROmorphone 0.5 MG/0.5 ML SYRINGE IVP PRN ×2 (16:29→22:34)
--- NOTE | 2019-07-12 18:05 | P.PN ---
Subjective Progress Note Date: 07/12/19 his a 48-year-old female admitted with acute asthma exacerbation with tracheobronchitis, maintained on systemic IV steroids, IV antibiotics, nebulized bronchodilators , with slow improvement. Objective - Vital Signs Vital signs: Vital Signs Temp 97.5 F L 07/12/19 12:04 Pulse 78 07/12/19 15:32 Resp 18 07/12/19 15:15 BP 159/86 07/12/19 12:04 Pulse Ox 98 07/12/19 15:15 Intake & Output 07/11/19 07/12/19 07/12/19 18:59 06:59 18:59 Intake Total 350 100 50 Balance 350 100 50 Intake: Intake, IV Titration 350 100 50 Amount Azithromycin 500 mg In 250 Sodium Chloride 0.9% 250 ml @ 250 mls/hr IVPB DAILY@1400 [facility] Rx#: [id number] cefTRIAXone 1 gm In 100 100 50 Sodium Chloride 0.9% 50 ml @ 100 mls/hr IVPB Q12HR [facility] Rx#:[id number] Other: Voiding Method Toilet # Voids 2 - Exam GENERAL: Alert and oriented 3, no acute distress CARDIOVASCULAR: S1, S2 regular.No murmur RESPIRATION: Respiratory effort unlabored, Breath sounds diminished in the bases. Inspiratory/expiratory wheezing ABDOMEN: Soft, nontender . No guarding. no masses palpable.Bowel sounds heard. NERVOUS SYSTEM:No focal deficits. - Labs CBC & Chem 7: 07/11/19 08:03 07/11/19 08:03 Labs: Microbiology - Last 24 Hours (Table) 07/10/19 14:00 Blood Culture - Preliminary Blood No Growth after 48 hours Assessment and Plan Assessment: Acute asthma exacerbation with tracheobronchitis Vocal cord dysfunction syndrome Obstructive sleep apnea Morbid obesity, BMI 37.4 History of DVT, PE Plan: Continue current medication regime ,monitoring and symptomatic treatment. Maintain nebulized bronchodilators, IV steroids, antibiotics. Follow closely with pulmonary. Further recommendations to follow. The impression and plan of care has been dictated as directed. : I performed a history and examination of this patient, discussed the same with the dictator. I agree with the dictator's note ,documented as a scribe. Any additional findings or plans will be noted.
[2019-07-12] MEDS: BREXPIPRAZOLE 2 MG PO SCH (21:36)
[2019-07-12] MEDS: SUVOREXANT 20 MG PO SCH (21:37)
[2019-07-12] MEDS: MONTELUKAST 10 MG TAB PO SCH (21:37)
[2019-07-13] MEDS: KETOROLAC 30 MG/ML 1 ML VIAL IVP SCH ×5 (00:06→23:08)
[2019-07-13] MEDS: methylPREDNISolone SOD SUCCI 125 MG/2 ML VIAL IV SCH ×5 (00:06→23:09)
[2019-07-13] MEDS: HYDROmorphone 0.5 MG/0.5 ML SYRINGE IVP PRN ×4 (05:04→23:07)
[2019-07-13] MEDS: guaiFENesin-DM 100-10MG/5ML 10 ML CUP PO PRN ×3 (05:38→20:45)
[2019-07-13] MEDS: LEVOTHYROXINE 75 MCG TAB PO SCH (05:38)
[2019-07-13] MEDS: SYMBICORT 160-4.5 MCG INHALER INHALATION SCH ×2 (07:19→18:43)
[2019-07-13] MEDS: IPRATROPIUM-ALBUTEROL 3 ML NEB INHALATION SCH ×4 (07:19→18:43)
[2019-07-13] MEDS: SERTRALINE 100 MG TAB PO SCH ×2 (08:27→20:45)
[2019-07-13] MEDS: PREGABALIN 75 MG CAP PO SCH ×3 (08:27→20:44)
[2019-07-13] MEDS: PANTOPRAZOLE 40 MG TABLET PO SCH (08:28)
[2019-07-13] MEDS: APIXABAN 5 MG TAB PO SCH ×2 (08:28→20:44)
[2019-07-13] MEDS: LORATADINE 10 MG TAB PO SCH (08:28)
[2019-07-13] MEDS: HYDROcodone/APAP 10-325MG 1 EACH TAB PO SCH ×3 (08:28→20:44)
[2019-07-13] MEDS: buPROPion XL 150 MG TAB.ER.24H PO SCH ×2 (08:30→20:45)
[2019-07-13] MEDS: OXYBUTYNIN 10 MG TAB.ER.24 PO SCH (08:30)
[2019-07-13 11:46] LABS: HCT 45.3 % (34.0-46.0); HGB 14.3 gm/dL (11.4-16.0); MCH 30.6 pg (25.0-35.0); MCHC 31.6 g/dL (31.0-37.0); MCV 96.8 fL (80.0-100.0); Mean Platelet Volume 8.7; Platelet Count 134 k/uL (150-450); RBC 4.67 m/uL (3.80-5.40); RDW 13.1 % (11.5-15.5); WBC 12.6 k/uL (3.8-10.6)
[2019-07-13 11:53] LABS: African American GFR (CKD) >90 (>60 ml/min/1.73 sqM); Anion Gap 9 mmol/L; Blood Urea Nitrogen 21 mg/dL (7-17); Calcium 8.8 mg/dL (8.4-10.2); Carbon Dioxide 23 mmol/L (22-30); Chloride 105 mmol/L (98-107); Glucose 159 mg/dL (74-99); Non-African American GFR(CKD) >90 (>60 ml/min/1.73 sqM); Potassium 4.7 mmol/L (3.5-5.1); Sodium 137 mmol/L (137-145)
[2019-07-13] MEDS: AZITHROMYCIN 500 MG in SODIUM CHLORIDE 0.9% 250 ML IVPB SCH (14:17)
--- NOTE | 2019-07-13 16:14 | P.PN ---
Subjective Progress Note Date: 07/13/19 This a 48-year-old female admitted with acute asthma exacerbation with tracheobronchitis, maintained on systemic IV steroids, IV antibiotics, nebulized bronchodilators , with slow improvement. 07/13/2019 Feels better this morning. Good diet intake with no nausea vomiting or diarrhea. Afebrile. Ambulating in hallway, tolerating exertion well. Fluctuating inspiratory wheezing. Denies chest pain, palpitations or shortness of breath. Denies lightheadedness, dizziness or focal deficits. Objective - Vital Signs Vital signs: Vital Signs Temp 97.0 F L 07/13/19 11:08 Pulse 81 07/13/19 15:39 Resp 18 07/13/19 15:39 BP 142/82 07/13/19 11:08 Pulse Ox 95 07/13/19 15:29 Intake & Output 07/12/19 07/13/19 07/13/19 18:59 06:59 18:59 Intake Total 50 Balance 50 Intake: Intake, IV Titration 50 Amount cefTRIAXone 1 gm In 50 Sodium Chloride 0.9% 50 ml @ 100 mls/hr IVPB Q12HR [facility] Rx#:[id number] Other: Voiding Method Toilet Toilet # Voids 1 - Exam GENERAL: Alert and oriented 3, no acute distress, sitting up in bed. CARDIOVASCULAR: S1, S2 regular.No murmur RESPIRATION: Respiratory effort unlabored, Breath sounds diminished in the bases. Inspiratory wheezing ABDOMEN: Soft, nontender . No guarding. no masses palpable.Bowel sounds heard. NERVOUS SYSTEM:No focal deficits. - Labs CBC & Chem 7: 07/13/19 10:59 07/13/19 10:59 Labs: Abnormal Lab Results - Last 24 Hours (Table) 07/13/19 07/13/19 Range/Units 10:59 10:59 WBC 12.6 H (3.8-10.6) k/uL Plt Count 134 L (150-450) k/uL BUN 21 H (7-17) mg/dL Glucose 159 H (74-99) mg/dL Microbiology - Last 24 Hours (Table) 07/10/19 14:00 Blood Culture - Preliminary Blood No Growth after 72 hours Assessment and Plan Assessment: Acute asthma exacerbation with tracheobronchitis Vocal cord dysfunction syndrome Obstructive sleep apnea Morbid obesity, BMI 37.4 History of DVT, PE Plan: Continue current medication regime ,monitoring and symptomatic treatment. Maintain nebulized bronchodilators, IV steroids, antibiotics. Steroid weaning, discharge planning in progress pending pulmonary clearance. InCrease ambulation as tolerated. The impression and plan of care has been dictated as directed. : I performed a history and examination of this patient, discussed the same with the dictator. I agree with the dictator's note ,documented as a scribe. Any additional findings or plans will be noted.
--- NOTE | 2019-07-13 16:15 | P.PN ---
Subjective Progress Note Date: 07/13/19 Principal diagnosis: Vocal cord dysfunction syndrome Acute COPD exacerbation Tracheobronchitis Obstructive sleep apnea DVT PE on lifelong anticoagulation Morbid obesity is status post weight loss surgery Obstructive sleep apnea on CPAP 07/13/2019, patient seen eval examined during the rounds labs reviewed medications reviewed and is still short of breath cough congested, patient had intermittent inspiratory stridor as well, overall respiratory pattern is not much different than baseline will plan to continue current plan of care and follow closely 07/12/2019, patient seen eval examined during the rounds labs reviewed medications reviewed care plan discussed with the patient today patient is manifesting some inspiratory stridor which is slightly different than yesterday, patient is being kept on IV steroids breathing treatment continue that observe clinical course closely Objective - Vital Signs Vital signs: Vital Signs Temp 97.0 F L 07/13/19 11:08 Pulse 81 07/13/19 15:39 Resp 18 07/13/19 15:39 BP 142/82 07/13/19 11:08 Pulse Ox 95 07/13/19 15:29 Intake & Output 07/12/19 07/13/19 07/13/19 18:59 06:59 18:59 Intake Total 50 Balance 50 Intake: Intake, IV Titration 50 Amount cefTRIAXone 1 gm In 50 Sodium Chloride 0.9% 50 ml @ 100 mls/hr IVPB Q12HR [facility] Rx#:[id number] Other: Voiding Method Toilet Toilet # Voids 1 - Exam - Constitutional General appearance: disheveled, morbidly obese - EENT Eyes: EOMI, PERRLA, normal appearance ENT: normal oropharynx Ears: bilateral: normal - Neck Neck: normal ROM Carotids: bilateral: upstroke normal Thyroid: bilateral: normal size - Respiratory Respiratory: bilateral: CTA - Cardiovascular Rhythm: regular Heart sounds: normal: S1, S2 - Gastrointestinal General gastrointestinal: normal bowel sounds - Integumentary Integumentary: normal turgor - Neurologic Neurologic: CNII-XII intact - Musculoskeletal Musculoskeletal: gait normal, generalized weakness, strength equal bilaterally - Psychiatric Psychiatric: A&O x's 3, appropriate affect, intact judgment & insight - Labs CBC & Chem 7: 07/13/19 10:59 07/13/19 10:59 Labs: Abnormal Lab Results - Last 24 Hours (Table) 07/13/19 07/13/19 Range/Units 10:59 10:59 WBC 12.6 H (3.8-10.6) k/uL Plt Count 134 L (150-450) k/uL BUN 21 H (7-17) mg/dL Glucose 159 H (74-99) mg/dL Microbiology - Last 24 Hours (Table) 07/10/19 14:00 Blood Culture - Preliminary Blood No Growth after 72 hours Assessment and Plan Assessment: Vocal cord dysfunction syndrome Acute COPD exacerbation Tracheobronchitis Obstructive sleep apnea DVT PE on lifelong anticoagulation Morbid obesity is status post weight loss surgery Obstructive sleep apnea on CPAP Plan: Continue IV steroids breathing treatment antibiotics, continue home medications, patient can be continued on CPAP from home, consider ENT consultation if patient continued to manifest inspiratory stridor Time with Patient: Greater than 30
[2019-07-13] MEDS: SUVOREXANT 20 MG PO SCH (20:45)
[2019-07-13] MEDS: MONTELUKAST 10 MG TAB PO SCH (20:45)
[2019-07-13] MEDS: BREXPIPRAZOLE 2 MG PO SCH (20:46)
[2019-07-14] MEDS: HYDROmorphone 0.5 MG/0.5 ML SYRINGE IVP PRN ×2 (05:29→11:29)
[2019-07-14] MEDS: methylPREDNISolone SOD SUCCI 125 MG/2 ML VIAL IV SCH ×2 (05:29→12:47)
[2019-07-14] MEDS: LEVOTHYROXINE 75 MCG TAB PO SCH (05:30)
[2019-07-14] MEDS: KETOROLAC 30 MG/ML 1 ML VIAL IVP SCH ×2 (06:15→12:47)
[2019-07-14] MEDS: IPRATROPIUM-ALBUTEROL 3 ML NEB INHALATION SCH ×2 (08:02→11:20)
[2019-07-14] MEDS: SYMBICORT 160-4.5 MCG INHALER INHALATION SCH (08:02)
[2019-07-14] MEDS: buPROPion XL 150 MG TAB.ER.24H PO SCH (09:42)
[2019-07-14] MEDS: PANTOPRAZOLE 40 MG TABLET PO SCH (09:42)
[2019-07-14] MEDS: PREGABALIN 75 MG CAP PO SCH (09:42)
[2019-07-14] MEDS: LORATADINE 10 MG TAB PO SCH (09:42)
[2019-07-14] MEDS: APIXABAN 5 MG TAB PO SCH (09:43)
[2019-07-14] MEDS: HYDROcodone/APAP 10-325MG 1 EACH TAB PO SCH (09:43)
[2019-07-14] MEDS: SERTRALINE 100 MG TAB PO SCH (09:43)
[2019-07-14] MEDS: OXYBUTYNIN 10 MG TAB.ER.24 PO SCH (09:44)
[2019-07-14] MEDS: guaiFENesin-DM 100-10MG/5ML 10 ML CUP PO PRN (11:29)
[2019-07-14 12:06] VITALS: BP 176/93; PULSE 90; RESP 17; TEMP 97.8
--- NOTE | 2019-07-14 16:15 | P.DS ---
Providers Date of admission: 07/10/19 14:25 Expected date of discharge: 07/14/19 Attending physician: Tyler Black Consults: 07/10/19 19:02 Consult Physician Routine Consulting Provider: Philip Huber Consult Reason/Comments: asthma Do you want consulting provider notified?: Yes Primary care physician: [facility] Hospital Course: Final Diagnoses: Acute asthma exacerbation with tracheobronchitis Vocal cord dysfunction syndrome Obstructive sleep apnea Morbid obesity, BMI 37.4 History of DVT, PE This a 48-year-old female admitted with acute asthma exacerbation with tracheobronchitis, maintained on systemic IV steroids, IV antibiotics, nebulized bronchodilators , with slow improvement. 07/13/2019 Feels better this morning. Good diet intake with no nausea vomiting or diarrhea. Afebrile. Ambulating in hallway, tolerating exertion well. Fluctuating inspiratory wheezing. Denies chest pain, palpitations or shortness of breath. Denies lightheadedness, dizziness or focal deficits. Significant clinical improvement. Cleared by pulmonary for discharge. Patient is being discharged home in a stable condition with guarded prognosis. The impression and plan of care has been dictated as directed. : I performed a history and examination of this patient, discussed the same with the dictator. I agree with the dictator's note ,documented as a scribe. Any additional findings or plans will be noted. Patient Condition at Discharge: Stable Plan - Discharge Summary Discharge Rx Participant: No New Discharge Prescriptions: New Cefuroxime Axetil [Ceftin] 500 mg PO BID 3 Days #6 tab predniSONE 10 mg PO DIRECTED #30 tab Azithromycin [Zithromax] 500 mg PO DAILY 3 Days #3 tab Continue Pregabalin [Lyrica] 150 mg PO TID Montelukast [Singulair] 10 mg PO HS Budesonide/Formoterol Fumarate [Symbicort 160-4.5 Mcg Inhaler] 2 puff INHALATION RT-BID Levothyroxine Sodium [Synthroid] 150 mcg PO DAILY Suvorexant [Belsomra] 20 mg PO HS buPROPion HCL [Wellbutrin XL] 150 mg PO BID Brexpiprazole [Rexulti] 2 mg PO HS Albuterol Inhaler [Ventolin Hfa Inhaler] 2 puff INHALATION RT-QID PRN PRN Reason: Shortness Of Breath Umeclidinium [place] [Incruse Ellipta] 1 puff INHALATION RT-HS HYDROcodone/APAP 10-325MG [[place] 10-325] 1 tab PO TID Sertraline [Zoloft] 100 mg PO BID Ipratropium-Albuterol Nebulize [Duoneb 0.5 mg-3 mg/3 ml Soln] 3 ml INHALATION RT-QID PRN PRN Reason: Shortness Of Breath Apixaban [Eliquis] 5 mg PO BID #60 tab tiZANidine [Zanaflex] 4 mg PO Q8H Oxybutynin Chloride [Oxybutynin Chloride ER] 10 mg PO DAILY Loratadine [Claritin] 10 mg PO DAILY tab guaiFENesin-DM 100-10MG/5ML [Robitussin DM] 10 ml PO Q6H PRN ml PRN Reason: Cough Omeprazole [PriLOSEC] 40 mg PO DAILY Discontinued predniSONE See Taper PO DIRECTED Discharge Medication List Pregabalin [Lyrica] 150 mg PO TID 10/09/14 [History] Montelukast [Singulair] 10 mg PO HS 06/23/15 [History] Budesonide/Formoterol Fumarate [Symbicort 160-4.5 Mcg Inhaler] 2 puff INHALATION RT-BID 02/16/17 [History] Levothyroxine Sodium [Synthroid] 150 mcg PO DAILY 02/16/17 [History] Suvorexant [Belsomra] 20 mg PO HS 05/03/18 [History] buPROPion HCL [Wellbutrin XL] 150 mg PO BID 08/17/18 [History] Albuterol Inhaler [Ventolin Hfa Inhaler] 2 puff INHALATION RT-QID PRN 11/05/18 [History] Brexpiprazole [Rexulti] 2 mg PO HS 11/05/18 [History] Umeclidinium [place] [Incruse Ellipta] 1 puff INHALATION RT-HS 11/05/18 [History] HYDROcodone/APAP 10-325MG [[place] 10-325] 1 tab PO TID 01/05/19 [History] Ipratropium-Albuterol Nebulize [Duoneb 0.5 mg-3 mg/3 ml Soln] 3 ml INHALATION RT-QID PRN 01/05/19 [History] Sertraline [Zoloft] 100 mg PO BID 01/05/19 [History] Apixaban [Eliquis] 5 mg PO BID #60 tab 01/10/19 [Rx] Oxybutynin Chloride [Oxybutynin Chloride ER] 10 mg PO DAILY 06/28/19 [History] tiZANidine [Zanaflex] 4 mg PO Q8H 06/28/19 [History] Loratadine [Claritin] 10 mg PO DAILY tab 06/30/19 [Rx] guaiFENesin-DM 100-10MG/5ML [Robitussin DM] 10 ml PO Q6H PRN ml 06/30/19 [Rx] Omeprazole [PriLOSEC] 40 mg PO DAILY 07/10/19 [History] Azithromycin [Zithromax] 500 mg PO DAILY 3 Days #3 tab 07/14/19 [Rx] Cefuroxime Axetil [Ceftin] 500 mg PO BID 3 Days #6 tab 07/14/19 [Rx] predniSONE 10 mg PO DIRECTED #30 tab 07/14/19 [Rx] Follow up Appointment(s)/Referral(s): [facility] pt[facility] choice [Other] - 1 Week Tyler Black MD [Primary Care Provider] - 3 Days (Patient prefers to make own follow-up appts. ) Philip Huber MD [STAFF PHYSICIAN] - 1 Week (Patient prefers to make own follow-up appts. ) Ambulatory/Diagnostic Orders: Complete Blood Count w/diff [LAB.AMB] Time Frame: 3 Days, Location: None Selected Patient Instructions/Handouts: Cefuroxime (By mouth), Prednisone (By mouth), Azithromycin (By mouth), COPD (Chronic Obstructive Pulmonary Disease) (DC), Dyspnea (DC) Activity/Diet/Wound Care/Special Instructions: Activity as tolerated. Discharge Disposition: HOME SELF-CARE
== END 2019-07-14 14:00 | disposition home or self-care (01) | DRG 190 ==
LOC: EC 09:40 → 5NMEDONC 14:25
PROVIDERS: ADMIT Family Medicine; ATTEND Family Medicine
PROC: 5A09457 Assistance with Respiratory Ventilation, 24-96 Consecutive Hours, Continuous Positive Airway Pressure (ICD-10-PCS; principal; 2019-07-12)
DX: J44.1 Chronic obstructive pulmonary disease with (acute) exacerbation (principal); J96.01 Acute respiratory failure with hypoxia; J45.901 Unspecified asthma with (acute) exacerbation; E87.1 Hypo-osmolality and hyponatremia; J38.00 Paralysis of vocal cords and larynx, unspecified; J20.9 Acute bronchitis, unspecified; J44.0 Chronic obstructive pulmonary disease with (acute) lower respiratory infection; G40.909 Epilepsy, unspecified, not intractable, without status epilepticus; K21.9 Gastro-esophageal reflux disease without esophagitis; M79.7 Fibromyalgia; G47.33 Obstructive sleep apnea (adult) (pediatric); G62.9 Polyneuropathy, unspecified; E03.9 Hypothyroidism, unspecified; G47.00 Insomnia, unspecified; G43.909 Migraine, unspecified, not intractable, without status migrainosus; M51.16 Intervertebral disc disorders with radiculopathy, lumbar region; F41.9 Anxiety disorder, unspecified; F32.9 Major depressive disorder, single episode, unspecified; E87.5 Hyperkalemia; E66.01 Morbid (severe) obesity due to excess calories; Z68.37 Body mass index [BMI] 37.0-37.9, adult; Z79.01 Long term (current) use of anticoagulants; Z86.711 Personal history of pulmonary embolism; Z79.899 Other long term (current) drug therapy; Z79.51 Long term (current) use of inhaled steroids; Z79.890 Hormone replacement therapy; Z87.01 Personal history of pneumonia (recurrent); Z87.11 Personal history of peptic ulcer disease; Z86.19 Personal history of other infectious and parasitic diseases; Z98.84 Bariatric surgery status; Z90.49 Acquired absence of other specified parts of digestive tract; Z96.651 Presence of right artificial knee joint; Z96.641 Presence of right artificial hip joint; Z98.890 Other specified postprocedural states; Z96.82 Presence of neurostimulator; Z95.828 Presence of other vascular implants and grafts; Z80.9 Family history of malignant neoplasm, unspecified; Z86.718 Personal history of other venous thrombosis and embolism; Z83.3 Family history of diabetes mellitus; Z82.49 Family history of ischemic heart disease and other diseases of the circulatory system; Z82.3 Family history of stroke; Z83.49 Family history of other endocrine, nutritional and metabolic diseases; Z82.69 Family history of other diseases of the musculoskeletal system and connective tissue
CPT/HCPCS: 36415; 71045; 71275; 80048; 80053; 83735; 83880; 84132; 84484; 85025; 85027; 85610; 85730; 87040; 87502; 93005; 94640; 94760; 96365; 96366; 96367; 96375; 96376; 99285

== ENCOUNTER → 2019-07-17 | Outpatient (CLI) | payer MEDICARE, OTHER ==
[2019-07-17 09:53] LABS: HCT 47.9 % (34.0-46.0); HGB 15.3 gm/dL (11.4-16.0); MCH 30.5 pg (25.0-35.0); MCV 95.2 fL (80.0-100.0); Mean Platelet Volume 8.7; Platelet Count 148 k/uL (150-450); RBC 5.03 m/uL (3.80-5.40); RDW 13.1 % (11.5-15.5); WBC 9.8 k/uL (3.8-10.6)
[2019-07-17 16:38] LABS: African American GFR (CKD) 88.9 (60.0-200.0); Anion Gap 8.9 mmol/L (4.00-12.00); BUN/Creat Ratio 15.56 Ratio (12.00-20.00); Calcium 8.6 mg/dL (8.7-10.3); Carbon Dioxide 27.1 mmol/L (21.6-31.8); Non-African American GFR(CKD) 76.7 (60.0-200.0); Potassium 4.8 mmol/L (3.5-5.5)
== END | disposition home or self-care (01) ==
LOC: LABWHC1 09:09
PROVIDERS: ATTEND Nurse Practitioner
DX: J44.9 Chronic obstructive pulmonary disease, unspecified (principal); J40 Bronchitis, not specified as acute or chronic
CPT/HCPCS: 36415; 80048; 85027

== ENCOUNTER → 2019-07-25 | Outpatient (CLI) | payer MEDICARE, OTHER ==
[2019-07-25 12:31] LABS: African American GFR (CKD) >90 (>60 ml/min/1.73 sqM); Blood Urea Nitrogen 8 mg/dL (7-17); Non-African American GFR(CKD) 84 (>60 ml/min/1.73 sqM)
--- NOTE | 2019-07-25 13:16 | CT ---
EXAMINATION TYPE: CT angio chest DATE OF EXAM: 07/25/2019 COMPARISON: 07/10/2019 HISTORY: 48-year-old female Follow up for PE. TECHNIQUE: Contiguous axial scanning of the chest performed with IV Contrast, patient injected with 6 5ml mL of Isovue 370. Coronal/sagittal MIP reconstructions performed. CT DLP: 576 mGycm Automated exposure control for dose reduction was used. FINDINGS: Heart normal size without pericardial effusion. No flattening of the interventricular septum or reflu x of contrast into the hepatic veins. Borderline suboptimal contrast bolus. No definite pulmonary embolus. Aorta normal caliber with bovine configuration to the aortic arch. No thoracic lymphadenopathy. Large patient body habitus causes artifacts. Evaluation of the lungs shows mild diffuse bronchial wall thickening and some mild dependent atelecta sis. No consolidation or pleural effusion. Visualized upper abdomen with suspected hepatic steatosis. Cholecystectomy clips. Post surgical carey es of sleeve gastrectomy. Bones: Spinal stimulator array along the lower thoracic spinal canal. DISH within the lower thoracic spine with mild degenerative disc disease. IMPRESSION: 1. BORDERLINE SUBOPTIMAL CONTRAST BOLUS. NO DEFINITE PULMONARY EMBOLUS. 2. MILD DIFFUSE BRONCHIAL WALL THICKENING COULD REFLECT BRONCHITIS OR ASTHMA. 3. HEPATIC STEATOSIS.
== END | disposition home or self-care (01) ==
LOC: RADCTMAIN 11:14
PROVIDERS: ATTEND Internal Medicine Hematology & Oncology
DX: J98.09 Other diseases of bronchus, not elsewhere classified (principal); K76.0 Fatty (change of) liver, not elsewhere classified
CPT/HCPCS: 82565; 84520; 71275; 36415; Q9967

== ENCOUNTER 2019-08-14 19:25 | Emergency (ER) | payer MEDICARE, OTHER ==
[2019-08-14] MEDS ORDERED: KETOROLAC 60 MG/2 ML VIAL IM STA (19:51)
--- NOTE | 2019-08-14 19:56 | ED ---
General Adult HPI - General Chief complaint: Extremity Injury, Lower Stated complaint: Low Back Pain Time Seen by Provider: 08/14/19 19:35 Source: patient Mode of arrival: ambulatory Limitations: no limitations - History of Present Illness Initial comments: Patient is a 48-year-old female presenting to emergency Department with complaints of low back pain 3 days. Patient states she has a history of chronic low back pain and currently has a pain stimulator. She denies any trauma or falls. She states she did turn this up however did not help. She also has [place] as at home and a muscle relaxers the states neither one of those have been helping. Patient states she is getting some numbness into both of her legs has been intermittent. She denies any saddle paresthesias, bowel or bladder incontinence. She denies fever, chills, abdominal pain. Her back doctor is Dr. Dukes. She denies any other complaints at this time. Upon arrival to the ER, vital signs are stable. - Related Data Home Medications Medication Instructions Recorded Confirmed Pregabalin [Lyrica] 150 mg PO TID 10/09/14 07/10/19 Montelukast [Singulair] 10 mg PO HS 06/23/15 07/10/19 Budesonide/Formoterol Fumarate 2 puff INHALATION RT-BID 02/16/17 07/10/19 [Symbicort 160-4.5 Mcg Inhaler] Levothyroxine Sodium [Synthroid] 150 mcg PO DAILY 02/16/17 07/10/19 Suvorexant [Belsomra] 20 mg PO HS 05/03/18 07/10/19 buPROPion HCL [Wellbutrin XL] 150 mg PO BID 08/17/18 07/10/19 Albuterol Inhaler [Ventolin Hfa 2 puff INHALATION RT-QID PRN 11/05/18 07/10/19 Inhaler] Brexpiprazole [Rexulti] 2 mg PO HS 11/05/18 07/10/19 Umeclidinium [place] [Incruse 1 puff INHALATION RT-HS 11/05/18 07/10/19 Ellipta] HYDROcodone/APAP 10-325MG [[place] 1 tab PO TID 01/05/19 07/10/19 10-325] Ipratropium-Albuterol Nebulize 3 ml INHALATION RT-QID PRN 01/05/19 07/10/19 [Duoneb 0.5 mg-3 mg/3 ml Soln] Sertraline [Zoloft] 100 mg PO BID 01/05/19 07/10/19 Oxybutynin Chloride [Oxybutynin 10 mg PO DAILY 06/28/19 07/10/19 Chloride ER] tiZANidine [Zanaflex] 4 mg PO Q8H 06/28/19 07/10/19 Omeprazole [PriLOSEC] 40 mg PO DAILY 07/10/19 07/10/19 Previous Rx's Medication Instructions Recorded Apixaban [Eliquis] 5 mg PO BID #60 tab 01/10/19 Loratadine [Claritin] 10 mg PO DAILY tab 06/30/19 guaiFENesin-DM 100-10MG/5ML 10 ml PO Q6H PRN ml 06/30/19 [Robitussin DM] Azithromycin [Zithromax] 500 mg PO DAILY 3 Days #3 tab 07/14/19 Cefuroxime Axetil [Ceftin] 500 mg PO BID 3 Days #6 tab 07/14/19 predniSONE 10 mg PO DIRECTED #30 tab 07/14/19 Allergies Allergy/AdvReac Type Severity Reaction Status Date / Time No Known Allergies Allergy Verified 08/14/19 19:33 Review of Systems ROS Statement: Those systems with pertinent positive or pertinent negative responses have been documented in the HPI. ROS Other: All systems not noted in ROS Statement are negative. Past Medical History Past Medical History: Asthma, COPD, Fibromyalgia, GERD/Reflux, Pneumonia, Pulmonary Embolus (PE), Seizure Disorder, Sleep Apnea/CPAP/BIPAP, Thyroid Disorder Additional Past Medical History / Comment(s): Chronic asthma, chronic COPD, recurrent pneumonias, hx of respiratory stridor, PE in 2003 and 2009, MAGALI with CPAP , psuedo seizures with last one in 2016, past gastric ulcer, DDD, LOWER BACK PAIN- RADIATES DOWN RT LEG, R toes,neuropathy, generalized pain from fibromyalgia, chronic MIGRAINES, hypothyroidism, urinary leakage at times, healed wound on abdomen from surgical dehiscence, insomnia, cellulitis R arm. History of Any Multi-Drug Resistant Organisms: None Reported Past Surgical History: Back Surgery, Bariatric Surgery, Cholecystectomy, Joint Replacement, Orthopedic Surgery Additional Past Surgical History / Comment(s): 11/12/16 bronchoscopy wit BAL, gastric bypass 2011, panniculectomy with wound dehiscence/debridements, GREEN FI ELD FILTER, RIGHT KNEE ARTHROSCOPY, Rt knee replacement, rt hip replacement PAIN PROC FOR BACK PAIN-has nerve stimulator, BACK SX FOR HERNIATED DISC LOWER BACK, EGDs. Past Anesthesia/Blood Transfusion Reactions: No Reported Reaction Past Psychological History: Anxiety, Depression Smoking Status: Never smoker Past Alcohol Use History: None Reported Past Drug Use History: None Reported - Past Family History Brother(s) Family Medical History: Cancer Additional Family Medical History / Comment(s): spine Father Family Medical History: Coronary Artery Disease (CAD), CVA/TIA, Diabetes Mellitus, Hypertension, Thyroid Disorder Additional Family Medical History / Comment(s): X3 STROKES, STENTS IN HEART,Pacemaker Mother Family Medical History: Diabetes Mellitus, Hypertension, Thyroid Disorder Additional Family Medical History / Comment(s): KNEE REPLACEMENTS General Exam - General Exam Comments Initial Comments: GENERAL: Well-appearing, well-nourished and in no acute distress. HEAD: Atraumatic, normocephalic. EYES: Pupils equal round and reactive to light, extraocular movements intact, sclera anicteric, conjunctiva are normal. ENT: Moist mucous membranes. NECK: Normal range of motion, supple without lymphadenopathy or JVD. LUNGS: Breath sounds clear to auscultation bilaterally and equal. No wheezes rales or rhonchi. HEART: Regular rate and rhythm without murmurs, rubs or gallops. ABDOMEN: Soft, nontender, normoactive bowel sounds. No guarding, no rebound. No masses appreciated. : Deferred EXTREMITIES: Normal range of motion of his lower and upper extremities. Patient was able to sit forward on the bed with legs extended without pain. She has a normal gait. No pitting or edema. No clubbing or cyanosis. Patient has pain with palpation of the lumbar paraspinals bilaterally. She has increased pain with extension and flexion of the trunk. NEUROLOGICAL: Normal speech, normal gait. PSYCH: Normal mood, normal affect. SKIN: Warm, Dry, normal turgor, no rashes or lesions noted. Limitations: no limitations Course Vital Signs 08/14/19 19:30 Temperature 98.2 F Pulse Rate 93 Respiratory 20 Rate Blood Pressure 126/80 O2 Sat by Pulse 97 Oximetry Medical Decision Making - Medical Decision Making Patient is a 48-year-old female presenting with low back pain 3 days. She has chronic low back pain and currently has a pain stimulator. Patient sees Dr. Lopez. No history of trauma or falls. No red flag symptoms. X-rays reveal no acute fractures or changes. Patient was given Toradol and Valium in the ER reports mild improvement in her symptoms. I discussed with patient to continue with her already prescribed pain medicine as well as muscle relaxers at home. She will follow-up with her doctor as needed if symptoms persist. Patient is in agreement with this plan of care. Return parameters were discussed with the patient she verbalized understanding. Case discussed with Dr. Tom. Disposition Clinical Impression: Chronic low back pain Disposition: HOME SELF-CARE Condition: Stable Instructions (If sedation given, give patient instructions): Chronic Back Pain (DC) Additional Instructions: Please return to the Emergency Department if symptoms worsen or any other concerns. His symptoms persist follow-up with your doctor as discussed. Continue using heat to the area as well as already prescribed a muscle relaxers and pain control. Is patient prescribed a controlled substance at d/c from ED?: No Referrals: Tyler Black MD [Primary Care Provider] - 1-2 days
[2019-08-14] MEDS ORDERED: DIAZEPAM 5 MG TAB PO STA (20:26)
--- NOTE | 2019-08-14 20:55 | XR ---
EXAMINATION TYPE: XR lumbar spine 2 or 3V DATE OF EXAM: 08/14/2019 COMPARISON: 11/20/2013 HISTORY: Back pain TECHNIQUE: 3 views FINDINGS: Vertebra have normal alignment. There is slight narrowing of L4-5 disc space. There is infe rior vena cava filter noted. There is no compression fracture. Posterior elements are intact. Sacroil iac joints appear normal. IMPRESSION: Mild spondylosis at L4-5 unchanged. No fracture seen.
[2019-08-14 21:15] VITALS: BP 130/78; PULSE 88; RESP 18; TEMP 98
== END 2019-08-14 21:15 | disposition home or self-care (01) ==
LOC: EC 19:25
DX: G89.29 Other chronic pain (principal); M54.5 Low back pain; M79.7 Fibromyalgia; K21.9 Gastro-esophageal reflux disease without esophagitis; F41.9 Anxiety disorder, unspecified; F32.9 Major depressive disorder, single episode, unspecified; J44.9 Chronic obstructive pulmonary disease, unspecified; E03.9 Hypothyroidism, unspecified; G40.909 Epilepsy, unspecified, not intractable, without status epilepticus; G47.33 Obstructive sleep apnea (adult) (pediatric); Z79.51 Long term (current) use of inhaled steroids; Z79.899 Other long term (current) drug therapy; Z79.891 Long term (current) use of opiate analgesic; Z79.890 Hormone replacement therapy; Z86.711 Personal history of pulmonary embolism; Z87.19 Personal history of other diseases of the digestive system; Z96.641 Presence of right artificial hip joint; Z98.84 Bariatric surgery status; Z99.89 Dependence on other enabling machines and devices; Z98.890 Other specified postprocedural states; Z96.82 Presence of neurostimulator
CPT/HCPCS: 72100; 96372; 99283; J1885

== ENCOUNTER 2020-06-27 09:47 | Inpatient (IN) | payer MEDICARE, OTHER ==
[2020-06-27] MEDS ORDERED: NON FORMULARY DRUG (Galcanezumab-Gnlm [Emgality Pen] 120 MG/ML Pen.Injctr) SQ SCH (13:15)
[2020-06-27] MEDS: SODIUM CHLORIDE 0.9% 1,000 ML IV SCH (13:39)
[2020-06-27] MEDS: KETOROLAC 15 MG/ML 1 ML VIAL IM SCH ×2 (13:39→17:25)
[2020-06-27 14:00] LABS: Basophils % (A) 0 %; Eosinophils % (A) 0 %; HCT 43.2 % (34.0-46.0); HGB 14.8 gm/dL (11.4-16.0); Lymphocytes # (A) 0.5 k/uL (1.0-4.8); Lymphocytes % (A) 6 %; MCH 31.2 pg (25.0-35.0); MCHC 34.2 g/dL (31.0-37.0); MCV 91.2 fL (80.0-100.0); Mean Platelet Volume 9.5; Monocytes # (A) 0.2 k/uL (0-1.0); Monocytes % (A) 3 %; Neutrophils # (A) 7.9 k/uL (1.3-7.7); Neutrophils % (A) 91 %; Platelet Count 167 k/uL (150-450); RBC 4.74 m/uL (3.80-5.40); RDW 13.1 % (11.5-15.5); WBC 8.7 k/uL (3.8-10.6)
[2020-06-27 14:08] LABS: ALT 53 U/L (4-34); AST 51 U/L (14-36); African American GFR (CKD) >90 (>60 ml/min/1.73 sqM); Albumin 3.8 g/dL (3.5-5.0); Albumin/Globulin Ratio 1.4; Alkaline Phosphatase 112 U/L (38-126); Anion Gap 7 mmol/L; Blood Urea Nitrogen 11 mg/dL (7-17); Calcium 9.2 mg/dL (8.4-10.2); Carbon Dioxide 29 mmol/L (22-30); Chloride 103 mmol/L (98-107); Globulin 2.7 g/dL; Glucose 204 mg/dL (74-99); Non-African American GFR(CKD) >90 (>60 ml/min/1.73 sqM); Potassium 3.9 mmol/L (3.5-5.1); Sodium 139 mmol/L (137-145); Total Bilirubin 0.4 mg/dL (0.2-1.3); Total Protein 6.5 g/dL (6.3-8.2)
--- NOTE | 2020-06-27 14:59 | XR ---
EXAMINATION TYPE: XR chest 2V DATE OF EXAM: 06/27/2020 COMPARISON: 07/10/2019 INDICATION: Dyspnea TECHNIQUE: Single frontal view of the chest is obtained. FINDINGS: The heart size is normal. The pulmonary vasculature is normal. The lungs are clear. IMPRESSION: 1. No acute pulmonary process.
[2020-06-27] MEDS: methylPREDNISolone SOD SUCCI 40 MG/ML 1 ML VIAL IV SCH ×2 (15:00→23:46)
[2020-06-27] MEDS: tiZANidine 4 MG TAB PO SCH ×2 (15:00→22:06)
[2020-06-27] MEDS: HYDROcodone/APAP 10-325MG 1 EACH TAB PO SCH ×2 (15:00→22:05)
[2020-06-27] MEDS: AZITHROMYCIN 500 MG in SODIUM CHLORIDE 0.9% 250 ML IVPB SCH (15:01)
[2020-06-27] MEDS: PREGABALIN 75 MG CAP PO SCH ×2 (15:01→22:06)
[2020-06-27 17:25] LABS: Glucose,Whole Blood 147 mg/dL (75-99)
[2020-06-27] MEDS: HYDROmorphone 0.5 MG/0.5 ML SYRINGE IVP PRN (18:58)
[2020-06-27] MEDS: SERTRALINE 100 MG TAB PO SCH (22:04)
[2020-06-27] MEDS: APIXABAN 5 MG TAB PO SCH (22:04)
[2020-06-27 22:05] LABS: Glucose,Whole Blood 145 mg/dL (75-99)
[2020-06-27] MEDS: PROPRANOLOL 20 MG TAB PO SCH (22:05)
[2020-06-27] MEDS: INSULIN ASPART (NovoLOG) 100 UNIT/ML VIAL SQ SCH (22:05)
[2020-06-27] MEDS: NON FORMULARY DRUG (Brexpiprazole [Rexulti] 4 MG Tablet) PO SCH (22:05)
[2020-06-27] MEDS: MONTELUKAST 10 MG TAB PO SCH (22:05)
[2020-06-27] MEDS: buPROPion XL 150 MG TAB.ER.24H PO SCH (22:05)
[2020-06-27] MEDS: NON FORMULARY DRUG (Suvorexant [Belsomra] 20 MG Tablet) PO SCH (22:25)
[2020-06-27] MEDS: KETOROLAC 15 MG/ML 1 ML VIAL IVP SCH (23:55)
[2020-06-28] MEDS: HYDROmorphone 0.5 MG/0.5 ML SYRINGE IVP PRN ×5 (01:13→17:45)
[2020-06-28] MEDS: KETOROLAC 15 MG/ML 1 ML VIAL IVP SCH ×4 (05:16→23:25)
[2020-06-28] MEDS: LEVOTHYROXINE 75 MCG TAB PO SCH (05:17)
[2020-06-28] MEDS: SODIUM CHLORIDE 0.9% 1,000 ML IV SCH ×2 (05:18→15:31)
[2020-06-28 06:04] LABS: Basophils % (A) 0 %; Eosinophils % (A) 0 %; HCT 41.5 % (34.0-46.0); HGB 13.6 gm/dL (11.4-16.0); Lymphocytes # (A) 0.8 k/uL (1.0-4.8); Lymphocytes % (A) 8 %; MCH 30.3 pg (25.0-35.0); MCHC 32.9 g/dL (31.0-37.0); MCV 92.2 fL (80.0-100.0); Mean Platelet Volume 9.1; Monocytes # (A) 0.4 k/uL (0-1.0); Monocytes % (A) 4 %; Neutrophils # (A) 8.6 k/uL (1.3-7.7); Neutrophils % (A) 88 %; Platelet Count 145 k/uL (150-450); RDW 12.9 % (11.5-15.5); WBC 9.8 k/uL (3.8-10.6)
[2020-06-28 07:08] LABS: Glucose,Whole Blood 141 mg/dL (75-99)
[2020-06-28] MEDS: INSULIN ASPART (NovoLOG) 100 UNIT/ML VIAL SQ SCH ×4 (07:48→21:42)
[2020-06-28] MEDS: PANTOPRAZOLE 40 MG TABLET PO SCH (07:48)
[2020-06-28] MEDS: methylPREDNISolone SOD SUCCI 40 MG/ML 1 ML VIAL IV SCH ×3 (07:48→23:25)
[2020-06-28] MEDS: LORATADINE 10 MG TAB PO SCH (09:00)
[2020-06-28] MEDS: SERTRALINE 100 MG TAB PO SCH ×2 (09:00→21:42)
[2020-06-28] MEDS: APIXABAN 5 MG TAB PO SCH ×2 (09:00→21:42)
[2020-06-28] MEDS: HYDROcodone/APAP 10-325MG 1 EACH TAB PO SCH ×3 (09:00→21:41)
[2020-06-28] MEDS: MULTIVITAMINS, THERA 1 EACH TAB PO SCH (09:00)
[2020-06-28] MEDS: tiZANidine 4 MG TAB PO SCH ×3 (09:01→21:41)
[2020-06-28] MEDS: PROPRANOLOL 20 MG TAB PO SCH ×2 (09:01→22:21)
[2020-06-28] MEDS: PREGABALIN 75 MG CAP PO SCH ×3 (09:01→21:41)
[2020-06-28] MEDS: buPROPion XL 150 MG TAB.ER.24H PO SCH ×2 (09:01→22:21)
--- NOTE | 2020-06-28 09:14 | HP ---
HISTORY AND PHYSICAL A 49-year-old white female admitted with asthma, COPD exacerbation, inspiratory expiratory stridor, failing outpatient treatment with steroids, updraft treatments, antibiotics. She has a history of severe asthma, COPD with multiple admissions. She has audible inspiratory and expiratory wheezing and short of breath at rest or with any exertion. 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 REVIEW OF SYSTEMS: Fourteen-point review of systems negative except for mentioned in HPI. MEDICATIONS: 1. Lyrica 150 b.i.d. 2. Propranolol 60 b.i.d. 3. Zoloft 100 b.i.d. 4. Belsomra 20 at bedtime. 5. Zanaflex 4 mg p.r.n. 6. Protonix 40 mg daily. 7. Multivitamin daily. 8. Singulair 10 mg daily. 9. Claritin 10 mg daily. 10.Synthroid 150 mcg daily. 11.Accu-Cheks and insulin. 12.Wellbutrin XL 150 b.i.d. 13.Rexulti 4 mg at bedtime. 14.Eliquis 5 mg b.i.d. PHYSICAL EXAMINATION: She is an obese white female. INTEGUMENT: Dry skin, dry mucous membranes, poor skin turgor. CARDIOVASCULAR: S1, S2. LUNGS: Show inspiratory and expiratory wheezes. CONSTITUTIONAL: Looks weak, fatigued, disheveled. GI: Distended, obesity. EXTREMITIES: No cyanosis, clubbing, and generalized edema. ASSESSMENT: 1. Acute asthma/chronic obstructive pulmonary disease exacerbation. 2. Acute hypoxemic respiratory distress. 3. Bipolar. 4. Fibromyalgia. 5. 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 Follow up in next 24 to 48 hours for possible discharge. Pulmonary consult. IV steroids, IV antibiotics, updraft treatments, pain control for severe costochondritis of the chest. Please see further orders. MMODL / IJN: [id number] /
[2020-06-28 09:25] LABS: African American GFR (CKD) 101.8 (60.0-200.0); Albumin 4.1 g/dL (3.80-4.90); Albumin/Globulin Ratio 2.73 (1.60-3.17); Anion Gap 7.5 mmol/L (4.00-12.00); BUN/Creat Ratio 17.5 Ratio (12.00-20.00); Calcium 8.9 mg/dL (8.7-10.3); Carbon Dioxide 23.5 mmol/L (21.6-31.8); Globulin 1.5 g/dL (1.6-3.3); Non-African American GFR(CKD) 87.8 (60.0-200.0); Potassium 4.4 mmol/L (3.5-5.5); Total Bilirubin 0.2 mg/dL (0.3-1.2); Total Protein 5.6 g/dL (6.2-8.2)
--- NOTE | 2020-06-28 10:33 | P.CNPUL ---
History of Present Illness Consult date: 06/28/20 Reason for consult: dyspnea, cough, COPD, obstructive sleep apnea Chief complaint: Shortness of breath and cough History of present illness: This is a 49-year-old female seen examined on third fourth floor patient given the hospital with increasing shortness of breath cough congestion for 3 days, symptoms of progressive she also developed inspiratory stridor was admitted into hospital for IV antibiotics breathing treatments steroids, patient has significant history of obstructive sleep apnea DVT PE morbid obesity Review of Systems All systems: negative Past Medical History Past Medical History: Asthma, COPD, Diabetes Mellitus, Fibromyalgia, GERD/Reflux, Pneumonia, Pulmonary Embolus (PE), Seizure Disorder, Sleep Apnea/CPAP/BIPAP, Thyroid Disorder Additional Past Medical History / Comment(s): Chronic asthma, chronic COPD, recurrent pneumonias, bronchitis, hx of respiratory stridor, PE in 2003 and 2009-bilateral lungs, MAGALI with CPAP, NIDDM type II-pt states borderline, psuedo seizures with last one in 2017, past gastric ulcer, DDD, LOWER BACK PAIN- RADIATES DOWN RT LEG, R toes,neuropathy, generalized pain from fibromyalgia, chronic MIGRAINES, seasonal allergies, hypothyroidism, urinary leakage at times, healed wound on abdomen from surgical dehiscence, insomnia, cellulitis R arm, pt has had wound dehiscence panniculetomy incision and it still opens alittle at times-she goes to [facility] wound care [place] about once a month. History of Any Multi-Drug Resistant Organisms: None Reported Past Surgical History: Back Surgery, Bariatric Surgery, Cholecystectomy, Joint Replacement, Orthopedic Surgery Additional Past Surgical History / Comment(s): 11/12/16 bronchoscopy wit BAL, gastric bypass 2011, panniculectomy with wound dehiscence/debridements, 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 Past Anesthesia/Blood Transfusion Reactions: No Reported Reaction Smoking Status: Never smoker - Past Family History Brother(s) Family Medical History: Cancer Additional Family Medical History / Comment(s): spine Father Family Medical History: Coronary Artery Disease (CAD), CVA/TIA, Diabetes Mellitus, Hypertension, Thyroid Disorder Additional Family Medical History / Comment(s): X3 STROKES, STENTS IN HEART,P acemaker Mother Family Medical History: Diabetes Mellitus, Hypertension, Thyroid Disorder Additional Family Medical History / Comment(s): KNEE REPLACEMENTS Medications and Allergies Home Medications Medication Instructions Recorded Confirmed Type Pregabalin [Lyrica] 150 mg PO TID 10/09/14 06/27/20 History Montelukast [Singulair] 10 mg PO HS 06/23/15 06/27/20 History Levothyroxine Sodium [Synthroid] 150 mcg PO DAILY 02/16/17 06/27/20 History Suvorexant [Belsomra] 20 mg PO HS 05/03/18 06/27/20 History HYDROcodone/APAP 10-325MG [[place] 1 tab PO TID 01/05/19 06/27/20 History 10-325] Sertraline [Zoloft] 100 mg PO BID 01/05/19 06/27/20 History Apixaban [Eliquis] 5 mg PO BID #60 tab 01/10/19 06/27/20 Rx tiZANidine [Zanaflex] 4 mg PO TID 06/28/19 06/27/20 History Loratadine [Claritin] 10 mg PO DAILY tab 06/30/19 06/27/20 Rx Omeprazole [PriLOSEC] 40 mg PO DAILY 07/10/19 06/27/20 History Brexpiprazole [Rexulti] 4 mg PO HS 06/27/20 06/27/20 History Dulaglutide [Trulicity] 1.5 mg SQ MO 06/27/20 06/27/20 History Galcanezumab-Gnlm [Emgality] 120 mg SQ QMONTHLY 06/27/20 06/27/20 History Multivitamins, Thera [Multivitamin 1 tab PO DAILY 06/27/20 06/27/20 History (formulary)] Propranolol HCl 60 mg PO BID 06/27/20 06/27/20 History buPROPion XL [Wellbutrin Xl] 150 mg PO BID 06/27/20 06/27/20 History Allergies Allergy/AdvReac Type Severity Reaction Status Date / Time No Known Allergies Allergy Verified 06/27/20 12:42 Physical Exam Vitals: Vital Signs Temp Pulse Resp BP Pulse Ox 06/28/20 07:29 97.7 F 65 18 122/71 96 06/28/20 01:59 98.2 F 71 127/77 93 L 01/28/21 19:53 76 18 06/27/20 19:30 97.5 F L 76 18 137/83 97 06/27/20 14:00 97.5 F L 90 20 143/90 96 06/27/20 12:00 98 F 89 22 155/92 96 Intake and Output 06/27/20 06/28/20 06/28/20 22:59 06:59 14:59 Output Total 1 Balance -1 Output: Urine 1 Other: Voiding Method Toilet Toilet - Constitutional General appearance: disheveled, mild distress, morbidly obese - EENT Eyes: EOMI, PERRLA Ears: bilateral: normal - Neck Neck: normal ROM Carotids: bilateral: upstroke normal - Respiratory Respiratory: bilateral: diminished (With inspiratory stridor were getting from neck), wheezing, prolonged expiration, negative: dullness, rales, rhonchi - Cardiovascular Rhythm: regular Heart sounds: normal: S1, S2 - Gastrointestinal General gastrointestinal: decreased bowel sounds, soft - Neurologic Neurologic: CNII-XII intact - Musculoskeletal Musculoskeletal: gait normal, generalized weakness, strength equal bilaterally - Psychiatric Psychiatric: A&O x's 3, appropriate affect, intact judgment & insight Results - Laboratory Findings CBC and BMP: 06/28/20 05:44 06/28/20 05:44 PT/INR, D-dimer D-Dimer 0.30 mg/L FEU (<0.60) 06/27/20 13:38 Abnormal lab findings: Abnormal Labs 06/27/20 06/27/20 06/27/20 13:38 13:38 17:23 Plt Count Neutrophils # 7.9 H Lymphocytes # 0.5 L Glucose 204 H POC Glucose (mg/dL) 147 H Total Bilirubin AST 51 H ALT 53 H Total Protein Globulin 06/27/20 06/28/20 06/28/20 22:03 05:44 05:44 Plt Count 145 L Neutrophils # 8.6 H Lymphocytes # 0.8 L Glucose 152 H POC Glucose (mg/dL) 145 H Total Bilirubin 0.2 L AST ALT 46 H Total Protein 5.6 L Globulin 1.5 L 06/28/20 07:04 Plt Count Neutrophils # Lymphocytes # Glucose POC Glucose (mg/dL) 141 H Total Bilirubin AST ALT Total Protein Globulin - Diagnostic Findings Chest x-ray: report reviewed, image reviewed Assessment and Plan Assessment: Acute COPD exacerbation Tracheobronchitis Acute asthma Inspiratory stridor Vocal cord dysfunction GERD Morbid obesity Sleep disorder breathing and sleep apnea 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
[2020-06-28 11:32] LABS: Glucose,Whole Blood 210 mg/dL (75-99)
[2020-06-28] MEDS: AZITHROMYCIN 500 MG in SODIUM CHLORIDE 0.9% 250 ML IVPB SCH (15:31)
[2020-06-28] MEDS: guaiFENesin-DM 100-10MG/5ML 10 ML CUP PO PRN (15:31)
[2020-06-28 16:52] LABS: Glucose,Whole Blood 114 mg/dL (75-99)
[2020-06-28 20:38] LABS: Glucose,Whole Blood 190 mg/dL (75-99)
[2020-06-28] MEDS: MONTELUKAST 10 MG TAB PO SCH (21:42)
[2020-06-28] MEDS: NON FORMULARY DRUG (Brexpiprazole [Rexulti] 4 MG Tablet) PO SCH (21:47)
[2020-06-28] MEDS: NON FORMULARY DRUG (Suvorexant [Belsomra] 20 MG Tablet) PO SCH (22:21)
--- NOTE | 2020-06-28 22:53 | PN ---
PROGRESS NOTE Treated with IV steroids, updraft treatments for asthma exacerbation. She has inspiratory and expiratory stridor. CARDIOVASCULAR: S1, S2. LUNGS: Inspiratory and expiratory stridor. HEMATOLOGY: Negative Homans. PSYCH: Fair mood and affect. NEUROLOGIC: Alert and oriented x3. ASSESSMENT: 1. Chronic obstructive pulmonary disease exacerbation. 2. Tracheobronchitis. 3. Asthma exacerbation. 4. Respiratory stridor. 5. Vocal cord dysfunction. 6. Gastroesophageal reflux disease. 7. Obesity. 8. Sleep disorder. 9. Sleep apnea. 10.History of pulmonary embolism. Continue with steroids, antibiotics broad-spectrum, bronchodilators. Continue CPAP, supplemental oxygen. Prognosis guarded. MMODL / IJN: [id number] /
[2020-06-29] MEDS: HYDROmorphone 0.5 MG/0.5 ML SYRINGE IVP PRN ×4 (00:54→20:20)
[2020-06-29] MEDS: LEVOTHYROXINE 75 MCG TAB PO SCH (05:21)
[2020-06-29] MEDS: SODIUM CHLORIDE 0.9% 1,000 ML IV SCH ×2 (05:21→23:23)
[2020-06-29] MEDS: KETOROLAC 15 MG/ML 1 ML VIAL IVP SCH ×3 (05:21→17:31)
[2020-06-29 07:02] LABS: Glucose,Whole Blood 120 mg/dL (75-99)
[2020-06-29] MEDS: INSULIN ASPART (NovoLOG) 100 UNIT/ML VIAL SQ SCH ×4 (07:27→22:31)
[2020-06-29] MEDS: MULTIVITAMINS, THERA 1 EACH TAB PO SCH (07:48)
[2020-06-29] MEDS: LORATADINE 10 MG TAB PO SCH (07:48)
[2020-06-29] MEDS: PREGABALIN 75 MG CAP PO SCH ×3 (07:48→22:28)
[2020-06-29] MEDS: PANTOPRAZOLE 40 MG TABLET PO SCH (07:48)
[2020-06-29] MEDS: HYDROcodone/APAP 10-325MG 1 EACH TAB PO SCH ×3 (07:48→22:28)
[2020-06-29] MEDS: APIXABAN 5 MG TAB PO SCH ×2 (07:48→22:27)
[2020-06-29] MEDS: SERTRALINE 100 MG TAB PO SCH ×2 (07:49→22:28)
[2020-06-29] MEDS: PROPRANOLOL 20 MG TAB PO SCH ×2 (07:49→22:27)
[2020-06-29] MEDS: methylPREDNISolone SOD SUCCI 40 MG/ML 1 ML VIAL IV SCH ×2 (07:50→15:21)
[2020-06-29] MEDS: buPROPion XL 150 MG TAB.ER.24H PO SCH ×2 (07:50→22:27)
[2020-06-29] MEDS: tiZANidine 4 MG TAB PO SCH ×3 (07:50→22:28)
--- NOTE | 2020-06-29 10:21 | P.PN ---
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 06/29/2020, patient seen and evaluated examined still have inspiratory and expiratory stridor and wheezing cough with purulent sputum production, respiratory status slightly improved, remains on antibiotics steroids and breathing treatments supplemental oxygen, we'll send a sputum for Gram stain and culture This is a 49-year-old female seen examined on third fourth floor patient given the hospital with increasing shortness of breath cough congestion for 3 days, symptoms of progressive she also developed inspiratory stridor was admitted into hospital for IV antibiotics breathing treatments steroids, patient has significant history of obstructive sleep apnea DVT PE morbid obesity Objective - Vital Signs Vital signs: Vital Signs Temp 96.4 F L 06/29/20 08:00 Pulse 59 L 06/29/20 08:00 Resp 18 06/29/20 08:00 BP 144/83 06/29/20 08:00 Pulse Ox 100 06/29/20 08:00 Intake & Output 06/28/20 06/29/20 06/29/20 18:59 06:59 18:59 Intake Total 2540 1860 Balance 2540 1860 Intake: Intake, IV Titration 1200 900 Amount Azithromycin 500 mg In 250 Sodium Chloride 0.9% 250 ml @ 250 mls/hr IVPB Q24H MICHELLE Rx#:[id number] Sodium Chloride 0.9% 1, 900 900 000 ml @ 75 mls/hr IV . [id number] MICHELLE Rx#:[id number] cefTRIAXone 1 gm In 50 Sodium Chloride 0.9% 50 ml @ 100 mls/hr IVPB Q24H MICHELLE Rx#:[id number] Oral 1340 960 Other: Voiding Method Toilet # Voids 2 - Exam - Constitutional General appearance: disheveled, mild distress, morbidly obese - EENT Eyes: EOMI, PERRLA Ears: bilateral: normal - Neck Neck: normal ROM Carotids: bilateral: upstroke normal - Respiratory Respiratory: bilateral: diminished (With inspiratory stridor were getting from neck), wheezing, prolonged expiration, negative: dullness, rales, rhonchi - Cardiovascular Rhythm: regular Heart sounds: normal: S1, S2 - Gastrointestinal General gastrointestinal: decreased bowel sounds, soft - Neurologic Neurologic: CNII-XII intact - Musculoskeletal Musculoskeletal: gait normal, generalized weakness, strength equal bilaterally - Psychiatric Psychiatric: A&O x's 3, appropriate affect, intact judgment & insight - Labs CBC & Chem 7: 06/28/20 05:44 06/28/20 05:44 Labs: Abnormal Lab Results - Last 24 Hours (Table) 06/28/20 06/28/20 06/28/20 Range/Units 11:31 16:48 20:36 POC Glucose (mg/dL) 210 H 114 H 190 H (75-99) mg/dL 06/29/20 Range/Units 07:01 POC Glucose (mg/dL) 120 H (75-99) mg/dL Assessment and Plan Assessment: Acute COPD exacerbation Tracheobronchitis Acute asthma Inspiratory stridor Vocal cord dysfunction GERD Morbid obesity Sleep disorder breathing and sleep apnea 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
[2020-06-29 11:59] LABS: Glucose,Whole Blood 123 mg/dL (75-99)
[2020-06-29] MEDS: AZITHROMYCIN 500 MG TAB PO SCH (13:20)
--- NOTE | 2020-06-29 14:25 | PN ---
PROGRESS NOTE 49-year-old white female with COPD, asthma exacerbation, tracheobronchitis, respiratory, inspiratory and expiratory stridor, vocal cord dysfunction, GERD, sleep disorder, recurrent DVT, PE. She has failed outpatient treatment. Minimally improved since admission. Lungs show diminished inspiratory stridor, possibly from the neck. Wheezing: Prolonged expiration. Cardiovascular S1, S2. GI is decreased bowel sounds. Neurologic: Cranial nerves intact. LABS: Reviewed. ASSESSMENT: 1. Chronic obstructive pulmonary disease exacerbation. 2. Tracheobronchitis. 3. Acute inspiratory stridor. 4. Rule out vocal cord dysfunction. 5. Gastroesophageal reflux disease. 6. Obesity. 7. Sleep disorder. 8. Current deep vein thrombosis/pulmonary embolism. Continue bronchodilators, IV steroids, broad-spectrum antibiotics. Continue CPAP. Supplemental oxygen. Prognosis guarded. MMODL / IJN: [id number] /
[2020-06-29 16:57] LABS: Glucose,Whole Blood 190 mg/dL (75-99)
[2020-06-29] MEDS: NON FORMULARY DRUG (Brexpiprazole [Rexulti] 4 MG Tablet) PO SCH (22:12)
[2020-06-29 22:21] LABS: Glucose,Whole Blood 103 mg/dL (75-99)
[2020-06-29] MEDS: MONTELUKAST 10 MG TAB PO SCH (22:27)
[2020-06-29] MEDS: NON FORMULARY DRUG (Suvorexant [Belsomra] 20 MG Tablet) PO SCH (22:28)
[2020-06-30] MEDS: KETOROLAC 15 MG/ML 1 ML VIAL IVP SCH ×4 (00:06→18:25)
[2020-06-30] MEDS: methylPREDNISolone SOD SUCCI 40 MG/ML 1 ML VIAL IV SCH ×3 (00:06→15:24)
[2020-06-30] MEDS: HYDROmorphone 0.5 MG/0.5 ML SYRINGE IVP PRN ×4 (02:22→19:17)
[2020-06-30] MEDS: LEVOTHYROXINE 75 MCG TAB PO SCH (06:08)
[2020-06-30 06:50] LABS: Basophils % (A) 0 %; Eosinophils % (A) 0 %; HCT 42.6 % (34.0-46.0); HGB 13.8 gm/dL (11.4-16.0); Lymphocytes # (A) 0.8 k/uL (1.0-4.8); Lymphocytes % (A) 10 %; MCH 30.2 pg (25.0-35.0); MCHC 32.3 g/dL (31.0-37.0); MCV 93.3 fL (80.0-100.0); Mean Platelet Volume 9.4; Monocytes # (A) 0.5 k/uL (0-1.0); Monocytes % (A) 6 %; Neutrophils # (A) 6.6 k/uL (1.3-7.7); Neutrophils % (A) 82 %; Platelet Count 126 k/uL (150-450); RBC 4.56 m/uL (3.80-5.40); RDW 13.1 % (11.5-15.5); WBC 8.1 k/uL (3.8-10.6)
[2020-06-30 07:12] LABS: Glucose,Whole Blood 109 mg/dL (75-99)
[2020-06-30] MEDS: INSULIN ASPART (NovoLOG) 100 UNIT/ML VIAL SQ SCH ×4 (07:39→22:07)
[2020-06-30] MEDS: MULTIVITAMINS, THERA 1 EACH TAB PO SCH (08:12)
[2020-06-30] MEDS: PREGABALIN 75 MG CAP PO SCH ×3 (08:12→22:08)
[2020-06-30] MEDS: PANTOPRAZOLE 40 MG TABLET PO SCH (08:12)
[2020-06-30] MEDS: HYDROcodone/APAP 10-325MG 1 EACH TAB PO SCH ×3 (08:12→22:08)
[2020-06-30] MEDS: LORATADINE 10 MG TAB PO SCH (08:12)
[2020-06-30] MEDS: SODIUM CHLORIDE 0.9% 1,000 ML IV SCH (08:13)
[2020-06-30] MEDS: APIXABAN 5 MG TAB PO SCH ×2 (08:13→22:07)
[2020-06-30] MEDS: SERTRALINE 100 MG TAB PO SCH ×2 (08:13→22:08)
[2020-06-30] MEDS: buPROPion XL 150 MG TAB.ER.24H PO SCH ×2 (08:13→22:07)
[2020-06-30] MEDS: tiZANidine 4 MG TAB PO SCH ×3 (08:14→22:09)
[2020-06-30] MEDS: PROPRANOLOL 20 MG TAB PO SCH ×2 (08:14→22:08)
[2020-06-30 10:59] LABS: African American GFR (CKD) 119.6 (60.0-200.0); Albumin 3.9 g/dL (3.80-4.90); Albumin/Globulin Ratio 2.6 (1.60-3.17); Anion Gap 8.9 mmol/L (4.00-12.00); BUN/Creat Ratio 25.71 Ratio (12.00-20.00); Calcium 8.7 mg/dL (8.7-10.3); Carbon Dioxide 23.1 mmol/L (21.6-31.8); Globulin 1.5 g/dL (1.6-3.3); Non-African American GFR(CKD) 103.2 (60.0-200.0); Potassium 4.8 mmol/L (3.5-5.5); Total Bilirubin 0.2 mg/dL (0.3-1.2); Total Protein 5.4 g/dL (6.2-8.2)
[2020-06-30 11:17] LABS: Glucose,Whole Blood 126 mg/dL (75-99)
[2020-06-30] MEDS: AZITHROMYCIN 500 MG TAB PO SCH (13:00)
--- NOTE | 2020-06-30 14:39 | PN ---
PROGRESS NOTE 49-year-old white female with asthma exacerbation and tracheobronchitis. She still has inspiratory and expiratory wheeze. She still does not feel better. Pulse rate is 50s to 60s, respiratory 16-25, blood pressure 127-165 systolic over 76-83 diastolic. She is 97 on CPAP. CARDIOVASCULAR: S1-S2. LUNGS: Inspiratory and expiratory stridor. GI: Soft. HEMATOLOGY: Negative Homans. Liver enzymes are high at 150, ALT 128, alkaline phosphatase 131. PLAN: Maybe do a consult for the liver physician due to elevated liver enzymes. Continue with treatment for asthma and COPD and for inspiratory and expiratory stridor. Prognosis guarded trauma. MMODL / IJN: [id number] /
[2020-06-30 16:23] LABS: Glucose,Whole Blood 92 mg/dL (75-99)
[2020-06-30 20:24] LABS: Glucose,Whole Blood 158 mg/dL (75-99)
[2020-06-30] MEDS: NON FORMULARY DRUG (Brexpiprazole [Rexulti] 4 MG Tablet) PO SCH (22:00)
[2020-06-30] MEDS: MONTELUKAST 10 MG TAB PO SCH (22:08)
[2020-06-30] MEDS: NON FORMULARY DRUG (Suvorexant [Belsomra] 20 MG Tablet) PO SCH (22:26)
[2020-07-01] MEDS: methylPREDNISolone SOD SUCCI 40 MG/ML 1 ML VIAL IV SCH ×4 (00:08→23:49)
[2020-07-01] MEDS: SODIUM CHLORIDE 0.9% 1,000 ML IV SCH ×2 (00:31→12:24)
[2020-07-01] MEDS: HYDROmorphone 0.5 MG/0.5 ML SYRINGE IVP PRN ×6 (00:55→23:49)
[2020-07-01] MEDS: LEVOTHYROXINE 75 MCG TAB PO SCH (05:03)
[2020-07-01 07:14] LABS: Glucose,Whole Blood 116 mg/dL (75-99)
[2020-07-01] MEDS: APIXABAN 5 MG TAB PO SCH ×2 (07:48→19:50)
[2020-07-01] MEDS: LORATADINE 10 MG TAB PO SCH (07:48)
[2020-07-01] MEDS: SERTRALINE 100 MG TAB PO SCH ×2 (07:48→19:50)
[2020-07-01] MEDS: HYDROcodone/APAP 10-325MG 1 EACH TAB PO SCH ×3 (07:49→21:24)
[2020-07-01] MEDS: PREGABALIN 75 MG CAP PO SCH ×3 (07:49→21:24)
[2020-07-01] MEDS: PANTOPRAZOLE 40 MG TABLET PO SCH (07:50)
[2020-07-01] MEDS: MULTIVITAMINS, THERA 1 EACH TAB PO SCH (07:50)
[2020-07-01] MEDS: INSULIN ASPART (NovoLOG) 100 UNIT/ML VIAL SQ SCH ×4 (07:51→20:37)
[2020-07-01] MEDS: buPROPion XL 150 MG TAB.ER.24H PO SCH ×2 (07:51→19:51)
[2020-07-01] MEDS: tiZANidine 4 MG TAB PO SCH ×3 (07:52→21:25)
[2020-07-01] MEDS: PROPRANOLOL 20 MG TAB PO SCH ×2 (07:52→19:55)
--- NOTE | 2020-07-01 09:52 | US ---
EXAMINATION TYPE: US liver DATE OF EXAM: 07/01/2020 COMPARISON: NONE CLINICAL HISTORY: elevated LFTS. Elevated LFT's EXAM MEASUREMENTS: Liver Length: 22.0 cm CBD: 0.5 cm Right Kidney: 10.9 x 5.0 x 4.5 cm Morbidly obese pt, limited exam Pancreas: Head wnl, tail obscured by overlying bowel gas Liver: Enlarged, difficult to penetrate, heterogeneous Gallbladder: Surgically absent Evidence for sonographic Feliciano's sign: No CBD: wnl Right Kidney: wnl, lower pole gassed out IMPRESSION: There is evidence of hepatomegaly with underlying hepatic steatosis.
[2020-07-01 11:05] LABS: Hepatitis A Antibody IgM Non-Reactive (Non-Reactive); Hepatitis B Core IgM Non-Reactive (Non-Reactive); Hepatitis B Surface Antigen Non-Reactive (Non-Reactive); Hepatitis C IgG Antibody Non-Reactive (Non-Reactive)
[2020-07-01 11:18] LABS: Glucose,Whole Blood 163 mg/dL (75-99)
[2020-07-01] MEDS: AZITHROMYCIN 500 MG TAB PO SCH (14:19)
[2020-07-01] MEDS: guaiFENesin-DM 100-10MG/5ML 10 ML CUP PO PRN (15:09)
--- NOTE | 2020-07-01 15:19 | CONS ---
CONSULTATION DATE OF DICTATION: July 01, 2020. REASON FOR CONSULTATION: Elevated LFTs. HISTORY OF PRESENT ILLNESS: The patient is a 49-year-old pleasant white female with history of asthma, COPD admitted to hospital with exacerbation of asthma after failing outpatient therapy with steroids and inhalers. While in the hospital she was noted to have elevated serum transaminases and hence we are consulted because of this issue. The patient denies any history of chronic liver disease. No history of jaundice or hepatitis. She had some blood transfusions about 2 or 3 years ago. At the time of admission to the hospital, she was noted to have mild elevation of serum transaminases with AST and ALT at 51 and 53, respectively and today went up to 150 and 128 respectively and hence we are consulted to this issue. The patient reports no abdominal pain. No nausea, no vomiting. No family history of chronic liver disease. No history of alcohol use. She denies being started on any new medications recently. On review of her labs, she was noted to have mild elevation of serum transaminases almost for the last 4 or 5 years duration. She did have hepatitis serologies for A, B and C done which were negative. Liver ultrasound done this morning showed evidence of hepatic steatosis and hepatomegaly. PAST MEDICAL HISTORY: Her past medical history is significant for COPD, asthma, morbid obesity, diabetes mellitus diagnosed 6 months ago, gastroesophageal reflux disease, anxiety, depression, atrial fibrillation on Eliquis. MEDICATIONS: Medications at home include Trulicity, multivitamin, Singulair, Claritin, Rexulti, Zanaflex, Belsomra, Zoloft, Propranolol, Lyrica, Prilosec, Synthroid, Eliquis, Wellbutrin, Emgality and Empire. ALLERGIES: No known drug allergies. SOCIAL HISTORY: No smoking, no alcohol use. FAMILY HISTORY: Unremarkable. REVIEW OF SYSTEMS: CARDIOPULMONARY: She denies any chest pain, but she still complains of some shortness of breath with expiratory wheezing. NEUROLOGY: Unremarkable. PSYCHIATRIC: Unremarkable other than anxiety, depression. ENT/VISION: Unremarkable. CONSTITUTIONAL: No recent weight loss. No fever, chills, night sweats. HEMATOLOGY: Unremarkable. PSYCHIATRIC: Unremarkable. GI: As mentioned above. PHYSICAL EXAMINATION: She appears comfortable, in no apparent distress. Vital signs are stable. Blood pressure 132/87, pulse rate 60, temperature 98.4. HEENT EXAMINATION: Unremarkable. Conjunctivae pink. Sclerae anicteric. Oral cavity, no lesions. NECK: No JVD or lymph node enlargement. CHEST: Was clear to auscultation except for expiratory wheezing and some stridor. ABDOMEN: Very obese. Bowel sounds are positive. There was no organomegaly. EXTREMITIES: No pedal edema. NEURO: She is alert and oriented x3. No focal deficits. LABS: Labs from the time of admission to the hospital on 06/27, CBC was within normal limits. AST and ALT are 51 and 53, respectively. Labs from yesterday, CBC is still within normal limits except for platelet count was 126. AST went up 150, ALT is 128. T bilirubin 0.2 and alkaline phosphatase 131. Hepatitis serologies for A, B and C are negative. Ultrasound of the liver showed hepatomegaly with hepatic steatosis. IMPRESSION: 1. Mild elevation of serum transaminases for the last 5 or 6 years duration. Her serum transaminases usually in the range of 50s and 60s. However, today they went up to 100s. Hepatitis serologies for A, B and C are negative. Ultrasound of the liver did show evidence of fatty liver with hepatomegaly, likely we are dealing with fatty liver disease at the present time, but other causes of chronic liver disease needs to be excluded. On review of her labs, the patient has mild elevation of serum transaminases for almost for the last 6 to 7 years duration. 2. Newly diagnosed diabetes mellitus 6 months ago. 3. History of morbid obesity. 4. Exacerbation of chronic obstructive pulmonary disease, presently on steroids and antibiotics. RECOMMENDATIONS: 1. We will initiate workup for chronic liver disease. 2. Monitor LFTs closely. 3. Continue with current antibiotics and current management. 4. Encourage weight reduction and diet modification. 5. The patient was advised to follow up in the office in a couple of weeks following discharge from the hospital to continue to monitor LFTs and further management. Thank you for this consultation. MMODL / IJN: [id number] /
[2020-07-01 16:45] LABS: Glucose,Whole Blood 82 mg/dL (75-99)
--- NOTE | 2020-07-01 18:15 | PN ---
PROGRESS NOTE A 49-year-old white female who had consultation with GI doctor for elevated LFTs. Liver ultrasound was normal. Assessment was mild elevation in serum transaminases, which have been higher, possibly fatty liver disease, diabetes mellitus, morbid obesity, COPD, asthma. Continue with steroids, antibiotics. Lungs show inspiratory and expiratory wheeze. CARDIOVASCULAR: S1, S2. Hematology negative Homans. Psych fair mood and affect. We are going to monitor LFTs as an outpatient. Continue treatment with her breathing until Dr. Huber clears her for discharge. Prognosis guarded. MMODL / IJN: [id number] /
[2020-07-01] MEDS: MONTELUKAST 10 MG TAB PO SCH (19:51)
[2020-07-01 20:12] LABS: Glucose,Whole Blood 191 mg/dL (75-99)
[2020-07-01] MEDS: NON FORMULARY DRUG (Brexpiprazole [Rexulti] 4 MG Tablet) PO SCH (20:33)
[2020-07-01] MEDS: NON FORMULARY DRUG (Suvorexant [Belsomra] 20 MG Tablet) PO SCH ×2 (20:33→21:24)
[2020-07-02] MEDS: SODIUM CHLORIDE 0.9% 1,000 ML IV SCH ×2 (01:05→12:14)
[2020-07-02] MEDS: HYDROmorphone 0.5 MG/0.5 ML SYRINGE IVP PRN ×5 (03:49→20:16)
[2020-07-02] MEDS: LEVOTHYROXINE 75 MCG TAB PO SCH (05:18)
[2020-07-02 07:29] LABS: Glucose,Whole Blood 125 mg/dL (75-99)
[2020-07-02] MEDS: INSULIN ASPART (NovoLOG) 100 UNIT/ML VIAL SQ SCH ×4 (07:59→22:07)
[2020-07-02] MEDS: MULTIVITAMINS, THERA 1 EACH TAB PO SCH (08:03)
[2020-07-02] MEDS: LORATADINE 10 MG TAB PO SCH (08:03)
[2020-07-02] MEDS: tiZANidine 4 MG TAB PO SCH ×3 (08:03→20:18)
[2020-07-02] MEDS: PROPRANOLOL 20 MG TAB PO SCH ×2 (08:03→20:18)
[2020-07-02] MEDS: PANTOPRAZOLE 40 MG TABLET PO SCH (08:03)
[2020-07-02] MEDS: PREGABALIN 75 MG CAP PO SCH ×3 (08:03→20:18)
[2020-07-02] MEDS: methylPREDNISolone SOD SUCCI 40 MG/ML 1 ML VIAL IV SCH ×2 (08:03→16:00)
[2020-07-02] MEDS: buPROPion XL 150 MG TAB.ER.24H PO SCH ×2 (08:03→20:17)
[2020-07-02] MEDS: SERTRALINE 100 MG TAB PO SCH ×2 (08:03→20:18)
[2020-07-02] MEDS: APIXABAN 5 MG TAB PO SCH ×2 (08:03→20:18)
[2020-07-02] MEDS: HYDROcodone/APAP 10-325MG 1 EACH TAB PO SCH ×3 (08:04→22:07)
[2020-07-02 09:16] LABS: Basophils # (A) 0.02 X 10*3/uL (0.00-0.10); Basophils % (A) 0.2 %; Eosinophils # (A) 0 X 10*3/uL (0.04-0.35); Eosinophils % (A) 0 %; HCT 42.4 % (37.2-46.3); HGB 13.8 g/dL (12.0-15.0); Lymphocytes # (A) 0.81 X 10*3/uL (0.90-5.00); Lymphocytes % (A) 9.9 %; MCH 30.1 pg (27.0-32.0); MCHC 32.5 g/dL (32.0-37.0); MCV 92.4 fL (80.0-97.0); Mean Platelet Volume 12.3 fL (9.5-12.2); Monocytes # (A) 0.48 X 10*3/uL (0.20-1.00); Monocytes % (A) 5.9 %; Neutrophils % (A) 82.9 %; Platelet Count 172 X 10*3/uL (140-440); RBC 4.59 X 10*6/uL (4.10-5.20); RDW 13.1 % (11.5-14.5)
[2020-07-02 09:54] LABS: African American GFR (CKD) 119.6 (60.0-200.0); Albumin 3.9 g/dL (3.80-4.90); Albumin/Globulin Ratio 2.6 (1.60-3.17); Anion Gap 5.3 mmol/L (4.00-12.00); BUN/Creat Ratio 27.14 Ratio (12.00-20.00); Calcium 8.6 mg/dL (8.7-10.3); Carbon Dioxide 28.7 mmol/L (21.6-31.8); Globulin 1.5 g/dL (1.6-3.3); Non-African American GFR(CKD) 103.2 (60.0-200.0); Potassium 4.3 mmol/L (3.5-5.5); Total Bilirubin 0.3 mg/dL (0.3-1.2); Total Protein 5.4 g/dL (6.2-8.2)
[2020-07-02 10:13] LABS: Alpha Fetoprotein, Tumor Mkr <2.5 ng/mL (0.0-7.9)
[2020-07-02 11:50] LABS: Glucose,Whole Blood 137 mg/dL (75-99)
[2020-07-02] MEDS: AZITHROMYCIN 500 MG TAB PO SCH (12:47)
--- NOTE | 2020-07-02 13:33 | P.PN ---
Subjective Progress Note Date: 07/02/20 Principal diagnosis: Elevated LFTs This is a 49-year-old female patient he history of asthma and COPD who was admitted to the hospital with exacerbation of COPD after failing outpatient therapy with steroids and inhalers. She was in the hospital she was noted to have elevated serum transaminases and the patient states she had no prior knowledge of elevated liver function tests. She eyes any alcohol use, history of liver disease, or hepatitis. Denies any abdominal pain, nausea, or vomiting. She was started on Rocephin and azithromycin while here in the hospital, otherwise denies any new medications. Objective - Vital Signs Vital signs: Vital Signs Temp 97.7 F 07/02/20 08:00 Pulse 55 L 07/02/20 08:00 Resp 16 07/02/20 08:00 BP 168/88 07/02/20 08:00 Pulse Ox 97 07/02/20 08:00 Intake & Output 07/01/20 07/02/20 07/02/20 18:59 06:59 18:59 Intake Total 296 Balance 296 Intake: Oral 296 Other: # Voids 2 - Exam General appearance: The patient is alert, oriented, appears in no acute distress. Morbidly obese. HET: Head is normocephalic and atraumatic. Conjunctiva pink. Sclera anicteric. Neck: Supple without lymphadenopathy. Abdomen: Soft, morbidly obese, nontender, nondistended with bowel sounds. No guarding or rigidity. Extremities: Normal skin color and turgor. No pedal edema Neurological: No focal deficits. Alert and oriented 3. - Labs CBC & Chem 7: 07/02/20 06:35 07/02/20 06:35 Labs: Abnormal Lab Results - Last 24 Hours (Table) 07/01/20 07/01/20 07/02/20 Range/Units 11:17 20:10 06:35 MPV 12.3 H (9.5-12.2) fL Immature Gran # 0.09 H (0.00-0.04) X 10*3/uL Lymphocytes # 0.81 L (0.90-5.00) X 10*3/uL Eosinophils # 0 L (0.04-0.35) X 10*3/uL BUN/Creatinine Ratio (12.00-20.00) Ratio Glucose (70-110) mg/dL POC Glucose (mg/dL) 163 H 191 H (75-99) mg/dL Calcium (8.7-10.3) mg/dL AST (13-35) U/L ALT (8-44) U/L Total Protein (6.2-8.2) g/dL Globulin (1.6-3.3) g/dL 07/02/20 07/02/20 Range/Units 06:35 07:28 MPV (9.5-12.2) fL Immature Gran # (0.00-0.04) X 10*3/uL Lymphocytes # (0.90-5.00) X 10*3/uL Eosinophils # (0.04-0.35) X 10*3/uL BUN/Creatinine Ratio 27.14 H (12.00-20.00) Ratio Glucose 135 H (70-110) mg/dL POC Glucose (mg/dL) 125 H (75-99) mg/dL Calcium 8.6 L (8.7-10.3) mg/dL AST 75 H (13-35) U/L ALT 136 H (8-44) U/L Total Protein 5.4 L (6.2-8.2) g/dL Globulin 1.5 L (1.6-3.3) g/dL Assessment and Plan (1) Elevated liver enzymes Narrative/Plan: The lady who presented with mild elevation of serum transaminases for the last 5 or 6 years duration. Her serum transaminases usually are in the range of 50s and 60s. However on this admission they went up to the 100s. The tightest serologies for A, B, and C are negative. Ultrasound of liver did show evidence of fatty liver with hepatomegaly, likely revealing with fatty liver disease at the present time, however other causes of chronic liver disease need to be excluded. On review of her labs the patient has mild elevation of serum transaminases for almost the last 6-7 years duration. Liver enzymes trending down. Liver serologies ordered and pending. Current Visit: Yes Status: Acute Code(s): R74.8 - ABNORMAL LEVELS OF OTHER SERUM ENZYMES SNOMED Code(s): 743132630 (2) COPD (chronic obstructive pulmonary disease) Current Visit: No Status: Acute Code(s): J44.9 - CHRONIC OBSTRUCTIVE PULMONARY DISEASE, UNSPECIFIED SNOMED Code(s): 46374890 (3) Morbid (severe) obesity due to excess calories Current Visit: Yes Status: Acute Code(s): E66.01 - MORBID (SEVERE) OBESITY DUE TO EXCESS CALORIES SNOMED Code(s): 396706813 (4) Diabetes mellitus Current Visit: Yes Status: Acute Code(s): E11.9 - TYPE 2 DIABETES MELLITUS WITHOUT COMPLICATIONS SNOMED Code(s): 40928473 (5) COPD exacerbation Current Visit: Yes Status: Acute Code(s): J44.1 - CHRONIC OBSTRUCTIVE PULMONARY DISEASE W (ACUTE) EXACERBATION SNOMED Code(s): 405360573 Plan: 1. Supportive care 2. Continue to monitor LFTs closely 3. Liver serologies ordered 4. Continue with antibiotics and current medical management 5. Discussed with patient to follow-up in the office in a couple weeks following discharge from the hospital for continue monitoring of LFTs and further management. Thank you for this consultation will sign off at this time. Dr. Tonia Marsh I agree with the dictator's note, documented as a scribe by Kacie West.
[2020-07-02 14:07] LABS: Ceruloplasmin 16.5 mg/dL (20.0-60.0)
[2020-07-02 16:42] LABS: Glucose,Whole Blood 109 mg/dL (75-99)
[2020-07-02] MEDS: guaiFENesin-DM 100-10MG/5ML 10 ML CUP PO PRN (18:08)
--- NOTE | 2020-07-02 19:01 | PN ---
PROGRESS NOTE This is a 49-year-old white female with asthma, COPD exacerbation. GI doctor has seen her. Waiting for Dr. Huber's recommendations prior to going home. She continues to have some wheezing, inspiratory and expiratory, vocal cord paralysis, elevated liver enzymes secondary to fatty liver. Temperature 97.7, pulse 55, respiratory rate 16-18. CARDIOVASCULAR: S1, S2. ASSESSMENT: 1. Asthma. 2. Chronic obstructive pulmonary disease exacerbation. Wait for Dr. Huber to clear her for discharge. Continue current treatment. Waiting for liver doctor to figure out what to do with the liver. Prognosis guarded. Continue current treatment. MMODL / IJN: [id number] /
[2020-07-02] MEDS: NON FORMULARY DRUG (Suvorexant [Belsomra] 20 MG Tablet) PO SCH (20:17)
[2020-07-02] MEDS: MONTELUKAST 10 MG TAB PO SCH (20:18)
[2020-07-02 20:48] LABS: Glucose,Whole Blood 235 mg/dL (75-99)
[2020-07-02] MEDS: NON FORMULARY DRUG (Brexpiprazole [Rexulti] 4 MG Tablet) PO SCH (23:32)
[2020-07-03] MEDS: methylPREDNISolone SOD SUCCI 40 MG/ML 1 ML VIAL IV SCH ×4 (00:35→23:08)
[2020-07-03] MEDS: HYDROmorphone 0.5 MG/0.5 ML SYRINGE IVP PRN ×4 (00:35→13:43)
[2020-07-03] MEDS: SODIUM CHLORIDE 0.9% 1,000 ML IV SCH ×2 (03:00→12:50)
[2020-07-03] MEDS: guaiFENesin-DM 100-10MG/5ML 10 ML CUP PO PRN ×2 (04:49→13:43)
[2020-07-03] MEDS: LEVOTHYROXINE 75 MCG TAB PO SCH (04:49)
[2020-07-03 06:48] LABS: Glucose,Whole Blood 119 mg/dL (75-99)
[2020-07-03] MEDS: INSULIN ASPART (NovoLOG) 100 UNIT/ML VIAL SQ SCH ×4 (06:54→20:57)
[2020-07-03] MEDS: PANTOPRAZOLE 40 MG TABLET PO SCH (07:30)
[2020-07-03] MEDS: buPROPion XL 150 MG TAB.ER.24H PO SCH ×2 (07:30→20:57)
[2020-07-03] MEDS: LORATADINE 10 MG TAB PO SCH (07:30)
[2020-07-03] MEDS: PREGABALIN 75 MG CAP PO SCH ×3 (07:30→23:06)
[2020-07-03] MEDS: SERTRALINE 100 MG TAB PO SCH ×2 (07:31→20:57)
[2020-07-03] MEDS: APIXABAN 5 MG TAB PO SCH ×2 (07:31→20:57)
[2020-07-03] MEDS: MULTIVITAMINS, THERA 1 EACH TAB PO SCH (07:31)
[2020-07-03] MEDS: PROPRANOLOL 20 MG TAB PO SCH ×2 (07:31→20:57)
[2020-07-03] MEDS: tiZANidine 4 MG TAB PO SCH ×3 (07:31→23:07)
[2020-07-03] MEDS: HYDROcodone/APAP 10-325MG 1 EACH TAB PO SCH ×3 (07:31→23:06)
[2020-07-03 09:46] LABS: African American GFR (CKD) 119.6 (60.0-200.0); Albumin 3.9 g/dL (3.80-4.90); Albumin/Globulin Ratio 2.6 (1.60-3.17); Anion Gap 9.5 mmol/L (4.00-12.00); BUN/Creat Ratio 31.43 Ratio (12.00-20.00); Calcium 8.8 mg/dL (8.7-10.3); Carbon Dioxide 25.5 mmol/L (21.6-31.8); Globulin 1.5 g/dL (1.6-3.3); Non-African American GFR(CKD) 103.2 (60.0-200.0); Potassium 4.6 mmol/L (3.5-5.5); Total Bilirubin 0.3 mg/dL (0.3-1.2); Total Protein 5.4 g/dL (6.2-8.2)
--- NOTE | 2020-07-03 10:00 | P.PN ---
Subjective Progress Note Date: 07/01/20 Principal diagnosis: Acute COPD exacerbation Tracheobronchitis Acute asthma Inspiratory stridor Vocal cord dysfunction GERD Morbid obesity Sleep disorder breathing and sleep apnea Recurrent DVT PE on lifelong direct oral anticoagulants 07/01/2020, patient seen eval examined still have inspiratory stridor and ongoing shortness of breath still complaining of cough patient remains with steroids breathing treatments, unable to obtain a sputum samples, 06/29/2020, patient seen and evaluated examined still have inspiratory and expiratory stridor and wheezing cough with purulent sputum production, respiratory status slightly improved, remains on antibiotics steroids and breathing treatments supplemental oxygen, we'll send a sputum for Gram stain and culture This is a 49-year-old female seen examined on third fourth floor patient given the hospital with increasing shortness of breath cough congestion for 3 days, symptoms of progressive she also developed inspiratory stridor was admitted into hospital for IV antibiotics breathing treatments steroids, patient has significant history of obstructive sleep apnea DVT PE morbid obesity Objective - Vital Signs Vital signs: Vital Signs Temp 97.8 F 07/01/20 15:57 Pulse 61 07/01/20 15:57 Resp 16 07/01/20 15:57 BP 130/70 07/01/20 15:57 Pulse Ox 98 07/01/20 15:57 Intake & Output 06/30/20 07/01/20 07/01/20 18:59 06:59 18:59 Intake Total 1000 Balance 1000 Intake: Intake, IV Titration 1000 Amount Sodium Chloride 0.9% 1, 1000 000 ml @ 75 mls/hr IV . [id number] [facility] Rx#:[id number] Other: Voiding Method Toilet Toilet # Voids 2 2 - Exam - Constitutional General appearance: disheveled, mild distress, morbidly obese - EENT Eyes: EOMI, PERRLA Ears: bilateral: normal - Neck Neck: normal ROM Carotids: bilateral: upstroke normal - Respiratory Respiratory: bilateral: diminished (With inspiratory stridor were getting from neck), wheezing, prolonged expiration, negative: dullness, rales, rhonchi - Cardiovascular Rhythm: regular Heart sounds: normal: S1, S2 - Gastrointestinal General gastrointestinal: decreased bowel sounds, soft - Neurologic Neurologic: CNII-XII intact - Musculoskeletal Musculoskeletal: gait normal, generalized weakness, strength equal bilaterally - Psychiatric Psychiatric: A&O x's 3, appropriate affect, intact judgment & insight - Labs CBC & Chem 7: 07/02/20 06:35 07/03/20 06:24 Labs: Abnormal Lab Results - Last 24 Hours (Table) 06/30/20 07/01/20 07/01/20 Range/Units 20:23 07:12 11:17 POC Glucose (mg/dL) 158 H 116 H 163 H (75-99) mg/dL Assessment and Plan Assessment: Acute COPD exacerbation Tracheobronchitis Acute asthma Inspiratory stridor Vocal cord dysfunction GERD Morbid obesity Sleep disorder breathing and sleep apnea 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
--- NOTE | 2020-07-03 10:02 | P.PN ---
Subjective Progress Note Date: 07/02/20 Principal diagnosis: Acute COPD exacerbation Tracheobronchitis Acute asthma Inspiratory stridor Vocal cord dysfunction GERD Morbid obesity Sleep disorder breathing and sleep apnea Recurrent DVT PE on lifelong direct oral anticoagulants 07/02/2020, patient seen and evaluated examined patient has inspiratory stridor which becomes more prominent within significant as I approach towards the patient, there appears to be a significant psychosomatic portion and due to vocal cord dysfunction 07/01/2020, patient seen eval examined still have inspiratory stridor and ongoing shortness of breath still complaining of cough patient remains with steroids breathing treatments, unable to obtain a sputum samples, 06/29/2020, patient seen and evaluated examined still have inspiratory and expiratory stridor and wheezing cough with purulent sputum production, respiratory status slightly improved, remains on antibiotics steroids and breathing treatments supplemental oxygen, we'll send a sputum for Gram stain and culture This is a 49-year-old female seen examined on third fourth floor patient given the hospital with increasing shortness of breath cough congestion for 3 days, symptoms of progressive she also developed inspiratory stridor was admitted into hospital for IV antibiotics breathing treatments steroids, patient has significant history of obstructive sleep apnea DVT PE morbid obesity Objective - Vital Signs Vital signs: Vital Signs Temp 97.7 F 07/02/20 08:00 Pulse 55 L 07/02/20 08:00 Resp 16 07/02/20 08:00 BP 168/88 07/02/20 08:00 Pulse Ox 97 07/02/20 08:00 Intake & Output 07/01/20 07/02/20 07/02/20 18:59 06:59 18:59 Intake Total 296 Balance 296 Intake: Oral 296 Other: # Voids 2 - Exam - Constitutional General appearance: disheveled, mild distress, morbidly obese - EENT Eyes: EOMI, PERRLA Ears: bilateral: normal - Neck Neck: normal ROM Carotids: bilateral: upstroke normal - Respiratory Respiratory: bilateral: diminished (With inspiratory stridor were getting from neck), wheezing, prolonged expiration, negative: dullness, rales, rhonchi - Cardiovascular Rhythm: regular Heart sounds: normal: S1, S2 - Gastrointestinal General gastrointestinal: decreased bowel sounds, soft - Neurologic Neurologic: CNII-XII intact - Musculoskeletal Musculoskeletal: gait normal, generalized weakness, strength equal bilaterally - Psychiatric Psychiatric: A&O x's 3, appropriate affect, intact judgment & insight - Labs CBC & Chem 7: 07/02/20 06:35 07/03/20 06:24 Labs: Abnormal Lab Results - Last 24 Hours (Table) 07/01/20 07/02/20 07/02/20 Range/Units 20:10 06:35 06:35 MPV 12.3 H (9.5-12.2) fL Immature Gran # 0.09 H (0.00-0.04) X 10*3/uL Lymphocytes # 0.81 L (0.90-5.00) X 10*3/uL Eosinophils # 0 L (0.04-0.35) X 10*3/uL BUN/Creatinine Ratio 27.14 H (12.00-20.00) Ratio Glucose 135 H (70-110) mg/dL POC Glucose (mg/dL) 191 H (75-99) mg/dL Calcium 8.6 L (8.7-10.3) mg/dL AST 75 H (13-35) U/L ALT 136 H (8-44) U/L Total Protein 5.4 L (6.2-8.2) g/dL Globulin 1.5 L (1.6-3.3) g/dL 07/02/20 Range/Units 07:28 MPV (9.5-12.2) fL Immature Gran # (0.00-0.04) X 10*3/uL Lymphocytes # (0.90-5.00) X 10*3/uL Eosinophils # (0.04-0.35) X 10*3/uL BUN/Creatinine Ratio (12.00-20.00) Ratio Glucose (70-110) mg/dL POC Glucose (mg/dL) 125 H (75-99) mg/dL Calcium (8.7-10.3) mg/dL AST (13-35) U/L ALT (8-44) U/L Total Protein (6.2-8.2) g/dL Globulin (1.6-3.3) g/dL Assessment and Plan Assessment: Acute COPD exacerbation Tracheobronchitis Acute asthma Inspiratory stridor Vocal cord dysfunction GERD Morbid obesity Sleep disorder breathing and sleep apnea 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
--- NOTE | 2020-07-03 10:03 | P.PN ---
Subjective Progress Note Date: 07/03/20 Principal diagnosis: Acute COPD exacerbation Tracheobronchitis Acute asthma Inspiratory stridor Vocal cord dysfunction GERD Morbid obesity Sleep disorder breathing and sleep apnea Recurrent DVT PE on lifelong direct oral anticoagulants 07/03/2020, patient seen and evaluated examined off and on inspiratory stridor is present, cough congestion is improved slightly better at times, we'll change oral antibiotics at the time of discharge 07/02/2020, patient seen and evaluated examined patient has inspiratory stridor which becomes more prominent within significant as I approach towards the patient, there appears to be a significant psychosomatic portion and due to voca l cord dysfunction 07/01/2020, patient seen eval examined still have inspiratory stridor and ongoin g shortness of breath still complaining of cough patient remains with steroids breathing treatments, unable to obtain a sputum samples, 06/29/2020, patient seen and evaluated examined still have inspiratory and expiratory stridor and wheezing cough with purulent sputum production, respiratory status slightly improved, remains on antibiotics steroids and breathing treatments supplemental oxygen, we'll send a sputum for Gram stain and culture This is a 49-year-old female seen examined on third fourth floor patient given the hospital with increasing shortness of breath cough congestion for 3 days, symptoms of progressive she also developed inspiratory stridor was admitted into hospital for IV antibiotics breathing treatments steroids, patient has significant history of obstructive sleep apnea DVT PE morbid obesity Objective - Vital Signs Vital signs: Vital Signs Temp 97.8 F 07/03/20 07:27 Pulse 58 L 07/03/20 07:27 Resp 18 07/03/20 07:27 BP 157/81 07/03/20 07:27 Pulse Ox 96 07/03/20 07:27 Intake & Output 07/02/20 07/03/20 07/03/20 18:59 06:59 18:59 Intake Total 1418 Balance 1418 Intake: IV 650 Sodium Chloride 0.9% 1, 600 000 ml @ 75 mls/hr IV . [id number] [facility] Rx#:[id number] cefTRIAXone 1 gm In 50 Sodium Chloride 0.9% 50 ml @ 100 mls/hr IVPB Q24H [facility] Rx#:[id number] Oral 768 Other: Voiding Method Toilet # Voids 2 - Exam - Constitutional General appearance: disheveled, mild distress, morbidly obese - EENT Eyes: EOMI, PERRLA Ears: bilateral: normal - Neck Neck: normal ROM Carotids: bilateral: upstroke normal - Respiratory Respiratory: bilateral: diminished (With inspiratory stridor were getting from neck), wheezing, prolonged expiration, negative: dullness, rales, rhonchi - Cardiovascular Rhythm: regular Heart sounds: normal: S1, S2 - Gastrointestinal General gastrointestinal: decreased bowel sounds, soft - Neurologic Neurologic: CNII-XII intact - Musculoskeletal Musculoskeletal: gait normal, generalized weakness, strength equal bilaterally - Psychiatric Psychiatric: A&O x's 3, appropriate affect, intact judgment & insight - Labs CBC & Chem 7: 07/02/20 06:35 07/03/20 06:24 Labs: Abnormal Lab Results - Last 24 Hours (Table) 07/02/20 07/02/20 07/02/20 Range/Units 06:35 11:48 16:41 BUN/Creatinine Ratio (12.00-20.00) Ratio Glucose (70-110) mg/dL POC Glucose (mg/dL) 137 H 109 H (75-99) mg/dL AST (13-35) U/L ALT (8-44) U/L Total Protein (6.2-8.2) g/dL Globulin (1.6-3.3) g/dL Ceruloplasmin 16.5 L (20.0-60.0) mg/dL 07/02/20 07/03/20 07/03/20 Range/Units 20:46 06:24 06:47 BUN/Creatinine Ratio 31.43 H (12.00-20.00) Ratio Glucose 140 H (70-110) mg/dL POC Glucose (mg/dL) 235 H 119 H (75-99) mg/dL AST 80 H (13-35) U/L ALT 134 H (8-44) U/L Total Protein 5.4 L (6.2-8.2) g/dL Globulin 1.5 L (1.6-3.3) g/dL Ceruloplasmin (20.0-60.0) mg/dL Assessment and Plan Assessment: Acute COPD exacerbation Tracheobronchitis Acute asthma Inspiratory stridor Vocal cord dysfunction GERD Morbid obesity Sleep disorder breathing and sleep apnea Recurrent DVT PE on lifelong direct oral anticoagulants Plan: Sputum for Gram stain and culture cannot be obtained Continue bronchodilators IV steroids Broad-spectrum antibiotics Continue CPAP each night and when necessary during the day Supplemental oxygen Deep breathing exercise incentive spirometry Discharge planning in 1-2 days Time with Patient: Greater than 30
[2020-07-03 11:34] LABS: Glucose,Whole Blood 166 mg/dL (75-99)
[2020-07-03 12:03] LABS: Protein, Total 5.3 g/dL (6.2-8.2)
[2020-07-03 12:45] LABS: Albumin 3.12 g/dL (3.80-4.90); Gamma Globulin 0.43 g/dL (0.70-1.50)
[2020-07-03] MEDS: AZITHROMYCIN 500 MG TAB PO SCH (12:49)
[2020-07-03 16:26] LABS: Glucose,Whole Blood 97 mg/dL (75-99)
--- NOTE | 2020-07-03 16:26 | PN ---
PROGRESS NOTE DATE OF SERVICE: 07/03/2020 This is a 49-year-old white female. Inspiratory stridor is present. Cough and congestion is better at times. She needs oral antibiotics at time of discharge. CARDIOVASCULAR: S1, S2. LUNGS: Clear. GI: Soft. Blood pressure 150s over 80s, pulse 50s, respiratory rate 16 to 18, temperature 97.8. HEMATOLOGY: Negative Homans. PSYCH: Fair mood and affect. NEUROLOGIC: Alert and oriented x3. ASSESSMENT: 1. Chronic obstructive pulmonary disease exacerbation. 2. Tracheobronchitis. 3. Asthma. 4. Respiratory stridor. 5. Vocal cord dysfunction. 6. Gastroesophageal reflux disease. 7. Morbid obesity. Obstructive sleep apnea. 8. History of deep venous thrombosis. IV steroids. Broad-spectrum antibiotics. Continue CPAP, oxygen. Discharge planning in 1-2 days. Possibly stop her Dilaudid at this point. MMODL / IJN: [id number] /
[2020-07-03] MEDS ORDERED: KETOROLAC 15 MG/ML 1 ML VIAL IM SCH (18:00)
[2020-07-03 20:28] LABS: Glucose,Whole Blood 191 mg/dL (75-99)
[2020-07-03] MEDS: NON FORMULARY DRUG (Brexpiprazole [Rexulti] 4 MG Tablet) PO SCH (20:56)
[2020-07-03] MEDS: MONTELUKAST 10 MG TAB PO SCH (20:57)
[2020-07-03] MEDS: NON FORMULARY DRUG (Suvorexant [Belsomra] 20 MG Tablet) PO SCH (23:06)
[2020-07-03] MEDS: KETOROLAC 15 MG/ML 1 ML VIAL IVP SCH (23:07)
[2020-07-04] MEDS: LEVOTHYROXINE 75 MCG TAB PO SCH (05:37)
[2020-07-04] MEDS: KETOROLAC 15 MG/ML 1 ML VIAL IVP SCH ×3 (05:37→17:08)
[2020-07-04 06:49] LABS: Glucose,Whole Blood 120 mg/dL (75-99)
[2020-07-04] MEDS: INSULIN ASPART (NovoLOG) 100 UNIT/ML VIAL SQ SCH ×3 (06:53→17:08)
[2020-07-04 07:20] VITALS: RESP 18; TEMP 98.1
[2020-07-04] MEDS: tiZANidine 4 MG TAB PO SCH ×2 (08:33→15:13)
[2020-07-04] MEDS: methylPREDNISolone SOD SUCCI 40 MG/ML 1 ML VIAL IV SCH ×2 (08:33→15:13)
[2020-07-04] MEDS: APIXABAN 5 MG TAB PO SCH (08:33)
[2020-07-04] MEDS: buPROPion XL 150 MG TAB.ER.24H PO SCH (08:33)
[2020-07-04] MEDS: PREGABALIN 75 MG CAP PO SCH ×2 (08:33→15:12)
[2020-07-04] MEDS: LORATADINE 10 MG TAB PO SCH (08:33)
[2020-07-04] MEDS: MULTIVITAMINS, THERA 1 EACH TAB PO SCH (08:34)
[2020-07-04] MEDS: PANTOPRAZOLE 40 MG TABLET PO SCH (08:34)
[2020-07-04] MEDS: HYDROcodone/APAP 10-325MG 1 EACH TAB PO SCH ×2 (08:34→15:12)
[2020-07-04] MEDS: PROPRANOLOL 20 MG TAB PO SCH (08:34)
[2020-07-04] MEDS: SERTRALINE 100 MG TAB PO SCH (08:34)
[2020-07-04 11:28] LABS: Glucose,Whole Blood 116 mg/dL (75-99)
[2020-07-04] MEDS: AZITHROMYCIN 500 MG TAB PO SCH (12:28)
[2020-07-04 13:52] VITALS: BMI 44.1
[2020-07-04 13:57] VITALS: BP 133/81; PULSE 63
[2020-07-04 16:44] LABS: Glucose,Whole Blood 126 mg/dL (75-99)
== END 2020-07-04 18:05 | disposition home or self-care (01) | DRG 191 ==
LOC: 4SSUR 11:30
PROVIDERS: ADMIT Family Medicine; ATTEND Family Medicine
PROC: 5A09457 Assistance with Respiratory Ventilation, 24-96 Consecutive Hours, Continuous Positive Airway Pressure (ICD-10-PCS; principal; 2020-06-29)
DX: J44.1 Chronic obstructive pulmonary disease with (acute) exacerbation (principal); E66.2 Morbid (severe) obesity with alveolar hypoventilation; J45.901 Unspecified asthma with (acute) exacerbation; Z68.41 Body mass index [BMI] 40.0-44.9, adult; J38.00 Paralysis of vocal cords and larynx, unspecified; E11.42 Type 2 diabetes mellitus with diabetic polyneuropathy; K76.0 Fatty (change of) liver, not elsewhere classified; G40.909 Epilepsy, unspecified, not intractable, without status epilepticus; I48.91 Unspecified atrial fibrillation; Z20.822 Contact with and (suspected) exposure to COVID-19; G43.909 Migraine, unspecified, not intractable, without status migrainosus; E03.9 Hypothyroidism, unspecified; K21.9 Gastro-esophageal reflux disease without esophagitis; G89.4 Chronic pain syndrome; F32.9 Major depressive disorder, single episode, unspecified; G47.00 Insomnia, unspecified; M79.7 Fibromyalgia; M94.0 Chondrocostal junction syndrome [Tietze]; F41.9 Anxiety disorder, unspecified; Z86.718 Personal history of other venous thrombosis and embolism; R06.03 Acute respiratory distress; R09.02 Hypoxemia; Z71.3 Dietary counseling and surveillance; Z79.01 Long term (current) use of anticoagulants; Z79.890 Hormone replacement therapy; Z79.899 Other long term (current) drug therapy; Z87.01 Personal history of pneumonia (recurrent); Z86.711 Personal history of pulmonary embolism; Z87.11 Personal history of peptic ulcer disease; Z96.641 Presence of right artificial hip joint; Z96.651 Presence of right artificial knee joint; Z98.84 Bariatric surgery status; Z90.49 Acquired absence of other specified parts of digestive tract; Z98.890 Other specified postprocedural states; Z80.9 Family history of malignant neoplasm, unspecified; Z82.49 Family history of ischemic heart disease and other diseases of the circulatory system; Z83.3 Family history of diabetes mellitus; Z82.3 Family history of stroke
CPT/HCPCS: 71046; 76705; 80053; 80074; 82103; 82105; 82390; 83516; 83880; 84165; 85025; 85379; 86038; 87635

== ENCOUNTER 2020-08-25 21:14 | Emergency (ER) | payer MEDICARE, OTHER ==
[2020-08-25 22:06] VITALS: PULSE 85; RESP 18
[2020-08-25 22:44] LABS: Basophils % (A) 1 %; Eosinophils # (A) 0.3 k/uL (0-0.7); Eosinophils % (A) 5 %; HCT 42.4 % (34.0-46.0); HGB 14.5 gm/dL (11.4-16.0); Lymphocytes # (A) 1.6 k/uL (1.0-4.8); Lymphocytes % (A) 28 %; MCH 30.7 pg (25.0-35.0); MCHC 34.3 g/dL (31.0-37.0); MCV 89.5 fL (80.0-100.0); Mean Platelet Volume 9.8; Monocytes # (A) 0.4 k/uL (0-1.0); Monocytes % (A) 7 %; Neutrophils # (A) 3.2 k/uL (1.3-7.7); Neutrophils % (A) 58 %; Platelet Count 170 k/uL (150-450); RBC 4.74 m/uL (3.80-5.40); RDW 12.6 % (11.5-15.5); WBC 5.5 k/uL (3.8-10.6)
[2020-08-25 22:52] LABS: INR 1.1 (<1.2); Partial Thromboplastin Time 25.1 sec (22.0-30.0); Prothrombin Time 11.6 sec (9.0-12.0)
[2020-08-25 23:07] LABS: ALT 37 U/L (4-34); AST 43 U/L (14-36); African American GFR (CKD) >90 (>60 ml/min/1.73 sqM); Albumin 3.7 g/dL (3.5-5.0); Alkaline Phosphatase 107 U/L (38-126); Anion Gap 7 mmol/L; Blood Urea Nitrogen 9 mg/dL (7-17); Carbon Dioxide 25 mmol/L (22-30); Chloride 108 mmol/L (98-107); Glucose 86 mg/dL (74-99); Magnesium 1.9 mg/dL (1.6-2.3); Non-African American GFR(CKD) 82 (>60 ml/min/1.73 sqM); Sodium 140 mmol/L (137-145); Total Bilirubin 0.5 mg/dL (0.2-1.3); Total Protein 6.1 g/dL (6.3-8.2)
--- NOTE | 2020-08-25 23:35 | XR ---
EXAMINATION TYPE: XR chest 2V DATE OF EXAM: 08/25/2020 COMPARISON: 06/27/2020 HISTORY: Chest pain TECHNIQUE: 2 views FINDINGS: There is relative poor inspiration. Heart size is normal. There are no hilar masses. Costop hrenic angles are clear. There is neural stimulator in the thoracic spine. IMPRESSION: No active cardiopulmonary disease. No change.
[2020-08-26] VITALS: BP 143/83; TEMP 98.2
--- NOTE | 2020-08-26 00:28 | ED ---
General Adult HPI - General Chief complaint: Chest Pain Stated complaint: SOB,Fever, Cough Source: patient Mode of arrival: ambulatory Limitations: no limitations - History of Present Illness Initial comments: Patient is a 50-year-old female with a past medical history of asthma, COPD, diabetes mellitus, GERD, fibromyalgia who presents to the emergency room for a chief complaint of shortness of breath. Patient reports that she was exposed to covid 5 days ago. States that for the past 3 days she has noticed some shortness of breath as well as some pain in her chest. Patient states the pain is dull in nature. States this feels like a COPD exacerbation. States right now it is actually feeling a lot better. Patient denies nausea or vomiting. Denies diaphoresis. Patient has no other complaints at this time including abdominal pain, nausea or vomiting, headache, or visual changes. - Related Data Home Medications Medication Instructions Recorded Confirmed Pregabalin [Lyrica] 150 mg PO TID 10/09/14 06/27/20 Montelukast [Singulair] 10 mg PO HS 06/23/15 06/27/20 Levothyroxine Sodium [Synthroid] 150 mcg PO DAILY 02/16/17 06/27/20 Suvorexant [Belsomra] 20 mg PO HS 05/03/18 06/27/20 HYDROcodone/APAP 10-325MG [Volant 1 tab PO TID 01/05/19 06/27/20 10-325] Sertraline [Zoloft] 100 mg PO BID 01/05/19 06/27/20 tiZANidine [Zanaflex] 4 mg PO TID 06/28/19 06/27/20 Omeprazole [PriLOSEC] 40 mg PO DAILY 07/10/19 06/27/20 Brexpiprazole [Rexulti] 4 mg PO HS 06/27/20 06/27/20 Dulaglutide [Trulicity] 1.5 mg SQ MO 06/27/20 06/27/20 Galcanezumab-Gnlm [Emgality] 120 mg SQ QMONTHLY 06/27/20 06/27/20 Multivitamins, Thera [Multivitamin 1 tab PO DAILY 06/27/20 06/27/20 (formulary)] Propranolol HCl 60 mg PO BID 06/27/20 06/27/20 buPROPion XL [Wellbutrin Xl] 150 mg PO BID 06/27/20 06/27/20 Previous Rx's Medication Instructions Recorded Apixaban [Eliquis] 5 mg PO BID #60 tab 01/10/19 Loratadine [Claritin] 10 mg PO DAILY tab 06/30/19 Levofloxacin [Levaquin] 500 mg PO DAILY 5 Days #5 tab 07/04/20 Azithromycin [Zithromax Z-pack (6 250 mg PO DIRECTED #6 tab 08/26/20 tabs)] predniSONE 50 mg PO DAILY #5 tablet 08/26/20 Allergies Allergy/AdvReac Type Severity Reaction Status Date / Time No Known Allergies Allergy Verified 08/25/20 22:06 Review of Systems ROS Statement: Those systems with pertinent positive or pertinent negative responses have been documented in the HPI. ROS Other: All systems not noted in ROS Statement are negative. Past Medical History Past Medical History: Asthma, COPD, Diabetes Mellitus, Fibromyalgia, GERD/Reflux, Pneumonia, Pulmonary Embolus (PE), Seizure Disorder, Sleep Apnea/CPAP/BIPAP, Thyroid Disorder Additional Past Medical History / Comment(s): Chronic asthma, chronic COPD, recurrent pneumonias, bronchitis, hx of respiratory stridor, PE in 2003 and 2009-bilateral lungs, MAGALI with CPAP, NIDDM type II-pt states borderline, psuedo seizures with last one in 2016, past gastric ulcer, DDD, LOWER BACK PAIN- RADIATES DOWN RT LEG, R toes,neuropathy, generalized pain from fibromyalgia, chronic MIGRAINES, seasonal allergies, hypothyroidism, urinary leakage at times, healed wound on abdomen from surgical dehiscence, insomnia, cellulitis R arm, pt has had wound dehiscence panniculetomy incision and it still opens alittle at times-she goes to [facility] wound care center about once a month. History of Any Multi-Drug Resistant Organisms: None Reported Past Surgical History: Back Surgery, Bariatric Surgery, Cholecystectomy, Joint Replacement, Orthopedic Surgery Additional Past Surgical History / Comment(s): 11/12/16 bronchoscopy wit BAL, gastric bypass 2011, panniculectomy with wound dehiscence/debridements, 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 Past Anesthesia/Blood Transfusion Reactions: No Reported Reaction Past Psychological History: Anxiety, Depression Smoking Status: Never smoker Past Alcohol Use History: None Reported Past Drug Use History: None Reported - Past Family History Brother(s) Family Medical History: Cancer Additional Family Medical History / Comment(s): spine Father Family Medical History: Coronary Artery Disease (CAD), CVA/TIA, Diabetes Mellitus, Hypertension, Thyroid Disorder Additional Family Medical History / Comment(s): X3 STROKES, STENTS IN HEART,Pacemaker Mother Family Medical History: Diabetes Mellitus, Hypertension, Thyroid Disorder Additional Family Medical History / Comment(s): KNEE REPLACEMENTS General Exam Limitations: no limitations General appearance: alert, in no apparent distress Head exam: Present: atraumatic, normocephalic, normal inspection Eye exam: Present: normal appearance, PERRL, EOMI. Absent: scleral icterus, conjunctival injection, periorbital swelling ENT exam: Present: normal exam, mucous membranes moist Neck exam: Present: normal inspection, full ROM. Absent: tenderness, meningismus, lymphadenopathy Respiratory exam: Present: wheezes (Minimal wheezing on exam). Absent: respiratory distress, rales, rhonchi, stridor Cardiovascular Exam: Present: regular rate, normal rhythm, normal heart sounds. Absent: systolic murmur, diastolic murmur, rubs, gallop, clicks GI/Abdominal exam: Present: soft, normal bowel sounds. Absent: distended, tenderness, guarding, rebound, rigid Course Vital Signs 08/25/20 08/26/20 22:03 00:00 Temperature 97.6 F 98.2 F Pulse Rate 85 85 Respiratory 18 18 Rate Blood Pressure 144/90 143/83 O2 Sat by Pulse 98 99 Oximetry EKG Findings - EKG Comments: EKG Findings:: Normal sinus rhythm, ventricular rate 81, CO interval 188, QTC 436 Medical Decision Making - Medical Decision Making Vitals are stable. Patient is well-appearing. No respiratory distress. She is 99% on room air. Symptoms have been ongoing for several days. CBC and CMP unremarkable. Shows a normal sinus rhythm. Troponin is negative 2. Chest x- ray shows no acute cardiopulmonary disease. Patient states the symptoms are consistent with previous episodes of COPD exacerbation. Patient was given Solu- Medrol as well as albuterol inhaler. At this time she is stable for discharge home. She will return here for any worsening symptoms. - Lab Data Result diagrams: 08/25/20 22:27 08/25/20 22:27 Lab Results 08/25/20 08/25/20 08/25/20 Range/Units 22:27 22:27 22:27 WBC 5.5 (3.8-10.6) k/uL RBC 4.74 (3.80-5.40) m/uL Hgb 14.5 (11.4-16.0) gm/dL Hct 42.4 (34.0-46.0) % MCV 89.5 (80.0-100.0) fL MCH 30.7 (25.0-35.0) pg MCHC 34.3 (31.0-37.0) g/dL RDW 12.6 (11.5-15.5) % Plt Count 170 (150-450) k/uL MPV 9.8 Neutrophils % 58 % Lymphocytes % 28 % Monocytes % 7 % Eosinophils % 5 % Basophils % 1 % Neutrophils # 3.2 (1.3-7.7) k/uL Lymphocytes # 1.6 (1.0-4.8) k/uL Monocytes # 0.4 (0-1.0) k/uL Eosinophils # 0.3 (0-0.7) k/uL Basophils # 0.0 (0-0.2) k/uL PT 11.6 (9.0-12.0) sec INR 1.1 (<1.2) APTT 25.1 (22.0-30.0) sec Sodium 140 (137-145) mmol/L Potassium 4.0 (3.5-5.1) mmol/L Chloride 108 H (98-107) mmol/L Carbon Dioxide 25 (22-30) mmol/L Anion Gap 7 mmol/L BUN 9 (7-17) mg/dL Creatinine 0.84 (0.52-1.04) mg/dL Est GFR (CKD-EPI)AfAm >90 (>60 ml/min/1.73 sqM) Est GFR (CKD-EPI)NonAf 82 (>60 ml/min/1.73 sqM) Glucose 86 (74-99) mg/dL Calcium 9.0 (8.4-10.2) mg/dL Magnesium 1.9 (1.6-2.3) mg/dL Total Bilirubin 0.5 (0.2-1.3) mg/dL AST 43 H (14-36) U/L ALT 37 H (4-34) U/L Alkaline Phosphatase 107 (38-126) U/L Troponin I (0.000-0.034) ng/mL Total Protein 6.1 L (6.3-8.2) g/dL Albumin 3.7 (3.5-5.0) g/dL Coronavirus (PCR) (Not Detectd) 08/25/20 08/25/20 08/26/20 Range/Units 22:27 22:29 01:53 WBC (3.8-10.6) k/uL RBC (3.80-5.40) m/uL Hgb (11.4-16.0) gm/dL Hct (34.0-46.0) % MCV (80.0-100.0) fL MCH (25.0-35.0) pg MCHC (31.0-37.0) g/dL RDW (11.5-15.5) % Plt Count (150-450) k/uL MPV Neutrophils % % Lymphocytes % % Monocytes % % Eosinophils % % Basophils % % Neutrophils # (1.3-7.7) k/uL Lymphocytes # (1.0-4.8) k/uL Monocytes # (0-1.0) k/uL Eosinophils # (0-0.7) k/uL Basophils # (0-0.2) k/uL PT (9.0-12.0) sec INR (<1.2) APTT (22.0-30.0) sec Sodium (137-145) mmol/L Potassium (3.5-5.1) mmol/L Chloride (98-107) mmol/L Carbon Dioxide (22-30) mmol/L Anion Gap mmol/L BUN (7-17) mg/dL Creatinine (0.52-1.04) mg/dL Est GFR (CKD-EPI)AfAm (>60 ml/min/1.73 sqM) Est GFR (CKD-EPI)NonAf (>60 ml/min/1.73 sqM) Glucose (74-99) mg/dL Calcium (8.4-10.2) mg/dL Magnesium (1.6-2.3) mg/dL Total Bilirubin (0.2-1.3) mg/dL AST (14-36) U/L ALT (4-34) U/L Alkaline Phosphatase (38-126) U/L Troponin I <0.012 <0.012 (0.000-0.034) ng/mL Total Protein (6.3-8.2) g/dL Albumin (3.5-5.0) g/dL Coronavirus (PCR) Not Detected (Not Detectd) Disposition Clinical Impression: COPD exacerbation Disposition: HOME SELF-CARE Condition: Good Instructions (If sedation given, give patient instructions): COPD (Chronic Obstructive Pulmonary Disease) (ED) Additional Instructions: Please take medications as directed. Follow up with your doctor in one to 2 days. Return to the emergency room for any worsening symptoms. Prescriptions: predniSONE 50 mg PO DAILY #5 tablet Azithromycin [Zithromax Z-pack (6 tabs)] 250 mg PO DIRECTED #6 tab Is patient prescribed a controlled substance at d/c from ED?: No Referrals: Tyler Black MD [Primary Care Provider] - 1-2 days Time of Disposition: 02:45
[2020-08-26] MEDS ORDERED: ALBUTEROL HFA INHALER INHALATION STA (01:04)
[2020-08-26] MEDS ORDERED: methylPREDNISolone SOD SUCCI 125 MG/2 ML VIAL IM ONE (01:04)
== END 2020-08-26 03:23 | disposition home or self-care (01) ==
LOC: EC 21:14
DX: J44.9 Chronic obstructive pulmonary disease, unspecified (principal); E11.9 Type 2 diabetes mellitus without complications; K21.9 Gastro-esophageal reflux disease without esophagitis; G47.30 Sleep apnea, unspecified; F32.9 Major depressive disorder, single episode, unspecified; E07.9 Disorder of thyroid, unspecified; Z90.49 Acquired absence of other specified parts of digestive tract; Z99.89 Dependence on other enabling machines and devices; Z86.711 Personal history of pulmonary embolism; Z20.822 Contact with and (suspected) exposure to COVID-19
CPT/HCPCS: 36415; 71046; 80053; 83735; 84484; 85025; 85610; 85730; 87635; 93005; 94640; 96372; 99285

== ENCOUNTER 2020-08-28 14:44 | Emergency (ER) | payer MEDICARE, OTHER ==
[2020-08-28] MEDS ORDERED: HYDROcodone/APAP 10-325MG 1 EACH TAB PO ONE (15:53)
[2020-08-28] MEDS ORDERED: KETOROLAC 15 MG/ML 1 ML VIAL IVP STA (15:53)
[2020-08-28 16:03] LABS: Basophils % (A) 0 %; Eosinophils % (A) 0 %; HCT 44.9 % (34.0-46.0); HGB 15.2 gm/dL (11.4-16.0); Lymphocytes # (A) 0.5 k/uL (1.0-4.8); Lymphocytes % (A) 11 %; MCH 30.8 pg (25.0-35.0); MCHC 33.9 g/dL (31.0-37.0); MCV 90.9 fL (80.0-100.0); Mean Platelet Volume 9.4; Monocytes # (A) 0.1 k/uL (0-1.0); Monocytes % (A) 3 %; Neutrophils # (A) 4.2 k/uL (1.3-7.7); Neutrophils % (A) 85 %; Platelet Count 148 k/uL (150-450); RBC 4.94 m/uL (3.80-5.40); RDW 12.8 % (11.5-15.5); WBC 4.9 k/uL (3.8-10.6)
--- NOTE | 2020-08-28 16:07 | XR ---
EXAMINATION TYPE: XR chest 2V DATE OF EXAM: 08/28/2020 COMPARISON: 08/25/2020 HISTORY: Cough TECHNIQUE: Frontal and lateral views of the chest are obtained. FINDINGS: Increased patchy density at the right medial lung base may reflect developing pneumonia. Correlate cl inically. No evidence for pneumothorax. No pleural effusion. The cardiac silhouette size is within normal limits. The osseous structures are grossly intact. IMPRESSION: 1. Increased patchy density at the right medial lung base may reflect developing pneumonia. Correlat e clinically.
[2020-08-28 16:15] LABS: ALT 54 U/L (4-34); AST 58 U/L (14-36); African American GFR (CKD) >90 (>60 ml/min/1.73 sqM); Alkaline Phosphatase 116 U/L (38-126); Anion Gap 6 mmol/L; Blood Urea Nitrogen 10 mg/dL (7-17); C Reactive Protein <5.0 mg/L (<10.0); Calcium 8.8 mg/dL (8.4-10.2); Carbon Dioxide 29 mmol/L (22-30); Chloride 105 mmol/L (98-107); Glucose 156 mg/dL (74-99); Non-African American GFR(CKD) >90 (>60 ml/min/1.73 sqM); Sodium 140 mmol/L (137-145); Total Bilirubin 0.4 mg/dL (0.2-1.3); Total Protein 6.3 g/dL (6.3-8.2)
[2020-08-28] MEDS ORDERED: DEXAMETHASONE SOD PHOSPHATE 10 MG/ML 1 ML VIAL IV STA (17:03)
[2020-08-28] MEDS ORDERED: AZITHROMYCIN 500 MG TAB PO STA (17:07)
--- NOTE | 2020-08-28 17:07 | ED ---
SOB HPI - General Chief Complaint: Shortness of Breath Stated Complaint: SOB, Chest pain Time Seen by Provider: 08/28/20 15:30 Source: patient Mode of arrival: wheelchair Limitations: no limitations - History of Present Illness Initial Comments: Patient is a 50-year-old female presenting to the emergency Department with complaints of shortness of breath, cough, and some chest tightness with deep breaths that started earlier today. Patient states her roommate was diagnosed with covid last week and she is afraid that she caught the same thing. She d enies any fevers or chills. She denies any nausea or vomiting, no abdominal pain. She states she does have history of asthma and has had bronchitis in the past. Patient was just here a few days ago for chest pain, her workup was normal. She has no further complaints at this time. Upon arrival to the ER, her vitals are stable. - Related Data Home Medications Medication Instructions Recorded Confirmed Pregabalin [Lyrica] 150 mg PO TID 10/09/14 08/28/20 Montelukast [Singulair] 10 mg PO HS 06/23/15 08/28/20 Levothyroxine Sodium [Synthroid] 150 mcg PO DAILY 02/16/17 08/28/20 HYDROcodone/APAP 10-325MG [Knightsen 1 tab PO TID 01/05/19 08/28/20 10-325] Sertraline [Zoloft] 100 mg PO BID 01/05/19 08/28/20 tiZANidine [Zanaflex] 4 mg PO TID 06/28/19 08/28/20 Omeprazole [PriLOSEC] 40 mg PO DAILY 07/10/19 08/28/20 Brexpiprazole [Rexulti] 4 mg PO HS 06/27/20 08/28/20 Galcanezumab-Gnlm [Emgality] 120 mg SQ QMONTHLY 06/27/20 08/28/20 Propranolol HCl 60 mg PO BID 06/27/20 08/28/20 buPROPion XL [Wellbutrin Xl] 150 mg PO BID 06/27/20 08/28/20 Ascorbic Acid [Vitamin C] 500 mg PO DAILY 08/28/20 08/28/20 Atorvastatin Calcium [Lipitor] 80 mg PO HS 08/28/20 08/28/20 Cholecalciferol [Vitamin D3 (25 25 mcg PO DAILY 08/28/20 08/28/20 Mcg = 1000 Iu)] Dulaglutide [Trulicity] 3 mg SQ MO 08/28/20 08/28/20 Magnesium Oxide 400 mg PO DAILY 08/28/20 08/28/20 Melatonin 10 mg PO HS PRN 08/28/20 08/28/20 Oxybutynin Chloride [Ditropan XL] 5 mg PO BID 08/28/20 08/28/20 Zolpidem Tartrate [Ambien] 10 mg PO HS 08/28/20 08/28/20 methocarbamoL [Robaxin] 500 mg PO HS 08/28/20 08/28/20 Previous Rx's Medication Instructions Recorded Apixaban [Eliquis] 5 mg PO BID #60 tab 01/10/19 predniSONE 50 mg PO DAILY #5 tablet 08/26/20 Azithromycin [Zithromax] 500 mg PO DAILY 4 Days #4 tab 08/28/20 Dexamethasone [Decadron] 6 mg PO DAILY 5 Days #5 tablet 08/28/20 Ketorolac [Toradol] 10 mg PO Q8HR #8 tab 08/28/20 Allergies Allergy/AdvReac Type Severity Reaction Status Date / Time No Known Allergies Allergy Verified 08/28/20 16:33 Review of Systems ROS Statement: Those systems with pertinent positive or pertinent negative responses have been documented in the HPI. ROS Other: All systems not noted in ROS Statement are negative. Past Medical History Past Medical History: Asthma, COPD, Diabetes Mellitus, Fibromyalgia, GERD/Reflux, Pneumonia, Pulmonary Embolus (PE), Seizure Disorder, Sleep Apnea/CPAP/BIPAP, Thyroid Disorder Additional Past Medical History / Comment(s): Chronic asthma, chronic COPD, recurrent pneumonias, bronchitis, hx of respiratory stridor, PE in 2003 and 2009-bilateral lungs, MAGALI with CPAP, NIDDM type II-pt states borderline, psuedo seizures with last one in 2017, past gastric ulcer, DDD, LOWER BACK PAIN- RADIATES DOWN RT LEG, R toes,neuropathy, generalized pain from fibromyalgia, chronic MIGRAINES, seasonal allergies, hypothyroidism, urinary leakage at times, healed wound on abdomen from surgical dehiscence, insomnia, cellulitis R arm, pt has had wound dehiscence panniculetomy incision and it still opens alittle at times-she goes to [facility] about once a month. History of Any Multi-Drug Resistant Organisms: None Reported Past Surgical History: Back Surgery, Bariatric Surgery, Cholecystectomy, Joint Replacement, Orthopedic Surgery Additional Past Surgical History / Comment(s): 11/12/16 bronchoscopy wit BAL, gastric bypass 2011, panniculectomy with wound dehiscence/debridements, 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 Past Anesthesia/Blood Transfusion Reactions: No Reported Reaction Past Psychological History: Anxiety, Depression Smoking Status: Never smoker Past Alcohol Use History: None Reported Past Drug Use History: None Reported - Past Family History Brother(s) Family Medical History: Cancer Additional Family Medical History / Comment(s): spine Father Family Medical History: Coronary Artery Disease (CAD), CVA/TIA, Diabetes Mellitus, Hypertension, Thyroid Disorder Additional Family Medical History / Comment(s): X3 STROKES, STENTS IN HEART,Pacemaker Mother Family Medical History: Diabetes Mellitus, Hypertension, Thyroid Disorder Additional Family Medical History / Comment(s): KNEE REPLACEMENTS General Exam - General Exam Comments Initial Comments: GENERAL: Patient is well-developed and well-nourished. Patient is nontoxic and in no acute distress. HEAD: Atraumatic, normocephalic. EYES: Pupils equal round and reactive to light, extraocular movements intact, sclera anicteric, conjunctiva are normal. Eyelids were unremarkable. ENT: TMs normal, nares patent, oropharynx clear without exudates. Moist mucous membranes. NECK: Normal range of motion, supple without lymphadenopathy or JVD. LUNGS: Unlabored respirations. Breath sounds clear to auscultation bilaterally and equal. No wheezes rales or rhonchi. HEART: Regular rate and rhythm without murmurs, rubs or gallops. ABDOMEN: Soft, nontender, normoactive bowel sounds. No guarding, no rebound. No masses appreciated. : Deferred MUSCULOSKELETAL: Normal extremities with adequate strength and normal range of motion, no pitting or edema. No clubbing or cyanosis. NEUROLOGICAL: Patient is alert and oriented x 3. Motor and sensory are also intact. Cranial nerves II through XII grossly intact. Symmetrical smile. Normal speech, normal gait. PSYCH: Normal mood, normal affect. SKIN: Warm, Dry, normal turgor, no rashes or lesions noted. Limitations: no limitations Course Vital Signs 08/28/20 08/28/20 08/28/20 14:54 16:58 17:29 Temperature 98.9 F 98.3 F Pulse Rate 86 77 Respiratory 20 20 18 Rate Blood Pressure 108/59 114/75 O2 Sat by Pulse 98 98 Oximetry Medical Decision Making - Medical Decision Making He is a 50-year-old female with history of asthma presenting with cough, shortness of breath that started today. Roommate recently tested positive for Covid. Her vital signs are stable, EKG is normal. Labs are unremarkable, normal white count, normal troponin and CRP. Rapid Covid is negative. Chest x- ray shows increased patchy density in the right medial lung base, may reflect developing pneumonia. Patient received some fluids, Toradol for discomfort. Discussed these findings with the patient. I will give her dose of azithromycin today as well as steroids. I did recommend staying for a second troponin, over patient declined. I believe her chest discomfort is related to possible developing pneumonia or bronchitis. I will continue her on azithromycin as well as steroids. She is stable for discharge and she is in agreement with this plan of care. Return parameters were discussed with the patient she verbalized understanding. Case discussed with Dr. Paulino. - Lab Data Result diagrams: 08/28/20 15:54 08/28/20 15:54 Lab Results 08/28/20 08/28/20 08/28/20 Range/Units 15:54 15:54 15:54 WBC 4.9 (3.8-10.6) k/uL RBC 4.94 (3.80-5.40) m/uL Hgb 15.2 (11.4-16.0) gm/dL Hct 44.9 (34.0-46.0) % MCV 90.9 (80.0-100.0) fL MCH 30.8 (25.0-35.0) pg MCHC 33.9 (31.0-37.0) g/dL RDW 12.8 (11.5-15.5) % Plt Count 148 L (150-450) k/uL MPV 9.4 Neutrophils % 85 % Lymphocytes % 11 % Monocytes % 3 % Eosinophils % 0 % Basophils % 0 % Neutrophils # 4.2 (1.3-7.7) k/uL Lymphocytes # 0.5 L (1.0-4.8) k/uL Monocytes # 0.1 (0-1.0) k/uL Eosinophils # 0.0 (0-0.7) k/uL Basophils # 0.0 (0-0.2) k/uL Sodium 140 (137-145) mmol/L Potassium 4.0 (3.5-5.1) mmol/L Chloride 105 (98-107) mmol/L Carbon Dioxide 29 (22-30) mmol/L Anion Gap 6 mmol/L BUN 10 (7-17) mg/dL Creatinine 0.77 (0.52-1.04) mg/dL Est GFR (CKD-EPI)AfAm >90 (>60 ml/min/1.73 sqM) Est GFR (CKD-EPI)NonAf >90 (>60 ml/min/1.73 sqM) Glucose 156 H (74-99) mg/dL Calcium 8.8 (8.4-10.2) mg/dL Total Bilirubin 0.4 (0.2-1.3) mg/dL AST 58 H (14-36) U/L ALT 54 H (4-34) U/L Alkaline Phosphatase 116 (38-126) U/L Troponin I <0.012 (0.000-0.034) ng/mL C-Reactive Protein <5.0 (<10.0) mg/L Total Protein 6.3 (6.3-8.2) g/dL Albumin 4.0 (3.5-5.0) g/dL Coronavirus (PCR) (Not Detectd) 08/28/20 Range/Units 15:54 WBC (3.8-10.6) k/uL RBC (3.80-5.40) m/uL Hgb (11.4-16.0) gm/dL Hct (34.0-46.0) % MCV (80.0-100.0) fL MCH (25.0-35.0) pg MCHC (31.0-37.0) g/dL RDW (11.5-15.5) % Plt Count (150-450) k/uL MPV Neutrophils % % Lymphocytes % % Monocytes % % Eosinophils % % Basophils % % Neutrophils # (1.3-7.7) k/uL Lymphocytes # (1.0-4.8) k/uL Monocytes # (0-1.0) k/uL Eosinophils # (0-0.7) k/uL Basophils # (0-0.2) k/uL Sodium (137-145) mmol/L Potassium (3.5-5.1) mmol/L Chloride (98-107) mmol/L Carbon Dioxide (22-30) mmol/L Anion Gap mmol/L BUN (7-17) mg/dL Creatinine (0.52-1.04) mg/dL Est GFR (CKD-EPI)AfAm (>60 ml/min/1.73 sqM) Est GFR (CKD-EPI)NonAf (>60 ml/min/1.73 sqM) Glucose (74-99) mg/dL Calcium (8.4-10.2) mg/dL Total Bilirubin (0.2-1.3) mg/dL AST (14-36) U/L ALT (4-34) U/L Alkaline Phosphatase (38-126) U/L Troponin I (0.000-0.034) ng/mL C-Reactive Protein (<10.0) mg/L Total Protein (6.3-8.2) g/dL Albumin (3.5-5.0) g/dL Coronavirus (PCR) Not Detected (Not Detectd) - EKG Data EKG Comments: Normal sinus rhythm, normal ECG, no signs of acute ischemia. Ventricular rate 83, NM interval 174, QT 370. Similar to previous EKG on 08/25/2020. Disposition Clinical Impression: Cough, Pneumonia Disposition: HOME SELF-CARE Condition: Stable Instructions (If sedation given, give patient instructions): Pneumonia (ED) Additional Instructions: Please return to the Emergency Department if symptoms worsen or any other concerns. COVID test is negative today. Start anabiotic and steroids tomorrow. Continue with your at home medications. Follow-up with your family doctor. Prescriptions: Dexamethasone [Decadron] 6 mg PO DAILY 5 Days #5 tablet Ketorolac [Toradol] 10 mg PO Q8HR #8 tab Azithromycin [Zithromax] 500 mg PO DAILY 4 Days #4 tab Is patient prescribed a controlled substance at d/c from ED?: No Referrals: Tyler Black MD [Primary Care Provider] - 1-2 days
[2020-08-28 17:31] VITALS: BP 114/75; PULSE 77; RESP 18; TEMP 98.3
== END 2020-08-28 17:31 | disposition home or self-care (01) ==
LOC: EC 14:44
DX: J18.9 Pneumonia, unspecified organism (principal); J44.9 Chronic obstructive pulmonary disease, unspecified; K21.9 Gastro-esophageal reflux disease without esophagitis; G40.909 Epilepsy, unspecified, not intractable, without status epilepticus; E03.9 Hypothyroidism, unspecified; E11.40 Type 2 diabetes mellitus with diabetic neuropathy, unspecified; M79.7 Fibromyalgia; G47.33 Obstructive sleep apnea (adult) (pediatric); Z20.822 Contact with and (suspected) exposure to COVID-19; Z86.711 Personal history of pulmonary embolism; Z87.11 Personal history of peptic ulcer disease; Z79.01 Long term (current) use of anticoagulants; Z79.52 Long term (current) use of systemic steroids; Z79.1 Long term (current) use of non-steroidal anti-inflammatories (NSAID); Z79.899 Other long term (current) drug therapy; Z79.890 Hormone replacement therapy
CPT/HCPCS: 36415; 93005; 80053; 84484; 85025; 86140; 87635; 71046; 99285; 96374; 96375; J1100; J1885

== ENCOUNTER → 2020-10-15 | Outpatient (CLI) | payer MEDICARE, OTHER ==
[2020-10-15 21:05] LABS: ALT 63 U/L (8-44); AST 50 U/L (13-35); Albumin/Globulin Ratio 2.63 (1.60-3.17); Alkaline Phosphatase 130 U/L (41-126); Bilirubin, Conjugated <0.20 mg/dL (0.20-0.40); Globulin 1.6 g/dL (1.6-3.3); Total Bilirubin 0.5 mg/dL (0.3-1.2); Total Protein 5.8 g/dL (6.2-8.2)
== END | disposition home or self-care (01) ==
LOC: LABWHC1 12:17
PROVIDERS: ATTEND Nurse Practitioner
DX: R74.01 Elevation of levels of liver transaminase levels (principal)
CPT/HCPCS: 36415; 80076

== ENCOUNTER → 2021-03-13 | Outpatient (CLI) | payer MEDICARE, OTHER ==
--- NOTE | 2021-03-13 12:49 | CT ---
EXAMINATION TYPE: CT cervical spine wo con DATE OF EXAM: 03/13/2021 COMPARISON: 09/02/2017 HISTORY: Right sided arm numbness. No known injury CT DLP: 1066.8 mGycm CONTRAST: None CT of the cervical spine is performed in the axial plane at 2 mm thick sections. Reconstructed image s in the coronal, and sagittal plane are reviewed on the computer. No acute fractures are evident. Vertebral body alignment is normal. Disc heights are preserved. Vertebral body heights are preserved. No spinal canal stenosis is evident Infiltrate hypertrophy is present on the right at C2-3 with mild foraminal narrowing. Minimal foramin al narrowing may be present C3-4 bilaterally. IMPRESSIONS: 1. Mild upper cervical spine foraminal narrowing. 2. No significant interval change. 3. No acute osseous abnormality.
== END | disposition home or self-care (01) ==
LOC: RADCTMAIN 12:10
PROVIDERS: ATTEND Family Medicine
DX: M99.71 Connective tissue and disc stenosis of intervertebral foramina of cervical region (principal)
CPT/HCPCS: 72125

== ENCOUNTER → 2021-04-10 | Outpatient (CLI) | payer MEDICARE, OTHER ==
--- NOTE | 2021-04-10 11:40 | XR ---
EXAMINATION TYPE: XR sacrum coccyx DATE OF EXAM: 04/10/2021 COMPARISON: CT June 23, 2015 HISTORY: Falling injury with pain TECHNIQUE: 2 view sacrum and coccyx. FINDINGS: No acute displaced sacral or coccygeal fracture clearly seen. There is some separation and loss of alignment in the distal sacrum and coccyx but this is not significantly changed from 2016 CT and there is no linear lucency to definitively suggest acute displaced fracture. The visualized sacro iliac joints are grossly stable and within normal limits. Overlying soft tissue is unremarkable. IMPRESSION: As above.
== END | disposition home or self-care (01) ==
LOC: RADXRMAIN 10:50
PROVIDERS: ATTEND Family Medicine
DX: M53.3 Sacrococcygeal disorders, not elsewhere classified (principal); S39.92XA Unspecified injury of lower back, initial encounter; W19.XXXA Unspecified fall, initial encounter
CPT/HCPCS: 72220

== ENCOUNTER → 2021-09-12 | Outpatient (CLI) | payer MEDICARE, OTHER ==
--- NOTE | 2021-09-12 14:19 | CT ---
EXAMINATION TYPE: CT cervical spine wo con DATE OF EXAM: 09/12/2021 COMPARISON: 03/13/2021 HISTORY: neck pain and arm numbness CT DLP: 777 mGycm Automated exposure control for dose reduction was used. TECHNIQUE: CT scan of the cervical spine is obtained without contrast, axial images are obtained, sa gittal and coronal reformatted images are also reviewed. Findings: The craniovertebral junction relationships and prevertebral soft tissues are normal. The cervical vertebral segments are normal in height and alignment and there is no fracture or sublux ation. The disc spaces are well-maintained in height. There is no bony encroachment of the cervical canal or neural foramina. The paraspinal soft tissues are unremarkable. IMPRESSION: No significant abnormality seen with no interval change.
== END | disposition home or self-care (01) ==
LOC: RADCTMAIN 09:24
PROVIDERS: ATTEND Family Medicine
DX: M54.2 Cervicalgia (principal)
CPT/HCPCS: 72125

== ENCOUNTER → 2022-03-31 | Outpatient (CLI) | payer MEDICARE, OTHER ==
--- NOTE | 2022-03-31 15:00 | NM ---
EXAMINATION TYPE: NM parathyroid DATE OF EXAM: 03/31/2022 COMPARISON: CT cervical spine 09/12/2021. HISTORY: Secondary hypoparathyroidism TECHNIQUE: Following administration of 21.2 mCi Tc99m Sestamibi. Anterior projection images of the neck and ches t were obtained 10 minutes and 3 hours post injection FINDINGS: Thyroid tracer washout: Delayed images demonstrate complete tracer washout from the right thyroid lob e. Absent left thyroid uptake. Parathyroid uptake: None. The two-hour delayed images do not demonstrate any focal abnormal persisten t uptake in the region of the parathyroid glands to suggest parathyroid adenoma. Normal uptake: There is physiological tracer uptake in the salivary glands. IMPRESSION: No evidence for abnormal uptake to suggest parathyroid adenoma
== END | disposition home or self-care (01) ==
LOC: RADNMMAIN 08:26
PROVIDERS: ATTEND Family Medicine
DX: E20.8 Other hypoparathyroidism (principal); I10 Essential (primary) hypertension
CPT/HCPCS: 78070; A9500

== ENCOUNTER 2023-04-02 22:53 | Emergency (ER) | payer MEDICARE, OTHER ==
[2023-04-02 23:14] VITALS: TEMP 97.7
--- NOTE | 2023-04-03 00:46 | XR ---
EXAM: XR Left Wrist Complete, 3 or More Views CLINICAL HISTORY: ITS.REASON XR Reason: pain/swelling TECHNIQUE: Frontal, lateral and oblique views of the left wrist. COMPARISON: No relevant prior studies available. FINDINGS: Bones/joints: Unremarkable. No acute fracture. No dislocation. Soft tissues: Unremarkable. No radiopaque foreign body. IMPRESSION: Normal left wrist x-rays.
--- NOTE | 2023-04-03 00:47 | XR ---
EXAM: XR Left Hand Complete, 3 or More Views CLINICAL HISTORY: ITS.REASON XR Reason: pain/swelling TECHNIQUE: Frontal, lateral and oblique views of the left hand. COMPARISON: No relevant prior studies available. FINDINGS: Bones/joints: Unremarkable. No acute fracture. No dislocation. Soft tissues: Unremarkable. No radiopaque foreign body. IMPRESSION: Normal left hand x-rays.
[2023-04-03] MEDS ORDERED: KETOROLAC 15 MG/ML 1 ML VIAL IM STA (00:55)
--- NOTE | 2023-04-03 01:15 | ED ---
General Adult HPI - General Chief complaint: Extremity Injury, Upper Stated complaint: left wrist pain Time Seen by Provider: 04/03/23 00:07 Source: patient Mode of arrival: ambulatory Limitations: no limitations - History of Present Illness Initial comments: 52-year-old female presents to the ED with a chief complaint of left wrist pain. Patient states that she was fooling around with her granddaughter and running around the house when she accidentally hit her left wrist onto the door frame. Now complains of wrist pain. No other injuries at this time. No other complaints. - Related Data Home Medications Medication Instructions Recorded Confirmed Pregabalin [Lyrica] 150 mg PO TID 10/09/14 08/28/20 Montelukast [Singulair] 10 mg PO HS 06/23/15 08/28/20 Levothyroxine Sodium [Synthroid] 150 mcg PO DAILY 02/16/17 08/28/20 HYDROcodone/APAP 10-325MG [[place] 1 tab PO TID 01/05/19 08/28/20 10-325] Sertraline [Zoloft] 100 mg PO BID 01/05/19 08/28/20 tiZANidine [Zanaflex] 4 mg PO TID 06/28/19 08/28/20 Omeprazole [PriLOSEC] 40 mg PO DAILY 07/10/19 08/28/20 Brexpiprazole [Rexulti] 4 mg PO HS 06/27/20 08/28/20 Galcanezumab-Gnlm [Emgality] 120 mg SQ QMONTHLY 06/27/20 08/28/20 Propranolol HCl [Inderal] 60 mg PO BID 06/27/20 08/28/20 buPROPion XL [Wellbutrin Xl] 150 mg PO BID 06/27/20 08/28/20 Ascorbic Acid [Vitamin C] 500 mg PO DAILY 08/28/20 08/28/20 Atorvastatin Calcium [Lipitor] 80 mg PO HS 08/28/20 08/28/20 Cholecalciferol [Vitamin D3 (25 25 mcg PO DAILY 08/28/20 08/28/20 Mcg = 1000 Iu)] Dulaglutide [Trulicity] 3 mg SQ MO 08/28/20 08/28/20 Magnesium Oxide 400 mg PO DAILY 08/28/20 08/28/20 Melatonin [Melatonin Dissolving 10 mg PO HS PRN 08/28/20 08/28/20 Tablet] Zolpidem Tartrate [Ambien] 10 mg PO HS 08/28/20 08/28/20 methocarbamoL [Robaxin] 500 mg PO HS 08/28/20 08/28/20 oxyBUTYnin chloride [Ditropan XL] 5 mg PO BID 08/28/20 08/28/20 Previous Rx's Medication Instructions Recorded Apixaban [Eliquis] 5 mg PO BID #60 tab 01/10/19 predniSONE 50 mg PO DAILY #5 tablet 08/26/20 Azithromycin [Zithromax] 500 mg PO DAILY 4 Days #4 tab 08/28/20 Ketorolac [Toradol] 10 mg PO Q8HR #8 tab 08/28/20 dexAMETHasone [Decadron] 6 mg PO DAILY 5 Days #5 tablet 08/28/20 Allergies Allergy/AdvReac Type Severity Reaction Status Date / Time No Known Allergies Allergy Verified 04/02/23 23:08 Review of Systems ROS Statement: Those systems with pertinent positive or pertinent negative responses have been documented in the HPI. ROS Other: All systems not noted in ROS Statement are negative. Past Medical History Past Medical History: Asthma, COPD, Diabetes Mellitus, Fibromyalgia, GERD/Reflux, Pneumonia, Pulmonary Embolus (PE), Seizure Disorder, Sleep Apnea/CPAP/BIPAP, Thyroid Disorder Additional Past Medical History / Comment(s): Chronic asthma, chronic COPD, recurrent pneumonias, bronchitis, hx of respiratory stridor, PE in 2003 and 2009-bilateral lungs, MAGALI with CPAP, NIDDM type II-pt states borderline, psuedo seizures with last one in 2017, past gastric ulcer, DDD, LOWER BACK PAIN- RADIATES DOWN RT LEG, R toes,neuropathy, generalized pain from fibromyalgia, chronic MIGRAINES, seasonal allergies, hypothyroidism, urinary leakage at times, healed wound on abdomen from surgical dehiscence, insomnia, cellulitis R arm, pt has had wound dehiscence panniculetomy incision and it still opens alittle at times-she goes to [facility] wound care center about once a month. History of Any Multi-Drug Resistant Organisms: None Reported Past Surgical History: Back Surgery, Bariatric Surgery, Cholecystectomy, Joint Replacement, Orthopedic Surgery Additional Past Surgical History / Comment(s): 11/12/16 bronchoscopy wit BAL, gastric bypass 2012, panniculectomy with wound dehiscence/debridements, 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 Past Anesthesia/Blood Transfusion Reactions: No Reported Reaction Past Psychological History: Anxiety, Depression Smoking Status: Never smoker Past Alcohol Use History: None Reported Past Drug Use History: None Reported - Past Family History Brother(s) Family Medical History: Cancer Additional Family Medical History / Comment(s): spine Father Family Medical History: Coronary Artery Disease (CAD), CVA/TIA, Diabetes Mellitus, Hypertension, Thyroid Disorder Additional Family Medical History / Comment(s): X3 STROKES, STENTS IN HEART,Pacemaker Mother Family Medical History: Diabetes Mellitus, Hypertension, Thyroid Disorder Additional Family Medical History / Comment(s): KNEE REPLACEMENTS General Exam Limitations: no limitations General appearance: alert, in no apparent distress Eye exam: Present: normal appearance Respiratory exam: Present: normal lung sounds bilaterally Cardiovascular Exam: Present: regular rate, normal rhythm GI/Abdominal exam: Present: soft Extremities exam: Present: other (After wrist shows full active range of motion. Full strength and sensation of the left upper extremity. Patient does however have some snuffbox tenderness to palpation.) Neurological exam: Present: alert, oriented X3 Skin exam: Present: warm, dry Course Vital Signs 04/02/23 23:08 Temperature 97.7 F Pulse Rate 83 Respiratory 18 Rate Blood Pressure 104/65 O2 Sat by Pulse 97 Oximetry Medical Decision Making - Medical Decision Making Was pt. sent in by a medical professional or institution (, PA, SECURITY ADVISOR, urgent care, hospital, or assisted...) When possible be specific @ -No Did you speak to anyone other than the patient for history (EMS, parent, family, police, friend...)? What history was obtained from this source @ -No Did you review nursing and triage notes (agree or disagree)? Why? @ -I reviewed and agree with nursing and triage notes Were old charts reviewed (outside hosp., previous admission, EMS record, old EKG, old radiological studies, urgent care reports/EKG's, assisted records)? Report findings @ -No old charts were reviewed Differential Diagnosis (chest pain, altered mental status, abdominal pain women, abdominal pain men, vaginal bleeding, weakness, fever, dyspnea, syncope, headache, dizziness, GI bleed, back pain, seizure, CVA, palpatations, mental health, musculoskeletal)? @ -Differential Musculoskeletal Muscular strain, contusion, ligament sprain, fracture, arthritis, septic arthritis, bursitis, cellulitis, muscle spasm, nerve compression, DVT, arterial occlusion, herpes zoster, electrolyte abnormality, tumor.... This is not meant to be in all inclusive list EKG interpreted by me (3pts min.). @ -As above X-rays interpreted by me (1pt min.). @ -X-ray of the left wrist interpreted by me show no evidence of fracture or other acute finding. CT interpreted by me (1pt min.). @ -None done U/S interpreted by me (1pt. min.). @ -None done What testing was considered but not performed or refused? (CT, X-rays, U/S, labs)? Why? @ -None What meds were considered but not given or refused? Why? @ -None Did you discuss the management of the patient with other professionals (professionals i.e. , PA, SECURITY ADVISOR, lab, RT, psych nurse, social worker clinical, extension edger, teacher, ethics officer, keycase assembler)? Give summary @ -No Was smoking cessation discussed for >3mins.? @ -No Was critical care preformed (if so, how long)? @ -No Were there social determinants of health that impacted care today? How? (Homelessness, low income, unemployed, alcoholism, drug addiction, transportation, low edu. Level, literacy, decrease access to med. care, half-way, rehab)? @ -No Was there de-escalation of care discussed even if they declined (Discuss DNR or withdrawal of care, Hospice)? DNR status @ -No What co-morbidities impacted this encounter? (DM, HTN, Smoking, COPD, CAD, Cancer, CVA, ARF, Chemo, Hep., AIDS, mental health diagnosis, sleep apnea, morbid obesity)? @ -None Was patient admitted / discharged? Hospital course, mention meds given and route, prescriptions, significant lab abnormalities, going to OR and other pertinent info. @ -Discharge 52-year-old female presenting to the ED with a chief complaint of left wrist pain. Imaging studies have no findings significant for acute fracture or other acute finding. However, patient did have some snuffbox tenderness to palpation on exam. Therefore, patient placed in a thumb spica splint. Provided referral to see orthopedics. Discharge patient in stable condition. Discussed return precautions with patient who verbalizes agreement. Undiagnosed new problem with uncertain prognosis? @ -No Drug Therapy requiring intensive monitoring for toxicity (Heparin, Nitro, Insulin, Cardizem)? @ -No Were any procedures done? @ -No Diagnosis/symptom? @ -Left wrist injury Acute, or Chronic, or Acute on Chronic? @ -Acute Uncomplicated (without systemic symptoms) or Complicated (systemic symptoms)? @ -Uncomplicated Side effects of treatment? @ -No Exacerbation, Progression, or Severe Exacerbation? @ -No Poses a threat to life or bodily function? How? (Chest pain, [place], [place], pneumonia, PE, COPD, DKA, ARF, appy, cholecystitis, CVA, Diverticulitis, Homicidal, Suicidal, threat to staff... and all critical care pts) @ -No Disposition Clinical Impression: Left wrist pain Disposition: HOME SELF-CARE Condition: Good Instructions (If sedation given, give patient instructions): Wrist Injury (ED) Additional Instructions: Please return to the Emergency Department if symptoms worsen or any other concerns. Please follow up with orthopedics. Is patient prescribed a controlled substance at d/c from ED?: No Referrals: Tyler Black MD [Primary Care Provider] - 1-2 days Elvia Cha DO [Doctor of Osteopathic Medicine] - 1-2 days Time of Disposition: 01:17
[2023-04-03 01:46] VITALS: BP 94/53; PULSE 79; RESP 16
== END 2023-04-03 01:25 | disposition home or self-care (01) ==
LOC: EC 22:53
DX: S69.92XA Unspecified injury of left wrist, hand and finger(s), initial encounter (principal); E11.40 Type 2 diabetes mellitus with diabetic neuropathy, unspecified; J44.89 Other specified chronic obstructive pulmonary disease; E03.9 Hypothyroidism, unspecified; K21.9 Gastro-esophageal reflux disease without esophagitis; F32.A Depression, unspecified; F41.9 Anxiety disorder, unspecified; M79.7 Fibromyalgia; G47.33 Obstructive sleep apnea (adult) (pediatric); Z79.85 Long-term (current) use of injectable non-insulin antidiabetic drugs; Z79.890 Hormone replacement therapy; Z79.899 Other long term (current) drug therapy; W22.8XXA Striking against or struck by other objects, initial encounter; Y93.02 Activity, running; Y92.009 Unspecified place in unspecified non-institutional (private) residence as the place of occurrence of the external cause
CPT/HCPCS: 73110; 73130; 29125; 99283; 96372; J1885

== ENCOUNTER 2023-05-26 14:56 | Emergency (ER) | payer MEDICARE, OTHER ==
[2023-05-26 15:56] VITALS: RESP 18
--- NOTE | 2023-05-26 16:04 | ED ---
Back Pain HPI - General Source: patient Limitations: no limitations <Prasanna Oconnell - Last Filed: 05/26/23 16:05> - General Source: RN notes reviewed, old records reviewed Limitations: no limitations - History of Present Illness MD Complaint: back pain -: hour(s) Similar Symptoms Previously: Yes Place: home Radiation: none Severity: severe Severity scale (1-10): 9 Quality: burning, sharp Consistency: constant Improves With: none Worsens With: none Context: while lifting, turning/twisting, bending Associated Symptoms: denies other symptoms <Cody Carlton - Last Filed: 06/03/23 03:00> - General Chief Complaint: Back Pain/Injury Stated Complaint: L leg/back pain - History of Present Illness Initial Comments: 52-year-old female with past medical history significant for chronic back pain presenting to the ED with a chief complaint of back pain. Patient states history of back pain. States that with pain has intermittent radiation to the leg. Reports over the past 2 days has had worsening of back pain now has radiation to her other leg which is not usual for her presentation to the ED for further evaluation. Denies saddle anesthesia or incontinence. Denies urinary symptoms. (Prasanna Oconnell) This is a 52-year-old female to the emergency department for evaluation of back pain with history of back pain pain down the leg severe pain down the leg and she is having difficulty and pain with ambulation. But no neurological symptoms no loss of bowel or bladder no new trauma (Cody Carlton) - Related Data Home Medications Medication Instructions Recorded Confirmed Pregabalin [Lyrica] 150 mg PO TID 10/09/14 08/28/20 Montelukast [Singulair] 10 mg PO HS 06/23/15 08/28/20 Levothyroxine Sodium [Synthroid] 150 mcg PO DAILY 02/16/17 08/28/20 HYDROcodone/APAP 10-325MG [[place] 1 tab PO TID 01/05/19 08/28/20 10-325] Sertraline [Zoloft] 100 mg PO BID 01/05/19 08/28/20 tiZANidine [Zanaflex] 4 mg PO TID 06/28/19 08/28/20 Omeprazole [PriLOSEC] 40 mg PO DAILY 07/10/19 08/28/20 Brexpiprazole [Rexulti] 4 mg PO HS 06/27/20 08/28/20 Galcanezumab-Gnlm [Emgality] 120 mg SQ QMONTHLY 06/27/20 08/28/20 Propranolol HCl [Inderal] 60 mg PO BID 06/27/20 08/28/20 buPROPion XL [Wellbutrin Xl] 150 mg PO BID 06/27/20 08/28/20 Ascorbic Acid [Vitamin C] 500 mg PO DAILY 08/28/20 08/28/20 Atorvastatin Calcium [Lipitor] 80 mg PO HS 08/28/20 08/28/20 Cholecalciferol [Vitamin D3 (25 25 mcg PO DAILY 08/28/20 08/28/20 Mcg = 1000 Iu)] Dulaglutide [Trulicity] 3 mg SQ MO 08/28/20 08/28/20 Magnesium Oxide 400 mg PO DAILY 08/28/20 08/28/20 Melatonin [Melatonin Dissolving 10 mg PO HS PRN 08/28/20 08/28/20 Tablet] Zolpidem Tartrate [Ambien] 10 mg PO HS 08/28/20 08/28/20 methocarbamoL [Robaxin] 500 mg PO HS 08/28/20 08/28/20 oxyBUTYnin chloride [Ditropan XL] 5 mg PO BID 08/28/20 08/28/20 Previous Rx's Medication Instructions Recorded Apixaban [Eliquis] 5 mg PO BID #60 tab 01/10/19 predniSONE 50 mg PO DAILY #5 tablet 08/26/20 Azithromycin [Zithromax] 500 mg PO DAILY 4 Days #4 tab 08/28/20 Ketorolac [Toradol] 10 mg PO Q8HR #8 tab 08/28/20 dexAMETHasone [Decadron] 6 mg PO DAILY 5 Days #5 tablet 08/28/20 Allergies Allergy/AdvReac Type Severity Reaction Status Date / Time No Known Allergies Allergy Verified 05/26/23 15:42 Review of Systems ROS Other: All systems not noted in ROS Statement are negative. <Prasanna Oconnell - Last Filed: 05/26/23 16:05> ROS Other: All systems not noted in ROS Statement are negative. <Cody Carlton - Last Filed: 06/03/23 03:00> ROS Statement: Those systems with pertinent positive or pertinent negative responses have been documented in the HPI. Past Medical History Past Medical History: Asthma, COPD, Diabetes Mellitus, Fibromyalgia, GERD/Reflux, Pneumonia, Pulmonary Embolus (PE), Seizure Disorder, Sleep Apnea/CPAP/BIPAP, Thyroid Disorder Additional Past Medical History / Comment(s): Chronic asthma, chronic COPD, recurrent pneumonias, bronchitis, hx of respiratory stridor, PE in 2003 and 2009-bilateral lungs, MAGALI with CPAP, NIDDM type II-pt states borderline, psuedo seizures with last one in 2017, past gastric ulcer, DDD, LOWER BACK PAIN- RADIATES DOWN RT LEG, R toes,neuropathy, generalized pain from fibromyalgia, chronic MIGRAINES, seasonal allergies, hypothyroidism, urinary leakage at times, healed wound on abdomen from surgical dehiscence, insomnia, cellulitis R arm, pt has had wound dehiscence panniculetomy incision and it still opens alittle at times-she goes to [facility] about once a month. History of Any Multi-Drug Resistant Organisms: None Reported Past Surgical History: Back Surgery, Bariatric Surgery, Cholecystectomy, Joint Replacement, Orthopedic Surgery Additional Past Surgical History / Comment(s): 11/12/16 bronchoscopy wit BAL, gastric bypass 2011, panniculectomy with wound dehiscence/debridements, 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 Past Anesthesia/Blood Transfusion Reactions: No Reported Reaction Past Psychological History: Anxiety, Depression Smoking Status: Never smoker Past Alcohol Use History: None Reported Past Drug Use History: None Reported - Past Family History Brother(s) Family Medical History: Cancer Additional Family Medical History / Comment(s): spine Father Family Medical History: Coronary Artery Disease (CAD), CVA/TIA, Diabetes Mellitus, Hypertension, Thyroid Disorder Additional Family Medical History / Comment(s): X3 STROKES, STENTS IN HEART,Pacemaker Mother Family Medical History: Diabetes Mellitus, Hypertension, Thyroid Disorder Additional Family Medical History / Comment(s): KNEE REPLACEMENTS <Prasanna Oconnell - Last Filed: 05/26/23 16:05> General Exam Limitations: no limitations <Prasanna Oconnell - Last Filed: 05/26/23 16:05> General appearance: alert, in no apparent distress, anxious Head exam: Present: atraumatic, normocephalic, normal inspection Eye exam: Present: normal appearance, PERRL, EOMI. Absent: scleral icterus, conjunctival injection, periorbital swelling ENT exam: Present: normal exam, mucous membranes moist Neck exam: Present: normal inspection. Absent: tenderness, meningismus, lymphadenopathy Respiratory exam: Present: normal lung sounds bilaterally. Absent: respiratory distress, wheezes, rales, rhonchi, stridor Cardiovascular Exam: Present: regular rate, normal rhythm, normal heart sounds. Absent: systolic murmur, diastolic murmur, rubs, gallop, clicks GI/Abdominal exam: Present: soft, normal bowel sounds. Absent: distended, tenderness, guarding, rebound, rigid Extremities exam: Present: normal inspection, full ROM, normal capillary refill. Absent: tenderness, pedal edema, joint swelling, calf tenderness Back exam: Present: normal inspection Neurological exam: Present: alert, oriented X3, CN II-XII intact Psychiatric exam: Present: normal affect, normal mood Skin exam: Present: warm, dry, intact, normal color. Absent: rash <Cody Carlton - Last Filed: 06/03/23 03:00> - General Exam Comments Initial Comments: Visual Physical Exam Vital signs reviewed General: Well-appearing, nontoxic, no acute distress. Head: Normocephalic, atraumatic Eyes: PERRLA, EOMI ENT: Airway patent Chest: Nonlabored breathing Skin: No visual rash, normal skin tone Neuro: Alert and oriented 3 Musculoskeletal: No gross abnormalities (Prasanna Oconnell) Course <Cody Carlton - Last Filed: 06/03/23 03:00> Vital Signs 05/26/23 05/26/23 15:40 18:17 Temperature 98 F 97.8 F Pulse Rate 66 74 Respiratory 18 18 Rate Blood Pressure 124/80 O2 Sat by Pulse 98 97 Oximetry - Reevaluation(s) Reevaluation #1: medical record is reviewed (Cody Carlton) Reevaluation #2: Patient symptoms are improved (Cody Carlton) Reevaluation #3: Patient informed results and questions answered (Cody Carlton) Reevaluation #4: Was pt. sent in by a medical professional or institution (BLANQUITA Basilio, BALL ROLLING MACHINE OPERATOR, urgent care, hospital, or halfway...) When possible be specific @ -no Did you speak to anyone other than the patient for history (EMS, parent, family, police, friend...)? What history was obtained from this source @ -no Did you review nursing and triage notes (agree or disagree)? Why? @ -agree Are old charts reviewed (outside hosp., previous admission, EMS record, old EKG, old radiological studies, urgent care reports/EKG's, halfway records)? Report findings @ -yes Differential Diagnosis (chest pain, altered mental status, abdominal pain women, abdominal pain men, vaginal bleeding, weakness, fever, dyspnea, syncope, headache, dizziness, GI bleed, back pain, seizure, CVA, palpatations, mental health, musculoskeletal)? @ -prior EKG interpreted by me (3pts min.). @ -no X-rays interpreted by me (1pt min.). @ -yes negative for acute disease CT interpreted by me (1pt min.). @ -no U/S interpreted by me (1pt. min.). @ -no What testing was considered but not performed or refused? (CT, X-rays, U/S, labs)? Why? @ -none What meds were considered but not given or refused? Why? @ -none Did you discuss the management of the patient with other professionals (professionals i.e. BLANQUITA Basilio, BALL ROLLING MACHINE OPERATOR, lab, RT, psych nurse, secondary social studies teacher, warehouse operator, teacher, cash management officer, sample case porter)? Give summary @ -no Was smoking cessation discussed for >3mins.? @ -no Was critical care preformed (if so, how long)? @ -no Were there social determinants of health that impacted care today? How? (Homelessness, low income, unemployed, alcoholism, drug addiction, transportation, low edu. Level, literacy, decrease access to med. care, longterm, rehab)? @ -none Was there de-escalation of care discussed even if they declined (Discuss DNR or withdrawal of care, Hospice)? DNR status @ -no What co-morbidities impacted this encounter? (DM, HTN, Smoking, COPD, CAD, Cancer, CVA, ARF, Chemo, Hep., AIDS, mental health diagnosis, sleep apnea, morbid obesity)? @ -none Was patient admitted / discharged? Hospital course, mention meds given and route, prescriptions, significant lab abnormalities, going to OR and other pertinent info. @ - 52 female to the emergency department with lower [place] pain leg pain with chronic back pain. No acute to medic injuries noted patient's pain is controlled with no focal neurological deficits and patient can be discharged home Discharged Undiagnosed new problem with uncertain prognosis? @ -no Drug Therapy requiring intensive monitoring for toxicity (Heparin, Nitro, Insulin, Cardizem)? @ -no Were any procedures done? @ -no Diagnosis/symptom? @ -Acute on chronic back pain Acute, or Chronic, or Acute on Chronic? @ -Acute Uncomplicated (without systemic symptoms) or Complicated (systemic symptoms)? @ -Complicated Side effects of treatment? @ -no Exacerbation, Progression, or Severe Exacerbation? @ -exacerbation Poses a threat to life or bodily function? How? (Chest pain, [place], [place], pneumonia, PE, COPD, DKA, ARF, appy, cholecystitis, CVA, Diverticulitis, Homicidal, Suicidal, threat to staff... and all critical care pts) @ -no (Cody Carlton) Reevaluation #5: Differential Back Pain: Strain, zoster, cauda equina syndrome, epidural abscess, vertebral osteomyelitis, discitis, fracture, subluxation, disc herniation, DJD, spinal stenosis, dissection, AAA, pancreatitis, peptic ulcer disease, pyelonephritis, kidney stone, this is not meant to be an all-inclusive list. (Cody Carlton) Medical Decision Making <Prasanna Oconnell - Last Filed: 05/26/23 16:05> - Radiology Data Radiology results: report reviewed (X-ray LS-spine is negative for acute disease), image reviewed <Cody Carlton - Last Filed: 06/03/23 03:00> - Medical Decision Making Quicknote portion performed. Signed Prasanna Oconnell PALuisC (Prasanna Oconnell) 52 female D to the emergency room with for evaluation of back pain. Chronic Back Pain. Patient's Pain Is Well-Controlled Can Be Discharged Home, Able to Ambulate without Neurological Pain (Cody Carlton) - Lab Data Lab Results 05/26/23 Range/Units 17:19 Urine Color Light Yellow Urine Appearance Clear (Clear) Urine pH 6.0 (5.0-8.0) Ur Specific [place] 1.012 (1.001-1.035) Urine Protein Negative (Negative) Urine Glucose (UA) Negative (Negative) Urine Ketones Negative (Negative) Urine Blood Negative (Negative) Urine Nitrite Negative (Negative) Urine Bilirubin Negative (Negative) Urine Urobilinogen <2.0 (<2.0) mg/dL Ur Leukocyte Esterase Trace H (Negative) Urine RBC 1 (0-5) /hpf Urine WBC 1 (0-5) /hpf Ur Squamous Epith Cells 2 (0-4) /hpf Urine Bacteria Rare H (None) /hpf Urine Mucus Rare H (None) /hpf Disposition <Prasanna Oconnell - Last Filed: 05/26/23 16:05> Is patient prescribed a controlled substance at d/c from ED?: No Time of Disposition: 17:40 <Cody Carlton - Last Filed: 06/03/23 03:00> Clinical Impression: Back pain Disposition: HOME SELF-CARE Condition: Good Instructions (If sedation given, give patient instructions): Acute Low Back Pain (ED) Referrals: Tyler Black MD [Primary Care Provider] - 1-2 days
--- NOTE | 2023-05-26 16:34 | XR ---
EXAMINATION TYPE: XR lumbar spine 2 or 3V DATE OF EXAM: 05/26/2023 4:27 PM CLINICAL INDICATION:Female, 52 years old with history of back pain; COMPARISON: 08/14/2019. TECHNIQUE: XR lumbar spine 2 or 3V - Frontal, lateral and coned in L5-S1 lateral views of the spine. FINDINGS: No evidence of any acute osseous pathology. No evidence of loss of vertebral body height i s seen. There is normal alignment of the lumbar vertebral bodies. Multilevel degeneration changes thr oughout spine with osteophyte formation and disc space narrowing and facet joint arthropathy.. There are similar device projects over the spine. IVC filter present. Right upper quadrant cholecystectomy clips. IMPRESSION: 1. No acute fracture. 2. Moderate multilevel disc degeneration.
[2023-05-26] MEDS ORDERED: HYDROmorphone 1 MG/ML 1 ML SYRINGE IM STA (17:40)
[2023-05-26] MEDS ORDERED: LIDOCAINE 4% PATCH TOPICAL STA (17:40)
[2023-05-26] MEDS ORDERED: ONDANSETRON 4 MG ODT STARTER PACK 2 TAB BTL PO STA (17:42)
[2023-05-26] MEDS ORDERED: ETODOLAC 400 MG TAB PO STA (17:42)
[2023-05-26] MEDS ORDERED: dexAMETHasone 2 MG TAB PO STA (17:42)
[2023-05-26] MEDS ORDERED: traMADol 50 MG STARTER PACK 3 TAB BTL PO STA (17:42)
[2023-05-26] MEDS ORDERED: IBUPROFEN 600 MG STARTER PACK 4 TAB BTL PO STA (17:42)
[2023-05-26 18:11] LABS: Appearance,Urine Clear (Clear); Bacteria,Urine Rare /hpf; Bilirubin,Urine Negative (Negative); Blood,Urine Negative (Negative); Color,Urine Light Yellow; Glucose,Urine (UA) Negative (Negative); Ketones,Urine Negative (Negative); Leukocyte Esterase,Urine Trace (Negative); Mucus,Urine Rare /hpf; Nitrite,Urine Negative (Negative); Protein,Urine Negative (Negative); RBC,Urine 1 /hpf (0-5); Specific Gravity,Urine 1.012 (1.001-1.035); Squamous Epithelial Cell,Urine 2 /hpf (0-4); Urobilinogen,Urine <2.0 mg/dL (<2.0); WBC,Urine 1 /hpf (0-5)
[2023-05-26 18:34] VITALS: BP 124/80; PULSE 74; TEMP 97.8
== END 2023-05-26 18:21 | disposition home or self-care (01) ==
LOC: EC 14:56
DX: M54.9 Dorsalgia, unspecified (principal); E03.9 Hypothyroidism, unspecified; E11.9 Type 2 diabetes mellitus without complications; J44.89 Other specified chronic obstructive pulmonary disease; K21.9 Gastro-esophageal reflux disease without esophagitis; G47.30 Sleep apnea, unspecified; F41.9 Anxiety disorder, unspecified; F32.A Depression, unspecified; Z79.890 Hormone replacement therapy; Z79.899 Other long term (current) drug therapy
CPT/HCPCS: 81001; 72100; 99284; 96372; J1170; J8540; S0119

== ENCOUNTER 2023-10-31 13:51 | Emergency (ER) | payer MEDICARE, OTHER ==
--- NOTE | 2023-10-31 14:03 | ED ---
Headache HPI - General Source: patient, RN notes reviewed Mode of arrival: ambulatory Limitations: no limitations - History of Present Illness MD Complaint: headache <Bethany Casillas - Last Filed: 10/31/23 18:01> <Corinna Jenkins - Last Filed: 10/31/23 21:02> - General Chief Complaint: Headache Stated Complaint: Headache Time Seen by Provider: 10/31/23 14:01 - History of Present Illness Initial Comments: This is a 53 year old female who presents to the emergency department for a headache. States that this started a week ago and it is on the right side and back of the head. She is starting to get pain going into the right eye, which is causing vision changes. She has a hx of headaches but nothing like this. She tried taking Tylenol without relief in symptoms. She did start to develop some nausea this morning as well. (Bethany Casillas) - Related Data Home Medications Medication Instructions Recorded Confirmed Pregabalin [Lyrica] 150 mg PO TID 10/09/14 08/28/20 Montelukast [Singulair] 10 mg PO HS 06/23/15 08/28/20 Levothyroxine Sodium [Synthroid] 150 mcg PO DAILY 02/16/17 08/28/20 HYDROcodone/APAP 10-325MG [[place] 1 tab PO TID 01/05/19 08/28/20 10-325] Sertraline [Zoloft] 100 mg PO BID 01/05/19 08/28/20 tiZANidine [Zanaflex] 4 mg PO TID 06/28/19 08/28/20 Omeprazole [PriLOSEC] 40 mg PO DAILY 07/10/19 08/28/20 Brexpiprazole [Rexulti] 4 mg PO HS 06/27/20 08/28/20 Galcanezumab-Gnlm [Emgality] 120 mg SQ QMONTHLY 06/27/20 08/28/20 Propranolol HCl [Inderal] 60 mg PO BID 06/27/20 08/28/20 buPROPion XL [Wellbutrin Xl] 150 mg PO BID 06/27/20 08/28/20 Ascorbic Acid [Vitamin C] 500 mg PO DAILY 08/28/20 08/28/20 Atorvastatin Calcium [Lipitor] 80 mg PO HS 08/28/20 08/28/20 Cholecalciferol [Vitamin D3 (25 25 mcg PO DAILY 08/28/20 08/28/20 Mcg = 1000 Iu)] Dulaglutide [Trulicity] 3 mg SQ MO 08/28/20 08/28/20 Magnesium Oxide 400 mg PO DAILY 08/28/20 08/28/20 Melatonin [Melatonin Dissolving 10 mg PO HS PRN 08/28/20 08/28/20 Tablet] Zolpidem Tartrate [Ambien] 10 mg PO HS 08/28/20 08/28/20 methocarbamoL [Robaxin] 500 mg PO HS 08/28/20 08/28/20 oxyBUTYnin chloride [Ditropan XL] 5 mg PO BID 08/28/20 08/28/20 Previous Rx's Medication Instructions Recorded Apixaban [Eliquis] 5 mg PO BID #60 tab 01/10/19 predniSONE 50 mg PO DAILY #5 tablet 08/26/20 Azithromycin [Zithromax] 500 mg PO DAILY 4 Days #4 tab 08/28/20 Ketorolac [Toradol] 10 mg PO Q8HR #8 tab 08/28/20 dexAMETHasone [Decadron] 6 mg PO DAILY 5 Days #5 tablet 08/28/20 Ketorolac [Toradol] 10 mg PO Q6HR PRN #15 tab 10/31/23 Ondansetron Odt [Zofran Odt] 4 mg PO Q8HR PRN #15 tab 10/31/23 Allergies Allergy/AdvReac Type Severity Reaction Status Date / Time No Known Allergies Allergy Verified 05/26/23 15:42 Review of Systems ROS Other: All systems not noted in ROS Statement are negative. <Bethany Casillas - Last Filed: 10/31/23 18:01> ROS Other: All systems not noted in ROS Statement are negative. <Corinna Jenkins - Last Filed: 10/31/23 21:02> ROS Statement: Those systems with pertinent positive or pertinent negative responses have been documented in the HPI. Past Medical History Past Medical History: Asthma, COPD, Diabetes Mellitus, Fibromyalgia, DAHIANA D/Reflux, Pneumonia, Pulmonary Embolus (PE), Seizure Disorder, Sleep Apnea/CPAP/BIPAP, Thyroid Disorder Additional Past Medical History / Comment(s): Chronic asthma, chronic COPD, recurrent pneumonias, bronchitis, hx of respiratory stridor, PE in 2003 and 2009-bilateral lungs, MAGALI with CPAP, NIDDM type II-pt states borderline, psuedo seizures with last one in 2017, past gastric ulcer, DDD, LOWER BACK PAIN- RADIATES DOWN RT LEG, R toes,neuropathy, generalized pain from fibromyalgia, chronic MIGRAINES, seasonal allergies, hypothyroidism, urinary leakage at times, healed wound on abdomen from surgical dehiscence, insomnia, cellulitis R arm, pt has had wound dehiscence panniculetomy incision and it still opens alittle at times-she goes to [facility] about once a month. 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 Past Anesthesia/Blood Transfusion Reactions: No Reported Reaction Past Psychological History: Anxiety, Depression Smoking Status: Never smoker Past Alcohol Use History: None Reported Past Drug Use History: None Reported - Past Family History Brother(s) Family Medical History: Cancer Additional Family Medical History / Comment(s): spine Father Family Medical History: Coronary Artery Disease (CAD), CVA/TIA, Diabetes Mellitus, Hypertension, Thyroid Disorder Additional Family Medical History / Comment(s): X3 STROKES, STENTS IN HEART,Pacemaker Mother Family Medical History: Diabetes Mellitus, Hypertension, Thyroid Disorder Additional Family Medical History / Comment(s): KNEE REPLACEMENTS <Bethany Casillas - Last Filed: 10/31/23 18:01> General Exam Limitations: no limitations General appearance: alert, in no apparent distress Head exam: Present: atraumatic, normocephalic, normal inspection Eye exam: Present: normal appearance, PERRL, EOMI. Absent: scleral icterus, conjunctival injection, periorbital swelling Respiratory exam: Present: normal lung sounds bilaterally. Absent: respiratory distress, wheezes, rales, rhonchi, stridor Cardiovascular Exam: Present: regular rate, normal rhythm, normal heart sounds. Absent: systolic murmur, diastolic murmur, rubs, gallop, clicks Neurological exam: Present: alert, oriented X3, CN II-XII intact Psychiatric exam: Present: normal affect, normal mood Skin exam: Present: warm, dry, intact, normal color. Absent: rash <Bethany Casillas - Last Filed: 10/31/23 18:01> Course Vital Signs 10/31/23 10/31/23 10/31/23 14:07 19:15 20:51 Temperature 97.8 F Pulse Rate 69 78 74 Respiratory 18 19 18 Rate Blood Pressure 135/81 140/89 155/80 O2 Sat by Pulse 99 94 L 97 Oximetry Medical Decision Making - Lab Data Result diagrams: 10/31/23 14:10 10/31/23 14:10 - Radiology Data Radiology results: report reviewed, image reviewed <Bethany Casillas - Last Filed: 10/31/23 18:01> - Lab Data Result diagrams: 10/31/23 14:10 10/31/23 14:10 <Corinna Jenkins - Last Filed: 10/31/23 21:02> - Medical Decision Making This is a 53-year-old female who presents to the emergency department for a headache. Was pt. sent in by a medical professional or institution? @ -No Did you speak to anyone other than the patient for history? @ -No Did you review nursing and triage notes? @ -Yes, and I agree, it is accurate with regards to the patient's symptoms. Were old charts reviewed? @ -No Differential Diagnosis? @ -Differential Headache: Migraine, tension, cluster, carbon monoxide, central venous thrombosis, pension karma temporal arteritis, acute closure glaucoma, intercranial hemorrhage, mastoiditis, sinusitis, head injury, this is not meant to be an all-inclusive list. EKG interpreted by me (3pts min.)? @ -Not obtained X-rays interpreted by me (1pt min.)? @ -Not obtained CT interpreted by me (1pt min.)? @ -CT scan of the brain obtained. My interpretation identifies no evidence of an acute intracranial hemorrhage or mass effect. U/S interpreted by me (1pt. min.)? @ -Not obtained What testing was considered but not performed? (CT, X-rays, U/S, labs)? Why? @ -None What meds were considered but not given? Why? @ -None Did you discuss the management of the patient with other professionals? @ -No Did you reconcile home meds? @ -No Was smoking cessation discussed for >3mins.? @ -No Was critical care preformed (if so, how long)? @ -No Were there social determinants of health that impacted care today? How? (Homelessness, low income, unemployed, alcoholism, drug addiction, transportation, low edu. Level, literacy, decrease access to med. care, penitentiary, rehab)? @ -No Was there de-escalation of care discussed even if they declined? (Discuss DNR or withdrawal of care, Hospice)? @ -No What co-morbidities impacted this encounter? (DM, HTN, Smoking, COPD, CAD, Cancer, CVA, Hep., AIDS, mental health diagnosis, sleep apnea, morbid obesity)? @ -DM, fibromyalgia Was patient admitted / discharged? @ -Lab work unremarkable. Given that this headache was different from what the patient had previously experienced, CT scan of the brain was obtained. This revealed no acute process. Patient initially treated with a migraine cocktail consisting of IV fluids, Toradol, Decadron, Reglan, and Benadryl. She continued to be symptomatic and was given an additional dose of Toradol along with Dilaudid. Case signed out to Corinna Jenkins PA-C, at shift completion pending clinical course. (Bethany Casillas) Was pt. sent in by a medical professional or institution (BLANQUITA Basilio, SHOVEL LOG LOADER OPERATOR, urgent care, hospital, or care home...) When possible be specific @ -No Did you speak to anyone other than the patient for history (EMS, parent, family, police, friend...)? What history was obtained from this source @ -No Did you review nursing and triage notes (agree or disagree)? Why? @ -I reviewed and agree with nursing and triage notes Were old charts reviewed (outside hosp., previous admission, EMS record, old EKG, old radiological studies, urgent care reports/EKG's, care home records)? Report findings @ -No old charts were reviewed Differential Diagnosis (chest pain, altered mental status, abdominal pain women, abdominal pain men, vaginal bleeding, weakness, fever, dyspnea, syncope, headache, dizziness, GI bleed, back pain, seizure, CVA, palpatations, mental health, musculoskeletal)? @ -Differential Headache: Migraine, tension, cluster, carbon monoxide, central venous thrombosis, pension karma temporal arteritis, acute closure glaucoma, intercranial hemorrhage, mastoiditis, sinusitis, head injury, this is not meant to be an all-inclusive list. EKG interpreted by me (3pts min.). @ -None X-rays interpreted by me (1pt min.). @ -None done CT interpreted by me (1pt min.). @ -CT scan of the brain identifies no evidence of acute intracranial hemorrhage or mass effect U/S interpreted by me (1pt. min.). @ -None done What testing was considered but not performed or refused? (CT, X-rays, U/S, labs)? Why? @ -None What meds were considered but not given or refused? Why? @ -None Did you discuss the management of the patient with other professionals (professionals i.e. , PA, SHOVEL LOG LOADER OPERATOR, lab, RT, psych nurse, director of social work, water filterer helper, teacher, custody officer, caser up)? Give summary @ -No Was smoking cessation discussed for >3mins.? @ -No Was critical care preformed (if so, how long)? @ -No Were there social determinants of health that impacted care today? How? (Homelessness, low income, unemployed, alcoholism, drug addiction, transportation, low edu. Level, literacy, decrease access to med. care, penitentiary, rehab)? @ -No Was there de-escalation of care discussed even if they declined (Discuss DNR or withdrawal of care, Hospice)? DNR status @ -No What co-morbidities impacted this encounter? (DM, HTN, Smoking, COPD, CAD, Cancer, CVA, ARF, Chemo, Hep., AIDS, mental health diagnosis, sleep apnea, morbid obesity)? @ -None Was patient admitted / discharged? Hospital course, mention meds given and route, prescriptions, significant lab abnormalities, going to OR and other pertinent info. @ -Patient was discharged. Patient was seen and evaluated for right-sided headache with nausea. CT scan of the brain was obtained and is negative for acu te process. Patient is given migraine cocktail consisting of IV fluids, Toradol, Decadron, Reglan, and Benadryl. Patient continued to have symptoms and was given an additional course of Toradol and Dilaudid. Patient reports improvement of symptoms after medications were given. Discussed with patient there are no signs of emergent etiology causing headache today. Advise close follow-up with PCP for reevaluation in 1 to 3 days. Strict return/alarm symptoms discussed with patient in detail and she shows understanding and agrees with plan. Patient discharged with Tylenol threes, Zofran, and Toradol case discussed with Dr. Ly. Patient discharged in stable condition Undiagnosed new problem with uncertain prognosis? @ -No Drug Therapy requiring intensive monitoring for toxicity (Heparin, Nitro, Insulin, Cardizem)? @ -No Were any procedures done? @ -No Diagnosis/symptom? @ -Headache Acute, or Chronic, or Acute on Chronic? @ -Acute Uncomplicated (without systemic symptoms) or Complicated (systemic symptoms)? @ -Complicated Side effects of treatment? @ -No Exacerbation, Progression, or Severe Exacerbation? @ -No Poses a threat to life or bodily function? How? (Chest pain, USA, NM, pneumonia, PE, COPD, DKA, ARF, appy, cholecystitis, CVA, Diverticulitis, Homicidal, Suicidal, threat to staff... and all critical care pts) @ -Low likelihood (Corinna Jenkins) - Lab Data Lab Results 10/31/23 10/31/23 10/31/23 Range/Units 14:10 14:10 14:10 WBC 3.4 L (3.8-10.6) k/uL RBC 4.32 (3.80-5.40) m/uL Hgb 12.3 (11.4-16.0) gm/dL Hct 38.6 (34.0-46.0) % MCV 89.5 (80.0-100.0) fL MCH 28.4 (25.0-35.0) pg MCHC 31.8 (31.0-37.0) g/dL RDW 15.2 (11.5-15.5) % Plt Count 106 L (150-450) k/uL MPV 10.8 Neutrophils % 58 % Lymphocytes % 30 % Monocytes % 6 % Eosinophils % 5 % Basophils % 1 % Neutrophils # 2.0 (1.3-7.7) k/uL Lymphocytes # 1.0 (1.0-4.8) k/uL Monocytes # 0.2 (0-1.0) k/uL Eosinophils # 0.2 (0-0.7) k/uL Basophils # 0.0 (0-0.2) k/uL Sodium 142 (137-145) mmol/L Potassium 4.6 (3.5-5.1) mmol/L Chloride 111 H (98-107) mmol/L Carbon Dioxide 26 (22-30) mmol/L Anion Gap 5 mmol/L BUN 9 (7-17) mg/dL Creatinine 0.85 (0.52-1.04) mg/dL Est GFR (CKD-EPI)AfAm >90 (>60 ml/min/1.73 sqM) Est GFR (CKD-EPI)NonAf 80 (>60 ml/min/1.73 sqM) Glucose 87 (74-99) mg/dL Calcium 8.6 (8.4-10.2) mg/dL Magnesium 2.1 (1.6-2.3) mg/dL Total Bilirubin 0.7 (0.2-1.3) mg/dL AST 42 H (14-36) U/L ALT 29 (4-34) U/L Alkaline Phosphatase 129 H (38-126) U/L C-Reactive Protein <0.5 (<1.0) mg/dL Total Protein 6.4 (6.3-8.2) g/dL Albumin 3.7 (3.5-5.0) g/dL Urine Color Colorless Urine Appearance Clear (Clear) Urine pH 6.0 (5.0-8.0) Ur Specific [place] 1.004 (1.001-1.035) Urine Protein Negative (Negative) Urine Glucose (UA) Negative (Negative) Urine Ketones Negative (Negative) Urine Blood Negative (Negative) Urine Nitrite Negative (Negative) Urine Bilirubin Negative (Negative) Urine Urobilinogen <2.0 (<2.0) mg/dL Ur Leukocyte Esterase Negative (Negative) Disposition Is patient prescribed a controlled substance at d/c from ED?: No <Bethany Casillas - Last Filed: 10/31/23 18:01> Is patient prescribed a controlled substance at d/c from ED?: No Time of Disposition: 20:05 <oCrinna Jenkins - Last Filed: 10/31/23 21:02> Clinical Impression: Headache Disposition: HOME SELF-CARE Instructions (If sedation given, give patient instructions): Acute Headache (ED) Additional Instructions: Return to the emergency department with any new, worsening, or concerning symptoms. Take the Toradol with Tylenol as needed for pain relief. If you choose to take the Toradol, do not take any other anti-inflammatories such as ibuprofen, take one or the other. Take the Zofran up to every 8 hours as needed for nausea and vomiting. Follow up with your primary care provider in 1-2 days. Prescriptions: Ketorolac [Toradol] 10 mg PO Q6HR PRN #15 tab PRN Reason: Pain Ondansetron Odt [Zofran Odt] 4 mg PO Q8HR PRN #15 tab PRN Reason: Nausea And Vomiting Referrals: Tyler Black MD [Primary Care Provider] - 1-2 days
[2023-10-31 14:12] VITALS: TEMP 97.8
--- NOTE | 2023-10-31 15:02 | CT ---
EXAMINATION TYPE: CT brain wo con CT DLP: 1113.4 mGycm, Automated exposure control for dose reduction was used. DATE OF EXAM: 10/31/2023 2:55 PM COMPARISON: 06/23/2015. CLINICAL INDICATION:Female, 53 years old with history of Headache, visual changes, Headache x 1 week, worsening. TECHNIQUE: Brain: Axial CT images of the brain were obtained with coronal and sagittal reformats created and rev iewed. Contrast used: None. Oral contrast used: None. FINDINGS: Brain: Extra-axial spaces: No abnormal extra-axial fluid collections. Ventricular system: Within normal limits Cerebral parenchyma: No acute intraparenchymal hemorrhage or mass effect. The monsivais-white junction is well differentiated. Cerebellum: Unremarkable. Mass effect: No evidence of midline shift. Intracranial vasculature: Atherosclerotic calcifications of the intracranial vessels. Soft tissues: Normal. Calvarium/osseous structures: No depressed skull fracture. Paranasal sinuses and mastoid air cells: Mild scattered paranasal sinus disease. Visualized orbits: Orbital contents are intact. IMPRESSION: No acute intracranial process.
[2023-10-31 17:10] LABS: Basophils % (A) 1 %; Eosinophils # (A) 0.2 k/uL (0-0.7); Eosinophils % (A) 5 %; HCT 38.6 % (34.0-46.0); HGB 12.3 gm/dL (11.4-16.0); Lymphocytes % (A) 30 %; MCH 28.4 pg (25.0-35.0); MCHC 31.8 g/dL (31.0-37.0); MCV 89.5 fL (80.0-100.0); Mean Platelet Volume 10.8; Monocytes # (A) 0.2 k/uL (0-1.0); Monocytes % (A) 6 %; Neutrophils % (A) 58 %; Platelet Count 106 k/uL (150-450); RBC 4.32 m/uL (3.80-5.40); RDW 15.2 % (11.5-15.5); WBC 3.4 k/uL (3.8-10.6)
[2023-10-31] MEDS: SODIUM CHLORIDE 0.9% 1,000 ML IV STA (17:20)
[2023-10-31] MEDS: METOCLOPRAMIDE 5 MG/ML 2 ML VIAL IVP STA (17:22)
[2023-10-31] MEDS: KETOROLAC 15 MG/ML 1 ML VIAL IVP STA ×2 (17:24→19:03)
[2023-10-31] MEDS: DEXAMETHASONE SOD PHOSPHATE 10 MG/ML 1 ML VIAL IVP STA (17:26)
[2023-10-31] MEDS: diphenhydrAMINE 50 MG/ML 1 ML VIAL IVP STA (17:29)
[2023-10-31 17:46] LABS: ALT 29 U/L (4-34); AST 42 U/L (14-36); African American GFR (CKD) >90 (>60 ml/min/1.73 sqM); Albumin 3.7 g/dL (3.5-5.0); Alkaline Phosphatase 129 U/L (38-126); Anion Gap 5 mmol/L; Blood Urea Nitrogen 9 mg/dL (7-17); C Reactive Protein <0.5 mg/dL (<1.0); Calcium 8.6 mg/dL (8.4-10.2); Carbon Dioxide 26 mmol/L (22-30); Chloride 111 mmol/L (98-107); Glucose 87 mg/dL (74-99); Magnesium 2.1 mg/dL (1.6-2.3); Non-African American GFR(CKD) 80 (>60 ml/min/1.73 sqM); Sodium 142 mmol/L (137-145); Total Bilirubin 0.7 mg/dL (0.2-1.3); Total Protein 6.4 g/dL (6.3-8.2)
[2023-10-31 17:49] LABS: Potassium 4.6 mmol/L (3.5-5.1)
[2023-10-31 18:24] LABS: Appearance,Urine Clear (Clear); Bilirubin,Urine Negative (Negative); Blood,Urine Negative (Negative); Color,Urine Colorless; Glucose,Urine (UA) Negative (Negative); Ketones,Urine Negative (Negative); Leukocyte Esterase,Urine Negative (Negative); Nitrite,Urine Negative (Negative); Protein,Urine Negative (Negative); Specific Gravity,Urine 1.004 (1.001-1.035); Urobilinogen,Urine <2.0 mg/dL (<2.0)
[2023-10-31] MEDS: HYDROmorphone 1 MG/ML 1 ML SYRINGE IVP STA (19:04)
[2023-10-31] MEDS: ACET/COD 300 MG/30 MG STARTER PACK 6 TAB BTL PO STA (19:04)
[2023-10-31 21:28] VITALS: BP 155/80; PULSE 74; RESP 18
[2023-10-31 23:12] LABS: Erythrocyte Sedimentation Rate 18 mm/Hr (0-30)
== END 2023-10-31 20:52 | disposition home or self-care (01) ==
LOC: EC 13:51
DX: R51.9 Headache, unspecified (principal); M79.7 Fibromyalgia; E11.8 Type 2 diabetes mellitus with unspecified complications; Z79.84 Long term (current) use of oral hypoglycemic drugs; Z79.899 Other long term (current) drug therapy
CPT/HCPCS: 36415; 80053; 85652; 83735; 85025; 86140; 81003; 70450; 99284; 96374; 96375 ×4; 96376; 96361; J1200; J1100; J2765; J1170; J1885

== ENCOUNTER 2023-12-02 16:25 | Emergency (ER) | payer MEDICARE, OTHER ==
[2023-12-02 16:43] VITALS: RESP 18
--- NOTE | 2023-12-02 17:07 | ED ---
Headache HPI - General Chief Complaint: Headache Stated Complaint: headache L eye pain Time Seen by Provider: 12/02/23 16:47 Mode of arrival: ambulatory Limitations: no limitations - History of Present Illness Initial Comments: This patient is a 53-year-old woman with a history of migraine headaches. She states that she has headache that is different than her usual migraine and developed late this morning. She indicates the left orbital/left frontal areas. She states the pain is throbbing. It is made worse by light and noise. She has not noticed relieving factors. She has some associated nausea. Patient denies trauma. No fever or chills. No neck stiffness. No strokelike symptoms. No rash. MD Complaint: "migraine" -: hour(s) Onset Description: gradual Location: left, frontal Severity: severe Quality: throbbing Consistency: constant Improves With: nothing Worsens With: light, noise Context: occurred at rest Associated Symptoms: nausea, photophobia Treatments Prior to Arrival: none - Related Data Home Medications Medication Instructions Recorded Confirmed Pregabalin [Lyrica] 150 mg PO TID 10/09/14 08/28/20 Montelukast [Singulair] 10 mg PO HS 06/23/15 08/28/20 Levothyroxine Sodium [Synthroid] 150 mcg PO DAILY 02/16/17 08/28/20 HYDROcodone/APAP 10-325MG [[place] 1 tab PO TID 01/05/19 08/28/20 10-325] Sertraline [Zoloft] 100 mg PO BID 01/05/19 08/28/20 tiZANidine [Zanaflex] 4 mg PO TID 06/28/19 08/28/20 Omeprazole [PriLOSEC] 40 mg PO DAILY 07/10/19 08/28/20 Brexpiprazole [Rexulti] 4 mg PO HS 06/27/20 08/28/20 Galcanezumab-Gnlm [Emgality] 120 mg SQ QMONTHLY 06/27/20 08/28/20 Propranolol HCl [Inderal] 60 mg PO BID 06/27/20 08/28/20 buPROPion XL [Wellbutrin Xl] 150 mg PO BID 06/27/20 08/28/20 Ascorbic Acid [Vitamin C] 500 mg PO DAILY 08/28/20 08/28/20 Atorvastatin Calcium [Lipitor] 80 mg PO HS 08/28/20 08/28/20 Cholecalciferol [Vitamin D3 (25 25 mcg PO DAILY 08/28/20 08/28/20 Mcg = 1000 Iu)] Dulaglutide [Trulicity] 3 mg SQ MO 08/28/20 08/28/20 Magnesium Oxide 400 mg PO DAILY 08/28/20 08/28/20 Melatonin [Melatonin Dissolving 10 mg PO HS PRN 08/28/20 08/28/20 Tablet] Zolpidem Tartrate [Ambien] 10 mg PO HS 08/28/20 08/28/20 methocarbamoL [Robaxin] 500 mg PO HS 08/28/20 08/28/20 oxyBUTYnin chloride [Ditropan XL] 5 mg PO BID 08/28/20 08/28/20 Previous Rx's Medication Instructions Recorded Apixaban [Eliquis] 5 mg PO BID #60 tab 01/10/19 predniSONE 50 mg PO DAILY #5 tablet 08/26/20 Azithromycin [Zithromax] 500 mg PO DAILY 4 Days #4 tab 08/28/20 Ketorolac [Toradol] 10 mg PO Q8HR #8 tab 08/28/20 dexAMETHasone [Decadron] 6 mg PO DAILY 5 Days #5 tablet 08/28/20 Ketorolac [Toradol] 10 mg PO Q6HR PRN #15 tab 10/31/23 Ondansetron Odt [Zofran Odt] 4 mg PO Q8HR PRN #15 tab 10/31/23 Allergies Allergy/AdvReac Type Severity Reaction Status Date / Time No Known Allergies Allergy Verified 05/26/23 15:42 Review of Systems ROS Statement: Those systems with pertinent positive or pertinent negative responses have been documented in the HPI. ROS Other: All systems not noted in ROS Statement are negative. Constitutional: Denies: fever, chills, weakness Eyes: Denies: eye discharge ENT: Denies: ear pain Respiratory: Denies: cough, dyspnea Cardiovascular: Denies: chest pain, palpitations Gastrointestinal: Denies: abdominal pain, nausea, vomiting Musculoskeletal: Denies: back pain Skin: Denies: rash Neurological: Reports: headache. Denies: weakness, numbness, paresthesias Past Medical History Past Medical History: Asthma, COPD, Diabetes Mellitus, Fibromyalgia, GERD/Reflux, Pneumonia, Pulmonary Embolus (PE), Seizure Disorder, Sleep Apnea/CP AP/BIPAP, Thyroid Disorder Additional Past Medical History / Comment(s): Chronic asthma, chronic COPD, recurrent pneumonias, bronchitis, hx of respiratory stridor, PE in 2003 and 2009-bilateral lungs, MAGALI with CPAP, NIDDM type II-pt states borderline, psuedo seizures with last one in 2017, past gastric ulcer, DDD, LOWER BACK PAIN- RADIATES DOWN RT LEG, R toes,neuropathy, generalized pain from fibromyalgia, chronic MIGRAINES, seasonal allergies, hypothyroidism, urinary leakage at times, healed wound on abdomen from surgical dehiscence, insomnia, cellulitis R arm, pt has had wound dehiscence panniculetomy incision and it still opens alittle at times-she goes to [facility] about once a month. History of Any Multi-Drug Resistant Organisms: None Reported Past Surgical History: Back Surgery, Bariatric Surgery, Cholecystectomy, Joint Replacement, Orthopedic Surgery Additional Past Surgical History / Comment(s): 11/12/16 bronchoscopy wit BAL, gastric bypass 2011, panniculectomy with wound dehiscence/debridements, 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 Past Anesthesia/Blood Transfusion Reactions: No Reported Reaction Past Psychological History: Anxiety, Depression Smoking Status: Never smoker Past Alcohol Use History: None Reported Past Drug Use History: None Reported - Past Family History Brother(s) Family Medical History: Cancer Additional Family Medical History / Comment(s): spine Father Family Medical History: Coronary Artery Disease (CAD), CVA/TIA, Diabetes Mellitus, Hypertension, Thyroid Disorder Additional Family Medical History / Comment(s): X3 STROKES, STENTS IN HEART,Pacemaker Mother Family Medical History: Diabetes Mellitus, Hypertension, Thyroid Disorder Additional Family Medical History / Comment(s): KNEE REPLACEMENTS General Exam Limitations: no limitations General appearance: alert, in no apparent distress Head exam: Present: atraumatic, normocephalic Eye exam: Present: normal appearance. Absent: scleral icterus, conjunctival injection ENT exam: Present: normal oropharynx Neck exam: Present: normal inspection Respiratory exam: Present: normal lung sounds bilaterally. Absent: respiratory distress, wheezes, rales, rhonchi, stridor Cardiovascular Exam: Present: regular rate, normal rhythm, normal heart sounds. Absent: systolic murmur, diastolic murmur, rubs, gallop GI/Abdominal exam: Present: soft. Absent: distended, tenderness, guarding, r ebound, rigid, mass Extremities exam: Present: normal inspection, normal capillary refill. Absent: pedal edema, calf tenderness Back exam: Present: normal inspection. Absent: CVA tenderness (R), CVA tenderness (L) Neurological exam: Present: alert, oriented X3, CN II-XII intact. Absent: motor sensory deficit Skin exam: Present: warm, dry, intact, normal color. Absent: rash Course Vital Signs 12/02/23 12/02/23 12/02/23 16:39 17:42 19:00 Temperature 98.2 F 98.1 F Pulse Rate 91 76 76 Respiratory 18 18 18 Rate Blood Pressure 94/68 136/76 132/68 O2 Sat by Pulse 97 97 97 Oximetry 12/02/23 12/03/23 22:30 00:06 Temperature 98.2 F 98.1 F Pulse Rate 89 81 Respiratory 18 18 Rate Blood Pressure 128/79 123/76 O2 Sat by Pulse 95 96 Oximetry Medical Decision Making - Medical Decision Making Was pt. sent in by a medical professional or institution (, PA, EDUCATION ASSOCIATE, urgent care, hospital, or prison...) When possible be specific @ -[No] Did you speak to anyone other than the patient for history (EMS, parent, family, police, friend...)? What history was obtained from this source @ -[No] Did you review nursing and triage notes (agree or disagree)? Why? @ -[I reviewed and agree with nursing and triage notes] Were old charts reviewed (outside hosp., previous admission, EMS record, old EKG, old radiological studies, urgent care reports/EKG's, prison records)? Report findings @ -[No old charts were reviewed] Differential Diagnosis (chest pain, altered mental status, abdominal pain women, abdominal pain men, vaginal bleeding, weakness, fever, dyspnea, syncope, headache, dizziness, GI bleed, back pain, seizure, CVA, palpatations, mental health, musculoskeletal)? @ -[Differential Headache: Migraine, tension, cluster, carbon monoxide, central venous thrombosis, pension karma temporal arteritis, acute closure glaucoma, intercranial hemorrhage, mastoiditis, sinusitis, head injury, this is not meant to be an all-inclusive l ist. EKG interpreted by me (3pts min.). @ -[As above] X-rays interpreted by me (1pt min.). @ -[None done] CT interpreted by me (1pt min.). @ -[I interpreted, see below U/S interpreted by me (1pt. min.). @ -[None done] What testing was considered but not performed or refused? (CT, X-rays, U/S, labs)? Why? @ -[None] What meds were considered but not given or refused? Why? @ -[None] Did you discuss the management of the patient with other professionals (professionals i.e. , PA, EDUCATION ASSOCIATE, lab, RT, psych nurse, social media developer, science consultant, teacher, ict help desk officer, classification case manager)? Give summary @ -[No] Was smoking cessation discussed for >3mins.? @ -[No] Was critical care preformed (if so, how long)? @ -[No] Were there social determinants of health that impacted care today? How? (Homelessness, low income, unemployed, alcoholism, drug addiction, transportation, low edu. Level, literacy, decrease access to med. care, prison, rehab)? @ -[No] Was there de-escalation of care discussed even if they declined (Discuss DNR or withdrawal of care, Hospice)? DNR status @ -[No] What co-morbidities impacted this encounter? (DM, HTN, Smoking, COPD, CAD, Cancer, CVA, ARF, Chemo, Hep., AIDS, mental health diagnosis, sleep apnea, morbid obesity)? @ -[None] Was patient admitted / discharged? Hospital course, mention meds given and route, prescriptions, significant lab abnormalities, going to OR and other pertinent info. @ -[Patient is a 53-year-old woman who presents with headache that is acutely different than her usual migraine headache. For this reason she has CT scan of the brain, which I interpreted as negative for acute intracranial hemorrhage, mass effect, midline shift. The patient did have a number of rounds of medication which began to provide relief. Undiagnosed new problem with uncertain prognosis? @ -[No] Drug Therapy requiring intensive monitoring for toxicity (Heparin, Nitro, Insulin, Cardizem)? @ -[No] Were any procedures done? @ -[No] Diagnosis/symptom? @ -Acute cephalgia Acute, or Chronic, or Acute on Chronic? @ -[Acute Uncomplicated (without systemic symptoms) or Complicated (systemic symptoms)? @ -[Uncomplicated Side effects of treatment? @ -[No] Exacerbation, Progression, or Severe Exacerbation? @ -[No] Poses a threat to life or bodily function? How? (Chest pain, [place], [place], pneumonia, PE, COPD, DKA, ARF, appy, cholecystitis, CVA, Diverticulitis, Homicidal, Suicidal, threat to staff... and all critical care pts) @ -[No] Disposition Clinical Impression: Migraine Disposition: HOME SELF-CARE Condition: Good Instructions (If sedation given, give patient instructions): Acute Headache (ED) Is patient prescribed a controlled substance at d/c from ED?: No Referrals: Tyler Black MD [Primary Care Provider] - 1-2 days
[2023-12-02] MEDS: METOCLOPRAMIDE 5 MG/ML 2 ML VIAL IVP STA ×3 (17:22→23:31)
[2023-12-02] MEDS: diphenhydrAMINE 50 MG/ML 1 ML VIAL IVP STA (17:22)
[2023-12-02] MEDS: SODIUM CHLORIDE 0.9% 500 ML 500 ML IV STA ×2 (17:23→23:26)
[2023-12-02] MEDS: MORPHINE SULFATE 4 MG/ML SYRINGE IV STA (17:23)
--- NOTE | 2023-12-02 17:57 | CT ---
EXAMINATION TYPE: CT brain wo con CT DLP: 1111.4 mGycm, Automated exposure control for dose reduction was used. DATE OF EXAM: 12/02/2023 5:38 PM COMPARISON: 10/31/2023 CLINICAL INDICATION:Female, 53 years old with history of Worst headache, L frontal., Migrane since th is morning. TECHNIQUE: Brain: Axial CT images of the brain were obtained with coronal and sagittal reformats created and rev iewed. Contrast used: None. Oral contrast used: None. FINDINGS: Brain: Extra-axial spaces: No abnormal extra-axial fluid collections. Ventricular system: Within normal limits Cerebral parenchyma: No acute intraparenchymal hemorrhage or mass effect. The monsivais-white junction is well differentiated. Cerebellum: Unremarkable. Mass effect: No evidence of midline shift. Intracranial vasculature: unremarkable Soft tissues: Normal. Calvarium/osseous structures: No depressed skull fracture. Paranasal sinuses and mastoid air cells: Mild scattered paranasal sinus disease. Visualized orbits: Orbital contents are intact. IMPRESSION: No acute intracranial process.
[2023-12-02] MEDS: KETOROLAC 15 MG/ML 1 ML VIAL IVP STA ×2 (18:19→23:27)
[2023-12-02] MEDS: SUMAtriptan succinate 6 MG/0.5 ML VIAL SQ STA (18:21)
[2023-12-02] MEDS: DIHYDROERGOTAMINE MESYLATE 1 MG/ML 1 ML AMP SQ SCH (20:10)
[2023-12-02] MEDS: HYDROmorphone 1 MG/ML 1 ML SYRINGE IVP STA (21:44)
[2023-12-02] MEDS: methylPREDNISolone SOD SUCCI 125 MG/2 ML VIAL IV STA (23:29)
[2023-12-02] MEDS: ONDANSETRON 4 MG/2 ML VIAL IVP STA (23:33)
[2023-12-03 00:08] VITALS: BP 123/76; PULSE 81; TEMP 98.1
== END 2023-12-03 00:06 | disposition home or self-care (01) ==
LOC: EC 16:25
DX: G43.909 Migraine, unspecified, not intractable, without status migrainosus (principal); H57.12 Ocular pain, left eye
CPT/HCPCS: 70450; 99284; 96374; 96375 ×5; 96376 ×3; 96361 ×2; 96372 ×4; J3030; J1110; J2270; J1200; J2765; J2405; J1170; J1885; J2919

== ENCOUNTER → 2023-12-15 | Outpatient (CLI) | payer MEDICARE, OTHER ==
--- NOTE | 2023-12-15 13:32 | NM ---
EXAMINATION TYPE: NM bone 3 phase DATE OF EXAM: 12/15/2023 COMPARISON: NONE CLINICAL INDICATION: Female, 53 years old with history of [id number] PAIN DUE TO INTERNAL ORTHOPEDIC CO Z96.651; Triple phase bone scintigraphy was performed following the injection of 23.7 mCi Tc 99m MDP. Immedia te images and 5 hours post injection images acquired. FINDINGS: Photopenic defect right knee compatible with total knee arthroplasty. No evidence of abnormal uptake about the femoral or tibial component at this time. Intense uptake is seen left patellofemoral joint space compatible with advanced degenerative change. IMPRESSION: Osteoarthritis left knee.
== END | disposition home or self-care (01) ==
LOC: RADNMMAIN 07:29
PROVIDERS: ATTEND Orthopaedic Surgery
DX: T84.84XA Pain due to internal orthopedic prosthetic devices, implants and grafts, initial encounter (principal); M17.12 Unilateral primary osteoarthritis, left knee; Z96.651 Presence of right artificial knee joint
CPT/HCPCS: 78315; A9503

== ENCOUNTER 2023-12-31 07:36 | Emergency (ER) | payer MEDICARE, OTHER ==
[2023-12-31] MEDS: SODIUM CHLORIDE 0.9% 500 ML 500 ML IV ONE (08:11)
[2023-12-31] MEDS: KETOROLAC 15 MG/ML 1 ML VIAL IVP STA ×2 (08:19→09:39)
[2023-12-31] MEDS: diphenhydrAMINE 50 MG/ML 1 ML VIAL IVP STA (08:21)
[2023-12-31] MEDS: droPERidol 5 MG/2 ML VIAL IVP ONE (08:22)
--- NOTE | 2023-12-31 09:11 | ED ---
Headache HPI - General Chief Complaint: Headache Stated Complaint: migraine Time Seen by Provider: 12/31/23 07:59 Source: RN notes reviewed Mode of arrival: ambulatory Limitations: no limitations - History of Present Illness Initial Comments: 53-year-old female presents emergency department complaint of headache. Patient has chronic headaches normally takes Nurtec states it did not relieve her headache she states she has come the hospital frequently for headaches. Patient denies any focal weakness this is her typical headache. Patient denies any f delaney or chills no neck pain no trauma. - Related Data Home Medications Medication Instructions Recorded Confirmed Pregabalin [Lyrica] 150 mg PO TID 10/09/14 08/28/20 Montelukast [Singulair] 10 mg PO HS 06/23/15 08/28/20 Levothyroxine Sodium [Synthroid] 150 mcg PO DAILY 02/16/17 08/28/20 HYDROcodone/APAP 10-325MG [[place] 1 tab PO TID 01/05/19 08/28/20 10-325] Sertraline [Zoloft] 100 mg PO BID 01/05/19 08/28/20 tiZANidine [Zanaflex] 4 mg PO TID 06/28/19 08/28/20 Omeprazole [PriLOSEC] 40 mg PO DAILY 07/10/19 08/28/20 Brexpiprazole [Rexulti] 4 mg PO HS 06/27/20 08/28/20 Galcanezumab-Gnlm [Emgality] 120 mg SQ QMONTHLY 06/27/20 08/28/20 Propranolol HCl [Inderal] 60 mg PO BID 06/27/20 08/28/20 buPROPion XL [Wellbutrin Xl] 150 mg PO BID 06/27/20 08/28/20 Ascorbic Acid [Vitamin C] 500 mg PO DAILY 08/28/20 08/28/20 Atorvastatin Calcium [Lipitor] 80 mg PO HS 08/28/20 08/28/20 Cholecalciferol [Vitamin D3 (25 25 mcg PO DAILY 08/28/20 08/28/20 Mcg = 1000 Iu)] Dulaglutide [Trulicity] 3 mg SQ MO 08/28/20 08/28/20 Magnesium Oxide 400 mg PO DAILY 08/28/20 08/28/20 Melatonin [Melatonin Dissolving 10 mg PO HS PRN 08/28/20 08/28/20 Tablet] Zolpidem Tartrate [Ambien] 10 mg PO HS 08/28/20 08/28/20 methocarbamoL [Robaxin] 500 mg PO HS 08/28/20 08/28/20 oxyBUTYnin chloride [Ditropan XL] 5 mg PO BID 08/28/20 08/28/20 Previous Rx's Medication Instructions Recorded Apixaban [Eliquis] 5 mg PO BID #60 tab 01/10/19 predniSONE 50 mg PO DAILY #5 tablet 08/26/20 Azithromycin [Zithromax] 500 mg PO DAILY 4 Days #4 tab 08/28/20 Ketorolac [Toradol] 10 mg PO Q8HR #8 tab 08/28/20 dexAMETHasone [Decadron] 6 mg PO DAILY 5 Days #5 tablet 08/28/20 Ketorolac [Toradol] 10 mg PO Q6HR PRN #15 tab 10/31/23 Ondansetron Odt [Zofran Odt] 4 mg PO Q8HR PRN #15 tab 10/31/23 Allergies Allergy/AdvReac Type Severity Reaction Status Date / Time No Known Allergies Allergy Verified 05/26/23 15:42 Review of Systems ROS Statement: Those systems with pertinent positive or pertinent negative responses have been documented in the HPI. ROS Other: All systems not noted in ROS Statement are negative. Past Medical History Past Medical History: Asthma, COPD, Diabetes Mellitus, Fibromyalgia, GERD/Reflux, Pneumonia, Pulmonary Embolus (PE), Seizure Disorder, Sleep Apnea/CPAP/BIPAP, Thyroid Disorder Additional Past Medical History / Comment(s): Chronic asthma, chronic COPD, recurrent pneumonias, bronchitis, hx of respiratory stridor, PE in 2003 and 2009-bilateral lungs, MAGALI with CPAP, NIDDM type II-pt states borderline, psuedo seizures with last one in 2017, past gastric ulcer, DDD, LOWER BACK PAIN- RADIATES DOWN RT LEG, R toes,neuropathy, generalized pain from fibromyalgia, chronic MIGRAINES, seasonal allergies, hypothyroidism, urinary leakage at times, healed wound on abdomen from surgical dehiscence, insomnia, cellulitis R arm, pt has had wound dehiscence panniculetomy incision and it still opens alittle at times-she goes to [facility] [place] about once a month. History of Any Multi-Drug Resistant Organisms: None Reported Past Surgical History: Back Surgery, Bariatric Surgery, Cholecystectomy, Joint Replacement, Orthopedic Surgery Additional Past Surgical History / Comment(s): 11/12/16 bronchoscopy wit BAL, gastric bypass 2011, panniculectomy with wound dehiscence/debridements, 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 Past Anesthesia/Blood Transfusion Reactions: No Reported Reaction Past Psychological History: Anxiety, Depression Smoking Status: Never smoker Past Alcohol Use History: None Reported Past Drug Use History: None Reported - Past Family History Brother(s) Family Medical History: Cancer Additional Family Medical History / Comment(s): spine Father Family Medical History: Coronary Artery Disease (CAD), CVA/TIA, Diabetes Mellitus, Hypertension, Thyroid Disorder Additional Family Medical History / Comment(s): X3 STROKES, STENTS IN HEART,Pacemaker Mother Family Medical History: Diabetes Mellitus, Hypertension, Thyroid Disorder Additional Family Medical History / Comment(s): KNEE REPLACEMENTS General Exam Limitations: no limitations General appearance: alert, in no apparent distress Head exam: Present: atraumatic, normocephalic, normal inspection Eye exam: Present: normal appearance, PERRL, EOMI. Absent: scleral icterus, conjunctival injection, periorbital swelling ENT exam: Present: normal exam, normal oropharynx, mucous membranes moist Neck exam: Present: normal inspection, full ROM. Absent: tenderness, meningismus, lymphadenopathy Respiratory exam: Present: normal lung sounds bilaterally. Absent: respiratory distress, wheezes, rales, rhonchi, stridor Cardiovascular Exam: Present: regular rate, normal rhythm, normal heart sounds. Absent: systolic murmur, diastolic murmur, rubs, gallop, clicks Neurological exam: Present: alert, oriented X3, CN II-XII intact, reflexes normal. Absent: motor sensory deficit Course Vital Signs 12/31/23 12/31/23 07:49 10:10 Temperature 97.8 F 98 F Pulse Rate 83 78 Respiratory 20 18 Rate Blood Pressure 135/81 129/76 O2 Sat by Pulse 99 99 Oximetry Medical Decision Making - Medical Decision Making Was pt. sent in by a medical professional or institution (, PA, CRAB MEAT PROCESSOR, urgent care, hospital, or correction...) When possible be specific @ -No Did you speak to anyone other than the patient for history (EMS, parent, family, police, friend...)? What history was obtained from this source @ -No Did you review nursing and triage notes (agree or disagree)? Why? @ -I reviewed and agree with nursing and triage notes Were old charts reviewed (outside hosp., previous admission, EMS record, old EKG, old radiological studies, urgent care reports/EKG's, correction records)? Report findings @Reviewed recent CT brain Differential Diagnosis (chest pain, altered mental status, abdominal pain women, abdominal pain men, vaginal bleeding, weakness, fever, dyspnea, syncope, headache, dizziness, GI bleed, back pain, seizure, CVA, palpatations, mental health, musculoskeletal)? @ -Differential Headache: Migraine, tension, cluster, carbon monoxide, central venous thrombosis, pension karma temporal arteritis, acute closure glaucoma, intercranial hemorrhage, mastoiditis, sinusitis, head injury, this is not meant to be an all-inclusive list. EKG interpreted by me (3pts min.). @ -None none X-rays interpreted by me (1pt min.). @ -None done CT interpreted by me (1pt min.). @ -None done U/S interpreted by me (1pt. min.). @ -None done What testing was considered but not performed or refused? (CT, X-rays, U/S, labs)? Why? @ -None What meds were considered but not given or refused? Why? @ -None Did you discuss the management of the patient with other professionals (professionals i.e. , PA, CRAB MEAT PROCESSOR, lab, RT, psych nurse, licensed social worker, business lawyer, teacher, search and rescue officer, upper caser)? Give summary @ -No Was smoking cessation discussed for >3mins.? @ -No Was critical care preformed (if so, how long)? @ -No Were there social determinants of health that impacted care today? How? (Homelessness, low income, unemployed, alcoholism, drug addiction, transportation, low edu. Level, literacy, decrease access to med. care, custodial, rehab)? @ -No Was there de-escalation of care discussed even if they declined (Discuss DNR or withdrawal of care, Hospice)? DNR status @ -No What co-morbidities impacted this encounter? (DM, HTN, Smoking, COPD, CAD, Cancer, CVA, ARF, Chemo, Hep., AIDS, mental health diagnosis, sleep apnea, morbid obesity)? @ -Frequent headaches Was patient admitted / discharged? Hospital course, mention meds given and route, prescriptions, significant lab abnormalities, going to OR and other pertinent info. @ -Discharge patient was given droperidol Toradol, Benadryl patient was sleeping upon reevaluation headache is resolved will be discharged in stable condition neurological intact Undiagnosed new problem with uncertain prognosis? @ -No Drug Therapy requiring intensive monitoring for toxicity (Heparin, Nitro, Insulin, Cardizem)? @ -No Were any procedures done? @ -No Diagnosis/symptom? @ -Headache Acute, or Chronic, or Acute on Chronic? @ -Acute Uncomplicated (without systemic symptoms) or Complicated (systemic symptoms)? @ -Uncomplicated Side effects of treatment? @ -No Exacerbation, Progression, or Severe Exacerbation? @ -No Poses a threat to life or bodily function? How? (Chest pain, [place], [place], pneumonia, PE, COPD, DKA, ARF, appy, cholecystitis, CVA, Diverticulitis, Homicidal, Suicidal, threat to staff... and all critical care pts) @ -No Disposition Clinical Impression: Headache Disposition: HOME SELF-CARE Condition: Stable Instructions (If sedation given, give patient instructions): Acute Headache (ED) Additional Instructions: Please return to the Emergency Department if symptoms worsen or any other concerns. Is patient prescribed a controlled substance at d/c from ED?: No Referrals: Tyler Black MD [Primary Care Provider] - 1-2 days Time of Disposition: 09:10
[2023-12-31 10:13] VITALS: BP 129/76; PULSE 78; RESP 18; TEMP 98
== END 2023-12-31 10:42 | disposition home or self-care (01) ==
LOC: EC 07:36
DX: R51.9 Headache, unspecified (principal)
CPT/HCPCS: 96374; 96375; 96376; 99283

== ENCOUNTER 2024-06-10 14:14 | Emergency (ER) | payer MEDICARE, OTHER ==
--- NOTE | 2024-06-10 16:06 | ED ---
General Adult HPI - General Source: patient, RN notes reviewed Mode of arrival: wheelchair Limitations: no limitations <Dorina Jaimes - Last Filed: 06/10/24 16:06> <Darin Hoyos - Last Filed: 06/20/24 06:07> - General Chief complaint: Shortness of Breath Stated complaint: PK Time Seen by Provider: 06/10/24 16:04 - History of Present Illness Initial comments: 53-year-old female presents to the emergency department for evaluation of shortness of breath. Patient reports that she was recently admitted to [facility] and reports having a scope down her nose. She reports being on oral antibiotics now. (Dorina Jaimes) - Related Data Home Medications Medication Instructions Recorded Confirmed Pregabalin [Lyrica] 150 mg PO TID@0600,1400,199910/09/14 06/10/24 Levothyroxine Sodium [Synthroid] 150 mcg PO DAILY@0600 02/16/17 06/10/24 HYDROcodone/APAP 10-325MG [[place] 1 tab PO QID 01/05/19 06/10/24 10-325] Sertraline [Zoloft] 100 mg PO BID@0600,199901/05/19 06/10/24 Omeprazole [PriLOSEC] 40 mg PO HS@199907/10/19 06/10/24 Brexpiprazole [Rexulti] 4 mg PO HS@199906/27/20 06/10/24 Galcanezumab-Gnlm [Emgality] 120 mg SQ QMONTHLY 06/27/20 06/10/24 Propranolol HCl [Inderal] 60 mg PO BID@0600,199906/27/20 06/10/24 buPROPion XL [Wellbutrin Xl] 150 mg PO BID@0600,199906/27/20 06/10/24 Atorvastatin Calcium [Lipitor] 80 mg PO HS@199908/28/20 06/10/24 Zolpidem Tartrate [Ambien] 10 mg PO HS@199908/28/20 06/10/24 Albuterol Sulfate/Budesonide 2 puff INHALATION RT-Q4H PRN 06/10/24 06/10/24 [Airsupra 90-80 Mcg Inhaler] Apixaban [Eliquis] 5 mg PO BID@0600,199906/10/24 06/10/24 Cyclobenzaprine [Flexeril] 5 mg PO BID 06/10/24 06/10/24 Loratadine 10 mg PO DAILY@0606/10/24 06/10/24 Promethazine 6.25MG/5Ml [Phenergan 6.25 mg PO Q4H PRN 06/10/24 06/10/24 Syrup] Tirzepatide [Mounjaro] 7.5 mg SQ TH 06/10/24 06/10/24 Trospium Chloride [Sanctura XR] 60 mg PO HS@199906/10/24 06/10/24 methylPREDNISolone Dose Pack See Taper PO DIRECTED 06/10/24 06/10/24 [Medrol Dose Pack] tiZANidine [Zanaflex] 2 mg PO BID@599,199906/10/24 06/10/24 Previous Rx's Medication Instructions Recorded Oseltamivir [Tamiflu] 75 mg PO Q12HR #10 cap 06/10/24 Allergies Allergy/AdvReac Type Severity Reaction Status Date / Time No Known Allergies Allergy Verified 06/10/24 18:34 Review of Systems ROS Other: All systems not noted in ROS Statement are negative. <Dorina Jaimes - Last Filed: 06/10/24 16:06> ROS Other: All systems not noted in ROS Statement are negative. <Darin Hoyos - Last Filed: 06/20/24 06:07> ROS Statement: Those systems with pertinent positive or pertinent negative responses have been documented in the HPI. Past Medical History Past Medical History: Asthma, COPD, Diabetes Mellitus, Fibromyalgia, GERD/Reflux, Pneumonia, Pulmonary Embolus (PE), Seizure Disorder, Sleep Apnea/CPAP/BIPAP, Thyroid Disorder Additional Past Medical History / Comment(s): Chronic asthma, chronic COPD, recurrent pneumonias, bronchitis, hx of respiratory stridor, PE in 2003 and 2009-bilateral lungs, MAGALI with CPAP, NIDDM type II-pt states borderline, psuedo seizures with last one in 2017, past gastric ulcer, DDD, LOWER BACK PAIN- RADIATES DOWN RT LEG, R toes,neuropathy, generalized pain from fibromyalgia, chronic MIGRAINES, seasonal allergies, hypothyroidism, urinary leakage at times, healed wound on abdomen from surgical dehiscence, insomnia, cellulitis R arm, pt has had wound dehiscence panniculetomy incision and it still opens alittle at times-she goes to [facility] [place] about once a month. History of Any Multi-Drug Resistant Organisms: None Reported Past Surgical History: Back Surgery, Bariatric Surgery, Cholecystectomy, Joint Replacement, Orthopedic Surgery Additional Past Surgical History / Comment(s): 11/12/16 bronchoscopy wit BAL, gastric bypass 2011, panniculectomy with wound dehiscence/debridements, 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 Past Anesthesia/Blood Transfusion Reactions: No Reported Reaction Past Psychological History: Anxiety, Depression Smoking Status: Never smoker Past Alcohol Use History: None Reported Past Drug Use History: None Reported - Past Family History Brother(s) Family Medical History: Cancer Additional Family Medical History / Comment(s): spine Father Family Medical History: Coronary Artery Disease (CAD), CVA/TIA, Diabetes Mellitus, Hypertension, Thyroid Disorder Additional Family Medical History / Comment(s): X3 STROKES, STENTS IN HEART,Pacemaker Mother Family Medical History: Diabetes Mellitus, Hypertension, Thyroid Disorder Additional Family Medical History / Comment(s): KNEE REPLACEMENTS <Dorina Jaimes - Last Filed: 06/10/24 16:06> General Exam Limitations: no limitations <Dorina Jaimes - Last Filed: 06/10/24 16:06> General appearance: alert, in no apparent distress Head exam: Present: atraumatic, normocephalic Eye exam: Present: normal appearance. Absent: scleral icterus, conjunctival injection ENT exam: Present: normal oropharynx Neck exam: Present: normal inspection Respiratory exam: Present: wheezes (Trace expiratory wheeze), rhonchi. Absent: respiratory distress, rales, stridor, accessory muscle use Cardiovascular Exam: Present: regular rate, normal rhythm, normal heart sounds. Absent: systolic murmur, diastolic murmur, rubs, gallop GI/Abdominal exam: Present: soft. Absent: distended, tenderness, guarding, rebound, rigid, mass Extremities exam: Present: normal inspection, normal capillary refill. Absent: pedal edema, calf tenderness Back exam: Present: normal inspection. Absent: CVA tenderness (R), CVA tenderness (L) Neurological exam: Present: alert Skin exam: Present: warm, dry, intact, normal color. Absent: rash <Darin Hoyos - Last Filed: 06/20/24 06:07> - General Exam Comments Initial Comments: Visual Physical Exam Vital signs reviewed General: Well-appearing, nontoxic, no acute distress. Head: Normocephalic, atraumatic Eyes: PERRLA, EOMI ENT: Airway patent Chest: Nonlabored breathing Skin: No visual rash, normal skin tone Neuro: Alert and oriented 3 Musculoskeletal: No gross abnormalities (Dorina Jaimes) Course Vital Signs 06/10/24 06/10/24 06/10/24 14:31 16:30 19:21 Temperature 98.7 F 98.6 F Pulse Rate 98 89 92 Respiratory 20 22 20 Rate Blood Pressure 107/62 146/77 138/72 O2 Sat by Pulse 95 96 95 Oximetry Medical Decision Making <Dorina Jaimes - Last Filed: 06/10/24 16:06> - Lab Data Result diagrams: 06/10/24 16:26 06/10/24 16:26 <Darin Hoyos - Last Filed: 06/20/24 06:07> - Medical Decision Making Quick note preformed and electronically signed by Dorina Jaimes PA-C (Dorina Jaimes) The patient had chest x-ray that I interpreted as negative for acute infiltrate, pneumothorax, congestive heart failure The patient had soft tissue neck x-ray that I interpreted as negative for narrow ing of the airways, bony injury, foreign body. Was pt. sent in by a medical professional or institution ([facility], [facility], urgent care, hospital, or [facility]...) When possible be specific @ -[No] Did you speak to anyone other than the patient for history (EMS, parent, family, police, friend...)? What history was obtained from this source @ -[No] Did you review nursing and triage notes (agree or disagree)? Why? @ -[I reviewed and agree with nursing and triage notes] Were old charts reviewed (outside hosp., previous admission, EMS record, old EKG, old radiological studies, urgent care reports/EKG's, [facility] records)? Report findings @ -[No old charts were reviewed] Differential Diagnosis (chest pain, altered mental status, abdominal pain women, abdominal pain men, vaginal bleeding, weakness, fever, dyspnea, syncope, headache, dizziness, GI bleed, back pain, seizure, CVA, palpatations, mental health, musculoskeletal)? @ -[not applicable] EKG interpreted by me (3pts min.). @ -[As above] X-rays interpreted by me (1pt min.). @ -[I interpreted as above CT interpreted by me (1pt min.). @ -[None done] U/S interpreted by me (1pt. min.). @ -[None done] What testing was considered but not performed or refused? (CT, X-rays, U/S, labs)? Why? @ -[None] What meds were considered but not given or refused? Why? @ -[None] Did you discuss the management of the patient with other professionals (professionals i.e. , PA, [employer], lab, RT, psych nurse, social insurance adviser, commercial painter, teacher, police officer crime prevention, housing case manager)? Give summary @ -[No] Was smoking cessation discussed for >3mins.? @ -[No] Was critical care preformed (if so, how long)? @ -[No] Were there social determinants of health that impacted care today? How? (Homelessness, low income, unemployed, alcoholism, drug addiction, transportation, low edu. Level, literacy, decrease access to med. care, long term, rehab)? @ -[No] Was there de-escalation of care discussed even if they declined (Discuss DNR or withdrawal of care, Hospice)? DNR status @ -[No] What co-morbidities impacted this encounter? (DM, HTN, Smoking, COPD, CAD, Cancer, CVA, ARF, Chemo, Hep., AIDS, mental health diagnosis, sleep apnea, morbid obesity)? @ -[None] Was patient admitted / discharged? Hospital course, mention meds given and route, prescriptions, significant lab abnormalities, going to OR and other pertinent info. @ -[hospital course] Undiagnosed new problem with uncertain prognosis? @ -[No] Drug Therapy requiring intensive monitoring for toxicity (Heparin, Nitro, Insulin, Cardizem)? @ -[No] Were any procedures done? @ -[No] Diagnosis/symptom? @ -[Acute influenza A infection Acute, or Chronic, or Acute on Chronic? @ -[Acute Uncomplicated (without systemic symptoms) or Complicated (systemic symptoms)? @ -[Uncomplicated Side effects of treatment? @ -[No] Exacerbation, Progression, or Severe Exacerbation? @ -[No] Poses a threat to life or bodily function? How? (Chest pain, [place], [place], pneumonia, PE, COPD, DKA, ARF, appy, cholecystitis, CVA, Diverticulitis, Homicidal, Suicidal, threat to staff... and all critical care pts) @ -[No] All treatments are based on ideal body weight as in ED triage (Darin Hoyos) - Lab Data Lab Results 06/10/24 06/10/24 06/10/24 Range/Units 16:17 16:26 16:26 WBC 5.0 (3.8-10.6) k/uL RBC 4.03 (3.80-5.40) m/uL Hgb 11.7 (11.4-16.0) gm/dL Hct 35.4 (34.0-46.0) % MCV 87.8 (80.0-100.0) fL MCH 29.0 (25.0-35.0) pg MCHC 33.1 (31.0-37.0) g/dL RDW 14.5 (11.5-15.5) % Plt Count 118 L (150-450) k/uL MPV 9.8 Neutrophils % 75 % Lymphocytes % 14 % Monocytes % 8 % Eosinophils % 2 % Basophils % 0 % Neutrophils # 3.8 (1.3-7.7) k/uL Lymphocytes # 0.7 L (1.0-4.8) k/uL Monocytes # 0.4 (0-1.0) k/uL Eosinophils # 0.1 (0-0.7) k/uL Basophils # 0.0 (0-0.2) k/uL Sodium 136 L (137-145) mmol/L Potassium 3.5 (3.5-5.1) mmol/L Chloride 106 (98-107) mmol/L Carbon Dioxide 22 (22-30) mmol/L Anion Gap 8 mmol/L BUN 7 (7-17) mg/dL Creatinine 0.79 (0.52-1.04) mg/dL Est GFR (CKD-EPI)AfAm >90 (>60 ml/min/1.73 sqM) Est GFR (CKD-EPI)NonAf 88 (>60 ml/min/1.73 sqM) Glucose 104 H (74-99) mg/dL Plasma Lactic Acid Sunday (0.7-2.0) mmol/L Calcium 8.2 L (8.4-10.2) mg/dL Total Bilirubin 0.2 (0.2-1.3) mg/dL AST 60 H (14-36) U/L ALT 70 H (4-34) U/L Alkaline Phosphatase 91 (38-126) U/L Total Protein 5.8 L (6.3-8.2) g/dL Albumin 3.5 (3.5-5.0) g/dL Influenza Type A (PCR) Detected A (Not Detectd) Influenza Type B (PCR) Not Detected (Not Detectd) RSV (PCR) Not Detected (Not Detectd) SARS-CoV-2 (PCR) Not Detected (Not Detectd) 06/10/24 Range/Units 16:26 WBC (3.8-10.6) k/uL RBC (3.80-5.40) m/uL Hgb (11.4-16.0) gm/dL Hct (34.0-46.0) % MCV (80.0-100.0) fL MCH (25.0-35.0) pg MCHC (31.0-37.0) g/dL RDW (11.5-15.5) % Plt Count (150-450) k/uL MPV Neutrophils % % Lymphocytes % % Monocytes % % Eosinophils % % Basophils % % Neutrophils # (1.3-7.7) k/uL Lymphocytes # (1.0-4.8) k/uL Monocytes # (0-1.0) k/uL Eosinophils # (0-0.7) k/uL Basophils # (0-0.2) k/uL Sodium (137-145) mmol/L Potassium (3.5-5.1) mmol/L Chloride (98-107) mmol/L Carbon Dioxide (22-30) mmol/L Anion Gap mmol/L BUN (7-17) mg/dL Creatinine (0.52-1.04) mg/dL Est GFR (CKD-EPI)AfAm (>60 ml/min/1.73 sqM) Est GFR (CKD-EPI)NonAf (>60 ml/min/1.73 sqM) Glucose (74-99) mg/dL Plasma Lactic Acid Sunday 1.0 (0.7-2.0) mmol/L Calcium (8.4-10.2) mg/dL Total Bilirubin (0.2-1.3) mg/dL AST (14-36) U/L ALT (4-34) U/L Alkaline Phosphatase (38-126) U/L Total Protein (6.3-8.2) g/dL Albumin (3.5-5.0) g/dL Influenza Type A (PCR) (Not Detectd) Influenza Type B (PCR) (Not Detectd) RSV (PCR) (Not Detectd) SARS-CoV-2 (PCR) (Not Detectd) Disposition <Dorina Jaimes - Last Filed: 06/10/24 16:06> Is patient prescribed a controlled substance at d/c from ED?: No <Darin Hoyos - Last Filed: 06/20/24 06:07> Clinical Impression: Influenza A Disposition: HOME SELF-CARE Condition: Good Instructions (If sedation given, give patient instructions): Influenza (DC) Prescriptions: Oseltamivir [Tamiflu] 75 mg PO Q12HR #10 cap Referrals: Tyler Black MD [Primary Care Provider] - 1-2 days
[2024-06-10] MEDS: HYDROcodone/APAP 5-325MG 1 EACH TAB PO STA (16:28)
[2024-06-10 16:44] LABS: Basophils % (A) 0 %; Eosinophils # (A) 0.1 k/uL (0-0.7); Eosinophils % (A) 2 %; HCT 35.4 % (34.0-46.0); HGB 11.7 gm/dL (11.4-16.0); Lymphocytes # (A) 0.7 k/uL (1.0-4.8); Lymphocytes % (A) 14 %; MCHC 33.1 g/dL (31.0-37.0); MCV 87.8 fL (80.0-100.0); Mean Platelet Volume 9.8; Monocytes # (A) 0.4 k/uL (0-1.0); Monocytes % (A) 8 %; Neutrophils # (A) 3.8 k/uL (1.3-7.7); Neutrophils % (A) 75 %; Platelet Count 118 k/uL (150-450); RBC 4.03 m/uL (3.80-5.40); RDW 14.5 % (11.5-15.5)
[2024-06-10 16:47] LABS: ALT 70 U/L (4-34); AST 60 U/L (14-36); African American GFR (CKD) >90 (>60 ml/min/1.73 sqM); Albumin 3.5 g/dL (3.5-5.0); Alkaline Phosphatase 91 U/L (38-126); Anion Gap 8 mmol/L; Blood Urea Nitrogen 7 mg/dL (7-17); Calcium 8.2 mg/dL (8.4-10.2); Carbon Dioxide 22 mmol/L (22-30); Chloride 106 mmol/L (98-107); Glucose 104 mg/dL (74-99); Non-African American GFR(CKD) 88 (>60 ml/min/1.73 sqM); Potassium 3.5 mmol/L (3.5-5.1); Sodium 136 mmol/L (137-145); Total Bilirubin 0.2 mg/dL (0.2-1.3); Total Protein 5.8 g/dL (6.3-8.2)
[2024-06-10 17:07] LABS: Influenza A Detected (Not Detectd); Influenza B Not Detected (Not Detectd); RSV Not Detected (Not Detectd)
--- NOTE | 2024-06-10 17:19 | XR ---
EXAMINATION TYPE: XR chest 2V DATE OF EXAM: 06/10/2024 4:49 PM COMPARISON: Chest radiographs from 08/28/2020 CLINICAL INDICATION: Female, 53 years old with history of dyspnea; [facility] TECHNIQUE: XR chest 2V Frontal and lateral views of the chest. FINDINGS: Lungs/Pleura: There is no evidence of pleural effusion, focal consolidation, or pneumothorax. Pulmonary vascularity: Unremarkable. Heart/mediastinum: Cardiomediastinal silhouette is unremarkable. Musculoskeletal: No acute osseous pathology. IMPRESSION: No acute cardiopulmonary disease/process. [facility], , 06/10/2024 5:17 PM
--- NOTE | 2024-06-10 17:23 | XR ---
EXAMINATION TYPE: XR soft tissue neck DATE OF EXAM: 06/10/2024 4:49 PM COMPARISON: None CLINICAL INDICATION: Female, 53 years old with history of dyspnea; [facility] TECHNIQUE: The soft tissues of the neck were imaged in frontal and lateral views. FINDINGS: The prevertebral soft tissues are unremarkable. There is no evidence of mass effect or trac heal deviation. No acute osseous abnormality demonstrated. No evidence of subglottic narrowing. IMPRESSION: No significant abnormality identified within the soft tissues of the neck. [facility], , 06/10/2024 5:20 PM
[2024-06-10] MEDS: OSELTAMIVIR 75 MG CAP PO STA (18:38)
[2024-06-10] MEDS: KETOROLAC 15 MG/ML 1 ML VIAL IVP STA (18:40)
[2024-06-10 19:23] VITALS: BP 138/72; PULSE 92; RESP 20; TEMP 98.6
== END 2024-06-10 19:23 | disposition home or self-care (01) ==
LOC: EC 14:14
DX: J10.1 Influenza due to other identified influenza virus with other respiratory manifestations (principal)
CPT/HCPCS: 36415; 80053; 83605; 85025; 87636; 70360; 71046; 99285; 96374; J1885

== ENCOUNTER → 2024-11-15 | Outpatient (CLI) | payer MEDICARE, OTHER ==
--- NOTE | 2024-11-15 08:58 | MM ---
Reason for Exam: Screening (asymptomatic). Last mammogram was performed 8 year(s) and 5 month(s) ago. Patient History: Menarche at age 14. Patient has no children. Postmenopausal. Risk Values: Sarah 5 year model risk: 1.2%. NCI Lifetime model risk: 9.6%. Prior Study Comparison: 01/26/2013 Bilateral Screening Mammogram, [facility]. 06/15/2016 Bilateral Screening Mammogram, [facility]. Tissue Density: The breasts are almost entirely fatty. Findings: Analyzed By CAD. Redemonstrated benign bilateral oil cyst calcifications. There is no suspicious group of microcalcifications or new suspicious mass in either breast. Overall Assessment: Benign, BI-RAD 2 Management: Screening Mammogram of both breasts in 1 year. Patient should continue monthly self-breast exams. A clinical breast exam by your physician is recommended on an annual basis. This exam should not preclude additional follow-up of suspicious palpable abnormalities. Note on Sarah scores and lifetime risk: 1. A Sarah score greater than 3% is considered moderate risk. If this is the case, consider specialist referral to assess eligibility for a risk reducing agent. 2. If overall lifetime risk for the development of breast cancer is 20% or higher, the patient may qualify for future screening with alternating mammogram and breast MRI. [facility], , 11/15/2024 8:55 AM. Electronically signed and approved by: Dante Aviles M.D. Radiologist
--- NOTE | 2024-11-15 10:07 | BD ---
EXAMINATION TYPE: Axial Bone Density DATE OF EXAM: 11/15/2024 CLINICAL HISTORY: 54 years old Female. ICD-10 CODE: Z78.0 POST MENOPAUSAL , Additional History: Height: 63 Weight: 259 FRAX RISK QUESTIONS: Glucocorticoids (More than 3mos): yes, asthma treatments (Ex: prednisone, prednisolone, methylprednisolone, dexamethasone, and hydrocortisone). Secondary Osteoporosis: yes 3. Menopause before 45: yes, at 41 yrs old RISK FACTORS HISTORY OF: hx of right wrist fx as a youth Surgery to Spine/Hip(right, thr and bone stimulator for pain in spine MEDICATIONS: bp med, heart pill, monjaro for diabetes, Thyroid Medications: yes synthroid for about 25 yrs EXAM MEASUREMENTS: Bone mineral densitometry was performed using the [employer] System. Bone mineral density as measured about the Lumbar spine is: ----- L1-L4(G/cm2): 1.245 T Score Values are as follows: ----- L1: 0.7 ----- L2: 0.8 ----- L3: 0.6 ----- L4: 0.0 ----- L1-L4: 0.5 Z Score Values are as follows: ----- L1: 0.1 ----- L2: 0.2 ----- L3: 0.0 ----- L4: -0.5 ----- L1-L4: 0.0 Bone mineral density is the first spine scan done for this patient. Bone mineral density about the L hip (g/cm2): 0.827 T Score values are as follows: -----L Neck: -2.4 -----L Total: -1.4 Z Score values are as follows: -----L Neck: -2.3 -----L Total: -1.7 Bone mineral density has: Increased 1.7% since study of: 02.23.2017 FRAX%s: The graph provided illustrates a 10.2% chance for a major osteoporotic fx and a 2.0% chance f or the hips probability for fx in 10 years time. IMPRESSION: Osteopenia (T Score between -2.5 and -1). However, note that measurements are bordering on osteoporos is at the left hip. There is slightly increased risk of fracture and the patient may be considered for treatment. Re-Screen 2-5 years. NOTE: T-SCORE=SD OF THE YOUNG ADULT MEAN. [facility], , 11/15/2024 10:05 AM
== END | disposition home or self-care (01) ==
LOC: RADMAMWWP 07:53
PROVIDERS: ATTEND Family Medicine
DX: Z12.31 Encounter for screening mammogram for malignant neoplasm of breast (principal); R92.313 Mammographic fatty tissue density, bilateral breasts; M85.89 Other specified disorders of bone density and structure, multiple sites; Z78.0 Asymptomatic menopausal state
CPT/HCPCS: 77063; 77067; 77080